=== PATIENT | male | born 1965 | race Caucasian/White ===

== ENCOUNTER → 2018-01-30 08:30 | Outpatient (CLI) | payer OTHER, SELFPAY ==
[2018-01-30 10:34] LABS: Thyroid Stim Hormone (TSH) 2.42 uIU/mL (0.358-3.74)
== END ==
PROVIDERS: Family Provider Family Medicine; PCP Family Medicine; Visit Provider Family Medicine
DX: E03.9 Hypothyroidism, unspecified (principal); R53.81 Other malaise; R53.83 Other fatigue
CPT/HCPCS: 36415; 84403; 84443

== ENCOUNTER → 2018-02-10 08:28 | Outpatient (CLI) | payer OTHER, SELFPAY ==
--- NOTE | 2018-02-10 08:31 | RAD_ITS ---
STUDY: X-RAY CHEST REASON FOR EXAM: Male, 52 years old. Cough, chest congestion and fever for one week. TECHNIQUE: PA and lateral views of the chest. COMPARISON: Comparison is made with prior study dated September 08, 2012. FINDINGS: Stable elevation of the right hemidiaphragm. Mild increased markings at the right lung base most likely within the right middle lobe. Early infiltration be ruled out. Follow-up is recommended. There is no demonstrated pleural abnormality. Normal size heart. Normal mediastinum and chung. Normal visualized pulmonary arteries. Normal visualized aortic arch and descending thoracic aorta. There are diffuse degenerative changes of the visualized thoracic spine. Normal visualized ribs, clavicles, and shoulders. There is no demonstrated abnormality of the visualized soft tissue structures of the upper abdomen. RAD/Chest PA and Lateral IMPRESSION: Findings suggestive of early infiltrate in the right middle lobe. Follow-up is recommended. Electronically Signed: Landry Pratt MD at 8:51 EDT Tel [phone], Service support ,
== END ==
PROVIDERS: Family Provider Family Medicine; PCP Family Medicine; Visit Provider Physician Assistant Surgical
DX: R09.89 Other specified symptoms and signs involving the circulatory and respiratory systems (principal)
CPT/HCPCS: 71046

== ENCOUNTER → 2018-04-28 06:01 | Outpatient (CLI) | payer OTHER, SELFPAY ==
[2018-04-28 07:32] LABS: Microalbumin,Random Urine 8.5 mg/L (NO RANGE EST.); Microalbumin:Creatinine Ratio 9.6 mg/g CRE (<30 mg/g CRE)
[2018-04-28 07:43] LABS: AST(SGOT) 27 U/L (15-37); Alanine Aminotransfer ALT/SGPT 44 U/L (16-61); Albumin, Serum 3.7 g/dL (3.2-5.0); Alkaline Phosphatase 51 U/L (45-117); Anion Gap 11 (5-15); BUN 16 mg/dL (7-18); BUN/Creat Ratio 14.8 RATIO (10-20); Bilirubin, Direct 0.08 mg/dL (0.00-0.30); Calcium,Total 9.1 mg/dL (8.5-10.1); Chloride 102 mmol/L (98-107); Cholesterol 208 mg/dL (200); Creatinine, Serum 1.08 mg/dL (0.70-1.30); EST Glomerular Filtration Rate 76 mL/min (>60); Est Glom Filt Rate - Afr Amer 93 mL/min (>60); Free T3 2.7 pg/mL (2.18-3.98); Glucose 152 mg/dL (74-106); High Density Lipoprotein 35 mg/dL; Potassium 3.9 mmol/L (3.5-5.1); Protein, Total 7.7 g/dL (6.4-8.2); Sodium Level 139 mmol/L (136-145); T4 Total, Thyroxin 11.2 ug/dL (4.5-12.1); Thyroid Stim Hormone (TSH) 3.95 uIU/mL (0.358-3.74); Triglycerides 603 mg/dL
== END ==
PROVIDERS: Family Provider Family Medicine; PCP Family Medicine; Visit Provider Family Medicine
DX: E03.9 Hypothyroidism, unspecified (principal); R79.89 Other specified abnormal findings of blood chemistry; E11.9 Type 2 diabetes mellitus without complications
CPT/HCPCS: 36415; 80048; 80061; 80076; 82043; 82570; 84403; 84436; 84443; 84481

== ENCOUNTER → 2018-07-20 08:41 | Outpatient (CLI) | payer OTHER, SELFPAY ==
[2018-07-20 10:57] LABS: Anion Gap 10 (5-15); BUN 20 mg/dL (7-18); BUN/Creat Ratio 20.6 RATIO (10-20); Calcium,Total 9.3 mg/dL (8.5-10.1); Chloride 100 mmol/L (98-107); Creatinine, Serum 0.97 mg/dL (0.70-1.30); EST Glomerular Filtration Rate 87 mL/min (>60); Est Glom Filt Rate - Afr Amer 105 mL/min (>60); Glucose 150 mg/dL (74-106); Potassium 4.1 mmol/L (3.5-5.1); Sodium Level 133 mmol/L (136-145); Thyroid Stim Hormone (TSH) 4.65 uIU/mL (0.358-3.74)
[2018-07-20 11:00] LABS: Microalbumin,Random Urine 6.9 mg/L (NO RANGE EST.); Microalbumin:Creatinine Ratio 13.5 mg/g CRE (<30 mg/g CRE)
== END ==
PROVIDERS: Family Provider Family Medicine; PCP Family Medicine; Visit Provider Family Medicine
DX: E11.9 Type 2 diabetes mellitus without complications (principal); E03.9 Hypothyroidism, unspecified; R79.89 Other specified abnormal findings of blood chemistry
CPT/HCPCS: 36415; 80048; 82043; 82570; 84403; 84443

== ENCOUNTER 2018-10-13 08:34 | Day surgery (SDC) | payer OTHER, SELFPAY ==
[2018-10-13 09:06] VITALS: BP 128/73; PULSE 80; RESP 16; TEMP 36.8; O2SAT 95; BMI 40.0
[2018-10-13 09:16] LABS: Bedside Glucose 145 mg/dL (70-110)
--- NOTE | 2018-10-13 10:06 | PCM.HP.STD ---
Problem List (1) Screening for intestinal cancer Status: Acute History of Present Illness Date of Admission: 10/13/18 The patient is a 53 year old M who presents for a screening colonoscopy. He denies any symptoms. No bright red blood per rectum or melena. He has not had a previous exam. No family history of colon cancer. He is diabetic. He otherwise enjoys a stable degree of health. BMI is 40 Past Medical History Past Medical History (Chronic Problems): Chronic Problems (Last Updated 02/10/18 @ 08:19 by Lulú Devries) Obesity (Chronic) Hyperlipidemia (Chronic) DM type 2 (diabetes mellitus, type 2) (Chronic) Benign hypertension (Chronic) Medical History: Medical History (Last Updated 02/10/18 @ 08:19 by Lulú Devries) Diabetes E11.9 HTN (hypertension) I10 Allergies Penicillins Allergy (Verified 10/12/18 09:36) Unknown Home Medications: Ambulatory Orders Medication Instructions Recorded Levothyroxine [Synthroid] 100 mcg PO DAILY 10/18/17 Metformin HCl [Metformin HCl ER] 1,000 mg PO BID 10/18/17 insulin glargine (U-100) 100 40 unit SC QHS 02/10/18 unit/mL (3 mL) subcutaneous pen telmisartan 80 1 tab PO DAILY tab 02/10/18 mg-hydrochlorothiazide 25 mg tablet Canagliflozin [Invokana] 300 mg PO DAILY 10/12/18 Rosuvastatin Calcium [Crestor] 20 mg PO QHS 10/12/18 Testosterone [Androgel] 81 mg TOPICAL DAILY 10/12/18 Surgical History: Surgical History (Last Updated 02/10/18 @ 08:19 by Lulú Devries) History of surgery on arm Z98.890 Repair torn L distal bicep tendon Surgical History: appendectomy, cholecystectomy Smoking Status: Former smoker Tobacco Use: Non-smoker Review of Systems Constitutional: Denies: Anorexia HEENT: Denies: Difficulty Swallowing Cardiovascular: Denies: Chest Pain Respiratory: Denies: Cough Gastrointestinal: Denies: Abdominal Pain, Melena, Vomiting Psychiatric: Denies: Anxiety Endocrine: Denies: Change in Body Habitus VTE Information - Inpt Only VTE Present on Admission: No Patient Problems: Active and Suspected Problems (Last Updated 02/10/18 @ 08:19 by Lulú Devries) Screening for intestinal cancer (Acute) - Physical Exam General: Alert, Oriented x3, Cooperative HEENT: Atraumatic Oral: Moist Mucosa Neck: Supple Lungs: Clear to auscultation Cardiovascular: Regular rate, Regular Rhythm Abdomen: Bowel Sounds Present, Soft, Non Tender Extremities: No clubbing Neurological: Cranial nerves II-XII grossly intact Psych/Mental Status: Normal Affect Vital Signs Temp Pulse Resp BP Pulse Ox 98.2 F 80 16 128/73 H 95 10/13/18 09:06 10/13/18 09:06 10/13/18 09:06 10/13/18 09:06 10/13/18 09:06 Oxygen Delivery Method Room Air Weight: 294 lb 15.656 oz Body Mass Index (BMI) 40.0 Finger Stick Blood Glucose 177 POC Glucose 10/13/18 09:04 POC Glucose 145 H Assessment/Plan All Active Problems (Last Updated 02/10/18 @ 08:19 by Lulú Devries) Screening for intestinal cancer (Acute) Right middle lobe pneumonia (Acute) Chest congestion (Acute) I recommend to the patient is screening colonoscopy with possible biopsy or polypectomy as indicated. He is aware of the technique, benefits, risks and alternatives. He presents via our open access program. We will proceed as noted. Koko Woods M.D., F.A.C.S.
[2018-10-13 10:18] VITALS: BP 130/80; BP 131/59; BP 94/63; O2SAT 95; O2SAT 99
[2018-10-13 10:29] VITALS: BP 101/49; BP 103/52; BP 128/73; BP 85/50; PULSE 77; RESP 16; TEMP 37.1; O2SAT 94; O2SAT 95; O2SAT 96
--- NOTE | 2018-10-13 10:31 | OP.ENDO_ITS ---
Patient Name: Luis Enrique Campbell Procedure Date: 10/13/2018 10:03 AM Date of : 1965 Age: 53 Procedure: Colonoscopy Indications: Screening for colorectal malignant neoplasm Providers: Koko Woods MD Referring MD: Dylan Frazier MD Medicines: Midazolam 4.5 mg IV, Meperidine 150 mg IV Patient Profile: Last Colonoscopy: none. The patient's first colonoscopy is today. Complications: No immediate complications. Procedure: Pre-Anesthesia Assessment: - Prior to the procedure, a History and Physical was performed, and patient medications and allergies were reviewed. The patient's tolerance of previous anesthesia was also reviewed. The risks and benefits of the procedure and the sedation options and risks were discussed with the patient. All questions were answered, and informed consent was obtained. Prior Anticoagulants: The patient has taken no previous anticoagulant or antiplatelet agents. ASA Grade Assessment: II - A patient with mild systemic disease. After reviewing the risks and benefits, the patient was deemed in satisfactory condition to undergo the procedure. After I obtained informed consent, the scope was passed under direct vision. Throughout the procedure, the patient's blood pressure, pulse, and oxygen saturations were monitored continuously. The colonoscope was introduced through the anus and advanced to the cecum, identified by appendiceal orifice and ileocecal valve. The colonoscopy was performed without difficulty. The patient tolerated the procedure well. The quality of the bowel preparation was good. The ileocecal valve and the appendiceal orifice were photographed. Moderate Sedation: Moderate (conscious) sedation was personally administered by the endoscopist. The following parameters were monitored: oxygen saturation, heart rate, blood pressure, and response to care. Total physician intraservice time was 15 minutes. Scope In: 10:14:09 AM Scope Withdrawal Time 0 hours 8 minutes 17 seconds Scope Out: 10:27:07 AM Total Procedure Duration Time 0 hours 12 minutes 58 seconds Findings: The digital rectal exam findings include non-thrombosed external hemorrhoids, non-thrombosed internal hemorrhoids and internal hemorrhoids that prolapse with straining, but spontaneously regress to the resting position (Grade II). Pertinent negatives include normal prostate (size, shape, and consistency). Scattered diverticula were found in the sigmoid colon. The exam was otherwise without abnormality. Impression: - Non-thrombosed external hemorrhoids, non-thrombosed internal hemorrhoids and internal hemorrhoids that prolapse with straining, but spontaneously regress to the resting position (Grade II) found on digital rectal exam. - Diverticulosis in the sigmoid colon. - The examination was otherwise normal. - No specimens collected. Recommendation: - Discharge patient to home (ambulatory). - Resume previous diet. - Continue present medications. - Repeat colonoscopy in 10 years for screening purposes. Procedure Code(s): --- Professional --- 54743, Colonoscopy, flexible; diagnostic, including collection of specimen(s) by brushing or washing, when performed (separate procedure) 89510, 59, Moderate sedation services provided by the same physician or other qualified health child care associate performing the diagnostic or therapeutic service that the sedation supports, requiring the presence of an independent trained observer to assist in the monitoring of the patient's level of consciousness and physiological status; initial 15 minutes of intraservice time, patient age 5 years or older Diagnosis Code(s): --- Professional --- Z12.11, Encounter for screening for malignant neoplasm of colon K64.1, Second degree hemorrhoids K64.4, Residual hemorrhoidal skin tags K57.30, Diverticulosis of large intestine without perforation or abscess without bleeding CPT copyright 2017 [employer]. All rights reserved. The codes documented in this report are preliminary and upon sales account director review may be revised to meet current compliance requirements. Koko Woods MD 10/13/2018 10:31:28 AM This report has been signed electronically. Number of Addenda: 0 Note Initiated On: 10/13/2018 10:03 AM
[2018-10-13 10:35] VITALS: BP 128/73; BP 96/46; PULSE 80; RESP 16; O2SAT 96
[2018-10-13 10:40] VITALS: BP 121/70; BP 128/73; PULSE 80; RESP 18; O2SAT 96
[2018-10-13 10:45] VITALS: BP 118/79; BP 128/73; PULSE 71; RESP 18; TEMP 36.1; O2SAT 96
--- OUTSIDE RECORDS SUMMARY | 2018-11-28 20:33 | XMS RPT_ITS ---
:1965 Author Organization [place] Support Name Relationship Address Phone ERNESTINE ZALDIVAR Unavailable [address] + [address] [place] [address] ALEXIA DAVIES Unavailable Unavailable + [place] [address] UNIT[facility] Unavailable [address] + [place] [address] ZEN, ERNESTINE Unavailable [address] + [address] [place] [address] ALEXIA DAVIES Unavailable Unavailable + [place] [address] UNIT[facility] Unavailable [address] + [place] [address] ZEN, ERNESTINE Unavailable [address] + [address] [place] [address] ALEXIA DAVIES Unavailable Unavailable + [place] [address] UNIT[facility] Unavailable [address] + [place] [address] ZEN, ERNESTINE Unavailable [address] + [place] [address] ALEXIA DAVIES Unavailable unknown + [place] [address] UNIT[facility] Unavailable [address] + [place] [address] ZEN, ERNESTINE Unavailable [address] + [place] [address] ALEXIA DAVIES Unavailable Unavailable + [place] [address] UNIT[facility] Unavailable [address] + [place] [address] ZEN, ERNESTINE Unavailable [address] + [place] [address] STRONG ALEXIA Unavailable Unavailable + [place] [address] UNIT[facility] Unavailable [address] + [place] [address] ZEN, ERNESTINE Unavailable [address] + [place] [address] Strong, Alexia Unavailable . + [place] [address] UNIT[facility] Unavailable [address] + [place] [address] ZEN, ERNESTINE Unavailable [address] + [place] [address] Strong, Alexia Unavailable . + [place] [address] UNIT[facility] Unavailable [address] + [place] [address] ZEN, ERNESTINE Unavailable [address] + [place] [address] Strong, Alexia Unavailable . + [place] [address] UNIT[facility] Unavailable [address] + [place] [address] Care Team Providers Name Role Koko Oliver Attending Unavailable Cebul, Koko Referring Unavailable Frazier, Dylan Primary Care Unavailable CebulKoko Consulting Unavailable Frazier, Dylan Attending Unavailable Frazier, Dylan Primary Care Unavailable Frazier, Dylan Attending Unavailable Frazier, Dylan Primary Care Unavailable Pavel Del Cid Attending Unavailable Frazier, Dylan Referring Unavailable Frazier, Dylan Primary Care Unavailable Pavel Del Cid Attending Unavailable Nehemias, Pavel Referring Unavailable Frazier, Dylan Primary Care Unavailable Frazier, Dylan Attending Unavailable Frazier, Dylan Referring Unavailable Frazier, Dylan Primary Care Unavailable Frazier, Dylan Attending Unavailable Frazier, Dylan Primary Care Unavailable Nurse, Surgery Attending Unavailable Frazier, Dylan Referring Unavailable CebulKoko Attending Unavailable Cebul, Koko Referring Unavailable Frazier, Dylan Primary Care Unavailable PROBLEMS PROBLEMS DATE TYPE CONDITION / CODE ATTENDING STATUS SOURCE 04/28/2018 Unknown E03.9 - Dylan Frazier Active [place] Hypothyroidism, Community unspecified / Hospital E03.9(ICD-10) Repository 04/28/2018 Unknown R79.89 - Other Dylan Frazier specified abnormal Community findings of blood Hospital chemistry / Repository R79.89(ICD-10) 04/28/2018 Unknown E11.9 - Type 2 Dylan Frazier diabetes mellitus Community without Hospital complications / Repository E11.9(ICD-10) 01/30/2018 Unknown R53.81 - Other Dylan Frazier malaise / Community R53.81(ICD-10) Hospital Repository 01/30/2018 Unknown R53.83 - Other Dylan Frazier fatigue / Community R53.83(ICD-10) Hospital Repository PROCEDURES PROCEDURES No Procedure Records FoundRESULTS RESULTS MICROALB:CREAT Collected: 10/26/2018 Status: F Source: [place] JAIME,RANDOM UR 8:38 AM [facility] REPOSITORY TYPE CODE TESTS RESULT OUT OF RANGE REFERENCE UNITS LAB L501.1200 NO RANGE EST. mg/dL Normal UR CREAT 46.80 LAB L502.0500 NO RANGE EST. mg/L Normal 13.2 MICROALBUMIN ,UR LAB L502.0600 <30 mg/g CRE mg/g CRE Normal 28.2 MALB:CREAT Performed By: #### L502.0250 #### [facility] [address] [place], [place], [address] BASIC METABOLIC Collected: 10/26/2018 Status: F Source: [place] PROFILE (BMP) 8:38 AM [facility] REPOSITORY TYPE CODE TESTS RESULT OUT OF RANGE REFERENCE UNITS LAB L501.0100 74-106 mg/dL High GLU 152 Result Comment: Fasting Glucose result greater than or equal to 126 mg/dL suggests DIABETES MELLITUS per A.D.A. criteria. Please note revised GLUCOSE reference range effective 2017. LAB L501.1000 7-18 mg/dL High BUN 19 LAB L501.1100 0.70-1.30 mg/dL Normal CREAT,SERUM 0.88 Result Comment: The validity of the calculated GFR AND GFRAA in patients over 70 years has not been determined. Clinical correlation is essential. LAB L501.1110 >60 mL/min Normal EST GFR 96 Result Comment: Non- GFR Calc LAB L501.1115 >60 mL/min Normal EST GFR - AA 117 Result Comment: GFR Calc LAB L501.1300 10-20 RATIO High BUN/CRE 21.5 LAB L501.2200 8.5-10.1 mg/dL CA Normal 9.0 LAB L501.5300 136-145 mmol/L Low NA 132 LAB L501.5600 3.5-5.1 mmol/L K Normal 3.9 LAB L501.5900 98-107 mmol/L CL Normal 99 LAB L501.6100 21.0-32.0 mmol/L Normal CO2 23.0 LAB L501.6200 5-15 Normal GAP 10 Performed By: #### L500.2500, L500.3400, L500.4100 #### [facility] [address] [place], [place], [id number] LIVER PROFILE Collected: 10/26/2018 Status: F Source: [place] 8:38 AM [facility] REPOSITORY TYPE CODE TESTS RESULT OUT OF RANGE REFERENCE UNITS LAB L501.1500 6.4-8.2 g/dL High T PROT 8.4 LAB L501.1800 3.2-5.0 g/dL Normal ALB 4.3 LAB L501.1950 2.2-4.2 g/dL Normal GLOB 4.1 LAB L501.4100 15-37 U/L Normal AST 22 LAB L501.4305 45-117 U/L Normal ALK P 61 LAB L501.4405 16-61 U/L Normal ALT 42 LAB L501.4600 0.20-1.00 mg/dL Normal T BILI 0.60 LAB L501.4700 0.00-0.30 mg/dL Normal D BILI 0.16 Performed By: #### L500.2500, L500.3400, L500.4100 #### [facility] [address] [place], [address] LIPID PROFILE Collected: 10/26/2018 Status: F Source: [place] 8:38 AM [facility] REPOSITORY TYPE CODE TESTS RESULT OUT OF RANGE REFERENCE UNITS LAB L501.4900 200 mg/dL Normal CHOL 155 Result Comment: <200 mg/dL Desirable 200-240 mg/dL Borderline >240 mg/dL High Risk LAB L501.5000 mg/dL High TRIG 372 Result Comment: The drugs N-Acetylcysteine and Metamizole may falsely depress this assay. Serum Triglycerides Reference Interval Normal <150 mg/dL Borderline high 150 - 199 mg/dL High 200 - 499 mg/dL Very High > or = 500 mg/dL LAB L501.6400 mg/dL Normal HDL 43 Result Comment: The drugs N-Acetylcysteine and Metamizole may falsely depress this assay. Reference Range HDL <40 mg/dL Low HDL Cholesterol HDL >or= 60 mg/dL High HDL Cholesterol LAB L501.6500 0-130 mg/dL Normal LDL 38 LAB L501.6600 5-40 mg/dL High VLDL 74 Performed By: #### L500.2500, L500.3400, L500.4100 #### [facility] [address] [place], [address] TESTOSTERONE, SERUM TOTAL Collected: 10/26/2018 Status: F Source: [place] 8:38 AM [facility] REPOSITORY TYPE CODE TESTS RESULT OUT OF REFERENCE UNITS RANGE LAB L509.3000 ng/dL Testosterone Normal 205.29 Result Comment: NORMAL REFERENCE RANGES MALE AGE <50 123.06 - 813.86 ng/dL MALE AGE >50 89.98 - 780.10 ng/dL FEMALE PREMENOPAUSE AGE 21 - 60 9.01 - 47.94 ng/dL FEMALE POSTMENOPAUSE AGE 45 - 89 <7.00 - 45.62 ng/dL REFERENCE RANGE AND METHODOLOGY CHANGED 10/19/2017 Performed By: #### L509.3000 #### [facility] [address] [place], [address] OPERATIVE REPORT - Observed: 10/13/2018 Status: F Source: [place] ENDOSCOPY 10:31 AM [facility] REPOSITORY [facility] Medical Records Department [address] [place] [address] Operative Report - Endoscopy MR#: [id number] Acct: [id number] Name: KELVIN ZALDIVAR Rep #: [id number] : 1965 53 From: Koko Woods MD PCP: Dylan Frazier MD Status: [facility] Patient Name: Kelvin Zaldivar Procedure Date: 10/13/2018 10:03 AM Date of : 1965 Age: 53 Procedure: Colonoscopy Indications: Screening for colorectal malignant neoplasm Providers: Koko Woods MD Referring MD: Dylan Frazier MD Medicines: Midazolam 4.5 mg IV, Meperidine 150 mg IV Patient Profile: Last Colonoscopy: none. The patient's first colonoscopy is today. Complications: No immediate complications. Procedure: Pre-Anesthesia Assessment: - Prior to the procedure, a History and Physical was performed, and patient medications and allergies were reviewed. The patient's tolerance of previous anesthesia was also reviewed. The risks and benefits of the procedure and the sedation options and risks were discussed with the patient. All questions were answered, and informed consent was obtained. Prior Anticoagulants: The patient has taken no previous anticoagulant or antiplatelet agents. ASA Grade Assessment: II - A patient with mild systemic disease. After reviewing the risks and benefits, the patient was deemed in satisfactory condition to undergo the procedure. After I obtained informed consent, the scope was passed under direct vision. Throughout the procedure, the patient's blood pressure, pulse, and oxygen saturations were monitored continuously. The colonoscope was introduced through the anus and advanced to the cecum, identified by appendiceal orifice and ileocecal valve. The colonoscopy was performed without difficulty. The patient tolerated the procedure well. The quality of the bowel preparation was good. The ileocecal valve and the appendiceal orifice were photographed. Moderate Sedation: Moderate (conscious) sedation was personally administered by the endoscopist. The following parameters were monitored: oxygen saturation, heart rate, blood pressure, and response to care. Total physician intraservice time was 15 minutes. Scope In: 10:14:09 AM Scope Withdrawal Time 0 hours 8 minutes 17 seconds Scope Out: 10:27:07 AM Total Procedure Duration Time 0 hours 12 minutes 58 seconds Findings: The digital rectal exam findings include non-thrombosed external hemorrhoids, non-thrombosed internal hemorrhoids and internal hemorrhoids that prolapse with straining, but spontaneously regress to the resting position (Grade II). Pertinent negatives include normal prostate (size, shape, and consistency). Scattered diverticula were found in the sigmoid colon. The exam was otherwise without abnormality. Impression: - Non-thrombosed external hemorrhoids, non-thrombosed internal hemorrhoids and internal hemorrhoids that prolapse with straining, but spontaneously regress to the resting position (Grade II) found on digital rectal exam. - Diverticulosis in the sigmoid colon. - The examination was otherwise normal. - No specimens collected. Recommendation: - Discharge patient to home (ambulatory). - Resume previous diet. - Continue present medications. - Repeat colonoscopy in 10 years for screening purposes. Procedure Code(s): --- Professional --- 10004, Colonoscopy, flexible; diagnostic, including collection of specimen(s) by brushing or washing, when performed (separate procedure) 31748, 59, Moderate sedation services provided by the same physician or other qualified health chiropractic care performing the diagnostic or therapeutic service that the sedation supports, requiring the presence of an independent trained observer to assist in the monitoring of the patient's level of consciousness and physiological status; initial 15 minutes of intraservice time, patient age 5 years or older Diagnosis Code(s): --- Professional --- Z12.11, Encounter for screening for malignant neoplasm of colon K64.1, Second degree hemorrhoids K64.4, Residual hemorrhoidal skin tags K57.30, Diverticulosis of large intestine without perforation or abscess without bleeding CPT copyright 2017 [employer]. All rights reserved. The codes documented in this report are preliminary and upon media sales consultant review may be revised to meet current compliance requirements. Koko Woods MD 10/13/2018 10:31:28 AM This report has been signed electronically. Number of Addenda: 0 Note Initiated On: 10/13/2018 10:03 AM 10/13/18 1031 Date Koko Woods MD Cosigner Signature: Date (if indicated) CC: Dylan Frazier MD; Koko Woods MD Date Dictated: 10/13/18 1003 Date Transcribed: Merchandising Assistant: NORMAN Signed HISTORY AND PHYSICAL Observed: 10/13/2018 Status: F Source: [place] EXAM 10:09 AM [facility] REPOSITORY [facility] Medical Records Department [address] [place] [address] History and Physical 10/13/18 1006 MR#: [id number] Acct: [id number] Name: KELVIN ZALDIVAR Rep #: [id number] : 1965 53 From: Koko Woods MD PCP: Dylan Frazier MD Status: [facility] Location: [place] [address] Problem List (1) Screening for intestinal cancer Status: Acute History of Present Illness Date of Admission: 10/13/18 The patient is a 53 year old M who presents for a screening colonoscopy. He denies any symptoms. No bright red blood per rectum or melena. He has not had a previous exam. No family history of colon cancer. He is diabetic. He otherwise enjoys a stable degree of health. BMI is 40 Past Medical History Past Medical History (Chronic Problems): Chronic Problems (Last Updated 02/10/18 @ 08:19 by Lulú Devries) Obesity (Chronic) Hyperlipidemia (Chronic) DM type 2 (diabetes mellitus, type 2) (Chronic) Benign hypertension (Chronic) Medical History: Medical History (Last Updated 02/10/18 @ 08:19 by Lulú Devries) Diabetes E11.9 HTN (hypertension) I10 Allergies Penicillins Allergy (Verified 10/12/18 09:36) Unknown Home Medications: Ambulatory Orders Medication Instructions Recorded Levothyroxine [Synthroid] 100 mcg PO DAILY 10/18/17 Surgical History: Surgical History (Last Updated 02/10/18 @ 08:19 by Lulú Devries) History of surgery on arm Z98.890 Repair torn L distal bicep tendon Surgical History: appendectomy, cholecystectomy Smoking Status: Former smoker Tobacco Use: Non-smoker Review of Systems Constitutional: Denies: Anorexia HEENT: Denies: Difficulty Swallowing Cardiovascular: Denies: Chest Pain Respiratory: Denies: Cough Gastrointestinal: Denies: Abdominal Pain, Melena, Vomiting Psychiatric: Denies: Anxiety Endocrine: Denies: Change in Body Habitus VTE Information - Inpt Only VTE Present on Admission: No Patient Problems: Active and Suspected Problems (Last Updated 02/10/18 @ 08:19 by Lulú Devries) Screening for intestinal cancer (Acute) - Physical Exam General: Alert, Oriented x3, Cooperative HEENT: Atraumatic Oral: Moist Mucosa Neck: Supple Lungs: Clear to auscultation Cardiovascular: Regular rate, Regular Rhythm Abdomen: Bowel Sounds Present, Soft, Non Tender Extremities: No clubbing Neurological: Cranial nerves II-XII grossly intact Psych/Mental Status: Normal Affect Vital Signs Temp Pulse Resp BP Pulse Ox 98.2 F 80 16 128/73 H 95 10/13/18 09:06 10/13/18 09:06 10/13/18 09:06 10/13/18 09:06 10/13/18 09:06 Oxygen Delivery Method Room Air Weight: 294 lb 15.656 oz Body Mass Index (BMI) 40.0 Finger Stick Blood Glucose 177 POC Glucose POC Glucose 145 H Assessment/Plan All Active Problems (Last Updated 02/10/18 @ 08:19 by Lulú Devries) Screening for intestinal cancer (Acute) Right middle lobe pneumonia (Acute) Chest congestion (Acute) I recommend to the patient is screening colonoscopy with possible biopsy or polypectomy as indicated. He is aware of the technique, benefits, risks and alternatives. He presents via our open access program. We will proceed as noted. Koko Woods M.D., F.A.C.S. 10/13/18 1009 <Electronically signed by Koko Woods MD> Date Koko Woods MD Cosigner Signature: Date (if applicable) CC: Dylan Frazier MD; Koko Woods MD Signed BEDSIDE GLUCOSE Collected: 10/13/2018 Status: F Source: [place] 9:04 AM [facility] REPOSITORY TYPE CODE TESTS RESULT OUT OF REFERENCE UNITS RANGE LAB L501.080 70-110 mg/dL High BEDSIDE GLU 145 Result Comment: MANAGEMENT OF PATIENT CARE PER NURSING PROTOCOL Performed By: #### L501.080 #### [facility] Point of Care [address] [address] TESTOSTERONE, SERUM TOTAL Collected: 07/20/2018 Status: F Source: [place] 8:42 AM [facility] REPOSITORY TYPE CODE TESTS RESULT OUT OF REFERENCE UNITS RANGE LAB L509.3000 ng/dL Testosterone Normal 298.22 Result Comment: NORMAL REFERENCE RANGES MALE AGE <50 123.06 - 813.86 ng/dL MALE AGE >50 89.98 - 780.10 ng/dL FEMALE PREMENOPAUSE AGE 21 - 60 9.01 - 47.94 ng/dL FEMALE POSTMENOPAUSE AGE 45 - 89 <7.00 - 45.62 ng/dL REFERENCE RANGE AND METHODOLOGY CHANGED 10/19/2017 Performed By: #### L509.3000 #### [facility] [address] [place], [address] BASIC METABOLIC Collected: 07/20/2018 Status: F Source: [place] PROFILE (BMP) 8:42 AM [facility] REPOSITORY TYPE CODE TESTS RESULT OUT OF RANGE REFERENCE UNITS LAB L501.0100 74-106 mg/dL High GLU 150 Result Comment: Fasting Glucose result greater than or equal to 126 mg/dL suggests DIABETES MELLITUS per A.D.A. criteria. Please note revised GLUCOSE reference range effective 2017. LAB L501.1000 7-18 mg/dL High BUN 20 LAB L501.1100 0.70-1.30 mg/dL Normal CREAT,SERUM 0.97 Result Comment: The validity of the calculated GFR AND GFRAA in patients over 70 years has not been determined. Clinical correlation is essential. LAB L501.1110 >60 mL/min Normal EST GFR 87 Result Comment: Non- GFR Calc LAB L501.1115 >60 mL/min Normal EST GFR - AA 105 Result Comment: GFR Calc LAB L501.1300 10-20 RATIO High BUN/CRE 20.6 LAB L501.2200 8.5-10.1 mg/dL CA Normal 9.3 LAB L501.5300 136-145 mmol/L Low NA 133 LAB L501.5600 3.5-5.1 mmol/L K Normal 4.1 Result Comment: Slight Hemolysis, Result may be falsely increased. LAB L501.5900 98-107 mmol/L Normal CL 100 LAB L501.6100 21.0-32.0 mmol/L Normal CO2 23.0 LAB L501.6200 5-15 Normal GAP 10 Performed By: #### L500.2500, L501.9520 #### [facility] [address] [place], [address] THYROID STIM HORMONE Collected: 07/20/2018 Status: F Source: [place] (TSH) 8:42 AM [facility] REPOSITORY TYPE CODE TESTS RESULT OUT OF RANGE REFERENCE UNITS LAB L501.9520 0.358-3.74 uIU/mL High TSH 4.65 Performed By: #### L500.2500, L501.9520 #### [facility] [address] [place], [address] MICROALB:CREAT Collected: 07/20/2018 Status: F Source: [place] RATIO,RANDOM UR 8:42 AM [facility] REPOSITORY TYPE CODE TESTS RESULT OUT OF RANGE REFERENCE UNITS LAB L501.1200 NO RANGE EST. mg/dL Normal UR CREAT 51.10 LAB L502.0500 NO RANGE EST. mg/L Normal 6.9 MICROALBUMIN ,UR LAB L502.0600 <30 mg/g CRE mg/g CRE Normal 13.5 MALB:CREAT Performed By: #### L502.0250 #### [facility] [address] [place], [address] MICROALB:CREAT Collected: 04/28/2018 Status: F Source: [place] RATIO,RANDOM UR 6:07 AM [facility] REPOSITORY TYPE CODE TESTS RESULT OUT OF RANGE REFERENCE UNITS LAB L501.1200 NO RANGE EST. mg/dL Normal UR CREAT 88.20 LAB L502.0500 NO RANGE EST. mg/L Normal 8.5 MICROALBUMIN ,UR LAB L502.0600 <30 mg/g CRE mg/g CRE Normal 9.6 MALB:CREAT Performed By: #### L502.0250 #### [facility] [address] [place], [address] BASIC METABOLIC Collected: 04/28/2018 Status: F Source: [place] PROFILE (BMP) 6:07 AM [facility] REPOSITORY TYPE CODE TESTS RESULT OUT OF RANGE REFERENCE UNITS LAB L501.0100 74-106 mg/dL High GLU 152 Result Comment: Fasting Glucose result greater than or equal to 126 mg/dL suggests DIABETES MELLITUS per A.D.A. criteria. Please note revised GLUCOSE reference range effective 2017. LAB L501.1000 7-18 mg/dL Normal BUN 16 LAB L501.1100 0.70-1.30 mg/dL Normal CREAT,SERUM 1.08 Result Comment: The validity of the calculated GFR AND GFRAA in patients over 70 years has not been determined. Clinical correlation is essential. LAB L501.1110 >60 mL/min Normal EST GFR 76 Result Comment: Non- GFR Calc LAB L501.1115 >60 mL/min Normal EST GFR - AA 93 Result Comment: GFR Calc LAB L501.1300 10-20 RATIO Normal BUN/CRE 14.8 LAB L501.2200 8.5-10.1 mg/dL CA Normal 9.1 LAB L501.5300 136-145 mmol/L NA Normal 139 LAB L501.5600 3.5-5.1 mmol/L K Normal 3.9 Result Comment: Slight Hemolysis, Result may be falsely increased. LAB L501.5900 98-107 mmol/L Normal CL 102 LAB L501.6100 21.0-32.0 mmol/L Normal CO2 26.0 LAB L501.6200 5-15 Normal GAP 11 Performed By: #### L500.2500, L500.3400, L500.4100, L501.28570, L501.9310, L501.9520 #### [facility] [address] [place], [address] LIVER PROFILE Collected: 04/28/2018 Status: F Source: [place] 6:07 AM [facility] REPOSITORY TYPE CODE TESTS RESULT OUT OF RANGE REFERENCE UNITS LAB L501.1500 6.4-8.2 g/dL Normal T PROT 7.7 LAB L501.1800 3.2-5.0 g/dL Normal ALB 3.7 LAB L501.1950 2.2-4.2 g/dL Normal GLOB 4.0 LAB L501.4100 15-37 U/L Normal AST 27 Result Comment: Slight Hemolysis, Result may be falsely increased. LAB L501.4305 45-117 U/L Normal ALK P 51 LAB L501.4405 16-61 U/L Normal ALT 44 LAB L501.4600 0.20-1.00 mg/dL Normal T BILI 0.40 LAB L501.4700 0.00-0.30 mg/dL Normal D BILI 0.08 Performed By: #### L500.2500, L500.3400, L500.4100, L501.43175, L501.9310, L501.9520 #### [facility] [address] [place], [place], [address] LIPID PROFILE Collected: 04/28/2018 Status: F Source: [place] 6:07 AM [facility] REPOSITORY TYPE CODE TESTS RESULT OUT OF RANGE REFERENCE UNITS LAB L501.4900 200 mg/dL High CHOL 208 Result Comment: <200 mg/dL Desirable 200-240 mg/dL Borderline >240 mg/dL High Risk LAB L501.5000 mg/dL High TRIG 603 Result Comment: The drugs N-Acetylcysteine and Metamizole may falsely depress this assay. TRIGLYCERIDE IS GREATER THAN 400 mg/dL. LDL RESULT IS INVALID AND WILL NOT BE REPORTED. Serum Triglycerides Reference Interval Normal <150 mg/dL Borderline high 150 - 199 mg/dL High 200 - 499 mg/dL Very High > or = 500 mg/dL LAB L501.6400 mg/dL Low HDL 35 Result Comment: The drugs N-Acetylcysteine and Metamizole may falsely depress this assay. Reference Range HDL <40 mg/dL Low HDL Cholesterol HDL >or= 60 mg/dL High HDL Cholesterol LAB L501.6500 0-130 mg/dL Test Normal not performed LDL LAB L501.6600 5-40 mg/dL Test Normal not performed VLDL Performed By: #### L500.2500, L500.3400, L500.4100, L501.41362, L501.9310, L501.9520 #### [facility] [address] [place], [place], [address] FREE T3 Collected: 04/28/2018 Status: F Source: [place] 6:07 AM [facility] REPOSITORY TYPE CODE TESTS RESULT OUT OF RANGE REFERENCE UNITS LAB L501.07444 2.18-3.98 pg/mL Normal FREE T3 2.7 Performed By: #### L500.2500, L500.3400, L500.4100, L501.47221, L501.9310, L501.9520 #### [facility] [address] [place], [address] T4 TOTAL, THYROXIN Collected: 04/28/2018 Status: F Source: [place] 6:07 AM [facility] REPOSITORY TYPE CODE TESTS RESULT OUT OF RANGE REFERENCE UNITS LAB L501.9310 4.5-12.1 ug/dL T4 Normal THYROXIN 11.2 Performed By: #### L500.2500, L500.3400, L500.4100, L501.97128, L501.9310, L501.9520 #### [facility] [address] [place], [address] THYROID STIM HORMONE Collected: 04/28/2018 Status: F Source: [place] (TSH) 6:07 AM [facility] REPOSITORY TYPE CODE TESTS RESULT OUT OF RANGE REFERENCE UNITS LAB L501.9520 0.358-3.74 uIU/mL High TSH 3.95 Performed By: #### L500.2500, L500.3400, L500.4100, L501.16339, L501.9310, L501.9520 #### [facility] [address] [place], [place], [address] TESTOSTERONE, SERUM TOTAL Collected: 04/28/2018 Status: F Source: [place] 6:07 AM [facility] REPOSITORY TYPE CODE TESTS RESULT OUT OF REFERENCE UNITS RANGE LAB L509.3000 ng/dL Testosterone Normal 174.33 Result Comment: NORMAL REFERENCE RANGES MALE AGE <50 123.06 - 813.86 ng/dL MALE AGE >50 89.98 - 780.10 ng/dL FEMALE PREMENOPAUSE AGE 21 - 60 9.01 - 47.94 ng/dL FEMALE POSTMENOPAUSE AGE 45 - 89 <7.00 - 45.62 ng/dL REFERENCE RANGE AND METHODOLOGY CHANGED 10/19/2017 Performed By: #### L509.3000 #### [facility] [address] [place], [place], [address] URGENT CARE VISIT Observed: 02/10/2018 Status: F Source: COMMERCE REPORT 10:01 AM [facility] RE[facility] [address] [place] [address] [address] [place] [address] OFFICE VISIT Date of Service: 02/10/18 MR#: [id number] Acct: [id number] Name: KELVIN ZALDIVAR Rep #: [id number] : 1965 Provider: Pavel WALLACE Age/Sex: 52/M Location: [facility] Status: Signed Intake Vital Signs02/10/18 Height 6 ft 02/10/18 Weight: 298 lb 02/10/18 Body Mass Index (BMI) 40.4 02/10/18 Blood Pressure 134/80 02/10/18 Blood Pressure Location Lt brachial 02/10/18 Blood Pressure Position Sitting Intake Visit Reasons: cold/sinus Is patient in pain?: No Allergies Penicillins Allergy (Verified 02/10/18 08:16) Unknown Medications Levothyroxine [Synthroid] 50 mcg PO DAILY 10/18/17 [History Confirmed 02/10/18] Metformin HCl [Metformin HCl ER] 1,000 mg PO BID 10/18/17 [History Confirmed 02/10/18] albuterol sulfate HFA 90 mcg/actuation aerosol inhaler INHALATION 25 Days #9 02/10/18 [History Confirmed 02/10/18] azithromycin 250 mg tablet PO 5 Days #6 02/10/18 [History Confirmed 02/10/18] dapagliflozin 5 mg tablet 5 mg PO QAM 02/10/18 [History Confirmed 02/10/18] insulin glargine (U-100) 100 unit/mL (3 mL) subcutaneous pen 20 unit SC DAILY 02/10/18 [History Confirmed 02/10/18] levofloxacin 750 mg tablet 750 mg PO Q24H 5 Days #5 tab 02/10/18 [Rx Confirmed 02/10/18] telmisartan 80 mg-hydrochlorothiazide 25 mg tablet 1 tab PO DAILY tab 02/10/18 [History Confirmed 02/10/18] PFSH Medical History Diabetes (Acute) HTN (hypertension) (Chronic) Surgical History History of surgery on arm (Acute) Family History Mother Breast cancer Father Heart disease Social History Smoking Status: Former smoker alcohol intake: never HPI HPI Details: KELVIN ZALDIVAR, is a 52 M who presents to the office today for cough and chest congestion for the past week. Patient states that the cough and congestion started 1 week ago and worsened until Tuesday morning when he started to have chills and sweats and decreased energy. He did on that day use a telemedicine service and was told that he likely has bronchitis and given a Z-Nicolás and ProAir air. Patient reports that the symptoms have been unchanged since then and is concerned he may have something worse.. He reports his cough has been nonproductive and denies hemoptysis or shortness of breath. He has had no recorded fever however does not have a thermometer at home. He also denies chest pain or irregular heartbeats. No history of pneumonia or asthma. No other associated symptoms or alleviating/aggravating factors. ROS Const Constitutional: Positive for fever(s), excessive sweating, chills and fatigue; no abnormal sleep pattern Resp Respiratory: Positive for cough Cough: Yes non-productive and chest congestion; no hemoptysis, wheezing, shortness of breath or pain with cough Cardio Cardiology: Positive for excessive sweating; no chest pain at rest, chest pain with exertion or shortness of breath Skin Skin: No wounds or lesions Neuro Neurology: No behavioral changes or confusion Psych Psychiatric: No behavioral changes, No confusion, No abnormal sleep pattern Endo Endocrine: Positive for excessive sweating and fatigue Aller/Imm Allergy/Immunologic: No wheezing Exam Const General: cooperative, healthy appearing [facility] Head: normocephalic, atraumatic Ears: hearing grossly normal bilaterally Nose: external nose normal Face and sinus: face symmetric, normal facial exam Mouth: oral mucosae normal Throat: posterior oropharynx normal Eyes General: appearance normal, both eyes and all related structures Pupils: PERRL Resp Effort AND Inspection: normal respiratory effort, symmetric chest movement Auscultation: Left: Clear to Auscultation, Right: Diminished Base Cardio Palpation: normal PMI Rate: regular rate Rhythm: regular rhythm Skin General: no rashes or lesions noted Neuro General: alert, CN's II-XI intact bilaterally Psych Appearance: grossly normal Mental Status: mental status grossly normal Assessment AND Plan Problems 1. Pneumonia of right middle lobe due to infectious organism J18.1 Status Acute Plan Chest x-ray read and interpreted by myself as pneumonia and later confirmed by radiologist with impression of right middle lobe pneumonia. Patient advised to discontinue azithromycin and start on Levaquin as prescribed today. Encouraged to get plenty of rest, drink lots of clear liquids, and use Tylenol or Ibuprofen (unless contraindicated) for fever and comfort. Patient also educated on other symptomatic management techniques. To be seen in 5-7 days days by his PCP or sooner if worsening of symptoms. Patient advised of potential red flags and when appropriate report to the ED. Patient verbalized understanding of all the above. This note was generated with Dumb[employer] dictation software. It may contain incorrect words, spelling, and punctuation that were not noted in checking the note before signing. Orders Orders: Medications New: Coding Level of Care Code Off vis,new,level 4 Diagnoses Pneumonia of right middle lobe due to infectious organism J18.1 Pneumonia type: due to unspecified organism 02/10/18 1001 <Electronically signed by Pavel WALLACE> Date Pavel WALLACE Cosigner Signature: Date (if applicable) CC: CHEST PA AND LATERAL Observed: 02/10/2018 Status: F Source: COMMERCE 8:31 AM [facility] REPOSITORY [facility] Imaging Services [address] [place] [address] Chest PA and Lateral MR#: [id number] Acct: [id number] Name: KELVIN ZALDIVAR Rep #: [id number] : 1965 M 52 From: Landry Pratt MD PCP: Dylan Frazier MD Status: REG CLI Study: Chest PA and Lateral Date of Exam: 02/10/18 Exam# [id number] Ordering Dr: Pavel Del Cid STUDY: X-RAY CHEST REASON FOR EXAM: Male, 52 years old. Cough, chest congestion and fever for one week. TECHNIQUE: PA and lateral views of the chest. COMPARISON: Comparison is made with prior study dated September 08, 2012. FINDINGS: Stable elevation of the right hemidiaphragm. Mild increased markings at the right lung base most likely within the right middle lobe. Early infiltration be ruled out. Follow-up is recommended. There is no demonstrated pleural abnormality. Normal size heart. Normal mediastinum and chung. Normal visualized pulmonary arteries. Normal visualized aortic arch and descending thoracic aorta. There are diffuse degenerative changes of the visualized thoracic spine. Normal visualized ribs, clavicles, and shoulders. There is no demonstrated abnormality of the visualized soft tissue structures of the upper abdomen. RAD/Chest PA and Lateral IMPRESSION: Findings suggestive of early infiltrate in the right middle lobe. Follow-up is recommended. Electronically Signed: Landry Pratt MD at 8:51 EDT Tel [phone], Service support , CC: Pavel WALLACE; Dylan Frazier MD Merchandising Assistant: Signed TESTOSTERONE, SERUM TOTAL Collected: 01/30/2018 Status: F Source: COMMERCE 8:34 AM [facility] REPOSITORY TYPE CODE TESTS RESULT OUT OF REFERENCE UNITS RANGE LAB L509.3000 ng/dL Testosterone Normal 193.99 Result Comment: NORMAL REFERENCE RANGES MALE AGE <50 123.06 - 813.86 ng/dL MALE AGE >50 89.98 - 780.10 ng/dL FEMALE PREMENOPAUSE AGE 21 - 60 9.01 - 47.94 ng/dL FEMALE POSTMENOPAUSE AGE 45 - 89 <7.00 - 45.62 ng/dL REFERENCE RANGE AND METHODOLOGY CHANGED 10/19/2017 Performed By: #### L509.3000 #### [facility] [address], [address] THYROID STIM HORMONE Collected: 01/30/2018 Status: F Source: THAO (TSH) 8:34 AM [facility] REPOSITORY TYPE CODE TESTS RESULT OUT OF RANGE REFERENCE UNITS LAB L501.9520 0.358-3.74 uIU/mL Normal TSH 2.42 Performed By: #### L501.9520 #### [facility] [address] [place], [address] ALLERGIES ALLERGIES DATE TYPE / CODE NAME / CODE REACTION SEVERITY SOURCE 10/12/2018 Drug Penicillins/ Unknown Unknown [facility] Allergy/4160 [id number]( Hospital 37770(SNOMED XNORM) Repository CT) ENCOUNTERS ENCOUNTERS ADMIT/DISCHARGE ACCOUNT ADMITTING ENCOUNTER LOCATION SOURCE NUMBER CLASS 10/26/2018 [id number] Ambulatory Thao Guys 0 [facility] ing:MFPLAB Repository 10/13/2018 [id number] Ambulatory BMSBuilding:B Thao 4 [facility] Repository 10/13/2018/ [id number] Ambulatory Guys Guys 8 5 [facility] ing:ENRoom: Repository AC11 08/03/2018/ [id number] Ambulatory BMSBuilding:B Guys 8 2 [facility] Repository 07/20/2018 [id number] Ambulatory Guys Thao 1 [facility] ing:MFPLAB Repository 04/28/2018 [id number] Ambulatory Thao Guys 2 [facility] ing:LAB Repository 02/10/2018 [id number] Ambulatory Guys Guys 9 [facility] ing:HPRAD Repository 02/10/2018/ [id number] Ambulatory BMSBuilding:B Guys 8 0 [facility] Repository 01/30/2018 [id number] Ambulatory Guys Guys 9 [facility] ing:PLAB Repository PAYERS PAYERS ENCOUNTER GUARANTOR PAYER SUBSCRIBER SOURCE 10/26/2018 KELVIN Phillips Primary Insurance:KEDAR Osuna [id number] [facility] Number: [id number] [id number] Repository [address]Lxg: 330) Date:2893-94-80UI [phone] ( [place]QL[place], [place] [address]MN: CHECK WEBSITE 10/26/2018 Secondary NOT GIVENUNK Thao Insurance:SELF PAY [facility] Number: Effective Repository Date:2018-10-26 10/13/2018 KELVIN Phillips Primary Insurance:MED KELVIN Osuna [id number] [employer] [facility] Number: [id number] [id number] Repository [address]Ddg: (330) Date:1813-46-32CL [phone] () [address]FLBJGMZCP, [place] [address]AN: CHECK WEBSITE 10/13/2018 Secondary NOT GIVENUNK Guys Insurance:SELF PAY [facility] Number: Effective Repository Date:2018-10-13 10/13/2018 KELVIN Phillips Primary Insurance:MED KELVIN Osuna [id number] [employer] DENBYDOB: [facility] Number: [id number] [id number] Repository [address]Txv: (330) Date:7009-87-16OI [phone] () [address]XCRDFPJHE, [place] [address]DY: CHECK WEBSITE 10/13/2018 Secondary NOT GIVENUNK Thao Insurance:SELF PAY [facility] Number: Effective Repository Date:2018-08-03 08/03/2018 KELVIN Phillips Primary Insurance:MED KELVIN Osuna [id number] ALEXIS [employer] DENBYDOB: [facility] Number: [id number], [place] [id number] Repository [address]Yyl: (330) Date:3812-14-36IP [phone] () [address]691FBDTNHOBT, [place] [address]MC: CHECK WEBSITE 08/03/2018 Secondary NOT GIVENUNK Thao Insurance:SELF PAY [facility] Number: Effective Repository Date:2018-08-03 07/20/2018 KELVIN Phillips Primary Insurance:MED KELVIN Osuna [id number] [employer] DENBYDOB: [facility] Number: [id number], [place] [id number] Repository [address]Nsm: (330) Date:0027-19-30VY [phone] () [address]KDTHXXDMY, [place] [address]KD: CHECK WEBSITE 07/20/2018 Secondary NOT GIVENUNK Thao Insurance:SELF PAY [facility] Number: Effective Repository Date:2018-07-20 04/28/2018 KELVIN Phillips Primary Insurance:MED KELVIN Phillips Thao [id number] ALEXIS [employer] [facility]DOB: [facility] Number: [id number], [place] [id number] Repository [address]Nnp: (330) Date:8477-42-81RQ [phone] () 94090ZMOHATNDB, [place] [address]XZ: CHECK WEBSITE 04/28/2018 Secondary NOT GIVENUNK Thao Insurance:SELF PAY [facility] Number: Effective Repository Date:2018-04-28 02/10/2018 KELVIN Phillips Primary Insurance:MED KELVIN Phillips Guys [id number] ALEXIS [employer] DENBYDOB: [facility] Number: [id number], [place] [id number] Repository [address]Nqh: (330) Date:5755-40-32YW [phone] () [address]WCIBXYCDS, [place] [address]YB: CHECK WEBSITE 02/10/2018 Secondary NOT GIVENUNK Guys Insurance:SELF PAY [facility] Number: Effective Repository Date:2018-02-10 02/10/2018 KELVIN Phillips Primary Insurance:MED KELVIN Phillips Guys [id number] ALEXIS [employer] DENBYDOB: [facility] Number: [id number], [place] [id number] Repository [address]Xzz: (330) Date:3468-61-57FA [phone] () [address]URHQIHOPX, [place] [address]PQ: CHECK WEBSITE 02/10/2018 Secondary NOT GIVENUNK Thao Insurance:SELF PAY [facility] Number: Effective Repository Date:2018-02-10 01/30/2018 KELVIN Phillips Primary Insurance:MED KELVIN Phillips Thao [id number] ALEXSI [employer] DENBYDOB: [facility] Number: [id number], [place] [id number] Repository [address]Bai: Date:1835-53-85QR [phone]~330 [address]PCDPXCPIE, [place] - () [address]QE: CHECK WEBSITE 01/30/2018 Secondary NOT GIVENUNK Guys Insurance:SELF PAY [facility]: Effective Repository Date:2018-01-30
== END 2018-10-13 11:27 | disposition home or self-care (01) ==
LOC: EN 08:34 → AC 08:36
PROVIDERS: Family Provider Family Medicine; PCP Family Medicine; Referring Provider Surgery; Visit Provider Surgery
PROC: 0DJD8ZZ Inspection of Lower Intestinal Tract, Via Natural or Artificial Opening Endoscopic (ICD-10-PCS; CPT 45378; principal; 2018-10-13 09:40)
DX: Z12.11 Encounter for screening for malignant neoplasm of colon (principal); K64.1 Second degree hemorrhoids; K57.30 Diverticulosis of large intestine without perforation or abscess without bleeding; E11.9 Type 2 diabetes mellitus without complications; E66.9 Obesity, unspecified; E78.5 Hyperlipidemia, unspecified; I10 Essential (primary) hypertension; Z68.41 Body mass index [BMI] 40.0-44.9, adult; Z79.4 Long term (current) use of insulin; Z79.899 Other long term (current) drug therapy; Z87.891 Personal history of nicotine dependence
CPT/HCPCS: 45378; 82962; 99152; 99153; J7120

== ENCOUNTER → 2018-10-26 08:37 | Outpatient (CLI) | payer OTHER, SELFPAY ==
[2018-10-13 09:06] VITALS: BMI 40.0
[2018-10-26 10:36] LABS: BUN 19 mg/dL (7-18); Creatinine, Serum 0.88 mg/dL (0.70-1.30); Glucose 152 mg/dL (74-106); Microalbumin,Random Urine 13.2 mg/L (NO RANGE EST.); Microalbumin:Creatinine Ratio 28.2 mg/g CRE (<30 mg/g CRE)
[2018-10-26 10:37] LABS: AST(SGOT) 22 U/L (15-37); Alanine Aminotransfer ALT/SGPT 42 U/L (16-61); Albumin, Serum 4.3 g/dL (3.2-5.0); Alkaline Phosphatase 61 U/L (45-117); Anion Gap 10 (5-15); BUN/Creat Ratio 21.5 RATIO (10-20); Bilirubin, Direct 0.16 mg/dL (0.00-0.30); Chloride 99 mmol/L (98-107); Cholesterol 155 mg/dL (200); EST Glomerular Filtration Rate 96 mL/min (>60); Est Glom Filt Rate - Afr Amer 117 mL/min (>60); Globulin 4.1 g/dL (2.2-4.2); High Density Lipoprotein 43 mg/dL; Potassium 3.9 mmol/L (3.5-5.1); Protein, Total 8.4 g/dL (6.4-8.2); Sodium Level 132 mmol/L (136-145); Triglycerides 372 mg/dL; Very Low Density Lipoprotein 74 mg/dL (5-40)
== END ==
PROVIDERS: Family Provider Family Medicine; PCP Family Medicine; Visit Provider Family Medicine
DX: E11.9 Type 2 diabetes mellitus without complications (principal); R79.89 Other specified abnormal findings of blood chemistry
CPT/HCPCS: 36415; 80048; 80061; 80076; 82043; 82570; 84403

== ENCOUNTER → 2019-01-19 08:43 | Outpatient (CLI) | payer OTHER, SELFPAY ==
[2019-01-19 10:19] LABS: Anion Gap 10 (5-15); BUN 10 mg/dL (7-18); BUN/Creat Ratio 10.1 RATIO (10-20); Calcium,Total 8.7 mg/dL (8.5-10.1); Chloride 99 mmol/L (98-107); Cholesterol 104 mg/dL (200); Creatinine, Serum 0.99 mg/dL (0.70-1.30); EST Glomerular Filtration Rate 84 mL/min (>60); Est Glom Filt Rate - Afr Amer 102 mL/min (>60); Glucose 144 mg/dL (74-106); High Density Lipoprotein 38 mg/dL; Sodium Level 137 mmol/L (136-145); Triglycerides 309 mg/dL; Very Low Density Lipoprotein 62 mg/dL (5-40)
== END ==
PROVIDERS: Family Provider Family Medicine; PCP Family Medicine; Referring Provider Family Medicine; Visit Provider Family Medicine
DX: E11.9 Type 2 diabetes mellitus without complications (principal); R79.89 Other specified abnormal findings of blood chemistry
CPT/HCPCS: 36415; 80048; 80061; 84403

== ENCOUNTER → 2019-04-09 | Outpatient (CLI) | payer OTHER, SELFPAY ==
[2019-04-09 10:37] LABS: Anion Gap 11 (5-15); BUN 8 mg/dL (7-18); BUN/Creat Ratio 7.8 RATIO (10-20); Calcium,Total 9.7 mg/dL (8.5-10.1); Chloride 100 mmol/L (98-107); Creatinine, Serum 1.02 mg/dL (0.70-1.30); EST Glomerular Filtration Rate 81 mL/min (>60); Est Glom Filt Rate - Afr Amer 98 mL/min (>60); Glucose 168 mg/dL (74-106); Potassium 4.1 mmol/L (3.5-5.1); Sodium Level 139 mmol/L (136-145); Thyroid Stim Hormone (TSH) 2.13 uIU/mL (0.358-3.74)
== END | disposition home or self-care (01) ==
LOC: MFPLAB 09:00
PROVIDERS: Family Provider Family Medicine; PCP Family Medicine; Visit Provider Family Medicine
DX: R79.89 Other specified abnormal findings of blood chemistry (principal); E03.9 Hypothyroidism, unspecified; E78.5 Hyperlipidemia, unspecified
CPT/HCPCS: 36415; 80048; 84403; 84443

== ENCOUNTER → 2019-10-12 08:31 | Outpatient (CLI) | payer OTHER, SELFPAY ==
[2019-10-12 10:57] LABS: Anion Gap 6 (5-15); BUN 14 mg/dL (7-18); BUN/Creat Ratio 13.6 RATIO (10-20); Calcium,Total 9.3 mg/dL (8.5-10.1); Chloride 99 mmol/L (98-107); Creatinine, Serum 1.03 mg/dL (0.70-1.30); EST Glomerular Filtration Rate 80 mL/min (>60); Est Glom Filt Rate - Afr Amer 97 mL/min (>60); Glucose 140 mg/dL (74-106); Potassium 4.4 mmol/L (3.5-5.1); Sodium Level 134 mmol/L (136-145)
== END ==
PROVIDERS: Family Provider Family Medicine; PCP Family Medicine; Referring Provider Family Medicine; Visit Provider Family Medicine
DX: E03.9 Hypothyroidism, unspecified (principal); E11.9 Type 2 diabetes mellitus without complications
CPT/HCPCS: 36415; 80048; 84443

== ENCOUNTER → 2020-04-11 | Outpatient (CLI) | payer OTHER, SELFPAY ==
[2020-04-11 10:55] LABS: Anion Gap 7 (5-15); BUN 15 mg/dL (7-18); Calcium,Total 9.7 mg/dL (8.5-10.1); Chloride 100 mmol/L (98-107); EST Glomerular Filtration Rate 83 mL/min (>60); Est Glom Filt Rate - Afr Amer 100 mL/min (>60); Free T3 2.6 pg/mL (2.18-3.98); Glucose 161 mg/dL (74-106); Sodium Level 135 mmol/L (136-145); Thyroid Stim Hormone (TSH) 2.75 uIU/mL (0.358-3.74)
== END | disposition home or self-care (01) ==
LOC: MFPLAB 08:32
PROVIDERS: PCP Family Medicine; Visit Provider Family Medicine
DX: E03.9 Hypothyroidism, unspecified (principal); I10 Essential (primary) hypertension
CPT/HCPCS: 36415; 80048; 84443; 84481

== ENCOUNTER → 2021-02-13 12:01 | Outpatient (CLI) | payer OTHER, SELFPAY ==
[2021-02-13 12:07] LABS: Lyme Ab Screen Interpretation REF LAB
[2021-02-16 17:55] LABS: Lyme Scn Total Ab w/Rflx <0.91 ISR (0.00-0.90)
== END ==
PROVIDERS: PCP Family Medicine; Referring Provider Family Medicine; Visit Provider Family Medicine
DX: T14.8XXA Other injury of unspecified body region, initial encounter (principal); W57.XXXA Bitten or stung by nonvenomous insect and other nonvenomous arthropods, initial encounter
CPT/HCPCS: 36415; 86618

== ENCOUNTER → 2021-02-18 15:44 | Outpatient (CLI) | payer OTHER, SELFPAY ==
--- NOTE | 2021-02-18 15:48 | RAD_ITS ---
STUDY: X-RAY - LEFT SHOULDER REASON FOR EXAM: Male, 55 years old. PAIN TECHNIQUE: 4 view(s) of the shoulder. COMPARISON: None. FINDINGS: Normal glenohumeral articulation. Normal acromioclavicular joint. Normal acromion. Normal humeral head and visualized proximal humerus. The soft tissue structures are unremarkable. Normal visualized pulmonary apex. RAD/Shoulder min 2 Views IMPRESSION: Normal x-ray examination of the shoulder. Electronically Signed: Lacho Garcia DO at 20:11 EDT Tel [phone], Service support ,
== END ==
PROVIDERS: PCP Family Medicine; Referring Provider Family Medicine; Visit Provider Family Medicine
DX: M25.512 Pain in left shoulder (principal)
CPT/HCPCS: 73030

== ENCOUNTER → 2021-10-20 16:14 | Outpatient (CLI) | payer OTHER, SELFPAY ==
[2021-10-20 17:47] LABS: Microalbumin,Random Urine 24.6 mg/L (NO RANGE EST.); Microalbumin:Creatinine Ratio 35.2 mg/g CRE (<30 mg/g CRE)
[2021-10-20 17:54] LABS: Vitamin B12 566 pg/mL (211-911); Vitamin D,25 Hydroxy 26.3 ng/mL
[2021-10-20 17:57] LABS: ALB/GLOB Ratio 0.8 RATIO (0.9-2.4); AST(SGOT) 25 U/L (15-37); Alanine Aminotransfer ALT/SGPT 58 U/L (16-61); Albumin, Serum 3.8 g/dL (3.2-5.0); Alkaline Phosphatase 59 U/L (45-117); Anion Gap 9 (5-15); BUN 14 mg/dL (7-18); BUN/Creat Ratio 15.7 RATIO (10-20); Calcium,Total 9.4 mg/dL (8.5-10.1); Chloride 103 mmol/L (98-107); Cholesterol 189 mg/dL (200); Creatinine, Serum 0.89 mg/dL (0.70-1.30); EST Glomerular Filtration Rate 94 mL/min (>60); Est Glom Filt Rate - Afr Amer 114 mL/min (>60); Globulin 4.5 g/dL (2.2-4.2); Glucose 131 mg/dL (74-106); High Density Lipoprotein 39 mg/dL; PSA,Total - Annual Screen 0.43 ng/mL (0.00-4.00); Potassium 3.5 mmol/L (3.5-5.1); Protein, Total 8.3 g/dL (6.4-8.2); Sodium Level 137 mmol/L (136-145); Thyroid Stim Hormone (TSH) 2.32 uIU/mL (0.358-3.74); Triglycerides 301 mg/dL; Very Low Density Lipoprotein 60 mg/dL (5-40)
== END ==
PROVIDERS: PCP Family Medicine; Referring Provider Internal Medicine Endocrinology, Diabetes & Metabolism; Visit Provider Internal Medicine Endocrinology, Diabetes & Metabolism
DX: E11.65 Type 2 diabetes mellitus with hyperglycemia (principal); E78.2 Mixed hyperlipidemia; I10 Essential (primary) hypertension; Z79.4 Long term (current) use of insulin; E55.9 Vitamin D deficiency, unspecified; E03.8 Other specified hypothyroidism; E06.3 Autoimmune thyroiditis; R20.0 Anesthesia of skin; Z12.5 Encounter for screening for malignant neoplasm of prostate; E66.01 Morbid (severe) obesity due to excess calories; Z68.41 Body mass index [BMI] 40.0-44.9, adult
CPT/HCPCS: 36415; 80053; 80061; 82043; 82306; 82570; 82607; 84153; 84439; 84443; G0103

== ENCOUNTER 2021-11-25 14:45 | Outpatient (CLI) | payer OTHER, SELFPAY ==
--- NOTE | 2021-11-25 15:53 | NEURO ---
NCS and/or EMG Patient Report Ordering Doctor: Levy Correa DATE OF SERVICE: 11/25/21 Luis Enrique presents for electrodiagnostic testing of the upper limbs. He has numbness and pain in both hands since July 2021. He has intermittent neck pain. He has a history of diabetes. Electrodiagnostic findings: Right median motor nerve demonstrates prolonged distal latency with normal amplitude and reduced conduction velocity. Left median motor nerve demonstrates normal distal latency and amplitude with reduced conduction velocity. Normal ulnar motor response bilaterally, including conduction across the elbow. Prolonged right median F wave. Prolonged median sensory latency at the wrist, worse on the right side. Prolonged right median palmar latency. Normal ulnar and radial sensory responses. On needle EMG, all muscles tested in the upper limbs showed no evidence of denervation with normal motor unit action potentials Electrodiagnostic impression: This is an abnormal study in the upper limbs 1. Electrodiagnostic findings demonstrate bilateral median mononeuropathy. This is consistent with a moderate to advanced right carpal tunnel syndrome and a mild left carpal tunnel syndrome 2. No electrodiagnostic evidence is noted for cervical radiculopathy.
== END 2021-11-25 23:59 | disposition short-term general hospital (02) ==
LOC: PSN 14:47
PROVIDERS: PCP Family Medicine; Referring Provider Internal Medicine Endocrinology, Diabetes & Metabolism; Visit Provider Internal Medicine Endocrinology, Diabetes & Metabolism
DX: R20.0 Anesthesia of skin (principal); R20.2 Paresthesia of skin
CPT/HCPCS: 95886; 95912

== ENCOUNTER 2021-12-29 05:56 | Outpatient (CLI) | payer OTHER, SELFPAY ==
[2021-12-29 08:06] LABS: Absolute Lymphocyte Count 3.09 X10^3/uL (0.83-4.51); Basophil# 0.02 X10^3/uL; Basophil% 0.2 % (0-1); Eosinophil# 0.32 X10^3/uL; Eosinophils% 3.5 % (0-5); Hematocrit 40.2 % (40-54); Hemoglobin 13.5 g/dL (13.0-16.5); Lymphocyte # 3.09 X10^3/ul (0.83-4.51); Lymphocyte % 33.9 % (19-41); Mean Corp Hgb Conc 33.6 g/dL (32-36); Mean Corpuscular Hgb 28.9 pg (27.0-32.0); Mean Corpuscular Volume 86.1 fL (80-94); Mean Platelet Vol. 11.3 fl (6.2-12.0); Monocyte% 7.7 % (0-10); NRBC Flagged by Analyzer 0 % (0-5); Neutrophil # 4.95 X10^3/uL (2.7-7.7); Neutrophil % 54.4 % (47-70); Platelet Count 268 K/mm3 (150-450); RBC Distribution Width CV 14.1 % (11.6-14.6); RBC Distribution Width SD 43.9 fl (35.1-43.9); Red Blood Count 4.67 M/mm3 (4.6-6.2); White Blood Count 9.1 K/mm3 (4.4-11.0)
[2021-12-29 08:41] LABS: Anion Gap 5 (5-15); BUN 13 mg/dL (7-18); BUN/Creat Ratio 13.4 RATIO (10-20); Calcium,Total 9.7 mg/dL (8.5-10.1); Chloride 102 mmol/L (98-107); Creatinine, Serum 0.97 mg/dL (0.70-1.30); EST Glomerular Filtration Rate 86 mL/min (>60); Est Glom Filt Rate - Afr Amer 104 mL/min (>60); Glucose 87 mg/dL (74-106); Potassium 3.8 mmol/L (3.5-5.1); Sodium Level 136 mmol/L (136-145)
== END 2021-12-29 23:59 | disposition home or self-care (01) ==
PROVIDERS: PCP Family Medicine; Referring Provider Specialist; Visit Provider Specialist
DX: Z01.818 Encounter for other preprocedural examination (principal)
CPT/HCPCS: 36415; 80048; 85025

== ENCOUNTER 2022-01-28 06:00 | Outpatient (CLI) | payer OTHER, SELFPAY ==
[2022-01-28 07:41] LABS: Microalbumin:Creatinine Ratio 23.8 mg/g CRE (<30 mg/g CRE)
== END 2022-01-28 23:59 | disposition home or self-care (01) ==
LOC: LAB 06:01
PROVIDERS: PCP Family Medicine; Visit Provider Internal Medicine Endocrinology, Diabetes & Metabolism
DX: E11.65 Type 2 diabetes mellitus with hyperglycemia (principal); Z79.4 Long term (current) use of insulin
CPT/HCPCS: 82043; 82570

== ENCOUNTER → 2022-05-31 | Outpatient (CLI) | payer OTHER, SELFPAY ==
--- NOTE | 2022-05-31 15:07 | RAD_ITS ---
STUDY: X-RAY - PELVIS AND RIGHT HIP REASON FOR EXAM: Male, 56 years old. PAIN TECHNIQUE: XR Hip Unilateral with Pelvis when performed; 2-3 Views COMPARISON: None. FINDINGS: There is a non-specific bowel gas pattern. Normal visualized soft tissue structures. Normal bilateral iliac wings, sacroiliac joints and visualized sacrum. Normal bilateral superior and inferior pubic rami. Normal pubic symphysis. Normal bilateral ischial tuberosities. Normal visualized femoral head. Normal acetabulum. Normal hip joint. RAD/HIP, UNI W/ Pelvis 2-3 Views IMPRESSION: No acute findings. Electronically Signed: Jordan Norris MD at 16:35 EDT ,
== END | disposition home or self-care (01) ==
PROVIDERS: PCP Family Medicine; Referring Provider Family Medicine; Visit Provider Family Medicine
DX: M25.551 Pain in right hip (principal)
CPT/HCPCS: 73502

== ENCOUNTER 2022-08-25 18:55 | Emergency (ER) | payer OTHER, SELFPAY ==
[2022-08-25 18:57] VITALS: BP 129/86; PULSE 115; RESP 14; TEMP 36.8; O2SAT 94; BMI 46.0
--- NOTE | 2022-08-25 22:44 | RAD_ITS ---
EXAM: XR CHEST, 2 VIEWS CLINICAL INDICATION: bilateral shoulder pain TECHNIQUE: Frontal and lateral views of the chest. This report was created using [employer] report generation technology. COMPARISON: 02/10/2018. FINDINGS: LUNGS AND PLEURAL SPACES: Unremarkable. No consolidation or edema. No pneumothorax. No effusion. HEART: Unremarkable. Cardiac silhouette not enlarged. MEDIASTINUM: Central airways and mediastinal contour are unremarkable. BONES/JOINTS: Exaggeration of the normal thoracic kyphosis with some physiologic wedging of lower thoracic vertebral bodies unchanged since previous exam. SOFT TISSUES: Unremarkable. RAD/Chest PA and Lateral IMPRESSION: 1. No acute cardiopulmonary abnormality. 2. Exaggeration of the normal thoracic kyphosis with some physiologic wedging of lower thoracic vertebral bodies unchanged since previous exam. Electronically Signed: Armando Hinds MD at 0:08 EDT ,
--- NOTE | 2022-08-25 22:44 | EKG12_ITS ---
Test Reason : DYSRHYTHMIA Blood Pressure : / mmHG Vent. Rate : 098 BPM Atrial Rate : 098 BPM P-R Int : 164 ms QRS Dur : 104 ms QT Int : 348 ms P-R-T Axes : 044 067 002 degrees QTc Int : 444 ms Normal sinus rhythm Inferior infarct , age undetermined Abnormal ECG Confirmed by SUSAN WHITING, SUJIT ([id number]), offline editor GERARDO LAURA ([id number]) on 08/27/2022 2:14:39 P M Referred By: RUBIN Confirmed By:GINA DAVIS MD
--- NOTE | 2022-08-25 22:44 | RAD_ITS ---
EXAM: XR PELVIS, 1 OR 2 VIEWS CLINICAL INDICATION: pain, b/l groin TECHNIQUE: Frontal view of the pelvis. This report was created using [employer] report [employer] technology. COMPARISON: None. FINDINGS: BONES/JOINTS: Deformity of the right lesser trochanter may be due to old trauma. Mild bulges of the lateral aspects of the femoral head neck junctions. No displaced fracture. No destructive or sclerotic lesions. Note that overlapping bowel shadows may however obscure fine detail. Sacroiliac joints are unremarkable. No widening of the pubic symphysis. The articular structures are unremarkable. SOFT TISSUES: Unremarkable. No soft tissue swelling or gas. RAD/Pelvis 1 or 2 Views IMPRESSION: 1. Deformity of the right lesser trochanter may be due to old trauma. No acute abnormality. 2. Mild bulges of the lateral aspects of the femoral head neck junctions. 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 Electronically Signed: Armando Hinds MD at 0:07 EDT ,
[2022-08-25 22:46] VITALS: PULSE 101; RESP 16; O2SAT 95
[2022-08-25] MEDS: 0.9% Normal Saline 1,000 ML 1000 ML IV (22:56)
[2022-08-25] MEDS: morphine 8 MG/ML Syringe IV (22:56)
[2022-08-25 23:07] LABS: Bacteria 0 SEEN /hpf (None Seen); Mucous, Urine 0 SEEN /hpf (<or=2+); Red Blood Cells-Urine 0 SEEN /hpf (0-5); Squamous Epithelial Cells - UA 0 SEEN /hpf (0-5)
[2022-08-25 23:09] LABS: Color, Urine Yellow (Yellow); Glucose, Dipstick Normal (Normal); Ketone-Dipstick 5 mg/dl (Negative); Leukocyte Esterase-Dipstick 25 /ul (Negative); Nitrite-Dipstick Negative (Negative); Occult Blood-Urine Negative /ul (Negative); Protein-Dipstick 15 mg/dl (Negative); Specific Gravity, Urine 1.015 (1.002-1.030); Urine Bilirubin Dipstick Negative (Negative); Urine Clarity Clear (Clear); Urine Urobilinogen Normal (Normal); Urine pH 6.5 (5.0 - 8.0)
[2022-08-25 23:13] LABS: Erythrocyte Sedimentation Rate 108 mm/hr (0-20)
[2022-08-25 23:17] LABS: White Blood Cells 0-5 SEEN /hpf (0-5)
[2022-08-25 23:23] LABS: Anion Gap 9 (5-15); BUN 13 mg/dL (7-18); BUN/Creat Ratio 13.7 RATIO (10-20); CPK Total, Creatine Kinase 57 U/L (39-308); Calcium,Total 9.4 mg/dL (8.5-10.1); Chloride 100 mmol/L (98-107); Creatinine, Serum 0.95 mg/dL (0.70-1.30); EST Glomerular Filtration Rate 87 mL/min (>60); Est Glom Filt Rate - Afr Amer 106 mL/min (>60); Estimated Creatinine Clearance 96.43 ml/min; Glucose 190 mg/dL (74-106); Potassium 3.4 mmol/L (3.5-5.1); Sodium Level 133 mmol/L (136-145)
[2022-08-25 23:31] LABS: Absolute Lymphocyte Count 2.45 X10^3/uL (0.83-4.51); Absolute Neutrophil Count 8.6 X10^3/uL (2.0-7.7); Basophil# 0.03 X10^3/uL; Basophil% 0.2 % (0-1); Eosinophil# 0.29 X10^3/uL; Eosinophils% 2.4 % (0-5); Hematocrit 37.3 % (40-54); Hemoglobin 12.5 g/dL (13.0-16.5); Lymphocyte # 2.45 X10^3/ul (0.83-4.51); Lymphocyte % 19.9 % (19-41); Mean Corp Hgb Conc 33.5 g/dL (32-36); Mean Corpuscular Hgb 28.3 pg (27.0-32.0); Mean Corpuscular Volume 84.6 fL (80-94); Mean Platelet Vol. 10.7 fl (6.2-12.0); Monocyte# 0.77 X10^3/uL; Monocyte% 6.3 % (0-10); NRBC Flagged by Analyzer 0 % (0-5); Neutrophil % 69.9 % (47-70); Platelet Count 277 K/mm3 (150-450); RBC Distribution Width CV 14.5 % (11.6-14.6); RBC Distribution Width SD 44.6 fl (35.1-43.9); Red Blood Count 4.41 M/mm3 (4.6-6.2); White Blood Count 12.3 K/mm3 (4.4-11.0)
[2022-08-26] MEDS: HYDROmorphone 1 MG/ML Syringe IV ×2 (00:02→01:15)
[2022-08-26 00:16] VITALS: PULSE 102; RESP 20; O2SAT 98
--- NOTE | 2022-08-26 01:08 | EX.ED.DYSGE1 ---
HPI History of Present Illness Chief Complaint: Other, Pain/Inj Informant: patient Narrative Narrative: Patient is a 56-year-old male with history of insulin-dependent diabetes mellitus, hypertension, hyperlipidemia and obesity presenting with worsening bilateral groin and shoulder pain. Patient notes she had some mild hip pain at the end of April from [employer]. He had x-ray as well as some meloxicam prescribed and slowly got better on its own. Couple weeks ago he had left shoulder pain and was diagnosed in the office by Dr. Mckenzie with left shoulder bursitis. He was on a course of prednisone and his symptoms felt better the first 2 days but then when he tapered down the pain came back but was still bearable. Patient notes that since Tuesday, 3 days ago, his pain is in flared up he is now having pain in his bilateral shoulders, neck and bilateral groin. Denies new injury. Is tried anti-inflammatories, Tylenol, Voltaren gel, heat, ice and even his 's oxycodone with no relief of his symptoms. Denies any numbness or tingling. Does have night sweats but denies any fever. Has lost 24 pounds over the past few months but attributes it to a new diabetic medication. Most the pain is worse with heat. Denies any muscle aches. Denies any fever or other systemic symptoms. No other complaints at this time. 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 Insulin pump titration Numbness and tingling in both hands Numbness of left thumb Presence of insulin pump Home Medications telmisartan 80 mg-hydrochlorothiazide 25 mg tablet 1 tab PO DAILY 02/10/18 [History Last Taken Unknown] rosuvastatin 20 mg tablet (Crestor) 20 mg PO QHS 10/12/18 [History Last Taken Unknown] insulin pump cartridge (Omnipod Insulin Refill) #15 ea 10/01/21 [Rx Last Taken Unknown] levothyroxine 100 mcg tablet 100 mcg PO 01/25/22 [History Last Taken Unknown] Humulin R U-500 (Conc) Insulin 500 unit/mL subcutaneous soln (insulin regular hum U-500 conc) 320 unit (0.64 mL) subcut DAILY #60 mL 04/26/22 [Rx Last Taken Unknown] metformin 1,000 mg tablet 1,000 mg PO BID #180 tabs 06/01/22 [Rx Last Taken Unknown] tirzepatide 10 mg/0.5 mL subcutaneous pen injector 10 mg (0.5 mL) subcut QWEEK #2 mL 08/13/22 [Rx Last Taken Unknown] hydrocodone-acetaminophen 5-325mg 5mg-325mg 1 tab PO Q6H PRN pain 3 days #12 tabs 08/26/22 [Rx Last Taken Unknown] Allergy/AdvReac Type Severity Reaction Status Date / Time Penicillins Allergy Unknown Verified 08/25/22 18:57 Family History Mother Breast cancer Father Heart disease Other Arthritis Hypertension Surgical History History of appendectomy History of surgery on arm Social History Smoking Status: Former smoker alcohol intake: current alcohol intake frequency: 0-2 drinks per day substance use type: does not use what type of physical activity do you participate in: none ROS ROS ED Constitutional Constitutional ED: Reports sweats; Denies chills or fever(s) Eyes Eyes: Denies blurry vision or change in vision ENT ENT ED: Denies rhinorrhea or sore throat Cardiovascular Cardiovascular: Denies chest pain Respiratory/Chest Respiratory/Chest: Denies cough or dyspnea Gastrointestinal Gastrointestinal: Denies abdominal pain, nausea or vomiting Genitourinary Genitourinary ED: Denies dysuria or urinary frequency Musculoskeletal Musculoskeletal: Reports arthralgias and neck pain; Denies back pain or myalgias Integumentary Denies rash Neurologic Neurologic: Denies headache(s), paresthesias or weakness Psychiatric Psychiatric: Denies anxiety Hematologic/Lymphatic Hematologic/Lymphatic: Denies easy bleeding or easy bruising EXAM Physical Exam Const Vital Signs: 08/25/22 18:57 08/25/22 22:46 08/26/22 00:16 Temperature 98.2 F Temperature Source Temporal Pulse Rate 115 H 101 H 102 H Respiratory Rate 14 16 20 H Blood Pressure 129/86 H Blood Pressure Mean 100 Pulse Ox 94 95 98 Oxygen Delivery Method Room Air Room Air Room Air Positive well nourished and well developed General Appearance ED: well developed and NAD HEENT Reports moist mucous membranes Negative for trauma Eyes PERRL and EOMs intact bilaterally Neck no lymphadenopathy and supple Neck Narrative: No nuchal rigidity Chest Wall inspection of chest normal Resp normal respiratory effort and clear to auscultation bilaterally Cardio regular rate, regular rhythm and no murmurs GI normal to inspection, nondistended, normoactive bowel sounds and non-tender Back/Spine no CVA tenderness Cervical Spine: Negative for cervical spine tenderness Thoracic Spine / Upper Back: Negative for thoracic spinal tenderness Lumbar Spine / Lower Back: Negative for lumbar spinal tenderness Extremity Extremity Narrative: No obvious deformity. Decreased range of motion of the bilateral shoulder secondary to pain. Patient's has tenderness palpation of the right shoulder and significant pain with passive AB duction and flexion. No short arc range of motion pain. Slightly increased range of motion of the left shoulder but he continues to have pain with abduction or flexion past 90 degrees. No pain, tenderness or decreased range of motion of the joints distally. Pelvis is stable. No deformity of the lower extremities. Neuro oriented x3, CN's II-XII intact bilaterally and no sensory deficits noted Motor Exam: general weakness; Negative for strength abnormal Psych mental status grossly normal Skin no rashes or lesions noted and no wounds MDM MDM MDM Narrative Medical decision making narrative: Patient is evaluated for groin and shoulder as well as neck pain has been worsening over the past 3 weeks. Patient appears uncomfortable and does have decreased range of motion secondary pain. Vital signs are significant for tachycardia however I suspect this is more secondary to pain and discomfort. He does have a leukocytosis of 12.3 with no obvious source of infection. ESR is elevated at 106 and his CRP is elevated at 142. No significant electrolyte abnormalities and his CK is normal at 57. Urinalysis normal. EKG does not show any acute ischemic changes. I do not think his pain is referred cardiac pain. Glucose is elevated at 190 however patient states has been having poor glucose control since his most recent dose of steroids. Normal anion gap. Chest x-ray does not show any acute process. No signs of pneumothorax, infiltrate or other pulmonary disease pattern that could cause referred pain to his shoulders.. Pelvic x-ray shows no acute fracture which interpreted by myself as well as radiology. Radiology does comment that there is mild bulges of the lateral aspect of the femoral head neck junctions which may cause cam type femoral acetabular impingement. Patient is informed of these findings. I am concerned for polymyalgia rheumatica given longevity of symptoms, girdle pain and elevated inflammatory markers. I am hesitant to give him steroids because of his diabetes. Patient has follow-up with orthopedics tomorrow. He will also follow-up with his primary care doctor for referral to rheumatology. Patient agreeable with this. He is overall well-appearing. He is given IV morphine, and 2 doses of IV Dilaudid. Will be discharged home with a course of Percocet for further pain control. Patient counseled on return precautions. Admission was offered for physical therapy and evaluation for placement however patient states he will try and go home. Patient is given IV fluids in the ER. Discharged home in stable condition. Lab Data Attestation: I reviewed the patient's lab results. Labs: Laboratory Results - last 24 hr 08/25/22 08/25/22 08/25/22 22:45 22:45 22:45 WBC 12.3 H RBC 4.41 L Hgb 12.5 L Hct 37.3 L MCV 84.6 MCH 28.3 MCHC 33.5 RDW Std Deviation 44.6 H RDW Coeff of Imelda 14.5 Plt Count 277 MPV 10.7 Immature Gran % (Auto) 1.300 H Neut % (Auto) 69.9 Lymph % (Auto) 19.9 [place] % (Auto) 6.3 Eos % (Auto) 2.4 Baso % (Auto) 0.2 Absolute Neuts (auto) 8.6 H Absolute Lymphs (auto) 2.45 Nucleated RBC % 0 ESR 108 H Sodium 133 L Potassium 3.4 L Chloride 100 Carbon Dioxide 24.0 Anion Gap 9 BUN 13 Creatinine 0.95 Estim Creat Clear Calc 96.43 Est GFR (MDRD) Af Amer 106 Est GFR (MDRD) Non-Af 87 BUN/Creatinine Ratio 13.7 Glucose 190 H Calcium 9.4 Total Creatine Kinase 57 C-React Prot Ext Range 142.00 H Urine Color Yellow Urine Clarity Clear Urine pH 6.5 Ur Specific [place] 1.015 Urine Protein 15 H Urine Glucose (UA) Normal Urine Ketones 5 H Urine Occult Blood Negative Urine Nitrite Negative Urine Bilirubin Negative Urine Urobilinogen Normal Ur Leukocyte Esterase 25 H Urine RBC 0 SEEN Urine WBC 0-5 SEEN Ur Squamous Epith Cells 0 SEEN Urine Bacteria 0 SEEN Urine Mucus 0 SEEN Radiography Chest X-Ray - ED: 2 View, Read by ED Physician, Read by Radiologist and No Acute Disease Diagnostic Testing: Clinical Impression(s) from Imaging Studies Chest X-Ray 08/25/22 22:44 IMPRESSION: 1. No acute cardiopulmonary abnormality. 2. Exaggeration of the normal thoracic kyphosis with some physiologic wedging of lower thoracic vertebral bodies unchanged since previous exam. Electronically Signed: Armando Hinds MD at 0:08 EDT , Pelvis X-Ray 08/25/22 22:44 IMPRESSION: 1. Deformity of the right lesser trochanter may be due to old trauma. No acute abnormality. 2. Mild bulges of the lateral aspects of the femoral head neck junctions. 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 Electronically Signed: Armando Hinds MD at 0:07 EDT , Rhythm Strip Rhythm Strip: Sinus Rhythm Rate: 98 Ectopy: None EKG Initial EKG: Attestation: I personally reviewed and interpreted this EKG as follows: Interpretation: Sinus Rhythm Comments: Normal sinus rhythm at a rate of 98 Normal axis Normal intervals T wave inversions in lead III and aVF with no reciprocal changes Discharge Plan Triage Chief Complaint: Other, Pain/Inj ED Provider: Loren Cook Dx/Rx/DC Orders Clinical Impression: Acute pain of both shoulders, Bilateral groin pain, CRP elevated, Elevated erythrocyte sedimentation rate Instructions: ED Arthralgia Prescriptions: New hydrocodone-acetaminophen 5-325 mg tablet 1 tab PO Q6H PRN (Reason: pain) 3 Days Qty: 12 0RF No Action levothyroxine 100 mcg tablet 100 mcg PO Label Comments: take 1 tablet by mouth once daily Humulin R U-500 (Conc) Insulin 500 unit/mL solution 320 unit subcut DAILY Qty: 60 3RF telmisartan-hydrochlorothiazid 80-25 mg tablet 1 tab PO DAILY rosuvastatin [Crestor] 20 MG tablet 20 mg PO QHS (DME) Omnipod Classic Pods (Gen 3) Cartridge See Rx Instructions .ROUTE .MEDSUPPLY Qty: 15 5RF Rx Instructions: change every 2 days metformin 1,000 mg tablet 1,000 mg PO BID Qty: 180 3RF tirzepatide 10 mg/0.5 mL pen injector 10 mg subcut QWEEK Qty: 2 4RF Primary Care Provider: Dylan Frazier Referrals: Dylan Frazier MD [Primary Care Provider] - Marybeth Ortega MD [[facility]] - As soon as possible Activity Restrictions/Additional Instructions: Please follow-up with orthopedics as scheduled tomorrow. Return if you develop fever or worsening symptoms. Discussed with your primary care doctor referral to rheumatology as I am concerned that you could have polymyalgia rheumatica given you multiple symptoms and elevated inflammatory markers. Disposition Disposition: Home, Self Care
[2022-08-26 01:48] VITALS: BP 131/89; PULSE 89; RESP 16; O2SAT 99
== END 2022-08-26 01:49 | disposition home or self-care (01) ==
PROVIDERS: Emergency Provider Emergency Medicine; PCP Family Medicine; Visit Provider Emergency Medicine
DX: M25.511 Pain in right shoulder (principal); E11.9 Type 2 diabetes mellitus without complications; E78.5 Hyperlipidemia, unspecified; I10 Essential (primary) hypertension; E66.9 Obesity, unspecified; Z87.891 Personal history of nicotine dependence; R79.82 Elevated C-reactive protein (CRP); M25.512 Pain in left shoulder; R10.2 Pelvic and perineal pain
CPT/HCPCS: 71046; 72170; 80048; 81001; 82550; 85025; 85652; 86140; 93005; 96361; 96374; 96375; 96376; 99285; J7030; A4216

== ENCOUNTER → 2022-09-17 | Outpatient (CLI) | payer OTHER, SELFPAY ==
[2022-09-17 18:02] LABS: Erythrocyte Sedimentation Rate 64 mm/hr (0-20)
[2022-09-17 18:05] LABS: Vitamin D,25 Hydroxy 37.8 ng/mL
[2022-09-17 18:25] LABS: CRP 3.95 mg/L (0.0-3.0); Rheumatoid Factor < 10.0 IU/mL (<15); Thyroid Stim Hormone (TSH) 0.66 uIU/mL (0.358-3.74)
[2022-09-17 18:26] LABS: T4 Free Direct 1.34 ng/dL (0.76-1.46)
[2022-09-20 17:25] LABS: ANTINUCLEAR ANTIBODIES DIRECT Negative (Negative)
== END | disposition home or self-care (01) ==
LOC: MTLAB 15:05
PROVIDERS: Internal Medicine Endocrinology, Diabetes & Metabolism; PCP Family Medicine; Referring Provider Family Medicine; Visit Provider Family Medicine
DX: M19.90 Unspecified osteoarthritis, unspecified site (principal); E03.8 Other specified hypothyroidism; E06.3 Autoimmune thyroiditis; E55.9 Vitamin D deficiency, unspecified
CPT/HCPCS: 36415; 82306; 84439; 84443; 85652; 86038; 86140; 86431

== ENCOUNTER → 2022-10-20 | Outpatient (CLI) | payer OTHER, SELFPAY ==
--- NOTE | 2022-10-20 14:12 | CT_ITS ---
STUDY: CT CHEST, ABDOMEN T PELVIS WITH CONTRAST REASON FOR EXAM: Male, 57 years old. Chest pain. 3 month history of pelvic pain. RADIATION DOSAGE (If Supplied By Facility): CTDIvol = ( 23.48 ) mGy, DLP = ( 2865.45 ) mGycm TECHNIQUE: Transaxial imaging was performed following intravenous administration of Oral and amp; IV Readi-CAT and amp; 100mL Isovue-300. Multiplanar coronal and sagittal images were reformatted. Individualized dose optimization techniques were used for this CT. COMPARISON: No relevant priors. FINDINGS: CHEST The lungs are normal. There is no demonstrated pleural abnormality. There are calcifications of the coronary arteries. Normal mediastinum. Normal hilar regions. Normal unenhanced pulmonary arteries. Normal aorta arch and descending thoracic aorta. Normal osseous structures. ABDOMEN There is decreased attenuation of the liver consistent with steatosis. There are surgical clips in the gallbladder fossa consistent with a prior cholecystectomy. Normal spleen. Normal pancreas. Normal bilateral adrenal glands. Normal right kidney. Normal left kidney. There is gaseous distention due to residual food particles. Normal small intestine. There are multiple colonic diverticula consistent with diverticulosis. The appendix is visualized and appears normal. There is scattered atherosclerotic calcification of the abdominal aorta, without a demonstrated aneurysm. Normal inferior vena cava. Normal retroperitoneum. Normal abdominal wall. There are mild degenerative changes of the visualized lumbar spine. PELVIS There is a 3 mm calculus in the midportion at the base of the bladder suggestive of recently passed ureteral calculus. There is no pelvic fluid. There is no pelvic lymphadenopathy or mass lesion. Normal visualized pelvic arteries. CT/CT Chest, Abd, Pel w/Contrast IMPRESSION: Fatty infiltration of the liver. Gaseous distention. 3 mm calculus in the midportion of the base of the bladder suggestive of recently passed ureteral calculus. Electronically Signed: Landry Pratt MD at 14:54 EST ,
[2022-10-20 14:41] LABS: CREATININE FINGERSTICK 0.9 mg/dL (0.70-1.30); EGFR FINGERSTICK > 60.0000 mL/min (>60)
== END | disposition home or self-care (01) ==
LOC: CT 14:10
PROVIDERS: PCP Family Medicine; Referring Provider Family Medicine; Visit Provider Family Medicine
DX: R07.9 Chest pain, unspecified (principal); E11.9 Type 2 diabetes mellitus without complications; I10 Essential (primary) hypertension
CPT/HCPCS: 71260; 74177; Q9967

== ENCOUNTER → 2022-11-16 | Outpatient (CLI) | payer OTHER, SELFPAY ==
--- NOTE | 2022-11-16 08:09 | NM_ITS ---
CLINICAL: 57-year-old male with history of bilateral shoulder and right hip pain. WHOLE BODY 99m Tc MDP RADIONUCLIDE BONE SCINTIGRAPHY COMPARISON: None available FINDINGS: Following the intravenous administration of 25.0 mCi of 99m Tc MDP, whole body bone images reveal: 1. Increased radiopharmaceutical concentration is noted in the acromioclavicular compartments of both shoulders symmetrically, the sixth thoracic vertebra posteriorly on the right, the fifth lumbar vertebra posteriorly on the left. 2. The remaining skeletal structures are scintigraphically unremarkable with normal-appearing renal images and urinary bladder activity identified. NM/Bone Scan Whole Body IMPRESSION: 1. The increase in radiopharmaceutical defined in the bilateral acromioclavicular compartments of both shoulders, the sixth thoracic and fifth lumbar vertebra are consistent with degenerative arthrosis. 2. No other scintigraphic database are encountered. Electronically Signed: Anastacio Perez, at 21:42 EST ,
== END | disposition home or self-care (01) ==
LOC: NM 08:08
PROVIDERS: PCP Family Medicine; Visit Provider Internal Medicine Rheumatology
DX: M25.50 Pain in unspecified joint (principal)
CPT/HCPCS: 78306; A9503

== ENCOUNTER → 2022-11-19 | Outpatient (CLI) | payer OTHER, SELFPAY ==
[2022-11-19 10:20] LABS: Absolute Lymphocyte Count 2.97 X10^3/uL (0.83-4.51); Absolute Neutrophil Count 14.7 X10^3/uL (2.0-7.7); Basophil# 0.05 X10^3/uL; Basophil% 0.3 % (0-1); Eosinophil# 0.19 X10^3/uL; Hematocrit 40.4 % (40-54); Hemoglobin 13.3 g/dL (13.0-16.5); Lymphocyte # 2.97 X10^3/ul (0.83-4.51); Lymphocyte % 15.6 % (19-41); Mean Corp Hgb Conc 32.9 g/dL (32-36); Mean Corpuscular Hgb 28.9 pg (27.0-32.0); Mean Corpuscular Volume 87.8 fL (80-94); Mean Platelet Vol. 10.4 fl (6.2-12.0); Monocyte# 0.98 X10^3/uL; Monocyte% 5.1 % (0-10); NRBC Flagged by Analyzer 0 % (0-5); Neutrophil # 14.72 X10^3/uL (2.7-7.7); Neutrophil % 77.1 % (47-70); Platelet Count 301 K/mm3 (150-450); RBC Distribution Width CV 17.2 % (11.6-14.6); RBC Distribution Width SD 54.9 fl (35.1-43.9); White Blood Count 19.1 K/mm3 (4.4-11.0)
[2022-11-19 10:53] LABS: Anion Gap 10 (5-15); BUN 13 mg/dL (7-18); BUN/Creat Ratio 13.2 RATIO (10-20); Chloride 95 mmol/L (98-107); Creatinine, Serum 0.98 mg/dL (0.70-1.30); EST Glomerular Filtration Rate 84 mL/min (>60); Est Glom Filt Rate - Afr Amer 101 mL/min (>60); Glucose 127 mg/dL (74-106); Magnesium 1.5 mg/dL (1.6-2.6); Sodium Level 135 mmol/L (136-145)
== END | disposition home or self-care (01) ==
LOC: MFPLAB 08:37
PROVIDERS: PCP Family Medicine; Referring Provider Family Medicine; Visit Provider Family Medicine
DX: M19.90 Unspecified osteoarthritis, unspecified site (principal); R25.2 Cramp and spasm
CPT/HCPCS: 36415; 80048; 83735; 85025

== ENCOUNTER → 2022-11-27 | Outpatient (CLI) | payer OTHER, SELFPAY ==
--- NOTE | 2022-11-27 09:45 | MRI_ITS ---
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 This report was created using [employer] report Scan[employer]out technology. CONTRAST: IV 30ml Clariscan COMPARISON: None. FINDINGS: TENDONS: FLEXORS: Unremarkable. Intact. EXTENSORS/HAMSTRING: Unremarkable. Intact. ABDUCTORS: Unremarkable. Intact. ADDUCTORS: Unremarkable. Intact. ROTATORS: Unremarkable. Intact. MUSCLES: Unremarkable. Normal bulk and signal. FLUID: Unremarkable. No joint effusion. No trochanteric bursitis. LABRUM: Unremarkable. No evidence of a tear on this non-arthrogram exam. CARTILAGE: Unremarkable. Articular cartilage intact. BONES/JOINTS: Unremarkable. No femoral neck fracture. No avascular necrosis of the femoral head. No sacral insufficiency fracture. No bone marrow signal alteration. OTHER SOFT TISSUES: Unremarkable. MRI/Lower Ext Joint Only W/WO Cont IMPRESSION: Unremarkable MRI of the right hip. Electronically Signed: Debra Gibbons MD at 22:27 EST Reading Location ID and State: [id number] / Tel , Service support ,
== END | disposition home or self-care (01) ==
PROVIDERS: PCP Family Medicine; Visit Provider Internal Medicine Rheumatology
DX: M25.551 Pain in right hip (principal)
CPT/HCPCS: 73723; A9575

== ENCOUNTER → 2023-03-03 | Outpatient (CLI) | payer OTHER, SELFPAY ==
[2023-03-03 08:26] LABS: Erythrocyte Sedimentation Rate 36 mm/hr (0-20)
== END | disposition home or self-care (01) ==
LOC: LAB 06:09
PROVIDERS: PCP Family Medicine; Referring Provider Internal Medicine Rheumatology; Visit Provider Internal Medicine Rheumatology
DX: M06.4 Inflammatory polyarthropathy (principal)
CPT/HCPCS: 36415; 85652; 86140

== ENCOUNTER → 2023-04-08 | Outpatient (CLI) | payer OTHER, SELFPAY ==
[2023-04-08 08:48] LABS: Hemoglobin A1c 7.5 % (3.8-5.6)
== END | disposition home or self-care (01) ==
LOC: LAB 06:10
PROVIDERS: PCP Family Medicine; Referring Provider Internal Medicine Endocrinology, Diabetes & Metabolism; Visit Provider Internal Medicine Endocrinology, Diabetes & Metabolism
DX: E11.9 Type 2 diabetes mellitus without complications (principal)
CPT/HCPCS: 36415; 83036

== ENCOUNTER → 2023-04-27 | Outpatient (CLI) | payer OTHER, SELFPAY ==
--- NOTE | 2023-04-27 08:30 | MRI_ITS ---
STUDY: MRI LUMBAR SPINE WITHOUT CONTRAST REASON FOR EXAM: Male, 57 years old. Lumbosacral radiculopathy TECHNIQUE: Standardized fat and water weighted pulse sequences were obtained in the sagittal and axial planes. Noncontrast images obtained. Contrast: No contrast administered COMPARISON: : No relevant prior comparison study available FINDINGS: Vertebral bodies and alignment. 1. Vertebral body height and alignment are maintained. No evidence of marrow edema or occult fracture. 2. Paraspinous soft tissue planes have normal appearance. Normal appearance of the muscular fascial planes of the erector spinae. 3. Normal appearance of the sacrum and sacroiliac joints. 4. Diffusely narrow spinal canal can be seen in setting of congenitally short pedicles. Intervertebral disks levels. T12-L1: Normal endplates. Normal disc height, hydration and morphology. Normal bilateral facet joints. Normal central canal and bilateral lateral recesses. Normal bilateral intervertebral neural foramina. L1-2: Normal endplates. Normal disc height, hydration and morphology. Normal bilateral facet joints. Normal central canal and bilateral lateral recesses. Normal bilateral intervertebral neural foramina. L2-3: Normal endplates. Normal disc height, hydration and morphology. Normal bilateral facet joints. Normal central canal and bilateral lateral recesses. Normal bilateral intervertebral neural foramina. L3-4: No evidence of disc herniation or canal stenosis. There is narrowing of the neural foramina bilaterally with apparent contact with the emerging LEFT L3 nerve root within and lateral to the neural foramen, however no campos nerve root impingement noted.. L4-5: Mild disc desiccation without disc herniation or canal stenosis. Mild foraminal narrowing without campos nerve root impingement. L5-S1: Normal endplates. Normal disc height, hydration and morphology. Normal bilateral facet joints. Normal central canal and bilateral lateral recesses. Normal bilateral intervertebral neural foramina. Spinal cord: Normal appearance of the spinal cord and conus. Conus is located at L1. Cauda equina has normal appearance. No evidence of cord compression or edema. No intramedullary signal abnormality noted. MRI/Spine Lumbar (Routine) IMPRESSION: 1. Diffusely narrow canal which can be seen in the setting of congenitally short pedicles. 2. No evidence of disc herniation or focal canal stenosis or cord compression. 3. Mild disc desiccation at L4-5 without herniation or focal canal stenosis. 4. Mild chronic narrowing of the LEFT neural foramen at L3-4 with mild contact with the emerging L3 nerve root. Electronically Signed: Anastacio Bliss MD at 15:25 EDT ,
== END | disposition home or self-care (01) ==
LOC: MRI 07:57
PROVIDERS: PCP Family Medicine; Referring Provider Nurse Practitioner Acute Care; Visit Provider Nurse Practitioner Acute Care
DX: M47.27 Other spondylosis with radiculopathy, lumbosacral region (principal)
CPT/HCPCS: 72148

== ENCOUNTER → 2023-05-17 | Outpatient (CLI) | payer OTHER, SELFPAY ==
[2023-05-17 06:51] LABS: Erythrocyte Sedimentation Rate 65 mm/hr (0-20)
== END | disposition home or self-care (01) ==
LOC: LAB 06:04
PROVIDERS: PCP Family Medicine; Referring Provider Internal Medicine Rheumatology; Visit Provider Internal Medicine Rheumatology
DX: M06.4 Inflammatory polyarthropathy (principal)
CPT/HCPCS: 36415; 85652; 86140

== ENCOUNTER → 2023-06-08 | Outpatient (CLI) | payer OTHER, SELFPAY ==
[2023-06-08 07:56] LABS: Erythrocyte Sedimentation Rate 42 mm/hr (0-20)
== END | disposition home or self-care (01) ==
LOC: LAB 06:18
PROVIDERS: PCP Family Medicine; Referring Provider Internal Medicine Rheumatology; Visit Provider Internal Medicine Rheumatology
DX: M06.4 Inflammatory polyarthropathy (principal)
CPT/HCPCS: 36415; 85652; 86140

== ENCOUNTER → 2023-07-15 | Outpatient (CLI) | payer OTHER, SELFPAY ==
--- NOTE | 2023-07-15 16:03 | RAD_ITS ---
STUDY: X-RAY CHEST REASON FOR EXAM: Male, 57 years old. cough TECHNIQUE: PA and lateral COMPARISON: August 25, 2022 FINDINGS: Elevated right hemidiaphragm and mild interstitial thickening in the right lower lobe.. There is no demonstrated pleural abnormality. Normal size heart. Normal mediastinum and chung. Normal visualized pulmonary arteries. Normal visualized aortic arch and descending thoracic aorta. Dorsal spine demonstrates degenerative changes. Normal visualized ribs, clavicles, and shoulders. There is no demonstrated abnormality of the visualized soft tissue structures of the upper abdomen. There is no significant change since prior exam RAD/Chest PA and Lateral IMPRESSION: Mild chronic interstitial thickening in the right lower lobe. No acute cardiopulmonary pathology Electronically Signed: Roberto Paez MD at 17:20 EDT ,
== END | disposition home or self-care (01) ==
LOC: MTRAD 16:03
PROVIDERS: PCP Family Medicine; Referring Provider Family Medicine; Visit Provider Family Medicine
DX: R05.3 Chronic cough (principal)
CPT/HCPCS: 71046

== ENCOUNTER → 2023-07-22 | Outpatient (CLI) | payer OTHER, SELFPAY ==
[2023-07-22 08:19] LABS: Cholesterol 110 mg/dL (200); High Density Lipoprotein 35 mg/dL; Triglycerides 236 mg/dL; Very Low Density Lipoprotein 47 mg/dL (5-40)
== END | disposition home or self-care (01) ==
LOC: LAB 05:57
PROVIDERS: PCP Family Medicine; Referring Provider Internal Medicine Endocrinology, Diabetes & Metabolism; Visit Provider Internal Medicine Endocrinology, Diabetes & Metabolism
DX: E78.5 Hyperlipidemia, unspecified (principal)
CPT/HCPCS: 36415; 80061

== ENCOUNTER → 2023-07-27 | Outpatient (CLI) | payer OTHER, SELFPAY ==
[2023-07-27 07:37] LABS: ALB/GLOB Ratio 0.8 RATIO (0.9-2.4); AST(SGOT) 24 U/L (15-37); Alanine Aminotransfer ALT/SGPT 44 U/L (16-61); Albumin, Serum 3.3 g/dL (3.2-5.0); Alkaline Phosphatase 58 U/L (45-117); Anion Gap 7 (5-15); BUN 11 mg/dL (7-18); BUN/Creat Ratio 11.2 RATIO (10-20); Calcium,Total 8.7 mg/dL (8.5-10.1); Chloride 101 mmol/L (98-107); Creatinine, Serum 0.98 mg/dL (0.70-1.30); EST Glomerular Filtration Rate 84 mL/min (>60); Est Glom Filt Rate - Afr Amer 102 mL/min (>60); Glucose 152 mg/dL (74-106); Protein, Total 7.3 g/dL (6.4-8.2); Sodium Level 135 mmol/L (136-145); T4 Free Direct 1.24 ng/dL (0.76-1.46); Thyroid Stim Hormone (TSH) 3.16 uIU/mL (0.358-3.74)
== END | disposition home or self-care (01) ==
LOC: LAB 06:15
PROVIDERS: PCP Family Medicine; Referring Provider Internal Medicine Endocrinology, Diabetes & Metabolism; Visit Provider Internal Medicine Endocrinology, Diabetes & Metabolism
DX: E03.8 Other specified hypothyroidism (principal); E11.9 Type 2 diabetes mellitus without complications; E06.3 Autoimmune thyroiditis
CPT/HCPCS: 36415; 80053; 82533; 84439; 84443

== ENCOUNTER → 2023-08-05 | Outpatient (CLI) | payer OTHER, SELFPAY ==
[2023-08-05 10:31] LABS: Erythrocyte Sedimentation Rate 52 mm/hr (0-20)
--- NOTE | 2023-08-05 15:26 | RAD_ITS ---
STUDY: X-RAY - PELVIS AND RIGHT HIP REASON FOR EXAM: Male, 57 years old. Pain in hip. TECHNIQUE: 3 views of the pelvis and right hip. COMPARISON: Pelvis x-ray dated 08/25/2022. FINDINGS: There is a non-specific bowel gas pattern. Normal visualized soft tissue structures. Normal bilateral iliac wings, sacroiliac joints and visualized sacrum. Normal bilateral superior and inferior pubic rami. Normal pubic symphysis. Normal bilateral ischial tuberosities. Intact visualized femoral head. There is osteoarthritic spur formation of the acetabular rims bilaterally. There is no significant joint space narrowing. There is no demonstrated acute fracture. RAD/HIP, UNI W/ Pelvis 2-3 Views IMPRESSION: Mild degenerative arthrosis of the hip joints bilaterally. No demonstrated acute fracture. Electronically Signed: Andrés Costa MD at 13:10 EDT ,
== END | disposition home or self-care (01) ==
PROVIDERS: PCP Family Medicine; Referring Provider Family Medicine; Visit Provider Family Medicine
DX: M25.851 Other specified joint disorders, right hip (principal); M35.3 Polymyalgia rheumatica
CPT/HCPCS: 36415; 73502; 85652; 86140

== ENCOUNTER → 2023-08-16 | Outpatient (CLI) | payer OTHER, SELFPAY ==
[2023-08-17 15:08] LABS: Angiotensin Convert Enzyme 26 U/L (14-82)
== END | disposition home or self-care (01) ==
LOC: LAB 06:10
PROVIDERS: PCP Family Medicine; Referring Provider Internal Medicine Pulmonary Disease; Visit Provider Internal Medicine Pulmonary Disease
DX: R06.02 Shortness of breath (principal); R05.9 Cough, unspecified
CPT/HCPCS: 36415; 82164

== ENCOUNTER → 2023-10-03 | Outpatient (CLI) | payer OTHER, SELFPAY ==
--- NOTE | 2023-10-03 12:42 | ECHOCS_ITS ---
Reason For Study: BENITA Procedure This was a 2D Doppler, Color Flow transthoracic echocardiogram. The study was technically difficult. Due to body habitus. Contrast injection was performed. Exam performed in department. Left Ventricle Moderate concentric left ventricular hypertrophy. Normal LV size. The left ventricular ejection fraction is 65 %. Normal diastololic function. Right Ventricle Normal RV size. Mild global right ventricular systolic dysfunction. Atria The left atrium is moderately enlarged. Normal right atrium. Mitral Valve The mitral valve is structurally normal. No prolapse or stenosis seen. Tricuspid Valve Normal tricuspid valve. Aortic Valve Trisinus/trileaflet aortic valve. Pulmonic Valve The pulmonic valve is not well visualized. Great Vessels Mildly dilated aortic root. Pericardium/Pleural No pericardial effusion. Medication 22 gauge I.V. with prn adaptor inserted into left arm. Diluted definity 2.0ml given slow IV push to enhance endocardial definition. MMode/2D Measurements & Calculations LVIDd: 5.2 cm IVSd: 1.4 cm Ao root diam: 3.6 cm LVIDs: 3.2 cm LVPWd: 1.2 cm RVDd: 4.0 cm FS: 39.2 % LAV(MOD-bp): 69.2 ml LVAd ap4: 48.6 cm2 LVAd ap2: 33.3 cm2 LAV(MOD-bp) Indexed: 25.3 ml/m2 LVLd ap4: 9.7 cm LVLd ap2: 9.2 cm LAV(MOD-sp2): 70.6 ml EDV(MOD-sp4): 205.4 ml EDV(MOD-sp2): 98.6 ml LAV(MOD-sp4): 67.3 ml EDV(sp4-el): 206.3 ml EDV(sp2-el): 102.0 ml LVAs ap4: 28.6 cm2 LVAs ap2: 17.5 cm2 LVLs ap4: 8.4 cm LVLs ap2: 7.4 cm ESV(MOD-sp4): 81.5 ml ESV(MOD-sp2): 33.8 ml ESV(sp4-el): 82.7 ml ESV(sp2-el): 35.1 ml EF(MOD-sp4): 60.3 % EF(MOD-sp2): 65.8 % EF(sp4-el): 59.9 % SV(MOD-sp4): 123.9 ml SV(MOD-sp2): 64.9 ml SV(sp4-el): 123.6 ml LA A4 area: 21.1 cm2 LA dimension(2D): 4.4 cm RA A4 area: 15.0 cm2 TAPSE: 3.3 cm Time Measurements MV dec time: 0.24 sec Doppler Measurements & Calculations MV E max malik: 106.3 cm/sec Lat Peak E' Malik: 11.8 cm/sec Med Peak E' Malik: 11.0 cm/sec MV A max malik: 83.4 cm/sec E/E' lat: 9.0 E/E' med: 9.7 MV E/A: 1.3 MV V2 max: 87.5 cm/sec MV P1/2t max malik: 87.5 cm/sec Ao V2 max: 149.6 cm/sec MV max P.1 mmHg MV P1/2t: 58.0 msec Ao max P.0 mmHg MV V2 mean: 61.7 cm/sec Ao V2 mean: 108.1 cm/sec MV mean P.7 mmHg MV dec slope: 441.6 cm/sec2 Ao mean P.1 mmHg MV V2 VTI: 20.0 cm MVA(P1/2t): 3.8 cm2 Ao V2 VTI: 28.3 cm AV (velocity ratio): 0.64 LV V1 max: 94.9 cm/sec PA V2 max: 119.1 cm/sec LV V1 max P.6 mmHg PA V2 mean: 83.7 cm/sec LV V1 mean P.8 mmHg LV V1 mean: 62.3 cm/sec LV V1 VTI: 18.1 cm ECHO/Echo Complete W/ Contrast Interpretation Summary Moderate concentric left ventricular hypertrophy. The left ventricular ejection fraction is 65 %. Mild global right ventricular systolic dysfunction. The left atrium is moderately enlarged. Mildly dilated aortic root. The study was technically difficult. Ordering Physician: Koko Christian V Referring Physician: Dylan Frazier Performed By: Leah Dhaliwal RDCS, RVT
== END | disposition home or self-care (01) ==
PROVIDERS: PCP Family Medicine; Referring Provider Internal Medicine Pulmonary Disease; Visit Provider Internal Medicine Pulmonary Disease
DX: R05.9 Cough, unspecified (principal); G47.33 Obstructive sleep apnea (adult) (pediatric); E66.9 Obesity, unspecified
CPT/HCPCS: 93306; Q9957; A4216; C8929

== ENCOUNTER → 2024-03-01 | Outpatient (CLI) | payer OTHER, SELFPAY ==
[2024-03-01 07:37] LABS: T4 Free Direct 1.11 ng/dL (0.76-1.46); Thyroid Stim Hormone (TSH) 5.85 uIU/mL (0.358-3.74)
== END | disposition home or self-care (01) ==
LOC: LAB 06:11
PROVIDERS: PCP Family Medicine; Referring Provider Internal Medicine Endocrinology, Diabetes & Metabolism; Visit Provider Internal Medicine Endocrinology, Diabetes & Metabolism
DX: E03.8 Other specified hypothyroidism (principal); E06.3 Autoimmune thyroiditis
CPT/HCPCS: 36415; 84439; 84443

== ENCOUNTER → 2024-03-07 | Outpatient (CLI) | payer OTHER, SELFPAY ==
--- NOTE | 2024-03-07 15:13 | RAD_ITS ---
STUDY: X-RAY - RIGHT HAND, ATTENTION THUMB FINGER REASON FOR EXAM: Male, 58 years old. TRIGGER FINGER TECHNIQUE: 3 views of the right thumb were obtained. COMPARISON: None. FINDINGS: Intact metacarpal head. There is mild degenerative arthrosis of the first MCP joint. Normal proximal phalanx. Normal distal phalanx. Normal interphalangeal joint of the thumb. There is no demonstrated fracture. RAD/Finger(s) Min 2 Views IMPRESSION: Mild degenerative arthrosis of the first MCP joint. No demonstrated fracture. Electronically Signed: Andrés Costa MD at 9:33 EDT ,
== END | disposition home or self-care (01) ==
LOC: MTRAD 15:10
PROVIDERS: PCP Family Medicine; Referring Provider Family Medicine; Visit Provider Family Medicine
DX: M65.30 Trigger finger, unspecified finger (principal)
CPT/HCPCS: 73140

== ENCOUNTER → 2024-06-04 | Outpatient (CLI) | payer OTHER, SELFPAY ==
[2024-06-04 07:44] LABS: T4 Free Direct 1.04 ng/dL (0.76-1.46); Thyroid Stim Hormone (TSH) 7.81 uIU/mL (0.358-3.74)
[2024-06-05 08:12] LABS: Thyroid Peroxidase AB 163 IU/mL (0-34)
== END | disposition home or self-care (01) ==
LOC: LAB 06:25
PROVIDERS: PCP Family Medicine; Referring Provider Internal Medicine Endocrinology, Diabetes & Metabolism; Visit Provider Internal Medicine Endocrinology, Diabetes & Metabolism
DX: R94.6 Abnormal results of thyroid function studies (principal)
CPT/HCPCS: 36415; 84439; 84443; 86376

== ENCOUNTER → 2024-08-29 | Outpatient (CLI) | payer OTHER, SELFPAY ==
[2024-08-29 18:14] LABS: Anion Gap 6 (5-15); BUN 13 mg/dL (7-18); Calcium,Total 9.6 mg/dL (8.5-10.1); Chloride 100 mmol/L (98-107); Creatinine, Serum 1.08 mg/dL (0.70-1.30); EST Glomerular Filtration Rate 75 mL/min (>60); Est Glom Filt Rate - Afr Amer 90 mL/min (>60); Glucose 128 mg/dL (74-106); Potassium 3.1 mmol/L (3.5-5.1); Sodium Level 134 mmol/L (136-145)
== END | disposition home or self-care (01) ==
LOC: MFPLAB 16:27
PROVIDERS: PCP Family Medicine; Referring Provider Family Medicine; Visit Provider Family Medicine
DX: R30.0 Dysuria (principal)
CPT/HCPCS: 36415; 80048; 84153

== ENCOUNTER → 2024-10-25 | Outpatient (CLI) | payer OTHER, SELFPAY ==
[2024-10-25 08:14] LABS: PSA,Total- Diagnostic 0.91 ng/mL (0.0-4.0)
== END | disposition home or self-care (01) ==
LOC: LAB 07:08
PROVIDERS: PCP Family Medicine; Referring Provider Family Medicine; Visit Provider Family Medicine
DX: R97.20 Elevated prostate specific antigen [PSA] (principal)
CPT/HCPCS: 36415; 84153

== ENCOUNTER → 2025-05-28 | Outpatient (CLI) | payer OTHER, SELFPAY ==
--- OUTSIDE RECORDS SUMMARY | 2025-05-28 06:19 | XMS RPT_ITS | CCD ---
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 Dylan Frazier Primary Care Provider Freddie, Dr. Richardson Referring Provider Dr. Levy Correa Attending Provider Dr. Dylan Frazier Primary Care Provider Freddie, Dr. Richardson Referring Provider Dr. Levy Correa Attending Provider MADISON Ng Attending Provider Freddie, Dr. Richardson Primary Care Provider Freddie, Dr. Richardson Referring Provider Dr. Levy Correa Attending Provider Dr. Dylan Frazier Primary Care Provider Dr. Dylan Frazier Referring Provider Dr. Levy Correa Attending Provider MADISON Vieira Attending Provider Dr. Dylan Frazier Primary Care Provider Dr. Dylan Frazier Referring Provider Dr. Levy Correa Attending Provider Dr. Dylan Frazier Primary Care Provider Dr. Dylan Frazier Referring Provider Dr. Dylan Frazier Primary Care Provider Freddie, Dr. Richardson Referring Provider Dr. Levy Correa Attending Provider Dr. Dylan Frazier Primary Care Provider Dr. Dylan Frazier Referring Provider Dr. Levy Correa Attending Provider DINORA Sanchez Attending Provider Unavailable Freddie WHITING, Dr. Richardson Primary Care Provider Dr. Dylan Frazier MD Referring Provider [phone] Dr. Levy Correa MD Attending Provider Freddie, Dylan Primary Care Unavailable Frazier, Dylan Referring Unavailable Snuny, Levy Attending Unavailable Frazier, Dylan Referring Unavailable , Levy Attending Unavailable Frazier, Dylan Primary Care Unavailable Frazier, Dylan Referring Unavailable , Levy Attending Unavailable Frazier, Dylan Primary Care Unavailable Frazier, Dylan Referring Unavailable Frazier, Dylan Attending Unavailable Frazier, Dylan Primary Care Unavailable Frazier, Dylan Referring Unavailable Frazier, Dylan Attending Unavailable Frazier, Dylan Primary Care Unavailable , Levy Referring Unavailable , Levy Attending Unavailable Frazier, Dylan Primary Care Unavailable Allergies Allergy Classification Reported Allergen(s) Allergy Type Date of Onset Reaction(s) Facility (15 sources) Penicillins Allergy to substance 2 Unknown, Tremor [facility] (1 source) Penicillins Drug allergy (disorder) 5 [facility] Repository Medications Current Medications Medication Drug Class(es) Dates Sig (Normalized) Sig (Original) [id number] 200 actuat albuterol 0.09 mg/actuat metered dose inhaler (4 sources) beta2-Adrenergic Agonist Start: 07-26-2023 Albuterol Sulfate 90 mcg/actuation HFA aerosol inhaler Active 2 NMA INHALATION EVERY 6 HOURS as needed July 26, 2023 12:00am Start: 07-26-2023 take 1 puff(s) by in halation every six hours Albuterol Sulfate Active 2 PUFF INHALATION EVERY 6 HOURS July 26, 2023 12:00am hydroCHLOROthiazide / Losartan (2 sources) Thiazide Diuretic, Angiotensin 2 Receptor Beba Start: 11-28-2023 Losartan-Hydrochlorothiazide 100-25 mg tablet Active 1 {tbl} PO DAILY November 28, 2023 1:00am Start: 11-28-2023 take 1 tablet by pinky th once daily Losartan-Hydrochlorothiazide Active 1 TA BLET PO DAILY November 28, 2023 1:00am 3 ml insulin aspart, human 100 unt/ml pen injector (20 sources) Insulin Analog Start: 11-19-2024 End: 05-14-2025 Insulin Aspart U-100 (Novolog Flexpen U-100 Insulin) 100 unit/mL (3 mL) insulin pen Active 90 U SC TWICE A DAY 162 May 14, 2025 4:26pm Diabetes mellitus 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 Start: 03-14-2024 End: 11-19-2024 Insulin Aspart U-100 (Novolo g Flexpen U-100 Insulin) 100 unit/mL (3 mL) insulin pen Discontinued 80 U SC TWICE A DAY 144 July 09, 2024 4:15pm November 19, 2024 5:07pm Diabetes mellitus 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 Start: 03-02-2024 End: 03-02-2024 Insulin Aspart U-100 (Novolo g Flexpen U-100 Insulin) 100 unit/mL (3 mL) insulin pen Discontinued 40 U SC TWICE A DAY March 02, 2024 12:00am March 02, 2024 5:31pm Start: 08-26-2021 End: 09-28-2021 Insulin Aspart U-100 (Novolo g U-100 Insulin Aspart) 100 unit/mL solution Discontinued 200 U continuous subcutaneous infusion .continuous 180 0 August 26, 2021 1:08pm September 28, 2021 9:07am Start: 06-19-2021 End: 06-19-2021 Insulin Aspart U-100 100 uni t/mL (3 mL) insulin pen Discontinued mL SC June 19, 2021 12:00am June 19, 2021 6:34pm Start: 06-19-2021 End: 09-28-2021 Insulin Aspart U-100 (Novolo g Flexpen U-100 Insulin) 100 unit/mL (3 mL) insulin pen Discontinued 45 U SC THREE TIMES A DAY 120 2 June 19, 2021 12:00am September 28, 2021 9:07am Start: 06-19-2021 End: 06-19-2021 Insulin Aspart U-100 Discont inued ML SC June 19, 2021 12:00am June 19, 2021 6:34pm Insulin Pump Cartridge (Omni pod Insulin Refill) cartridge (17 sources) Start: 10-01-2021 Insulin Pump C artridge (Omnipod Insulin Refill) cartridge Active 0 .ROUTE .MEDSUPPLY October 01, 2021 12:23pm change every 2 days Start: 10-01-2021 End: 12-22-2022 Insulin Pump Cartridge (Omni pod Insulin Refill) cartridge Discontinued 0 .ROUTE .MEDSUPPLY 15 October 01, 2021 1:00am December 22, 2022 3:31pm change every 2 days Start: 10-01-2021 End: 12-22-2022 Insulin Pump Cartridge (Omni pod Insulin Refill) cartridge Discontinued 0 .ROUTE .MEDSUPPLY October 01, 2021 1:00am December 22, 2022 3:31pm change every 2 days Start: 10-01-2021 Insulin Pump C artridge (Omnipod Insulin Refill) cartridge Active 0 .ROUTE .MEDSUPPLY October 01, 2021 12:00am change every 2 days Start: 10-01-2021 Insulin Pump C artridge (Omnipod Insulin Refill) cartridge Active 0 .ROUTE .MEDSUPPLY October 01, 2021 1:00am change every 2 days 3 ml insulin, regular, human 500 unt/ml pen injector (20 sources) Insulin Start: 11-19-2024 End: 05-14-2025 Insulin Regular Hum U-500 Conc (Humulin R U-500 (Conc) Kwikpen) 500 unit/mL (3 mL) insulin pen Active 200 U SC once daily before breakfast 36 May 14, 2025 4:25pm Start: 05-23-2024 End: 11-19-2024 Insulin Regular Hum U-500 Co nc (Humulin R U-500 (Conc) Kwikpen) 500 unit/mL (3 mL) insulin pen Discontinued 170 U SC ONCE 30.6 May 23, 2024 10:04am November 19, 2024 5:07pm Start: 12-27-2023 End: 05-23-2024 inject 170 [IU] by subcutaneous injection once before mealtime, then inject 60 [IU] by subcutaneous injection once before mealtime Insulin Regular Hum U-500 Conc (Humulin R U-500 (Conc) Kwikpen) 500 unit/mL (3 mL) insulin pen Discontinued 0 SC ONCE 42 1 December 27, 2023 1:00am May 23, 2024 10:05am 170 units ac breakfast and 60 units ac lunch subcutaneously once; Start: 04-26-2022 End: 12-27-2023 Insulin Regular Hum U-500 Co nc (Humulin R U-500 (Conc) Insulin) 500 unit/mL solution Discontinued 320 U SC DAILY 60 3 May 09, 2023 8:30am December 27, 2023 1:51pm Start: 03-26-2022 End: 04-26-2022 Insulin Regular Hum U-500 Co nc (Humulin R U-500 (Conc) Insulin) 500 unit/mL solution Discontinued 250 U SC DAILY 45 March 29, 2022 4:35pm April 26, 2022 4:32pm Start: 09-28-2021 End: 03-26-2022 Insulin Regular Hum U-500 Co nc (Humulin R U-500 (Conc) Insulin) 500 unit/mL solution Discontinued 200 U SC DAILY 40 November 12, 2021 4:43pm March 26, 2022 10:23am levothyroxine sodium 0.125 mg oral tablet (20 sources) l-Thyroxine Start: 06-04-2024 End: 05-14-2025 take 1 tablet by mouth once daily Levothyroxine 125 mcg tablet Active 125 ug PO DAILY 90 May 14, 2025 4:26pm Start: 01-25-2022 End: 02-10-2024 Levothyroxine 100 mcg tablet Discontinued 100 ug PO January 25, 2022 12:00am February 10, 2024 2:31pm Start: 10-18-2017 End: 04-26-2022 take 2 tablets by mouth once daily Levothyroxine 50 MCG tablet Discontinued 100 ug PO DAILY October 18, 2017 1:00am April 26, 2022 3:35pm Start: 10-18-2017 End: 04-26-2022 take 100 ug by mouth once daily Levothyroxine Disconti nued 100 MCG PO DAILY October 18, 2017 1:00am April 26, 2022 3:35pm metFORMIN hydrochloride 1000 mg oral tablet (20 sources) Biguanide Start: 06-19-2021 End: 11-19-2024 take 1 tablet by mouth twice daily Metformin 1,000 mg tablet Active 1000 mg PO TWICE A DAY 180 3 November 19, 2024 5:06pm Start: 10-18-2017 End: 06-19-2021 take 1 tablet by mouth twice daily Metformin 1,000 MG tablet,ER katarina.retention 24 hr Discontinued 1000 mg PO TWICE A DAY October 18, 2017 1:00am June 19, 2021 6:36pm Gpkfxjuk-Enl-As-Lycopen-Lute in (Centrum Silver Ultra Men's) 300-600-300 mcg tablet (6 sources) Start: 09-07-2022 take 300-600 tablets by mouth once daily Zpocbpoq-Pcn-Uv-Lycopen-Lutein (Centrum Silver Ultra Men's) 300-600-300 mcg tablet Active 1 TABLET PO DAILY September 07, 2022 1:00am Start: 09-07-2022 take 300-600 tablets by mouth once daily Jlszoozj-Ily-Pg-Lycopen-Lutein (Centrum Silver Ultra Men's) 300-600-300 mcg tablet Active 1 TABLET PO DAILY September 07, 2022 12:00am rosuvastatin calcium 20 mg oral tablet (17 sources) HMG-CoA Reductase Inhibitor Start: 10-12-2018 take 1 tablet by mouth at bedtime Rosuvastatin (Crestor) 20 MG tablet Active 20 mg PO AT BEDTIME October 12, 2018 1:00am Testosterone (17 sources) Androgen Start: 10-12-2018 apply 75 g topically once daily Testosterone (Androgel) 75 GM Gel.Used Car Make Ready Mechanic Active 81 MG TOPICAL DAILY October 12, 2018 10:36am EACH ARM Start: 10-12-2018 End: 04-26-2022 Testosterone (Androgel) 75 G M gel in metered-dose pump Discontinued 81 mg TOPICAL DAILY October 12, 2018 1:00am April 26, 2022 3:36pm EACH ARM Start: 10-12-2018 End: 04-26-2022 Testosterone (Androgel) 75 G M gel in metered-dose pump Discontinued 81 MG TOPICAL DAILY October 12, 2018 12:00am April 26, 2022 2:36pm EACH ARM Start: 10-12-2018 End: 04-26-2022 Testosterone (Androgel) 75 G M gel in metered-dose pump Discontinued 81 MG TOPICAL DAILY October 12, 2018 1:00am April 26, 2022 3:36pm EACH ARM Completed/Discontinued Medications Medication Drug Class(es) Dates Sig (Normalized) Sig (Original) acetaminophen 325 mg / HYDROcodone bitartrate 5 mg oral tablet (20 sources) Opioid Agonist Start: 04-12-2023 End: 11-28-2023 Hydrocodone-Acetami nophen 5-325 mg tablet Discontinued 1 {tbl} PO DAILY as needed 0 April 12, 2023 12:00am November 28, 2023 4:14pm Start: 04-12-2023 End: 11-28-2023 take 1 tablet by mouth once daily Hydrocodone-Acetaminophen Discontinued 1 TABLET PO DAILY April 12, 2023 12:00am November 28, 2023 4:14pm Start: 08-26-2022 End: 12-10-2022 Hydrocodone-Acetaminophen 5- 325 mg tablet Discontinued 1 {tbl} PO EVERY 6 HOURS as needed for pain 12 3 0 August 26, 2022 December 10, 2022 4:19pm Acute pain of both shoulders Inguinal pain of both sides Pain in right shoulder Pain in left shoulder Right lower quadrant pain Left lower quadrant pain Start: 08-26-2022 End: 12-10-2022 take 1 tablet by mouth every six hours Hydrocodone-Acetaminophen Discontinued 1 TABLET PO EVERY 6 HOURS 12 3 August 26, 2022 December 10, 2022 4:19pm azithromycin 250 mg oral tablet (20 sources) Macrolide Antimicrobial Start: 02-13-2023 End: 04-12-2023 Azithromycin (Zithromax Z-Nicolás) 250 mg tablet Discontinued 0 PO .COMPLEX 6 0 February 13, 2023 12:00am April 12, 2023 3:11pm For 250 mg dose pack: take 500 mg today (day 1), then 250 mg for 4 days (days 2-5) PO Start: 09-03-2022 End: 12-10-2022 take 2-5 tablets by mouth once daily Azithromycin 250 mg tablet Discontinued 0 PO .COMPLEX 6 0 September 03, 2022 12:00am December 10, 2022 4:19pm take 500 mg today (day 1), then 250 mg for 4 days (days 2-5) PO baclofen 10 mg oral tablet (2 sources) gamma-Aminobutyric Acid-ergic Agonist Start: 11-28-2023 End: 07-09-2024 take 1 tablet by mouth twice daily Baclofen 10 mg tablet Discontinued 10 mg PO TWICE A DAY November 28, 2023 1:00am July 09, 2024 3:51pm Back pain / Arthritis canagliflozin 300 mg oral tablet (17 sources) Sodium-Glucose Cotransporter 2 Inhibitor Start: 10-12-2018 End: 06-19-2021 take 1 tablet by mouth once daily Canagliflozin (Invokana) 300 MG tablet Discontinued 300 mg PO DAILY October 12, 2018 1:00am June 19, 2021 2:54pm cholecalciferol 0.025 mg oral capsule (20 sources) Vitamin D Start: 04-12-2023 End: 11-19-2024 take 1 capsule by mouth once daily Cholecalciferol (Vitamin D3) 25 mcg (1,000 unit) capsule Discontinued 25 ug PO DAILY April 12, 2023 12:00am November 19, 2024 4:48pm Start: 01-25-2022 End: 04-26-2022 take 1 capsule by mouth once daily Cholecalciferol (Vitamin D3) 50 mcg (2,000 unit) capsule Discontinued 50 ug PO DAILY January 25, 2022 12:00am April 26, 2022 3:35pm 0.5 ml dulaglutide 1.5 mg/ml auto-injector (16 sources) GLP-1 Receptor Agonist Start: 04-26-2022 End: 04-27-2022 Dulaglutide (Trulicity) 0.75 mg/0.5 mL pen injector Discontinued 0.75 mg SC EVERY WEEK 2 0 April 26, 2022 12:00am April 27, 2022 9:19am empagliflozin 10 mg oral tablet (17 sources) Sodium-Glucose Cotransporter 2 Inhibitor Start: 10-18-2017 End: 02-10-2018 take 1 tablet by mouth once daily Empagliflozin 10 MG tablet Discontinued 10 mg PO DAILY October 18, 2017 1:00am February 10, 2018 8:16am esomeprazole 20 mg delayed release oral capsule (14 sources) Proton Pump Inhibitor Start: 09-07-2022 End: 04-12-2023 take 1 capsule by mouth once daily Esomeprazole Magnesium (Nexium) 20 mg capsule,delayed release(DR/EC) Discontinued 20 mg PO DAILY September 07, 2022 1:00am April 12, 2023 3:11pm hydroCHLOROthiazide 25 mg / telmisartan 80 mg oral tablet (20 sources) Thiazide Diuretic, Angiotensin 2 Receptor Beba Start: 10-18-2017 End: 11-28-2023 Telmisartan-[place]more chlorothiazid 80-25 mg tablet Discontinued 1 {tbl} PO DAILY February 10, 2018 8:17am November 28, 2023 4:14pm Start: 10-18-2017 End: 11-28-2023 take 1 tablet by mouth once daily Telmisartan-Hydrochlorothiazid Discontin ued 1 TABLET PO DAILY February 10, 2018 8:17am November 28, 2023 4:14pm icosapent ethyl 1000 mg oral capsule (17 sources) Start: 06-19-2021 End: 04-26-2022 Icosapent Ethyl 1 gram capsu le Discontinued NMA PO June 19, 2021 12:00am April 26, 2022 3:35pm Start: 06-19-2021 End: 04-26-2022 Icosapent Ethyl Discontinued EACH PO June 19, 2021 12:00am April 26, 2022 3:35pm 3 ml insulin glargine 100 unt/ml pen injector (20 sources) Insulin Analog Start: 09-07-2021 End: 04-26-2022 Insulin Glargine (Basaglar Kwikpen U-100 Insulin) 100 unit/mL (3 mL) insulin pen Discontinued 48 U SC EVERY EVENING 45 1 September 07, 2021 1:51pm April 26, 2022 3:35pm Start: 06-19-2021 End: 09-07-2021 Insulin Glargine (Basaglar Kwikpen U-100 Insulin) 100 unit/mL (3 mL) insulin pen Discontinued 90 U SC EVERY EVENING 81 1 June 19, 2021 12:00am September 07, 2021 1:52pm Start: 02-10-2018 End: 06-19-2021 Insulin Glargine 100 unit/mL (3 mL) insulin pen Discontinued 40 U SC AT BEDTIME February 10, 2018 8:16am June 19, 2021 6:34pm Start: 10-18-2017 End: 02-10-2018 inject 20 [IU] by subcutaneous injection once daily Insulin Glargine 100 UNIT/ML insulin pen Discontinued 20 U SQ DAILY October 18, 2017 1:00am February 10, 2018 8:18am 3 ml insulin lispro 200 unt/ml pen injector (3 sources) Insulin Analog Start: 03-14-2024 End: 03-14-2024 Insulin Lispro (Humalog Kwikpen Insulin) 200 unit/mL (3 mL) insulin pen Discontinued 80 U SC .bid lunch and supper 72 March 14, 2024 3:56pm March 14, 2024 9:15pm Diabetes mellitus 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 Start: 03-01-2024 End: 03-14-2024 Insulin Lispro (Humalog Kwik pen Insulin) 200 unit/mL (3 mL) insulin pen Discontinued 40 U SC .bid lunch and supper 36 March 01, 2024 12:00am March 14, 2024 3:57pm Insulin Pump Cart,Auto,Bt-Cn tr (Omnipod 5 G6 Intro Kit (Gen 5)) cartridge (11 sources) Start: 12-02-2022 End: 11-28-2023 Insulin Pump Cart,Auto,Bt-Cn tr (Omnipod 5 G6 Intro Kit (Gen 5)) cartridge Discontinued 0 .Route 1 0 December 02, 2022 1:00am November 28, 2023 4:50pm As directed Start: 12-02-2022 End: 11-28-2023 Insulin Pump Cart,Auto,Bt-Cn tr (Omnipod 5 G6 Intro Kit (Gen 5)) cartridge Discontinued 0 .Route 1 December 02, 2022 1:00am November 28, 2023 4:50pm As directed Start: 12-02-2022 Insulin Pump C art,Auto,Bt-Cntr (Omnipod 5 G6 Intro Kit (Gen 5)) cartridge Active 0 .Route 1 December 02, 2022 1:00am As directed Start: 12-02-2022 Insulin Pump C art,Auto,Bt-Cntr (Omnipod 5 G6 Intro Kit (Gen 5)) cartridge Active 0 .Route 1 December 02, 2022 12:00am As directed Insulin Pump Cart,Automated, Bt (Omnipod 5 G6 Pods (Gen 5)) cartridge (20 sources) Start: 10-17-2023 End: 03-01-2024 Insulin Pump Cart,Automated, Bt (Omnipod 5 G6 Pods (Gen 5)) cartridge Discontinued 0 .Route 45 October 17, 2023 10:32am March 01, 2024 4:11pm Diabetes mellitus Presence of insulin pump Type 2 diabetes mellitus with hyperglycemia detention (current) use of insulin Presence of insulin pump (external) (internal) 1 pod q 2 days Start: 10-17-2023 End: 03-01-2024 Insulin Pump Cart,Automated, Bt (Omnipod 5 G6 Pods (Gen 5)) cartridge Discontinued 0 .Route 45 October 17, 2023 10:32am March 01, 2024 4:11pm 1 pod q 2 days Start: 04-27-2023 End: 10-17-2023 Insulin Pump Cart,Automated, Bt (Omnipod 5 G6 Pods (Gen 5)) cartridge Discontinued 0 .Route 45 April 27, 2023 4:23pm October 17, 2023 10:35am Diabetes mellitus Presence of insulin pump 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 Presence of insulin pump (external) (internal) 1 pod q 2 days Start: 04-27-2023 End: 10-17-2023 Insulin Pump Cart,Automated, Bt (Omnipod 5 G6 Pods (Gen 5)) cartridge Discontinued 0 .Route 45 April 27, 2023 4:23pm October 17, 2023 10:35am 1 pod q 2 days Start: 04-27-2023 Insulin Pump C art,Automated,Bt (Omnipod 5 G6 Pods (Gen 5)) cartridge Active 0 .Route 45 April 27, 2023 4:23pm 1 pod q 2 days Start: 03-11-2023 End: 04-27-2023 Insulin Pump Cart,Automated, Bt (Omnipod 5 G6 Pods (Gen 5)) cartridge Discontinued 0 .Route 30 March 11, 2023 12:21pm April 27, 2023 4:23pm Diabetes mellitus Presence of insulin pump Type 2 diabetes mellitus with hyperglycemia detention (current) use of insulin Presence of insulin pump (external) (internal) 1 pod q 3 days Start: 03-11-2023 End: 04-27-2023 Insulin Pump Cart,Automated, Bt (Omnipod 5 G6 Pods (Gen 5)) cartridge Discontinued 0 .Route March 11, 2023 12:21pm April 27, 2023 4:23pm 1 pod q 3 days Start: 03-11-2023 Insulin Pump C art,Automated,Bt (Omnipod 5 G6 Pods (Gen 5)) cartridge Active 0 .Route March 11, 2023 12:21pm 1 pod q 3 days Start: 12-22-2022 End: 03-11-2023 Insulin Pump Cart,Automated, Bt (Omnipod 5 G6 Pods (Gen 5)) cartridge Discontinued 0 .Route 30 December 22, 2022 1:00am March 11, 2023 12:21pm Diabetes mellitus Presence of insulin pump Type 2 diabetes mellitus with hyperglycemia detention (current) use of insulin Presence of insulin pump (external) (internal) 1 pod q 3 days Start: 12-22-2022 End: 03-11-2023 Insulin Pump Cart,Automated, Bt (Omnipod 5 G6 Pods (Gen 5)) cartridge Discontinued 0 .Route December 22, 2022 1:00am March 11, 2023 12:21pm 1 pod q 3 days Start: 12-22-2022 Insulin Pump C art,Automated,Bt (Omnipod 5 G6 Pods (Gen 5)) cartridge Active 0 .Route December 22, 2022 1:00am 1 pod q 3 days levoFLOXacin 750 mg oral tablet (17 sources) Quinolone Antimicrobial Start: 02-10-2018 End: 02-15-2018 take 1 tablet by mouth every twenty-four hours Levofloxacin (Levaquin) 750 mg tablet Discontinued 750 mg PO Q24H 5 5 0 February 10, 2018 12:00am February 14, 2018 12:00am February 15, 2018 12:06am Lobar pneumonia, unspecified organism magnesium oxide 400 mg oral capsule (9 sources) Start: 04-12-2023 End: 11-28-2023 take 1 capsule by mouth once daily Magnesium Oxide 400 mg magnesium capsule Discontinued 400 mg PO DAILY April 12, 2023 12:00am November 28, 2023 4:14pm meloxicam 15 mg oral tablet (14 sources) Nonsteroidal Anti-inflammatory Drug Start: 09-07-2022 End: 12-10-2022 Meloxicam 15 mg tablet Discontinued NMA PO September 07, 2022 1:00am December 10, 2022 4:20pm Start: 09-07-2022 End: 12-10-2022 Meloxicam Discontinued EACH PO September 07, 2022 1:00am December 10, 2022 4:20pm Ge-Jma-Yygqj-K5-Jinsckq-Nhng in (Centrum Silver Ultra Men's) 300-600-300 mcg tablet (8 sources) Start: 09-07-2022 End: 07-09-2024 Mj-Ugy-Sglgj-F5-Qnubepc-Ggkt in (Centrum Silver Ultra Men's) 300-600-300 mcg tablet Discontinued 1 {tbl} PO DAILY September 07, 2022 1:00am July 09, 2024 3:51pm Start: 09-07-2022 take 300-600 tablets by mouth once daily Ym-Fka-Ujfem-D9-Xnobooq-Kcqjsn (Centrum Silver Ultra Men's) 300-600-300 mcg tablet Active 1 TABLET PO DAILY September 07, 2022 1:00am predniSONE 5 mg oral tablet (20 sources) Start: 04-12-2023 End: 07-26-2023 take 3 tablets by mouth once daily in the evening Prednisone 1 mg tablet Discontinued 1 mg PO DAILY April 12, 2023 12:00am July 26, 2023 3:26pm Take 3 tabs in the evening. Start: 04-12-2023 End: 07-26-2023 take 1 tablet by mouth once daily Prednisone 5 mg tablet Discontinued 5 mg PO DAILY April 12, 2023 12:00am July 26, 2023 3:26pm Start: 09-07-2022 End: 04-12-2023 Prednisone 20 mg tablet Disc ontinued NMA PO September 07, 2022 1:00am April 12, 2023 3:09pm Start: 09-07-2022 End: 04-12-2023 Prednisone Discontinued EACH PO September 07, 2022 1:00am April 12, 2023 3:09pm sertraline 25 mg oral tablet (17 sources) Serotonin Reuptake Inhibitor Start: 06-19-2021 End: 04-26-2022 Sertraline 25 mg tablet Discontinued NMA PO June 19, 2021 12:00am April 26, 2022 3:36pm Start: 06-19-2021 End: 04-26-2022 Sertraline Discontinued EACH PO June 19, 2021 12:00am April 26, 2022 3:36pm Tirzepatide (20 sources) Start: 08-13-2022 End: 09-13-2022 Tirzepatide Discontinued 10 MG SC EVERY WEEK 2 August 13, 2022 12:00am September 13, 2022 11:47am Start: 08-13-2022 End: 09-13-2022 Tirzepatide Discontinued 10 MG SC EVERY WEEK 2 August 12, 2022 11:00pm September 13, 2022 10:47am Start: 08-13-2022 Tirzepatide Ac tive 10 MG SC EVERY WEEK 2 August 13, 2022 12:00am Start: 07-18-2022 End: 08-13-2022 Tirzepatide Discontinued 7.5 MG SC EVERY WEEK 2 July 17, 2022 11:00pm August 13, 2022 7:01am Start: 07-18-2022 End: 08-13-2022 Tirzepatide Discontinued 7.5 MG SC EVERY WEEK 2 July 18, 2022 12:00am August 13, 2022 8:01am Start: 06-21-2022 End: 07-18-2022 Tirzepatide Discontinued 5 M G SC EVERY WEEK 2 June 21, 2022 6:47am July 18, 2022 3:20pm Start: 06-21-2022 End: 07-18-2022 Tirzepatide Discontinued 5 M G SC EVERY WEEK 2 June 21, 2022 7:47am July 18, 2022 4:20pm Start: 05-24-2022 End: 06-21-2022 Tirzepatide Discontinued 5 M G SC EVERY WEEK 2 May 23, 2022 11:00pm June 21, 2022 6:47am Start: 05-24-2022 End: 06-21-2022 Tirzepatide Discontinued 5 M G SC EVERY WEEK May 24, 2022 12:00am June 21, 2022 7:47am Start: 05-24-2022 Tirzepatide Ac tive 5 MG SC EVERY WEEK May 24, 2022 12:00am Tirzepatide (Mounjaro) 12.5 mg/0.5 mL pen injector (20 sources) Start: 12-10-2022 End: 04-12-2023 Tirzepatide (Mounjaro) 12.5 mg/0.5 mL pen injector Discontinued 12.5 mg SC EVERY WEEK 2 December 10, 2022 1:00am April 12, 2023 3:12pm Start: 12-10-2022 End: 04-12-2023 Tirzepatide (Mounjaro) 12.5 mg/0.5 mL pen injector Discontinued 12.5 MG SC EVERY WEEK 2 December 10, 2022 1:00am April 12, 2023 3:12pm Start: 12-10-2022 Tirzepatide (M ounjaro) 12.5 mg/0.5 mL pen injector Active 12.5 MG SC EVERY WEEK 2 December 10, 2022 1:00am Start: 09-13-2022 End: 10-11-2022 Tirzepatide (Mounjaro) 12.5 mg/0.5 mL pen injector Discontinued 12.5 mg SC EVERY WEEK 2 September 13, 2022 1:00am October 11, 2022 8:48am Start: 09-13-2022 End: 10-11-2022 Tirzepatide (Mounjaro) 12.5 mg/0.5 mL pen injector Discontinued 12.5 MG SC EVERY WEEK 2 September 13, 2022 1:00am October 11, 2022 8:48am Start: 09-13-2022 End: 10-11-2022 Tirzepatide (Mounjaro) 12.5 mg/0.5 mL pen injector Discontinued 12.5 MG SC EVERY WEEK 2 September 13, 2022 12:00am October 11, 2022 7:48am Start: 09-13-2022 Tirzepatide (M ounjaro) 12.5 mg/0.5 mL pen injector Active 12.5 MG SC EVERY WEEK 2 September 13, 2022 12:00am Tirzepatide (Mounjaro) 15 mg/0.5 mL pen injector (13 sources) Start: 10-11-2022 End: 12-10-2022 Tirzepatide (Mounjaro) 15 mg /0.5 mL pen injector Discontinued 15 mg SC EVERY WEEK 2 October 11, 2022 1:00am December 10, 2022 4:38pm Start: 10-11-2022 End: 12-10-2022 Tirzepatide (Mounjaro) 15 mg /0.5 mL pen injector Discontinued 15 MG SC EVERY WEEK 2 October 11, 2022 1:00am December 10, 2022 4:38pm Start: 10-11-2022 Tirzepatide (M ounjaro) 15 mg/0.5 mL pen injector Active 15 MG SC EVERY WEEK October 11, 2022 12:00am Tirzepatide (Mounjaro) 2.5 mg/0.5 mL pen injector (16 sources) Start: 04-27-2022 End: 05-24-2022 Tirzepatide (Mounjaro) 2.5 mg/0.5 mL pen injector Discontinued 2.5 mg SC EVERY WEEK 2 April 27, 2022 12:00am May 24, 2022 12:00am May 24, 2022 10:28am Start: 04-27-2022 End: 05-24-2022 Tirzepatide (Mounjaro) 2.5 m g/0.5 mL pen injector Discontinued 2.5 MG SC EVERY WEEK 2 April 26, 2022 11:00pm May 24, 2022 9:28am Start: 04-27-2022 End: 05-24-2022 Tirzepatide (Mounjaro) 2.5 m g/0.5 mL pen injector Discontinued 2.5 MG SC EVERY WEEK 2 April 27, 2022 12:00am May 24, 2022 10:28am Tirzepatide 10 mg/0.5 mL pen injector (1 source) Start: 08-13-2022 End: 09-13-2022 Tirzepatide 10 mg/0.5 mL pen injector Discontinued 10 mg SC EVERY WEEK 2 August 13, 2022 12:00am September 13, 2022 11:47am Tirzepatide 5 mg/0.5 mL pen injector (2 sources) Start: 06-21-2022 End: 07-18-2022 Tirzepatide 5 mg/0.5 mL pen injector Discontinued 5 mg SC EVERY WEEK 2 June 21, 2022 7:47am July 18, 2022 4:20pm Start: 05-24-2022 End: 06-21-2022 Tirzepatide 5 mg/0.5 mL pen injector Discontinued 5 mg SC EVERY WEEK 2 May 24, 2022 12:00am June 21, 2022 7:47am Tirzepatide 7.5 mg/0.5 mL pe n injector (1 source) Start: 07-18-2022 End: 08-13-2022 Tirzepatide 7.5 mg/0.5 mL pe n injector Discontinued 7.5 mg SC EVERY WEEK 2 2 July 18, 2022 12:00am August 13, 2022 8:01am Problems Active Problems Problem Classification Problem Date Documented Date Episodic/Chronic Abdominal pain (15 sources) Bilateral pain of inguinal region; Translations: [Right lower quadrant pain] 09-03-2022 Episodic Diabetes mellitus with complications (1 source) Type 2 diabetes mellitus with hyperglycemia; Translations: [Type 2 diabetes mellitus with hyperglycemia] Onset: 05-14-2025 Chronic Diabetes mellitus without complication (20 sources) Diabetes mellitus; Translations: [Type 2 diabetes mellitus without complications] Chronic Diabetes mellitus without complication (20 sources) Insulin pump present; Translations: [Presence of insulin pump (external) (internal)] Episodic Disorders of lipid metabolism (20 sources) Hyperlipidemia; Translations: [Hyperlipidemia, unspecified] Onset: 11-19-2024 Chronic Essential hypertension (20 sources) Benign hypertension; Translations: [Essential (primary) hypertension] Onset: 11-19-2024 Chronic 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 source) 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; Translations: [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] Onset: 05-14-2025 Episodic Other circulatory disease (17 sources) Pulmonary congestion ; Translations: [Other specified symptoms and signs involving the circulatory and respiratory systems] 10-13-2018 Episodic Other connective tissue disease (14 sources) Muscle pain; Translations: [Myalgia, unspecified site] 09-09-2022 Episodic Other connective tissue disease (4 sources) Myalgia, unspecified site; Translations: [Myalgia and myositis, unspecified] Episodic Other hematologic conditions (15 sources) ESR raised; Translations: [Elevated erythrocyte sedimentation rate] 09-03-2022 Episodic Other nervous system disorders (17 sources) Numbness of finger; Translations: [Anesthesia of skin] 10-20-2021 Episodic Other nervous system disorders (17 sources) Paresthesia of hand ; Translations: [Anesthesia of skin] 11-02-2021 Episodic Other nervous system disorders (1 source) Anesthesia of skin; Translations: [Disturbance of skin sensation] Episodic Other non-traumatic joint disorders (15 sources) Shoulder pain; Translations: [Pain in right shoulder] 09-03-2022 Episodic Other nutritional; endocrine; and metabolic disorders (17 sources) Obesity; Translations: [Obesity, unspecified] 09-09-2022 Chronic Other nutritional; endocrine; and metabolic disorders (17 sources) Obesity, unspecified; Translations: [Obesity, unspecified] Chronic Other upper respiratory infections (20 sources) Acute sinusitis; Translations: [Acute sinusitis, unspecified] Episodic Pneumonia (except that caused by tuberculosis or sexually transmitted disease) (17 sources) Right middle zone pneumonia; Translations: [Pneumonia, unspecified organism] 10-13-2018 Episodic Thyroid disorders (20 sources) 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; Translations: [Other specified hypothyroidism] Onset: 11-19-2024 Chronic Past or Other Problems Problem Classification Problem Date Documented Da te Episodic/Chronic Genitourinary symptoms and ill-defined conditions (1 source) Dysuria; Translations: [Dysuria] Onset: 09-19-2024 Episodic Other screening for suspected conditions (not mental disorders or infectious disease) (20 sources) Patient encounter status; Translations: [Encounter for screening for malignant neoplasm of intestinal tract, unspecified] Onset: 07-04-2024 09-03-2022 Episodic Results Test Name Value Interpretation Reference Range Facility Endocrinology Visit Reporton 05-14-2025 Endocrinology Visit Report [facility] [address] [place] [address] OFFICE VISIT Date of Service: 05/14/25 MR#: [id number] Acct: [id number] Name: KELVIN ZALDIVAR Jr. Rep #: [id number] : 1965 Provider: Ari Martinez Age/Sex: 59/M [place] [facility] [place]: Signed Intake Vital Signs 11/19/24 15:40 05/14/25 15:50 Height 6 ft 6 ft Weight: 368 lb 374 lb 8 oz BMI 49.8 50.8 BP 145/81 H 134/77 H Blood Pressure Location Rt brachial Rt brachial Position Sitting Sitting Pulse 68 77 Pulse Source Monitor Monitor Pulse Oximetry (%) 96 93 Oxygen Delivery Method room air room air Intake Visit Reasons: 5 M GOYO, RS 04/02 Chief Complaint: Diabetes and thyroid Is patient in pain?: No Allergies Penicillins Allergy (Verified 05/14/25 15:59) Tremor Medications ???Medication ???Instructions ???Recorded ???Confirmed ???Type rosuvastatin 20 mg tablet (Crestor) 20 mg PO QHS 10/12/18 05/14/25 History albuterol sulfate 90 mcg/actuation 2 puff inhalation Q6H PRN 05/14/25 History aerosol inhaler losartan 100 1 tab PO DAILY 11/28/23 05/14/25 H istory mg-hydrochlorothiaz danny 25 mg tablet pen needle, diabetic 32 gauge x #300 ea 07/09/24 05/14/25 Rx 5/32 (BD Ultra-Fine Zhanna Pen Needle) metformin 1,000 mg tablet 1,000 mg PO BID #180 tabs 11/19/24 05/14/25 Rx insulin aspart U-100 100 unit/mL 90 unit (0.9 mL) subcut BID #162 m L 05/14/25 05/14/25 Rx (3 mL) subcutaneous pen (Novolog FlexPen U-100 Insulin aspart) insulin regular hum U-500 conc 500 200 unit (0.4 mL) subcut QACBREA K 05/14/25 05/14/25 Rx unit/mL(3 mL) subcut pen (Humulin #36 mL R U-500 (Conc) Insulin Kwikpen) levothyroxine 125 mcg tablet 125 mcg PO DAILY #90 tabs 05/14/25 05/14/25 Rx PFSH Medical History Hypothyroidism (acquired) Abnormal results of thyroid function studies Myalgia Abnormal ECG Numbness and tingling in both hands Numbness of left thumb Diabetes Cholecystectomy planned High triglycerides High cholesterol Gallstones Diabetes HTN (hypertension) Surgical History History of appendectomy History of surgery on arm Family History Mother Breast cancer Father Heart disease Other Arthritis Hypertension Social History Smoking Status: Former smoker alcohol intake: current alcohol intake frequency: 0-2 drinks per day substance use type: does not use what type of physical activity do you participate in: none HPI HPI Chief Complaint: Diabetes and thyroid Details: KELVIN ZALDIVAR, is a 59 M who presents to the office today for follow up. A1C is 6.9% He is taking U-500 at breakfast and U-100 at lunch and supper CGM reviewed. Weight is stable. He is dieting because he got to big for his $2600 [employer] Suit. He has hypothyroidism and is taking levothyroxine. He is on ARB and statin. 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 ROS Const Constitutional: No fatigue, weight change or change in appetite Eyes Eyes: No change in vision ENT ENT: No dizziness/vertigo or difficulty swallowing Cardio Cardiology: No chest pain at rest, chest pain with exertion, shortness of breath or palpitations Musc Musculoskeletal: No abnormal gait, joint pain, numbness or tingling Neuro Neurology: No abnormal gait, memory loss, numbness or tingling Psych Psychiatric: No change in appetite, No memory loss and No Thoughts of harming yourself/Others Resp Respiratory: No cough, chest congestion or shortness of breath Gastro GI: No abdominal pain, constipation, diarrhea or difficulty swallowing Genitourinary Male: No burning urination Skin Skin: No itchy eyes or wounds Endo Endocrine: No fatigue or weight change Aller/Imm Allergy/Immunologic : No itchy eyes Exam Const General: cooperative, healthy appearing, comfortable, no acute distress, well developed and not cushingoid Nutritional Appearance: well nourished and obese Orientation: alert, awake and oriented x3 HENMT Head: normal to inspection Ears: hearing grossly normal bilaterally Nose: external nose normal Mouth: oral mucosae normal Eyes General: appearance normal, both eyes and all related structures Alignment and Position: alignment normal Periorbital: periorbital findings normal Eyelids: eyelids normal Conjunctivae: conjunctivae normal Neck Neck: normal visual inspection Neck mass: No Thyroid: thyroid normal Lymphatic: no lymphadenopathy noted Chest Chest palpation inspection: normal inspection of the khalida (more content not included)... Normal [facility] Endocrinology Visit Reporton 11-19-2024 Endocrinology Visit Report [facility] [address] [place] [address] OFFICE VISIT Date of Service: 11/19/24 MR#: [id number] Acct: [id number] Name: KELVIN ZALDIVAR Jr. Rep #: [id number] : 1965 Provider: Ari Martinez Age/Sex: 59/M [place] [facility] [place] Status: Signed Intake Vital Signs 07/09/24 15:46 11/19/24 15:40 Height 6 ft 6 ft Weight: 362 lb 368 lb BMI 49.1 49.8 BP 138/73 H 145/81 H Blood Pressure Location Lt brachial Rt brachial Position Sitting Sitting Pulse 84 68 Pulse Source Monitor Monitor Pulse Oximetry (%) 92 96 Oxygen Delivery Method room air room air Intake Visit Reasons: 4 M FU Chief Complaint: Diabetes and thyroid Is patient in pain?: No Allergies Penicillins Allergy (Verified 11/19/24 15:48) Tremor Medications ???Medication ???Instructions ???Recorded ???Confirmed ???Type rosuvastatin 20 mg tablet (Crestor) 20 mg PO QHS 10/12/18 11/19/24 History albuterol sulfate 90 mcg/actuation 2 puff inhalation Q6H PRN 07/26/23 11/19/24 History aerosol inhaler losartan 100 1 tab PO DAILY 11/28/23 11/19/24 History mg-hydrochlorothiaz danny 25 mg tablet levothyroxine 125 mcg tablet 125 mcg PO DAILY #90 tabs 07/09/24 11/19/24 Rx pen needle, diabetic 32 gauge x #300 ea 07/09/24 11/19/24 Rx 5/32 (BD Ultra-Fine Zhanna Pen Needle) Novolog FlexPen U-100 Insulin 100 90 unit (0.9 mL) subcut BID #162 mL 11/19/24 11/19/24 Rx unit/mL (3 mL) subcutaneous (insulin aspart U-100) insulin regular hum U-500 conc 500 200 unit (0.4 mL) subcut QACBREAK 11/19/24 11/19/24 Rx unit/mL(3 mL) subcut pen (Humulin #36 mL R U-500 (Conc) Insulin Kwikpen) metformin 1,000 mg tablet 1,000 mg PO BID #180 tabs 11/19/24 11/19/24 Rx PFSH Medical History Hypothyroidism (acquired) Abnormal results of thyroid function studies Myalgia Abnormal ECG Numbness and tingling in both hands Numbness of left thumb Diabetes Cholecystectomy planned High triglycerides High cholesterol Gallstones Diabetes HTN (hypertension) Surgical History History of appendectomy History of surgery on arm Family History Mother Breast cancer Father Heart disease Other Arthritis Hypertension Social History Smoking Status: Former smoker alcohol intake: current alcohol intake frequency: 0-2 drinks per day substance use type: does not use what type of physical activity do you participate in: none HPI HPI Chief Complaint: Diabetes and thyroid Details: KELVIN ZALDIVAR, is a 59 M who presents to the office today for follow up. A1C is 7.6% He is taking U-500 QAM and Novolog at lunch and supper. He is taking metformin. He is taking a statin. If he takes U-500 at supper he has hypoglycemia over night. He has hypothyroidism and is taking levothyroxine. ROS Const Constitutional: No fatigue or weight change ENT ENT: No dizziness/vertigo Cardio Cardiology: No chest pain at rest, chest pain with exertion, shortness of breath or palpitations Skin Skin: No wounds Endo Endocrine: No fatigue or weight change Exam Const General: cooperative, healthy appearing, comfortable, no acute distress, well developed and not cushingoid Nutritional Appearance: well nourished and obese Orientation: alert, awake and oriented x3 HENMT Head: normal to inspection Ears: hearing grossly normal bilaterally Nose: external nose normal Mouth: oral mucosae normal Eyes General: appearance normal, both eyes and all related structures Alignment and Position: alignment normal Periorbital: periorbital findings normal Eyelids: eyelids normal Conjunctivae: conjunctivae normal Neck Neck: normal visual inspection Neck mass: No Chest Chest palpation inspection: normal inspection of the chest Resp Effort Inspection: normal respiratory effort, able to speak in complete sentences, symmetric chest movement, no audible wheezes and no cough Cardio Rate: regular rate Rhythm: regular rhythm Skin General: no rashes or lesions noted Neuro General: patient alert, patient awake and patient oriented x3 Cranial Nerves: CN's II-XI intact bilaterally Cognition: normal cognition Speech: speech normal Gait: normal gait Motor: muscle tone normal throughout Psych Appearance: grossly normal Mental Status: mental status grossly normal Mood: congruent mood Affect: normal affect Speech and Movement: speech and movement normal Attitude: cooperative Thought Process: normal Thought Content: normal Judgment: judgment good Results POC A1C POC A1C 7.6 % Last Edit by (more content not included)... Normal [facility] PSA,Total- Diagnosticon 10-01 PSA, DIAGNOSTIC 0.91 ng/mL Normal 0.0-4.0 [facility] Comment on above: Result Comment: This test was performed using the TPSA assay method for the CytoSolv chemistry system. Values obtained with different assay methods cannot be used interchangably. When changing PSA assays in the course of monitoring a patient, additional sequential testing should be carried out to confirm baseline values. Performed By: #### L 501.9940 #### [facility] [address] [place], [address] Basic Metabolic Profile (BMP )on 08-29-2024 BUN/CRE 12.0 RATIO Normal 10-20 [facility] Comment on above: Performed By: #### L 500.2500, L501.9940 #### [facility] [address] [place], [address] CA,Total 9.6 mg/dL Normal 8.5-10.1 [facility] Comment on above: Performed By: #### L 500.2500, L501.9940 #### [facility] [address] [place], [address] Chloride [Moles/Vol] 100 mmol/L Normal 98-107 [facility] Comment on above: Performed By: #### L 500.2500, L501.9940 #### [facility] [address] [place], [address] CO2 [Moles/Vol] 28.0 mmol/L Normal 21.0-32.0 [facility] Comment on above: Performed By: #### L 500.2500, L501.9940 #### [facility] [address] [place], [address] Creatinine [Mass/Vol] 1.08 mg/dL Normal 0.70-1.30 [facility] Comment on above: Result Comment: The validity of the calculated GFR GFRAA in patients over 70 years has not been determined. Clinical correlation is essential. Performed By: #### L 500.2500, L501.9940 #### [facility] [address] [place], [address] EST GFR - AA 90 mL/min Normal >60 [facility] Comment on above: Result Comment: Afri can Irish GFR Calc Performed By: #### L 500.2500, L501.9940 #### [facility] [address] [place], [address] GAP 6 Normal 5-15 [facility] Comment on above: Performed By: #### L 500.2500, L501.9940 #### [facility] [address] [place], [address] GFR/1.73 sq M.predicted among non-blacks MDRD (S/P/Bld) [Vol rate/Area] 75 mL/min/{1.73_m2} Normal >60 [facility] Comment on above: Result Comment: Non- GFR Calc Performed By: #### L 500.2500, L501.9940 #### [facility] [address] [place], [address] Glucose [Mass/Vol] 128 mg/dL High 74-106 [facility] Comment on above: Result Comment: Fast ing Glucose result greater than or equal to 126 mg/dL suggests DIABETES MELLITUS per A.D.A. criteria. Performed By: #### L 500.2500, L501.9940 #### [facility] [address] [place], [address] Potassium [Moles/Vol] 3.1 mmol/L Low 3.5-5.1 [facility] Comment on above: Performed By: #### L 500.2500, L501.9940 #### [facility] [address] [place], [address] Sodium [Moles/Vol] 134 mmol/L Low 136-145 [facility] Comment on above: Performed By: #### L 500.2500, L501.9940 #### [facility] [address] [place], [address] Urea nitrogen [Mass/Vol] 13 mg/dL Normal 7-18 [facility] Comment on above: Performed By: #### L 500.2500, L501.9940 #### [facility] [address] [place], [address] PSA,Total- Diagnosticon 10-3 -2023 PSA, DIAGNOSTIC 14.00 ng/mL High 0.0-4.0 [facility] Comment on above: Result Comment: This test was performed using the TPSA assay method for the CytoSolv chemistry system. Values obtained with different assay methods cannot be used interchangably. When changing PSA assays in the course of monitoring a patient, additional sequential testing should be carried out to confirm baseline values. Performed By: #### L 500.2500, L501.9940 #### [facility] [address] [place], [address] Endocrinology Visit Reporton 07-09-2024 Endocrinology Visit Report [facility] [address] [place], [place] [address] OFFICE VISIT Date of Service: 07/09/24 MR#: [id number] Acct: [id number] Name: KELVIN ZALDIVAR Jr. 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 Accompanied by: Self Is patient in pain?: No Allergies Penicillins Allergy (Verified 07/09/24 15:51) Tremor Medications ???Medication ???Instructions ???Recorded ???Confirmed ???Type rosuvastatin 20 mg tablet (Crestor) 20 mg PO QHS 10/12/18 07/09/24 History cholecalciferol (vitamin D3) 25 25 mcg PO DAILY 04/12/23 07/09/24 History mcg (1,000 unit) capsule albuterol sulfate 90 mcg/actuation 2 puff inhalation Q6H PRN 07/26/23 07/09/24 History aerosol inhaler losartan 100 1 tab PO DAILY 11/28/23 07/09/24 History mg-hydrochlorothiaz danny 25 mg tablet metformin 1,000 mg tablet 1,000 mg PO BID #180 tabs 03/07/24 07/09/24 Rx insulin regular hum U-500 conc 500 170 unit (0.34 mL) subcut ONCE 05/23/24 07/09/24 Rx unit/mL(3 mL) subcut pen (Humulin #30.6 mL R U-500 (Conc) Insulin Kwikpen) Novolog FlexPen U-100 Insulin 100 80 unit (0.8 mL) subcut BID #144 mL 07/09/24 07/09/24 Rx unit/mL (3 mL) subcutaneous (insulin aspart U-100) levothyroxine 125 mcg tablet 125 mcg PO DAILY #90 tabs 07/09/24 07/09/24 Rx pen needle, diabetic 32 gauge x #300 ea 07/09/24 07/09/24 Rx 5/32 (BD Ultra-Fine Zhanna Pen Needle) [facility] Medical History (Updated 07/30/24 @ 11:[address] Levy Correa MD) Hypothyroidism (acquired) Abnormal results of thyroid function studies Myalgia Abnormal ECG Numbness and tingling in both hands Numbness of left thumb Diabetes Cholecystectomy planned High triglycerides High cholesterol Gallstones Diabetes HTN (hypertension) Surgical History History of appendectomy History of surgery on arm Family History Mother Breast cancer Father Heart disease Other Arthritis Hypertension Social History Smoking Status: Former smoker alcohol intake: current alcohol intake frequency: 0-2 drinks per day substance use type: does not use what type of physical activity do you participate in: none HPI HPI Chief Complaint: Diabetes and thyroid Details: KELVIN ZALDIVAR, is a 58 M who presents to the office today for follow up. A1C is 7.1% He is taking U-500 at breakfast and Novolog at supper. He is wearing [email or web address] G7 CGM. Upload shows fairly good control. He is also taking metformin and statin. He doesn't tolerate GLP-1. He is studying to be [place], he is really enjoying this. He has hypothyroidism and is taking levothyroxine. ROS Const Constitutional: No anorexia, excessive sweating, malaise, night sweats, weight change or change in appetite Eyes Eyes: No change in vision ENT ENT: No hearing loss, nasal congestion or difficulty swallowing Cardio Cardiology: No chest pain at rest, excessive sweating, shortness of breath, dyspnea on exertion, irregular heart rhythm or palpitations Musc Musculoskeletal: Positive for joint pain, back pain and numbness; No abnormal gait or tingling Neuro Neurology: Positive for numbness; No abnormal gait, memory loss or tingling Psych Psychiatric: No change in appetite, No memory loss and No Thoughts of harming yourself/Others Resp Respiratory: No cough, chest congestion or shortness of breath Gastro GI: No abdominal pain, constipation, diarrhea or difficulty swallowing Genitourinary Male: No burning urination Skin Skin: No hair loss in leg, itchy eyes, rash or skin ulcer Endo Endocrine: No excessive sweating or weight change Aller/Imm Allergy/Immunologic : No itchy eyes Exam Const General: cooperative, healthy appearing, comfortable, no acute distress, well developed and not cushingoid Nutritional Appearance: well nourished and obese Orientation: alert, awake and oriented x3 HENMT Head: normal to inspection Ears: hearing grossly normal bilaterally Nose: external nose normal Mouth: oral mucosae normal Eyes General: appearance normal, both eyes and all related structures Alignment (more content not included)... Normal [facility] Thyroid Peroxidase ABon 08-0 THYR PEROX AB 163 IU/mL High 0-34 [facility] Comment on above: Result Comment: Perf ormed at: [facility] [id number] Medical Legal Investigator: Calos Dozier PhD, Phone: [phone] Performed By: #### L 3300.6900, L506.0400, L501.9520 #### [facility] [address] [place], [place], [id number] T4 Free Directon 06-04-2024 T4 FREE DIRECT 1.04 ng/dL Normal 0.76-1.46 [facility] Comment on above: Performed By: #### L 3300.6900, L506.0400, L501.9520 #### [facility] [address] [place], [address] Thyroid Stim Hormone (TSH)on 06-04-2024 TSH 7.81 uIU/mL High 0.358-3.74 [facility] Comment on above: Performed By: #### L 3300.6900, L506.0400, L501.9520 #### [facility] [address] [place], [place], [id number] Laboratory - Hematology and Cell countson 03-01-2024 HbA1c (Bld) [Mass fraction] 7.2 % 4.2-6.3 [facility] Serum or plasma thyroid stim ulating hormone (TSH) measurement (units/volume)Ordered By: Levy Correa on 03-01-2024 TSH Qn 5.85 uIU/mL 0.358-3.74 [facility] Thin prep Papanicolaou smear with manual screeningOrdered By: Levy Correa on 03-01-2024 Thin prep Papanicolaou smear with manual screening 1.11 ng/dL 0.76-1.46 [facility] Laboratory - Hematology and Cell countson 11-28-2023 HbA1c (Bld) [Mass fraction] 7.6 % 4.2-6.3 [facility] Serum or plasma angiotensin converting enzyme measurement (enzymatic activity/volume)Ordered By: Koko Christian on 08-16-2023 Angiotensin converting enzyme [Catalytic activity/Vol] 26 U/L 14-82 [facility] Comment on above: Performed at: [address] Director: Calos Dozier PhD, Phone: [phone] Erythrocyte sedimentation ra teOrdered By: Dylan Frazier on 08-05-2023 ESR (Bld) [Velocity] 52 mm/h 0-20 [facility] Serum or plasma C reactive p rotein measurement (mass/volume)Ordered By: Dylan Frazier on 08-05-2023 CRP [Mass/Vol] 10.70 mg/L 0.0-3.0 [facility] Comment on above: C-Reactive Protein ( CRP) provides useful information for thediagnosis, therapy and monitoring of inflammatory processesand associated diseases. For the evaluation of Relative Riskfor Cardiovascular Disease, a High Sensitivity CRP (HSCRP)should be ordered. Basophil percentageOrdered B y: Levy Correa on 07-27-2023 Bilirubin [Mass/Vol] 0.40 mg/dL 0.20-1.00 [facility] Comment on above: For patients on eltr ombopag therapy, use of Dimension [place] TBIL is not recommended. Chloride [Moles/Vol] 101 mmol/L 98-107 [facility] Glucose [Mass/Vol] 152 mg/dL 74-106 [facility] Comment on above: Fasting Glucose resu lt greater than or equal to 126 mg/dL suggests DIABETES MELLITUS per A.D.A. criteria. Potassium [Moles/Vol] 4.0 mmol/L 3.5-5.1 [facility] Protein [Mass/Vol] 7.3 g/dL 6.4-8.2 [facility] Sodium [Moles/Vol] 135 mmol/L 136-145 [facility] Laboratory - Chemistry and C hemistry - challengeOrdered By: Levy Correa on 07-27-2023 ALP [Catalytic activity/Vol] 58 U/L 45-117 [facility] ALT [Catalytic activity/Vol] 44 U/L 16-61 [facility] CO2 [Moles/Vol] 27.0 mmol/L 21.0-32.0 [facility] Free T4 [Mass/Vol] 1.24 ng/dL 0.76-1.46 [facility] Globulin (S) [Mass/Vol] 4.0 g/dL 2.2-4.2 [facility] Urea nitrogen/Creatinine [Mass ratio] 11.2 mg/mg 10-20 [facility] No Panel InformationOrdered By: Levy Correa on 07-27-2023 Estimated GFR (MDRD) Amer 102 mL/min >60 [facility] Comment on above: GFR Calc Estimated GFR (MDRD) Non-Af Amer 84 mL/min >60 [facility] Comment on above: Non- GFR Calc Thyroid Stimulating Hormone (TSH) 3.16 uIU/mL 0.358-3.74 [facility] Serum or plasma albumin stacy urement (mass/volume)Ordered By: Levy Correa on 07-27-2023 Albumin [Mass/Vol] 3.3 g/dL 3.2-5.0 [facility] Serum or plasma albumin/glob ulin mass ratioOrdered By: Levy Correa on 07-27-2023 Albumin/Globulin [Mass ratio] 0.8 {ratio} 0.9-2.4 [facility] Serum or plasma calcium stacy urement (mass/volume)Ordered By: Levy Correa on 07-27-2023 Calcium [Mass/Vol] 8.7 mg/dL 8.5-10.1 [facility] Serum or plasma cortisol junior surement (mass/volume)Ordered By: Levy Correa on 07-27-2023 Cortisol [Mass/Vol] 15.00 ug/dL 3.44-22.45 [facility] Comment on above: Adult (AM) 5.27 - 22 .45 ug/dL Adult (PM) 3.44 - 16.76 ug/dLPlease note revised CORTISOL reference range effective 2019. Serum or plasma creatinine m easurement (mass/volume)Ordered By: Levy Correa on 07-27-2023 Creatinine [Mass/Vol] 0.98 mg/dL 0.70-1.30 [facility] Comment on above: The validity of the calculated GFR & GFRAA in patients over 70 years has not been determined. Clinical correlation is essential. Serum or plasma urea nitroge n measurement (mass/volume)Ordered By: Levy Correa on 07-27-2023 Urea nitrogen [Mass/Vol] 11 mg/dL 7-18 [facility] Thin prep Papanicolaou smear with manual screeningOrdered By: Levy Correa on 07-27-2023 Thin prep Papanicolaou smear with manual screening 24 U/L 15-37 [facility] Thin prep Papanicolaou smear with manual screening 7 5-15 [facility] Laboratory - Hematology and Cell countson 07-26-2023 HbA1c (Bld) [Mass fraction] 7.5 % 4.2-6.3 [facility] Basophil percentageOrdered B y: Levy Correa on 07-22-2023 Cholesterol [Mass/Vol] 110 mg/dL <200 [facility] Comment on above: <200 mg/dL Desirable 200-240 mg/dL Borderline >240 mg/dL High Risk Triglyceride [Mass/Vol] 236 mg/dL <199 [facility] Comment on above: The drugs N-Acetylcy steine and Metamizole may falsely depress this assay.Serum Triglycerides Reference Interval Normal <150 mg/dL Borderline high 150 - 199 mg/dL High 200 - 499 mg/dL Very High > or = 500 mg/dL Serum or plasma cholesterol in HDL measurement (mass/volume)Ordered By: Levy Correa on 07-22-2023 Cholesterol in HDL [Mass/Vol] 35 mg/dL >40 [facility] Comment on above: The drugs N-Acetylcy steine and Metamizole may falsely depress this assay. Reference Range HDL <40 mg/dL Low HDL Cholesterol HDL >or= 60 mg/dL High HDL Cholesterol Serum or plasma cholesterol in VLDL measurement (mass/volume)Ordered By: Levy Correa on 07-22-2023 Cholesterol in VLDL [Mass/Vol] 47 mg/dL 5-40 [facility] Serum or plasma low density lipoprotein (LDL) cholesterol measurement (mass/volume)Ordered By: Levy Correa on 07-22-2023 Cholesterol in LDL [Mass/Vol] 28 mg/dL 0-130 [facility] Erythrocyte sedimentation ra teOrdered By: Gustavo Pittman on 06-08-2023 ESR (Bld) [Velocity] 42 mm/h 0-20 [facility] Serum or plasma C reactive p rotein measurement (mass/volume)Ordered By: Gustavo Pittman on 06-08-2023 CRP [Mass/Vol] 10.50 mg/L 0.0-3.0 [facility] Comment on above: C-Reactive Protein ( CRP) provides useful information for thediagnosis, therapy and monitoring of inflammatory processesand associated diseases. For the evaluation of Relative Riskfor Cardiovascular Disease, a High Sensitivity CRP (HSCRP)should be ordered. Erythrocyte sedimentation ra teOrdered By: Gustavo Pittman on 05-17-2023 ESR (Bld) [Velocity] 65 mm/h 0-20 [facility] Serum or plasma C reactive p rotein measurement (mass/volume)Ordered By: Gustavo Pittman on 05-17-2023 CRP [Mass/Vol] 50.80 mg/L 0.0-3.0 [facility] Comment on above: C-Reactive Protein ( CRP) provides useful information for thediagnosis, therapy and monitoring of inflammatory processesand associated diseases. For the evaluation of Relative Riskfor Cardiovascular Disease, a High Sensitivity CRP (HSCRP)should be ordered. Whole blood hemoglobin A1c/t otal hemoglobin ratio (mass fraction)Ordered By: Dr. Correa on 04-08-2023 HbA1c (Bld) [Mass fraction] 7.5 % 3.8-5.6 [facility] Comment on above: Normal < 5.7 % Predi abetic 5.7 - 6.4 % Diabetic >or= 6.5 % Please note range changes. Erythrocyte sedimentation ra teOrdered By: Dr. Pittman on 03-03-2023 ESR (Bld) [Velocity] 36 mm/h 0-20 [facility] Serum or plasma C reactive p rotein measurement (mass/volume)Ordered By: Dr. Pittman on 03-03-2023 CRP [Mass/Vol] 26.30 mg/L 0.0-3.0 [facility] Comment on above: C-Reactive Protein ( CRP) provides useful information for thediagnosis, therapy and monitoring of inflammatory processesand associated diseases. For the evaluation of Relative Riskfor Cardiovascular Disease, a High Sensitivity CRP (HSCRP)should be ordered. Laboratory - Hematology and Cell countson 12-10-2022 HbA1c (Bld) [Mass fraction] 7.7 % 4.2-6.3 [facility] Absolute lymphocyte countOrd ered By: Dr. Frazier on 11-19-2022 Lymphocytes Auto (Unsp spec) [#/Vol] 2.97 10*3/uL 0.83-4.51 [facility] Basophil percentageOrdered B y: Dr. Frazier on 11-19-2022 Basophils/100 WBC (Bld) 0.3 % 0-1 [facility] Chloride [Moles/Vol] 95 mmol/L 98-107 [facility] Eosinophils/100 WBC (Bld) 1.0 % 0-5 [facility] Glucose [Mass/Vol] 127 mg/dL 74-106 [facility] Comment on above: Fasting Glucose resu lt greater than or equal to 126 mg/dL suggests DIABETES MELLITUS per A.D.A. criteria. Neutrophils (Bld) [#/Vol] 14.7 10*3/uL 2.0-7.7 [facility] Neutrophils/100 WBC (Bld) 77.1 % 47-70 [facility] Potassium [Moles/Vol] 4.0 mmol/L 3.5-5.1 [facility] Sodium [Moles/Vol] 135 mmol/L 136-145 [facility] WBC (Bld) [#/Vol] 19.1 10*3/uL 4.4-11.0 [facility] Blood erythrocytes count (nu mber/volume)Ordered By: Dr. Frazier on 11-19-2022 RBC (Bld) [#/Vol] 4.60 10*6/uL 4.6-6.2 [facility] Blood hemoglobin measurement (mass/volume)Ordered By: Dr. Frazier on 11-19-2022 Hemoglobin (Bld) [Mass/Vol] 13.3 g/dL 13.0-16.5 [facility] Blood lymphocytes/100 leukoc ytesOrdered By: Dr. Frazier on 11-19-2022 Lymphocytes/100 WBC (Bld) 15.6 % 19-41 [facility] Blood monocytes/100 leukocyt esOrdered By: Dr. Frazier on 11-19-2022 Monocytes/100 WBC (Bld) 5.1 % 0-10 [facility] Blood platelet mean volumeOr dered By: Dr. Frazier on 11-19-2022 Platelet mean volume (Bld) [Entitic vol] 10.4 fL 6.2-12.0 [facility] Determination of erythrocyte mean corpuscular volume (MCV)Ordered By: Dr. Frazier on 11-19-2022 MCV (RBC) [Entitic vol] 87.8 fL 80-94 [facility] Hematocrit Auto (Bld) [Volum e fraction]Ordered By: Dr. Frazier on 11-19-2022 Hematocrit (Bld) [Volume fraction] 40.4 % 40-54 [facility] Laboratory - Chemistry and C hemistry - challengeOrdered By: Dr. Frazier on 11-19-2022 CO2 [Moles/Vol] 30.0 mmol/L 21.0-32.0 [facility] Magnesium [Mass/Vol] 1.5 mg/dL 1.6-2.6 [facility] Urea nitrogen/Creatinine [Mass ratio] 13.2 mg/mg 10-20 [facility] Laboratory - Hematology and Cell countsOrdered By: Dr. Frazier on 11-19-2022 Erythrocyte distribution width (RBC) [Entitic vol] 54.9 fL 35.1-43.9 [facility] Erythrocyte distribution width (RBC) [Ratio] 17.2 % 11.6-14.6 [facility] Immature granulocytes/100 WBC (Bld) 0.900 % 0.0-0.9 [facility] Comment on above: IG% - Immature Granu locytes (promyelocytes, myelocytes and metamyelocytes) > 1% indicates that a LEFT SHIFT is Present. MCH (RBC) [Entitic mass] 28.9 pg 27.0-32.0 [facility] Nucleated RBC/100 WBC (Bld) [Ratio] 0 % 0-5 [facility] Auto (RBC) [Mass/Vol]Or dered By: Dr. Frazier on 11-19-2022 MCHC (RBC) [Mass/Vol] 32.9 g/dL 32-36 [facility] No Panel InformationOrdered By: Dr. Frazier on 11-19-2022 Estimated GFR (MDRD) Amer 101 mL/min >60 [facility] Comment on above: GFR Calc Estimated GFR (MDRD) Non-Af Amer 84 mL/min >60 [facility] Comment on above: Non- GFR Calc Platelets bldOrdered By: Dr. Frazier on 11-19-2022 Platelets (Bld) [#/Vol] 301 10*3/uL 150-450 [facility] Serum or plasma calcium stacy urement (mass/volume)Ordered By: Dr. Frazier on 11-19-2022 Calcium [Mass/Vol] 9.0 mg/dL 8.5-10.1 [facility] Serum or plasma creatinine m easurement (mass/volume)Ordered By: Dr. Frazier on 11-19-2022 Creatinine [Mass/Vol] 0.98 mg/dL 0.70-1.30 [facility] Comment on above: The validity of the calculated GFR & GFRAA in patients over 70 years has not been determined. Clinical correlation is essential. Serum or plasma urea nitroge n measurement (mass/volume)Ordered By: Dr. Frazier on 11-19-2022 Urea nitrogen [Mass/Vol] 13 mg/dL 7-18 [facility] Thin prep Papanicolaou smear with manual screeningOrdered By: Dr. Frazier on 11-19-2022 Thin prep Papanicolaou smear with manual screening 10 5-15 [facility] Basophil percentageOrdered B y: Dr. Frazier on 10-20-2022 Creatinine [Mass/Vol] 0.9 mg/dL 0.70-1.30 [facility] No Panel InformationOrdered By: Dr. Frazier on 10-20-2022 Bedside Estimated GFR (eGFR) > 60.0000 mL/min >60 [facility] Erythrocyte sedimentation ra teOrdered By: Dr. Correa on 09-17-2022 ESR (Bld) [Velocity] 64 mm/h 0-20 [facility] Laboratory - Chemistry and C hemistry - challengeOrdered By: Dr. Correa on 09-17-2022 Free T4 [Mass/Vol] 1.34 ng/dL 0.76-1.46 [facility] No Panel InformationOrdered By: Dr. Correa on 09-17-2022 Anti-Nuclear Antibody Screen Negative Negative [facility] Comment on above: Performed at: [address] [id number] Director: Calos Dozier PhD, Phone: [phone] Thyroid Stimulating Hormone (TSH) 0.66 uIU/mL 0.358-3.74 [facility] Vitamin D 25-Hydroxy 37.8 ng/mL [facility] Comment on above: Vitamin D 25(OH) Sta tus Range Deficiency <20 ng/mL (50nmol/L) Insufficiency 20 - 30 ng/mL (50 - 75 nmol/L) Sufficiency 30 - 100 ng/mL (75 - 250 nmol/L) Toxicity >100 ng/mL (>250 nmol/L) Serum or plasma C reactive p rotein measurement (mass/volume)Ordered By: Dr. Correa on 09-17-2022 CRP [Mass/Vol] 3.95 mg/L 0.0-3.0 [facility] Comment on above: C-Reactive Protein ( CRP) provides useful information for thediagnosis, therapy and monitoring of inflammatory processesand associated diseases. For the evaluation of Relative Riskfor Cardiovascular Disease, a High Sensitivity CRP (HSCRP)should be ordered. Serum rheumatoid factor dete ctionOrdered By: Dr. Correa on 09-17-2022 Rheumatoid factor Ql (S) < 10.0 IU/mL <15 [facility] Laboratory - Hematology and Cell countson 09-07-2022 HbA1c (Bld) [Mass fraction] 7.6 % [facility] Absolute lymphocyte countOrd ered By: Dr. Cook on 08-25-2022 Lymphocytes Auto (Unsp spec) [#/Vol] 2.45 10*3/uL 0.83-4.51 [facility] Basophil percentageOrdered B y: Dr. Cook on 08-25-2022 Basophil percentage 0-5 SEEN /hpf 0-5 [facility] Basophils/100 WBC (Bld) 0.2 % 0-1 [facility] Chloride [Moles/Vol] 100 mmol/L 98-107 [facility] Eosinophils/100 WBC (Bld) 2.4 % 0-5 [facility] Glucose [Mass/Vol] 190 mg/dL 74-106 [facility] Comment on above: Fasting Glucose resu lt greater than or equal to 126 mg/dL suggests DIABETES MELLITUS per A.D.A. criteria. Neutrophils (Bld) [#/Vol] 8.6 10*3/uL 2.0-7.7 [facility] Neutrophils/100 WBC (Bld) 69.9 % 47-70 [facility] Potassium [Moles/Vol] 3.4 mmol/L 3.5-5.1 [facility] Sodium [Moles/Vol] 133 mmol/L 136-145 [facility] WBC (Bld) [#/Vol] 12.3 10*3/uL 4.4-11.0 [facility] Bilirubin Test strip Ql (U)O rdered By: Dr. Cook on 08-25-2022 Bilirubin Ql (U) Negative Negative [facility] Blood erythrocytes count (nu mber/volume)Ordered By: Dr. Cook on 08-25-2022 RBC (Bld) [#/Vol] 4.41 10*6/uL 4.6-6.2 [facility] Blood hemoglobin measurement (mass/volume)Ordered By: Dr. Cook on 08-25-2022 Hemoglobin (Bld) [Mass/Vol] 12.5 g/dL 13.0-16.5 [facility] Blood lymphocytes/100 leukoc ytesOrdered By: Dr. Cook on 08-25-2022 Lymphocytes/100 WBC (Bld) 19.9 % 19-41 [facility] Blood monocytes/100 leukocyt esOrdered By: Dr. Cook on 08-25-2022 Monocytes/100 WBC (Bld) 6.3 % 0-10 [facility] Blood platelet mean volumeOr dered By: Dr. Cook on 08-25-2022 Platelet mean volume (Bld) [Entitic vol] 10.7 fL 6.2-12.0 [facility] Determination of erythrocyte mean corpuscular volume (MCV)Ordered By: Dr. Cook on 08-25-2022 MCV (RBC) [Entitic vol] 84.6 fL 80-94 [facility] Erythrocyte sedimentation ra teOrdered By: Dr. Cook on 08-25-2022 ESR (Bld) [Velocity] 108 mm/h 0-20 [facility] Hematocrit Auto (Bld) [Volum e fraction]Ordered By: Dr. Cook on 08-25-2022 Hematocrit (Bld) [Volume fraction] 37.3 % 40-54 [facility] Ketones Test strip Ql (U)Ord ered By: Dr. Cook on 08-25-2022 Ketones Ql (U) 5 mg/dl Negative [facility] Laboratory - Chemistry and C hemistry - challengeOrdered By: Dr. Cook on 08-25-2022 CK [Catalytic activity/Vol] 57 U/L 39-308 [facility] CO2 [Moles/Vol] 24.0 mmol/L 21.0-32.0 [facility] Urea nitrogen/Creatinine [Mass ratio] 13.7 mg/mg 10-20 [facility] Laboratory - Hematology and Cell countsOrdered By: Dr. Cook on 08-25-2022 Erythrocyte distribution width (RBC) [Entitic vol] 44.6 fL 35.1-43.9 [facility] Erythrocyte distribution width (RBC) [Ratio] 14.5 % 11.6-14.6 [facility] Immature granulocytes/100 WBC (Bld) 1.300 % 0.0-0.9 [facility] Comment on above: IG% - Immature Granu locytes (promyelocytes, myelocytes and metamyelocytes) > 1% indicates that a LEFT SHIFT is Present. MCH (RBC) [Entitic mass] 28.3 pg 27.0-32.0 [facility] Nucleated RBC/100 WBC (Bld) [Ratio] 0 % 0-5 [facility] MCHC Auto (RBC) [Mass/Vol]Or dered By: Dr. Cook on 08-25-2022 MCHC (RBC) [Mass/Vol] 33.5 g/dL 32-36 [facility] Mucus LM Ql (Urine sed)Order ed By: Dr. Cook on 08-25-2022 Mucus Ql (Urine sed) 0 SEEN /hpf [facility] Nitrite Test strip Ql (U)Ord ered By: Dr. Cook on 08-25-2022 Nitrite Ql (U) Negative Negative [facility] No Panel InformationOrdered By: Dr. Cook on 08-25-2022 Estimated Creatinine Clearance Calc 96.43 ml/min [facility] Estimated GFR (MDRD) Amer 106 mL/min >60 [facility] Comment on above: GFR Calc Estimated GFR (MDRD) Non-Af Amer 87 mL/min >60 [facility] Comment on above: Non- GFR Calc Platelets bldOrdered By: Dr. Cook on 08-25-2022 Platelets (Bld) [#/Vol] 277 10*3/uL 150-450 [facility] Protein Test strip Ql (U)Ord ered By: Dr. Cook on 08-25-2022 Protein Ql (U) 15 mg/dl Negative [facility] Serum or plasma C reactive p rotein measurement (mass/volume)Ordered By: Dr. Cook on 08-25-2022 CRP [Mass/Vol] 142.00 mg/L 0.0-3.0 [facility] Comment on above: C-Reactive Protein ( CRP) provides useful information for thediagnosis, therapy and monitoring of inflammatory processesand associated diseases. For the evaluation of Relative Riskfor Cardiovascular Disease, a High Sensitivity CRP (HSCRP)should be ordered. Serum or plasma calcium stacy urement (mass/volume)Ordered By: Dr. Cook on 08-25-2022 Calcium [Mass/Vol] 9.4 mg/dL 8.5-10.1 [facility] Serum or plasma creatinine m easurement (mass/volume)Ordered By: Dr. Cook on 08-25-2022 Creatinine [Mass/Vol] 0.95 mg/dL 0.70-1.30 [facility] Comment on above: The validity of the calculated GFR & GFRAA in patients over 70 years has not been determined. Clinical correlation is essential. Serum or plasma urea nitroge n measurement (mass/volume)Ordered By: Dr. Cook on 08-25-2022 Urea nitrogen [Mass/Vol] 13 mg/dL 7-18 [facility] Squamous epithelial cells de tection in urine sediment by light microscopyOrdered By: Dr. Cook on 08-25-2022 Epithelial cells.squamous LM Ql (Urine sed) 0 SEEN /hpf 0-5 [facility] Thin prep Papanicolaou smear with manual screeningOrdered By: Dr. Cook on 08-25-2022 Thin prep Papanicolaou smear with manual screening 9 5-15 [facility] Urine blood detectionOrdered By: Dr. Cook on 08-25-2022 RBC Ql (U) Negative Negative [facility] RBC Ql (U) 0 SEEN /hpf 0-5 [facility] Urine clarityOrdered By: Dr. Cook on 08-25-2022 Clarity (U) Clear Clear [facility] Urine color determinationOrd ered By: Dr. Cook on 08-25-2022 Color (U) Yellow Yellow [facility] Urine glucose detectionOrder ed By: Dr. Cook on 08-25-2022 Glucose Ql (U) Normal mg/dl Normal [facility] Urine leukocyte esterase det ection by dipstickOrdered By: Dr. Cook on 08-25-2022 Leukocyte esterase Test strip Ql (U) 25 /ul Negative [facility] Urine pHOrdered By: Dr. Manny iqbal on 08-25-2022 pH (U) 6.5 [pH] 5.0 - 8.0 [facility] Urine sediment bacteria coun t by microscopy (number/high power field)Ordered By: Dr. Cook on 08-25-2022 Bacteria LM.HPF (Urine sed) [#/Area] 0 /[HPF] None Seen [facility] Urine specific gravity measu rementOrdered By: Dr. Cook on 08-25-2022 Specific gravity (U) [Rel density] 1.015 1.002-1.030 [facility] Urobilinogen Auto test strip Ql (U)Ordered By: Dr. Cook on 08-25-2022 Urobilinogen Ql (U) Normal mg/dl Normal [facility] Laboratory - Hematology and Cell countson 07-26-2022 HbA1c (Bld) [Mass fraction] 7.9 % [facility] Work Phone: Laboratory - Hematology and Cell countson 04-26-2022 HbA1c (Bld) [Mass fraction] 7.9 % [facility] Work Phone: No Panel Informationon 01-28 Urine Microalbumin/Creatinine Ratio 23.8 mg/g CRE <30 [facility] Work Phone: Thin prep Papanicolaou smear with manual screeningon 01-28-2022 Thin prep Papanicolaou smear with manual screening 61.0 mg/L NO RANGE EST. [facility] Work Phone: Urine creatinine measurement (mass/volume)on 01-28-2022 Creatinine (U) [Mass/Vol] 256.00 mg/dL NO RANGE EST. [facility] Work Phone: Laboratory - Hematology and Cell countson 01-25-2022 HbA1c (Bld) [Mass fraction] 7.3 % [facility] Work Phone: Absolute lymphocyte counton 12-29-2021 Lymphocytes Auto (Unsp spec) [#/Vol] 3.09 10*3/uL 0.83-4.51 [facility] Work Phone: Basophil percentageon 2021 Basophils/100 WBC (Bld) 0.2 % 0-1 [facility] Work Phone: Chloride [Moles/Vol] 102 mmol/L 98-107 [facility] Work Phone: [phone] Eosinophils/100 WBC (Bld) 3.5 % 0-5 [facility] Work Phone: Glucose [Mass/Vol] 87 mg/dL 74-106 [facility] Work Phone: [phone] Neutrophils (Bld) [#/Vol] 5.0 10*3/uL 2.0-7.7 [facility] Work Phone: [phone] Neutrophils/100 WBC (Bld) 54.4 % 47-70 [facility] Work Phone: [phone] Potassium [Moles/Vol] 3.8 mmol/L 3.5-5.1 [facility] Work Phone: [phone] Sodium [Moles/Vol] 136 mmol/L 136-145 [facility] Work Phone: WBC (Bld) [#/Vol] 9.1 10*3/uL 4.4-11.0 [facility] Work Phone: Blood erythrocytes count (nu mber/volume)on 12-29-2021 RBC (Bld) [#/Vol] 4.67 10*6/uL 4.6-6.2 [facility]: Blood hemoglobin measurement (mass/volume)on 12-29-2021 Hemoglobin (Bld) [Mass/Vol] 13.5 g/dL 13.0-16.5 [facility] Work Phone: Blood lymphocytes/100 leukoc yteson 12-29-2021 Lymphocytes/100 WBC (Bld) 33.9 % 19-41 [facility] Work Phone: Blood monocytes/100 leukocyt eson 12-29-2021 Monocytes/100 WBC (Bld) 7.7 % 0-10 [facility] Work Phone: Blood platelet mean volumeon 12-29-2021 Platelet mean volume (Bld) [Entitic vol] 11.3 fL 6.2-12.0 [facility] Work Phone: Determination of erythrocyte mean corpuscular volume (MCV)on 12-29-2021 MCV (RBC) [Entitic vol] 86.1 fL 80-94 [facility] Work Phone: Hematocrit Auto (Bld) [Volum e fraction]on 12-29-2021 Hematocrit (Bld) [Volume fraction] 40.2 % 40-54 [facility] Work Phone: Laboratory - Chemistry and C hemistry - challengeon 12-29-2021 CO2 [Moles/Vol] 29.0 mmol/L 21.0-32.0 [facility] Work Phone: Urea nitrogen/Creatinine [Mass ratio] 13.4 mg/mg 10-20 [facility] Work Phone: Laboratory - Hematology and Cell countson 12-29-2021 Erythrocyte distribution width (RBC) [Entitic vol] 43.9 fL 35.1-43.9 [facility] Work Phone: Erythrocyte distribution width (RBC) [Ratio] 14.1 % 11.6-14.6 [facility] Work Phone: Immature granulocytes/100 WBC (Bld) 0.300 % 0.0-0.9 [facility] Work Phone: Comment on above: IG% - Immature Granu locytes (promyelocytes, myelocytes and metamyelocytes) > 1% indicates that a LEFT SHIFT is Present. MCH (RBC) [Entitic mass] 28.9 pg 27.0-32.0 [facility] Work Phone: Nucleated RBC/100 WBC (Bld) [Ratio] 0 % 0-5 [facility] Work Phone: MCHC Auto (RBC) [Mass/Vol]on 12-29-2021 MCHC (RBC) [Mass/Vol] 33.6 g/dL 32-36 [facility] Work Phone: No Panel Informationon 12-29 Estimated GFR (MDRD) Amer 104 mL/min >60 [facility] Work Phone: Comment on above: GFR Calc Estimated GFR (MDRD) Non-Af Amer 86 mL/min >60 [facility] Work Phone: Comment on above: Non- GFR Calc Platelets bldon 12-29-2021 Platelets (Bld) [#/Vol] 268 10*3/uL 150-450 [facility] Work Phone: Serum or plasma calcium stacy urement (mass/volume)on 12-29-2021 Calcium [Mass/Vol] 9.7 mg/dL 8.5-10.1 [facility] Work Phone: Serum or plasma creatinine m easurement (mass/volume)on 12-29-2021 Creatinine [Mass/Vol] 0.97 mg/dL 0.70-1.30 [facility] Work Phone: Comment on above: The validity of the calculated GFR & GFRAA in patients over 70 years has not been determined. Clinical correlation is essential. Serum or plasma urea nitroge n measurement (mass/volume)on 12-29-2021 Urea nitrogen [Mass/Vol] 13 mg/dL 7-18 [facility] Work Phone: Thin prep Papanicolaou smear with manual screeningon 12-29-2021 Thin prep Papanicolaou smear with manual screening 5 5-15 [facility] Work Phone: Basophil percentageon 2020 Bilirubin [Mass/Vol] 0.30 mg/dL 0.20-1.00 [facility] Work Phone: Comment on above: For patients on eltr ombopag therapy, use of Dimension [place] TBIL is not recommended. Chloride [Moles/Vol] 103 mmol/L 98-107 [facility] Work Phone: Cholesterol [Mass/Vol] 189 mg/dL <200 [facility] Work Phone: Comment on above: <200 mg/dL Desirable 200-240 mg/dL Borderline >240 mg/dL High Risk Glucose [Mass/Vol] 131 mg/dL 74-106 [facility] Work Phone: Comment on above: Fasting Glucose resu lt greater than or equal to 126 mg/dL suggests DIABETES MELLITUS per A.D.A. criteria.Please note revised GLUCOSE reference range effective 2017. Potassium [Moles/Vol] 3.5 mmol/L 3.5-5.1 [facility] Work Phone: Protein [Mass/Vol] 8.3 g/dL 6.4-8.2 [facility] Work Phone: Sodium [Moles/Vol] 137 mmol/L 136-145 [facility] Work Phone: Triglyceride [Mass/Vol] 301 mg/dL [facility] Work Phone: Comment on above: The drugs N-Acetylcy steine and Metamizole may falsely depress this assay.Serum Triglycerides Reference Interval Normal <150 mg/dL Borderline high 150 - 199 mg/dL High 200 - 499 mg/dL Very High > or = 500 mg/dL Laboratory - Chemistry and C hemistry - challengeon 10-20-2021 ALP [Catalytic activity/Vol] 59 U/L 45-117 [facility] Work Phone: ALT [Catalytic activity/Vol] 58 U/L 16-61 [facility] Work Phone: CO2 [Moles/Vol] 25.0 mmol/L 21.0-32.0 [facility] Work Phone: Cobalamin (Vitamin B12) [Mass/Vol] 566 pg/mL 211-911 [facility] Work Phone: Free T4 [Mass/Vol] 1.10 ng/dL 0.76-1.46 [facility] Work Phone: Globulin (S) [Mass/Vol] 4.5 g/dL 2.2-4.2 [facility] Work Phone: Urea nitrogen/Creatinine [Mass ratio] 15.7 mg/mg 10-20 [facility] Work Phone: Laboratory - Hematology and Cell countson 10-20-2021 HbA1c (Bld) [Mass fraction] 7.5 % [facility] Work Phone: No Panel Informationon 10-20 Urine Microalbumin/Creatinine Ratio 35.2 mg/g CRE <30 [facility] Work Phone: Estimated GFR (MDRD) Amer 114 mL/min >60 [facility] Work Phone: Comment on above: GFR Calc Estimated GFR (MDRD) Non-Af Amer 94 mL/min >60 [facility] Work Phone: Comment on above: Non- GFR Calc Prostate Specific Antigen Screen 0.43 ng/mL 0.00-4.00 [facility] Work Phone: Comment on above: This test was perfor med using the TPSA assay method for [employer] chemistry system. Values obtained with differentassay methods cannot be used interchangably.When changing PSA assays in the course of monitoring apatient, additional sequential testing should be carriedout to confirm baseline values. Thyroid Stimulating Hormone (TSH) 2.32 uIU/mL 0.358-3.74 [facility] Work Phone: Vitamin D 25-Hydroxy 26.3 ng/mL [facility] Work Phone: Comment on above: Vitamin D 25(OH) Sta tus Range Deficiency <20 ng/mL (50nmol/L) Insufficiency 20 - 30 ng/mL (50 - 75 nmol/L) Sufficiency 30 - 100 ng/mL (75 - 250 nmol/L) Toxicity >100 ng/mL (>250 nmol/L) Serum or plasma albumin stacy urement (mass/volume)on 10-20-2021 Albumin [Mass/Vol] 3.8 g/dL 3.2-5.0 [facility] Work Phone: Serum or plasma albumin/glob ulin mass ratioon 10-20-2021 Albumin/Globulin [Mass ratio] 0.8 {ratio} 0.9-2.4 [facility] Work Phone: Serum or plasma calcium stacy urement (mass/volume)on 10-20-2021 Calcium [Mass/Vol] 9.4 mg/dL 8.5-10.1 [facility] Work Phone: Serum or plasma cholesterol in HDL measurement (mass/volume)on 10-20-2021 Cholesterol in HDL [Mass/Vol] 39 mg/dL [facility] Work Phone: Comment on above: The drugs N-Acetylcy steine and Metamizole may falsely depress this assay. Reference Range HDL <40 mg/dL Low HDL Cholesterol HDL >or= 60 mg/dL High HDL Cholesterol Serum or plasma cholesterol in VLDL measurement (mass/volume)on 10-20-2021 Cholesterol in VLDL [Mass/Vol] 60 mg/dL 5-40 [facility] Work Phone: Serum or plasma creatinine m easurement (mass/volume)on 10-20-2021 Creatinine [Mass/Vol] 0.89 mg/dL 0.70-1.30 [facility] Work Phone: Comment on above: The validity of the calculated GFR & GFRAA in patients over 70 years has not been determined. Clinical correlation is essential. Serum or plasma low density lipoprotein (LDL) cholesterol measurement (mass/volume)on 10-20-2021 Cholesterol in LDL [Mass/Vol] 90 mg/dL 0-130 [facility] Work Phone: Serum or plasma urea nitroge n measurement (mass/volume)on 10-20-2021 Urea nitrogen [Mass/Vol] 14 mg/dL 7-18 [facility] Work Phone: Thin prep Papanicolaou smear with manual screeningon 10-20-2021 Thin prep Papanicolaou smear with manual screening 24.6 mg/L NO RANGE EST. [facility] Work Phone: Thin prep Papanicolaou smear with manual screening 25 U/L 15-37 [facility] Work Phone: Thin prep Papanicolaou smear with manual screening 9 5-15 [facility] Work Phone: Urine creatinine measurement (mass/volume)on 10-20-2021 Creatinine (U) [Mass/Vol] 69.90 mg/dL NO RANGE EST. [facility] Work Phone: Vital Signs Date Time Vital Sign Value Performing Clinician Faci lity 05-14-2025 15:50-0400 Body height 182.[address] Dylan Frazier MD Work Phone: [facility] 05-14-2025 15:50-0400 Body mass index (BMI) [Ratio] 50.8 kg/m2 Dr. Dylan Frazier MD Work Phone: [facility] 05-14-2025 15:50-0400 Body weight 169.[address] Dyaln Frazier MD Work Phone: [facility] 05-14-2025 15:50-0400 Diastolic blood pressure 77 mm[Hg] Dr. Dylan Frazier MD Work Phone: [facility] 05-14-2025 15:50-0400 Heart rate 77 /min Dr. Dylan Frazier MD Work Phone: 3(000)[phone] [place] [address] 05-14-2025 15:50-0400 SaO2% (BldA) [Mass fraction] 93 % Dr. Dylan Frazier MD Work Phone: 9(398)[phone] [address] 05-14-2025 15:50-0400 Systolic blood pressure 134 mm[Hg] Dr. Dylan Frazier MD Work Phone: 4(356)[phone] [address] 03-01-2024 15:44-0400 Body height 182.[address] Dylan Frazier Work Phone: 6(094)[phone] [address] 03-01-2024 15:44-0400 Body mass index (BMI) [Ratio] 49.1 kg/m2 Dr. Dylan Frazier Work Phone: 7(262)[phone] [place] [address] 03-01-2024 15:44-0400 Body temperature 97.9 [degF] Dr. Dylan Frazier Work Phone: 0(789)[phone] [place] [address] 03-01-2024 15:44-0400 Body weight 164.[address] Dylan Frazier Work Phone: 7(155)[phone] [address] 03-01-2024 15:44-0400 Diastolic blood pressure 86 mm[Hg] Dr. Dylan Frazier Work Phone: 5(502)[phone] [place] [address] 03-01-2024 15:44-0400 Heart rate 90 /min Dr. Dylan Frazier Work Phone: [facility] 03-01-2024 15:44-0400 Respiratory rate 18 /min Dr. Dylan Frazier Work Phone: [facility] 03-01-2024 15:44-0400 SaO2% (BldA) [Mass fraction] 95 % Dr. Dylan Frazier Work Phone: [facility] 03-01-2024 15:44-0400 Systolic blood pressure 142 mm[Hg] Dr. Dylan Frazier Work Phone: [facility] 11-28-2023 15:14-0500 Body mass index (BMI) [Ratio] 49.2 kg/m2 Dr. Dylan Frazier Work Phone: [facility] 11-28-2023 15:14-0500 Body temperature 97.8 [degF] Dr. Dylan Frazier Work Phone: [facility] 11-28-2023 15:14-0500 Body weight 164.[address] Dylan Frazier Work Phone: [facility] 11-28-2023 15:14-0500 Diastolic blood pressure 80 mm[Hg] Dr. Dylan Frazier Work Phone: [facility] 11-28-2023 15:14-0500 Heart rate 81 /min Dr. Dylan Frazier Work Phone: [facility] 11-28-2023 15:14-0500 SaO2% (BldA) [Mass fraction] 97 % Dr. Dylan Frazier Work Phone: [facility] 11-28-2023 15:14-0500 Systolic blood pressure 140 mm[Hg] Dr. Dylan Frazier Work Phone: [facility] 07-26-2023 15:25-0400 Body height 182.[address] Dylan Frazier Work Phone: [facility] 07-26-2023 15:25-0400 Body mass index (BMI) [Ratio] 48.8 kg/m2 Dr. Dylan Frazier Work Phone: [facility] 07-26-2023 15:25-0400 Body temperature 98 [degF] Dr. Dylan Frazier Work Phone: [facility] 07-26-2023 15:25-0400 Body weight 163.[address] Dylan Frazier Work Phone: [facility] 07-26-2023 15:25-0400 Diastolic blood pressure 78 mm[Hg] Dr. Dylan Frazier Work Phone: [facility] 07-26-2023 15:25-0400 Heart rate 68 /min Dr. Dylan Frazier Work Phone: [facility] 07-26-2023 15:25-0400 Respiratory rate 18 /min Dr. Dylan Frazier Work Phone: [facility] 07-26-2023 15:25-0400 SaO2% (BldA) [Mass fraction] 97 % Dr. Dylan Frazier Work Phone: [facility] 07-26-2023 15:25-0400 Systolic blood pressure 126 mm[Hg] Dr. Dylan Frazier Work Phone: [facility] 04-12-2023 15:01-0400 Body height 182.[address] Dylan Frazier Work Phone: [facility] 04-12-2023 15:01-0400 Body mass index (BMI) [Ratio] 47.1 kg/m2 Dr. Dylan Frazier Work Phone: [facility] 04-12-2023 15:01-0400 Body temperature 98.4 [degF] Dr. Dylan Frazier Work Phone: [facility] 04-12-2023 15:01-0400 Body weight 157.[address] Dylan Frazier Work Phone: [facility] 04-12-2023 15:01-0400 Diastolic blood pressure 82 mm[Hg] Dr. Dylan Frazier Work Phone: [facility] 04-12-2023 15:01-0400 Heart rate 82 /min Dr. Dylan Frazier Work Phone: [facility] 04-12-2023 15:01-0400 Respiratory rate 18 /min Dr. Dylan Frazier Work Phone: [facility] 04-12-2023 15:01-0400 SaO2% (BldA) [Mass fraction] 97 % Dr. Dylan Frazier Work Phone: [facility] 04-12-2023 15:01-0400 Systolic blood pressure 158 mm[Hg] Dr. Dylan Frazier Work Phone: [facility] 02-13-2023 08:41-0400 Body temperature 97.7 [degF] Dr. Dylan Frazier Work Phone: [facility] 02-13-2023 08:41-0400 Diastolic blood pressure 92 mm[Hg] Dr. Dylan Frazier Work Phone: [facility] 02-13-2023 08:41-0400 Heart rate 92 /min Dr. Dylan Frazier Work Phone: [facility] 02-13-2023 08:41-0400 Respiratory rate 16 /min Dr. Dylan Frazier Work Phone: [facility] 02-13-2023 08:41-0400 SaO2% (BldA) [Mass fraction] 97 % Dr. Dylan Frazier Work Phone: [facility] 02-13-2023 08:41-0400 Systolic blood pressure 138 mm[Hg] Dr. Dylan Frazier Work Phone: [facility] 12-10-2022 15:12-0500 Body height 182.[address] Dylan Frazier Work Phone: [facility] 12-10-2022 15:12-0500 Body mass index (BMI) [Ratio] 45.6 kg/m2 Dr. Dylan Frazier Work Phone: [facility] 12-10-2022 15:12-0500 Body temperature 93.7 [degF] Dr. Dylan Frazier Work Phone: [facility] 12-10-2022 15:12-0500 Body weight 152.[address] Dylan Frazier Work Phone: [facility] 12-10-2022 15:12-0500 Diastolic blood pressure 73 mm[Hg] Dr. Dylan Frazier Work Phone: [facility] 12-10-2022 15:12-0500 Heart rate 92 /min Dr. Dylan Frazier Work Phone: [facility] 12-10-2022 15:12-0500 Respiratory rate 16 /min Dr. Dylan Frazier Work Phone: [facility] 12-10-2022 15:12-0500 SaO2% (BldA) [Mass fraction] 91 % Dr. Dylan Frazier Work Phone: [facility] 12-10-2022 15:12-0500 Systolic blood pressure 135 mm[Hg] Dr. Dylan Frazier Work Phone: [facility] 09-07-2022 16:31-0500 Body height 182.[address] Dylan Frazier Work Phone: 8([phone])[phone] [address] 09-07-2022 16:31-0500 Body mass index (BMI) [Ratio] 45 kg/m2 Dr. Dylan Frazier Work Phone: [facility] 09-07-2022 16:31-0500 Body temperature 94.7 [degF] Dr. Dylan Frazier Work Phone: 5(659)[phone] [address] 09-07-2022 16:31-0500 Body weight 150.[address] Dylan Frazier Work Phone: 2(205)[phone] [place] [address] 09-07-2022 16:31-0500 Diastolic blood pressure 84 mm[Hg] Dr. Dylan Frazier Work Phone: [facility] 09-07-2022 16:31-0500 Heart rate 89 /min Dr. Dylan Frazier Work Phone: [facility] 09-07-2022 16:31-0500 Respiratory rate 18 /min Dr. Dylan Frazier Work Phone: [facility] 09-07-2022 16:31-0500 SaO2% (BldA) [Mass fraction] 94 % Dr. Dylan Frazier Work Phone: [facility] 09-07-2022 16:31-0500 Systolic blood pressure 152 mm[Hg] Dr. Dylan Frazier Work Phone: [facility] 09-03-2022 09:04-0400 Body mass index (BMI) [Ratio] 45.6 kg/m2 Dr. Dylan Frazier Work Phone: [facility] 09-03-2022 09:04-0400 Body temperature 96.2 [degF] Dr. Dylan Frazier Work Phone: [facility] 09-03-2022 09:04-0400 Body weight 152.[address] Dylan Frazier Work Phone: [facility] 09-03-2022 09:04-0400 Diastolic blood pressure 70 mm[Hg] Dr. Dylan Frazier Work Phone: [facility] 09-03-2022 09:04-0400 Heart rate 103 /min Dr. Dylan Frazier Work Phone: [facility] 09-03-2022 09:04-0400 Respiratory rate 16 /min Dr. Dylan Frazire Work Phone: [facility] 09-03-2022 09:04-0400 SaO2% (BldA) [Mass fraction] 96 % Dr. Dylan Frazier Work Phone: [facility] 09-03-2022 09:04-0400 Systolic blood pressure 160 mm[Hg] Dr. Dylan Frazier Work Phone: [facility] 08-26-2022 01:48-0400 Diastolic blood pressure 89 mm[Hg] Dr. Dylan Frazier Work Phone: [facility] 08-26-2022 01:48-0400 Heart rate 89 /min Dr. Dylan Frazier Work Phone: [facility] 08-26-2022 01:48-0400 Respiratory rate 16 /min Dr. Dylan Frazier Work Phone: [facility] 08-26-2022 01:48-0400 SaO2% (BldA) [Mass fraction] 99 % Dr. Dylan Frazier Work Phone: [facility] 08-26-2022 01:48-0400 Systolic blood pressure 131 mm[Hg] Dr. Dylan Frazier Work Phone: [facility] 08-25-2022 18:57-0400 Body height 182.[address] Dylan Frazier Work Phone: [facility] Work Phone: 08-25-2022 18:57-0400 Body mass index (BMI) [Ratio] 46 kg/m2 Dr. Dylan Frazier Work Phone: [facility] 08-25-2022 18:57-0400 Body temperature 98.2 [degF] Dr. Dylan Frazier Work Phone: [facility] 08-25-2022 18:57-0400 Body weight 154.[address] Dylan Frazier Work Phone: [facility] 07-26-2022 16:23-0400 Body mass index (BMI) [Ratio] 48.8 kg/m2 Dr. Dylan Frazier Work Phone: [facility] Work Phone: 07-26-2022 16:23-0400 Body temperature 96.4 [degF] Dr. Dylan Frazier Work Phone: [facility] Work Phone: 07-26-2022 16:23-0400 Body weight 163.[address] Dylan Frazier Work Phone: [facility] Work Phone: 07-26-2022 16:23-0400 Diastolic blood pressure 84 mm[Hg] Dr. Dylan Frazier Work Phone: [facility] Work Phone: 07-26-2022 16:23-0400 Heart rate 87 /min Dr. Dylan Frazier Work Phone: [facility] Work Phone: 07-26-2022 16:23-0400 Respiratory rate 18 /min Dr. Dylan Frazier Work Phone: [facility] Work Phone: 07-26-2022 16:23-0400 SaO2% (BldA) [Mass fraction] 95 % Dr. Dylan Frazier Work Phone: [facility] Work Phone: 07-26-2022 16:23-0400 Systolic blood pressure 149 mm[Hg] Dr. Dylan Frazier Work Phone: [facility] Work Phone: 04-26-2022 15:27-0400 Body height 182.[address] Dylan Frazier Work Phone: [facility] Work Phone: 04-26-2022 15:27-0400 Body mass index (BMI) [Ratio] 49.1 kg/m2 Dr. Dylan Frazier Work Phone: [facility] Work Phone: 04-26-2022 15:27-0400 Body weight 164.[address] Dylan Frazier Work Phone: [facility] Work Phone: 04-26-2022 15:27-0400 Diastolic blood pressure 80 mm[Hg] Dr. Dylan Frazier Work Phone: [facility] Work Phone: 04-26-2022 15:27-0400 Heart rate 107 /min Dr. Dylan Frazier Work Phone: [facility] Work Phone: 04-26-2022 15:27-0400 Respiratory rate 20 /min Dr. Dylan Frazier Work Phone: [facility] Work Phone: 04-26-2022 15:27-0400 SaO2% (BldA) [Mass fraction] 95 % Dr. Dylan Frazier Work Phone: [facility] Work Phone: 04-26-2022 15:27-0400 Systolic blood pressure 170 mm[Hg] Dr. Dylan Frazier Work Phone: [facility] Work Phone: 01-25-2022 15:00-0400 Body height 182.[address] Dylan Frazier Work Phone: [facility] Work Phone: 01-25-2022 15:00-0400 Body mass index (BMI) [Ratio] 47.3 kg/m2 Dr. Dylan Frazier Work Phone: [facility] Work Phone: 01-25-2022 15:00-0400 Body weight 158.[address] Dylan Frazier Work Phone: [facility] Work Phone: 01-25-2022 15:00-0400 Diastolic blood pressure 82 mm[Hg] Dr. Dylan Frazier Work Phone: [facility] Work Phone: 01-25-2022 15:00-0400 Heart rate 98 /min Dr. Dylan Frazier Work Phone: [facility] Work Phone: 01-25-2022 15:00-0400 Respiratory rate 20 /min Dr. Dylan Frazier Work Phone: [facility] Work Phone: 01-25-2022 15:00-0400 SaO2% (BldA) [Mass fraction] 96 % Dr. Dylan Frazier Work Phone: [facility] Work Phone: 01-25-2022 15:00-0400 Systolic blood pressure 160 mm[Hg] Dr. Dylan Frazier Work Phone: [facility] Work Phone: 10-20-2021 14:27-0500 Body mass index (BMI) [Ratio] 45.1 kg/m2 Dr. Dylan Frazier Work Phone: [facility] Work Phone: 10-20-2021 14:27-0500 Body temperature 97.3 [degF] Dr. Dylan Frazier Work Phone: [facility] Work Phone: 10-20-2021 14:27-0500 Body weight 151.[address] Dylan Frazier Work Phone: [facility] Work Phone: 10-20-2021 14:27-0500 Diastolic blood pressure 80 mm[Hg] Dr. Dylan Frazier Work Phone: [facility] Work Phone: 10-20-2021 14:27-0500 Heart rate 79 /min Dr. Dylan Frazier Work Phone: [facility] Work Phone: 10-20-2021 14:27-0500 Respiratory rate 16 /min Dr. Dylan Frazier Work Phone: [facility] Work Phone: 10-20-2021 14:27-0500 SaO2% (BldA) [Mass fraction] 96 % Dr. Dylan Frazier Work Phone: [facility] Work Phone: 10-20-2021 14:27-0500 Systolic blood pressure 130 mm[Hg] Dr. Dylan Frazier Work Phone: [facility] Work Phone: Encounters Encounter Date Encounter Type Care Provider Facility Start: 05-14-2025 End: 05-14-[address] Levy Correa MD -[facility] Work Phone: Start: 05-14-2025 End: 05-14-[address] Dylan Frazeir MD Work Phone: -[facility] Start: 11-19-2024 End: 11-19-2024 ambulatory Dylan Frazier Facility:[facility] Start: 10-25-2024 End: 10-25-2024 ambulatory Dylan Frazier Facility:[facility] Start: 08-29-2024 End: 08-29-2024 ambulatory Dylan Frazier Facility:[facility] Start: 07-09-2024 End: 07-09-2024 ambulatory Dylan Frazier Facility:[facility] Start: 06-04-2024 End: 06-04-2024 ambulatory Levy Correa Facility:[facility] Start: 03-07-[address] Dylan Frazier Work Phone: [facility] [place] Work Phone: Start: 03-02-2024 Non-patient / Non-visit Dr. Dylan Frazier Work Phone: [facility] Start: 03-01-2024 End: 03-01-[address] Dylan Frazier Work Phone: [facility] Work Phone: Start: 03-01-2024 End: 03-01-[address] Dylan Frazier Work Phone: [facility] Work Phone: Start: 03-01-2024 End: 03-01-[address] Dylan Frazier Work Phone: [facility] Work Phone: Start: 11-28-2023 End: 11-28-[address] Dylan Frazier Work Phone: [facility] Work Phone: Start: 08-16-2023 End: 08-16-[address] Dylan Frazier Work Phone: [facility] Work Phone: Start: 08-16-2023 End: 08-16-[address] Dylan Frazier Work Phone: [facility] Work Phone: Start: 08-05-2023 End: 08-05-[address] Dylan Frazier Work Phone: [facility] Start: 07-27-2023 End: 07-27-[address] Dylan Frazier Work Phone: [facility] Work Phone: Start: 07-26-2023 End: 07-26-[address] Dylan Frazier Work Phone: [facility] Work Phone: Start: 07-22-2023 End: 07-22-[address] Dylan Frazier Work Phone: [facility] Work Phone: Start: 07-22-2023 End: 07-22-[address] Dylan Frazier Work Phone: [facility] Work Phone: Start: 07-15-2023 End: 07-15-[address] Dylan Frazier Work Phone: [facility] Work Phone: Start: 07-15-2023 End: 07-15-[address] Dylan Frazier Work Phone: [facility] Work Phone: Start: 06-08-2023 End: 06-08-[address] Dylan Frazier Work Phone: [facility] Work Phone: Start: 06-08-2023 End: 06-08-[address] [facility] Start: 05-17-2023 End: 05-17-[address] Dylan Frazier Work Phone: [facility] Work Phone: Start: 05-17-2023 End: 05-17-[address] Dylan Frazier Work Phone: [facility] Work Phone: Start: 04-27-2023 End: 04-27-[address] Dylan Frazier Work Phone: [facility] Work Phone: Start: 04-27-2023 End: 04-27-[address] Dylan Frazier Work Phone: [facility] Work Phone: Start: 04-12-2023 End: 04-12-[address] Dylan Frazier Work Phone: [facility] Start: 04-08-2023 End: 04-08-[address] Dylan Frazier Work Phone: [facility] Work Phone: Start: 04-08-2023 End: 04-08-[address] Dylan Frazier Work Phone: [facility] Start: 03-03-2023 End: 03-03-[address] Dylan Frazier Work Phone: [facility] Work Phone: Start: 03-03-2023 End: 03-03-[address] Dylan Frazier Work Phone: [facility] Start: 02-13-2023 End: 02-13-[address] Dylan Frazier Work Phone: [facility] Start: 12-10-2022 End: 12-10-[address] Dylan Frazeir Work Phone: [facility] Start: 11-27-2022 End: 11-27-[address] Dylan Frazier Work Phone: [facility] Work Phone: Start: 11-27-2022 End: 11-27-[address] Dylan Frazier Work Phone: [facility] Start: 11-19-2022 End: 11-19-[address] Dylan Frazier Work Phone: [facility] Work Phone: Start: 11-19-2022 End: 11-19-[address] Dylan Frazier Work Phone: [facility] Start: 11-16-2022 End: 11-16-[address] Dylan Frazier [facility] Phone[facility] Start: 10-20-2022 End: 10-20-[address] Dylan Frazier Work Phone: [facility] Work Phone: Start: 10-20-2022 End: 10-20-[address] Dylan Frazier Work Phone: [facility] Start: 09-17-2022 End: 09-17-[address] Dylan Frazier Work Phone: [facility] Work Phone: Start: 09-17-2022 End: 09-17-[address] Dylan Frazier Work Phone: [facility] Start: 09-13-2022 End: 09-13-[address] Dylan Frazier Work Phone: [facility] Start: 09-07-2022 End: 09-07-[address] Dylan Frazier Work Phone: [facility] Endocrinology Start: 09-03-2022 End: 09-03-[address] Dylan Frazier Work Phone: [facility] Start: 08-25-2022 End: 08-26-2022 Emergency department patient visit Dr. Dylna Frazier Work Phone: [facility] Start: 07-26-2022 End: 07-26-[address] Dylan Frazier Work Phone: [facility] Start: 05-31-2022 End: 05-31-[address] Dylan Frazier Work Phone: [facility], [place] Start: 04-26-2022 End: 04-26-[address] Dylan Frazier Work Phone: [facility] Start: 01-28-2022 End: 01-28-[address] Dylan Frazier Work Phone: [facility] Start: 01-25-2022 End: 01-25-[address] Dylan Frazier Work Phone: [facility] Start: 12-29-2021 End: 12-29-[address] Dylan Frazier Work Phone: [facility] Start: 11-25-2021 End: 11-25-[address] Dylan Frazier Work Phone: [facility]/Neurology Start: 10-20-2021 End: 10-20-[address] Dylan Frazier Work Phone: [facility] End[facility] Procedures Date Procedure Procedure Detail Performing Clinician Start: 03-07-2024 Diagnostic radiograp hy of finger Dr. Dylan Frazier Work Phone: Start: 08-05-2023 Plain x-ray of pelvi s and lower extremity Dr. Dylan Frazier Work Phone: Start: 07-15-2023 Plain chest X-ray Dr. Carlos Frazier Work Phone: Start: 04-27-2023 MRI of lumbar spine Dr. Dylan Frazier Work Phone: Start: 11-27-2022 MRI of joint of lowe r extremity Dr. Dylan Frazier Work Phone: Start: 11-16-2022 Radionuclide whole b kieran bone study Dr. Dylan Frazier Work Phone: Start: 10-20-2022 CT of chest and abdomen Dr. Dylan Frazier Work Phone: Start: 08-25-2022 Plain chest X-ray Dr. Carlos Frazier Work Phone: Start: 05-31-2022 Plain x-ray of pelvi s and lower extremity Dr. Dylan Frazier Work Phone: Plan of Treatment Date Care Activity Detail Author Evaluation of [facility] study results [facility] Work Phone: Evaluation of [facility] study results [facility] Lipid 1996 panel - Serum or Plasma [facility] Patient Education ED Arthralgia [facility] Work Phone: Patient referral [facility] Work Phone: T4 free measurement [facility] Thyroid stimulating hormone measurement [facility] Thyroperoxidase Ab [ Units/volume] in Serum or Plasma [facility] Payers Date Payer Category Payer Self-pay [id number] 2024 Unknown [id number] Self-pay [id number] Unknown [id number] Unknown [id number] Unknown [id number] Unknown [id number] Unknown [id number] Unknown [id number] Social History Date Type Detail Facility Start: 01-25-2022 End: 11-28-2023 Tobacco smoking status NHIS Unknown if ever smoked [facility] Start: 06-10-2021 None [facility] Start: 10-13-2018 Non-smoker [facility] Start: 1965 Sex Assigned At Male [facility] Start: 11-28-2023 Tobacco smoking stat us MTIS Ex-smoker (finding) [facility] Medical Equipment Procedure Code Equipment Code Equipment Origin al Text Equipment Identifier Dates Insulin Syringe-Needle U-100 (Bd Insulin Syringe Ultra-Fine) 1 mL 31 gauge x 5/16 syringe Start: 12-02-2023 Pen Needle, Diab etic (Bd Ultra-Fine Zhanna Pen Needle) 32 gauge x 5/32 needle Start: 03-06-2024 Pen Needle, Diab etic (Bd Ultra-Fine Zhanna Pen Needle) 32 gauge x 5/32 needle Start: 12-27-2023 End: 03-06-2024 Pen Needle, Diab etic (Bd Ultra-Fine Zhanna Pen Needle) 32 gauge x 5/32 needle Start: 07-09-2024 Insulin Syringe-Needle U-100 (Bd Insulin Syringe Ultra-Fine) 1 mL 31 gauge x 5/16 syringe Start: 12-02-2023 End: 07-09-2024 Pen Needle, Diab etic (Bd Ultra-Fine Zhanna Pen Needle) 32 gauge x 5/32 needle Start: 12-27-2023 End: 03-06-2024 Pen Needle, Diab etic (Bd Ultra-Fine Zhanna Pen Needle) 32 gauge x 5/32 needle Start: 03-06-2024 End: 04-16-2024 Pen Needle, Diab etic (Bd Ultra-Fine Zhanna Pen Needle) 32 gauge x 5/32 needle Start: 04-16-2024 End: 07-09-2024 Mental Status Date Assessment Result Facility 08-25-2022 Cognitive function Level Of Cons ciousness Awake;Alert;Appropriate;Follow s Commands [facility] Work Phone: Clinical Notes Note Date & Type Note Facility Evaluation note Diagnosis Onset Date Diabetes acute Numbness of left thumb acute Benign hypertension chronic Hyperlipidemia chronic Obesity 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 Myalgia acute Presence of insulin pump acu te Benign hypertension chronic Hyperlipidemia chronic [facility] Work Phone: Evaluation note* Diagnosis Onset Date Resolution Status Diabetes acute 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 Insulin pump titration acute Presence of insulin pump acu te Benign hypertension chronic Hyperlipidemia chronic Obesity chronic Acute bacterial sinusitis ac [facility] Work Phone: Evaluation note* Diagnosis Onset Date Resolution Status Acute bacterial sinusitis ac [facility] Work Phone: Evaluation note* Diagnosis Onset Date Resolution Status Acute bacterial sinusitis ac [place] Benign hypertension chronic Diabetes chronic Hyperlipidemia chronic 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 Obesity chronic Presence of insulin pump [facility] Work Phone: Evaluation note* Diagnosis Onset Date Resolution Status Benign hypertension chronic Diabetes chronic Hyperlipidemia chronic 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 Obesity chronic Presence of insulin pump [facility] Work Phone: [phone] note* Diagnosis Onset Date Resolution Status Benign hypertension chronic Diabetes chronic Hyperlipidemia chronic 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 Obesity chronic Presence of insulin pump chr onic Diabetes chronic 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 [facility] Work Phone: Evaluation note* Diagnosis Onset Date Resolution Status Benign hypertension chronic Diabetes chronic Hyperlipidemia chronic 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 Insulin pump titration chron ic Obesity chronic Presence of insulin pump chr onic [facility] Work Phone: Evaluation note* Diagnosis Onset Date Resolution Status Benign hypertension chronic Diabetes chronic Hyperlipidemia chronic Obesity chronic Abnormal results of thyroid function studies acute Benign hypertension chronic Diabetes chronic Hyperlipidemia chronic Obesity chronic [facility] Work Phone: Evaluation noteNo assessment information available [facility] Work Phone: Hospital Discharge instructions Additional Instructions Please follow-up with orthopedics as scheduled tomorrow. Return if you develop fever or worsening symptoms. 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 Presence of insulin pump Benign hypertension Hyperlipidemia Obesity Chief Complaint 3 M FU PAIN Reason for Visit Diabetes 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 Insulin pump titration Presence of insulin pump Obesity Chief Complaint 3 M FU PAIN cough & congestation 2 W FU EKG Reason for Visit Diabetes 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 Insulin pump titration Presence of insulin pump Obesity Acute sinusitis Diabetes 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 Myalgia Presence of insulin pump Benign hypertension Hyperlipidemia Obesity Chief Complaint 3 M FU PAIN cough & congestation 2 W FU EKG ABD PAIN Reason for Visit Diabetes 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 Insulin pump titration Presence of insulin pump Obesity Acute sinusitis Diabetes 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 Myalgia Presence of insulin pump Benign hypertension Hyperlipidemia Obesity Chief Complaint PAIN cough & congestation 2 W FU EKG ABD PAIN ARTHRALGIA ARTHRALGIA Reason for Visit Acute sinusitis Diabetes 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 Myalgia Presence of insulin pump Benign hypertension Hyperlipidemia Obesity Chief Complaint ARTHRALGIA ARTHRALGIA 3 M FU CONCERN FOR SINUS INFECTION Reason for Visit Diabetes 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 Insulin pump titration Presence of insulin pump Benign hypertension Hyperlipidemia Obesity Acute bacterial sinusitis Chief Complaint CONCERN FOR SINUS IN FECTION INT LABS 4 M FU Reason for Visit Acute bacterial sinu sitis Chief Complaint CONCERN FOR SINUS IN FECTION INT LABS 4 M FU Radiculopathy, lumbosacral region Reason for Visit Acute bacterial sinu sitis Chief Complaint CONCERN FOR SINUS IN FECTION INT LABS 4 M FU Radiculopathy, lumbosacral region Reason for Visit Acute bacterial sinu sitis Benign hypertension Diabetes Hyperlipidemia 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 Obesity Presence of insulin pump Chief Complaint INT LABS 4 M FU Radiculopathy, lumbosacral region Reason for Visit Benign hypertension Diabetes Hyperlipidemia 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 Obesity Presence of insulin pump Chief Complaint INT LABS 4 M FU Radiculopathy, lumbosacral region cough Reason for Visit Benign hypertension Diabetes Hyperlipidemia Hypothyroidism due to Germeias's thyroiditis Obesity Presence of insulin pump Chief Complaint INT LABS 4 M FU Radiculopathy, lumbosacral region cough INT LABS 3 M FU E ORDERS Reason for Visit Benign hypertension Diabetes Hyperlipidemia 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 Obesity Presence of insulin pump Diabetes 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 Chief Complaint Radiculopathy, lumbo sacral region cough INT LABS 3 M FU E ORDERS ADD XRAY OF HIP Reason for Visit Benign hypertension Diabetes Hyperlipidemia 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 Insulin pump titration Obesity Presence of insulin pump Chief Complaint 4 M FU INT LABS 3 M FU Amb Documentation Reason for Visit Benign hypertension Diabetes Hyperlipidemia Obesity Abnormal results of thyroid function studies Benign hypertension Diabetes Hyperlipidemia Obesity Chief Complaint Admit Date 5 M FU, RS 04/02May 14, 2025 3:48 pm Family History No Family History Records Found Relationship Condition Age at Onset Recorded Date/T patrick Not Specified Arthritis Unknown Hypertension Unknown mother Malignant neoplasm of breast Unknown father Cardiac disease Unknown Advance Directives No Advanced Directives Records Found Advance Directive Response Recorded Date/ Time Living Will No October 12, 2 018 10:42am Power of Coin Purse Assembler No October 12, 2018 10:42am Advance Directive Response Recorded Date/ Time Living Will No August 25 10:31pm Power of Coin Purse Assembler No August 25, 2022 10:31pm Advance Directive Response Recorded Date/ Time Living Will No August 25 9:31pm Power of Coin Purse Assembler No August 25, 2022 9:31pm Summary Purpose Additional Source Comments Goals (unrecognized section and content) Goals may be documented in a n alternate sectionGoals may be documented in an alternate sectionGoals may be documented in an alternate sectionGoals may be documented in an alternate sectionGoals may be documented in an alternate sectionGoals may be documented in an alternate sectionGoals may be documented in an alternate sectionGoals may be documented in an alternate sectionGoals may be documented in an alternate sectionGoals may be documented in an alternate sectionGoals may be documented in an alternate sectionGoals may be documented in an alternate sectionGoals may be documented in an alternate sectionGoals may be documented in an alternate sectionGoals may be documented in an alternate sectionGoals may be documented in an alternate sectionGoals may be documented in an alternate section Care Teams (unrecognized sec tion and content) Team Status: Active Member Role Status Dates Dr. Dylan Frazier MD Family Provider Active Dr. Dylan Frazier MD Primary Care Provider Active Team Status: Inactive Member Role Status Dates Dr. Dylan Frazier MD Primary Care Provider, Referring Provider Active Dr. Levy Correa MD Attending Provider Active Team Status: Inactive Member Role Status Dates Dr. Dylan Frazier MD Primary Care Provider, Referring Provider Active Pavel WALLACE, PA Attending Provider Active Team Status: Inactive Member Role Status Dates Dr. Dylan Frazier MD Primary Care Provider Active Dr. Levy Correa MD Attending Provider Active Team Status: Inactive Member Role Status Dates Dr. Dylan Frazier MD Primary Care Provider Active Dr. Loren Cook DO Attending ProviderGeovani Active Team Status: Inactive Member Role Status Dates Dr. Dylan [facility], Attending Provider, Referring Provider Active Team Status: Inactive Member Role Status Dates Dr. Dylan Frazier MD Primary Care Provider Active Dr. Gustavo Pittman DO Attending Provider Active Team Status: Active Member Role Status Dates Dr. Dylan Frazier MD Primary Care Provider Active Dr. Gustavo Pittman DO Attending Provider Active Team Status: Inactive Member Role Status Dates Dr. Dylan Frazier MD Primary Care Provider, Referring Provider Active Yolette Levi PA, PA Attending Provider Active Team Status: Inactive Member Role Status Dates Dr. Dylan Frazier MD Primary Care Provider Active Dr. Gustavo Pittman DO Attending Provider, Referring Provider Active Team Status: Inactive Member Role Status Dates Dr. Dylan Frazier MD Primary Care Provider Active Dr. Levy Correa MD Attending Provider, Referring Provi tate Active Team Status: Inactive Member Role Status Dates Dr. Dylan Frazier MD Primary Care Provider Active Linda Long , MEDICAL DOCTOR NUCLEAR MEDICINE-C Attending Provider, Referring Pro vider Active Team Status: Inactive Member Role Status Dates Dr. Neto Hall MD Attending Provider, Referring Provider Active Dr. Dylan Frzaier MD Primary Care Provider Active Team Status: Active Member Role Status Dates Dr. Dylan Frazier MD Primary Care Provider Active Dr. Levy Correa MD Attending Provider, Referring Provi tate Active Team Status: Inactive Member Role Status Dates Dr. Dylan Frazier MD Primary Care Provider Active Dr. Koko Christian MD Attending Provider, Referrin g Provider Active Team Status: Active Member Role Status Dates Dr. Dylan Frazier MD Primary Care Provider Active Deborah Sanchez MA Attending Provider Acti ve Team Status: Active Member Role Status Dates Dr. Dylan Frazier MD Primary Care Provi tate, Attending Provider, Referring Provider Active Team Status: Active Member Role/Relationship Status Dates Dr. Dylan Frazier MD Family Provider Active Dr. Dylan Frazier MD Primary Care Provider Active Team Status: Inactive Member Role/Relationship Status Dates Dr. Dylan Frazier MD Primary Care Provider Active Start: May 14, 2025 End: May 14, 2025 Dr. Dylan Frazier MD Referring Provider Active Start: May 14, 2025 End: May 14, 2025 Dr. Levy Correa MD Attending Provider Active Sta rt: May 14, 2025 End: May 14, 2025 (unrecognized sect ion and content) No Status Records Found INFORMATION SOURCE (unrecogn ized section and content) DATE CREATED AUTHOR 05/22/2025 [facility] FOR RECORDS PERTAINING TO PATIENTS WHO ARE OR HAVE BEEN ENROLLED IN A CHEMICAL DEPENDENCY/SUBSTANCEABUSE PROGRAM, SOME INFORMATION MAY BE OMITTED. This clinical summary was aggregated from multiple sources. Caution should be exercised in using it in the provision of clinical care. This summary normalizes information from multiple sources, and as a consequence, information in this document may materially change the coding, format and clinical context of patient data. In addition, data may be omitted in some cases. CLINICAL DECISIONS SHOULD BE BASED ON THE PRIMARY CLINICAL RECORDS. [facility]. provides no warranty or guarantee of the accuracy or completeness of information in this document.
[2025-05-28 07:43] LABS: Creatinine, Urine (random) 125.00 mg/dL (39.00-259.00); Microalbumin,Random Urine 18.2 mg/L (<20 mg/L)
[2025-05-28 07:51] LABS: AST(SGOT) 26 U/L (<=37); Alanine Aminotransfer ALT/SGPT 27 U/L (<=46); Albumin, Serum 4.1 g/dL (3.5-5.0); Alkaline Phosphatase 56 U/L (40-129); Anion Gap 16 (5-15); BUN 15 mg/dL (4-19); BUN/Creat Ratio 14.9 RATIO (10-20); Calcium,Total 9.1 mg/dL (7.6-11.0); Carbon Dioxide 23.2 mmol/L (21.0-32.0); Chloride 99 mmol/L (98-108); Cholesterol 114 mg/dL (<=200); Globulin 3.1 g/dL (2.2-4.2); Glucose 160 mg/dL (70-99); Low Density Lipoprotein Calc. 33 mg/dL; Potassium 3.7 mmol/L (3.3-5.1); Triglycerides 231 mg/dL; Very Low Density Lipoprotein 46 mg/dL (5-40); cholesterol:hdl ratio screen 3.23
== END | disposition home or self-care (01) ==
LOC: LAB 06:01
PROVIDERS: PCP Family Medicine; Referring Provider Internal Medicine Endocrinology, Diabetes & Metabolism; Visit Provider Internal Medicine Endocrinology, Diabetes & Metabolism
DX: E11.65 Type 2 diabetes mellitus with hyperglycemia (principal); Z79.4 Long term (current) use of insulin; I10 Essential (primary) hypertension; E78.2 Mixed hyperlipidemia; E03.9 Hypothyroidism, unspecified
CPT/HCPCS: 36415; 80053; 80061; 82043; 82570; 84443

== ENCOUNTER → 2025-07-11 | Outpatient (CLI) | payer OTHER, SELFPAY ==
--- NOTE | 2025-07-11 16:29 | RAD_ITS ---
PROCEDURE: CERV SPINE OBL/FLEX/EXT COMP 07/11/2025 REASON FOR EXAM: RADICULAR PAIN IN L ARM TECHNIQUE: Procedure Code: RADSPCFE Modality: DX Procedure: CERV SPINE OBL/FLEX/EXT COMP COMPARISON: None. FINDINGS: Vertebrae: Disc space narrowing anterior osteophyte formation C3-C7. No fractures. disc spaces: Severe disc desiccation and anterior osteophyte formation mid and lower cervical spine. Alignment: Mild straightening of the curvature of the cervical spine. Normal flexion-extension maneuvers. Oblique view show neural foraminal narrowing to the left in the midcervical spine. soft tissues: No prevertebral soft tissue swelling. Remainder of the cervical spine negative. Other: Negative. RAD/Cerv Spine Obl/Flex/Ext Comp IMPRESSION: Degenerative changes cervical spine. Degenerative changes most prominent in the midcervical spine. Scratch Reading Location: [id number]
[2025-07-11 18:02] LABS: Hematocrit 41.3 % (40-54); Hemoglobin 13.9 g/dL (13.0-16.5); Immature Granulocytes Count 0.060 X10^3/uL (0.0-0.0); Mean Corp Hgb Conc 33.7 g/dL (32-36); Mean Corpuscular Volume 86.0 fL (80-94); Mean Platelet Vol. 12.0 fl (6.2-12.0); NRBC Flagged by Analyzer 0 % (0-5); Platelet Count 272 K/mm3 (150-450); RBC Distribution Width CV 14.0 % (11.6-14.6); RBC Distribution Width SD 44.1 fl (35.1-43.9); Red Blood Count 4.80 M/mm3 (4.6-6.2); White Blood Count 10.9 K/mm3 (4.4-11.0)
[2025-07-11 18:11] LABS: Anion Gap 15 (5-15); BUN 14 mg/dL (4-19); BUN/Creat Ratio 13.8 RATIO (10-20); Calcium,Total 9.5 mg/dL (7.6-11.0); Carbon Dioxide 24.4 mmol/L (21.0-32.0); Chloride 99 mmol/L (98-108); Glucose 130 mg/dL (70-99); Potassium 3.6 mmol/L (3.3-5.1)
== END | disposition home or self-care (01) ==
PROVIDERS: PCP Family Medicine; Referring Provider Family Medicine; Visit Provider Family Medicine
DX: M25.512 Pain in left shoulder (principal); M79.2 Neuralgia and neuritis, unspecified
CPT/HCPCS: 36415; 72052; 80048; 85025

== ENCOUNTER → 2025-07-25 | Outpatient (CLI) | payer OTHER, SELFPAY ==
--- NOTE | 2025-07-25 06:43 | MRI_ITS ---
PROCEDURE: SPINE CERVICAL (ROUTINE) 07/25/2025 REASON FOR EXAM: BACK PAIN TECHNIQUE: Procedure Code: MRISPC Modality: MR Procedure: SPINE CERVICAL (ROUTINE) Multiplanar and multisequence images were obtained without IV contrast administration. COMPARISON: Cervical spine x-ray 07/11/2025. FINDINGS: Vertebrae: Cervical vertebral body heights are preserved. Bone marrow signal is unremarkable. Alignment: Normal. No spondylolisthesis. Spinal Cord: Cervical spinal cord is of normal size and signal intensities. Structures at the foramen magnum are unremarkable. C2-3: Facet joint arthropathy. Mild canal stenosis. Moderate right foramina stenosis. Mild left foramina stenosis. C3-4: Disc desiccation. Disc osteophyte complex. Uncovertebral hypertrophy. Facet joint arthropathy. Severe canal stenosis. Severe bilateral foramina stenosis. C4-5: Disc desiccation. Disc osteophyte complex. Uncovertebral hypertrophy. Facet joint arthropathy. Severe canal stenosis. Severe bilateral foramina stenosis. C5-6: Disc desiccation. Disc osteophyte complex. Uncovertebral hypertrophy. Facet joint arthropathy. Severe canal stenosis. Severe bilateral foramina stenosis. C6-7: Disc desiccation. Disc osteophyte complex. Left uncovertebral hypertrophy measures 5 mm. Severe left and moderate right foramina stenosis. Severe canal stenosis. C7-T1: Unremarkable MRI/Spine Cervical (Routine) IMPRESSION: Severe canal stenosis and severe bilateral foramina stenosis C3 through C7. Reading Location: [id number]
--- OUTSIDE RECORDS SUMMARY | 2025-07-25 07:01 | XMS RPT_ITS | CCD ---
Author Organization [facility] Care Team Providers Care Fitness And Wellness Coordinator Name Role Phone Dr. Dylan Frazier Primary Care Provider Freddie, Dr. Richardson Referring Provider Dr. Levy Correa Attending Provider Dr. Dylan Frazier Primary Care Provider Dr. Dylan Frazier Referring Provider Dr. Levy Correa Attending Provider MADISON Ng Attending Provider Dr. Dylan Frazier Primary Care [...] Referring Provider Dr. Levy Correa Attending Provider [phone] DINORA Sanchez Attending Provider Unavailable Freddie WHITING, Dr. Richardson Primary Care Provider [phone] Freddie WHITING, Dr. Richardson Referring Provider Dr. Levy Correa MD Attending Provider Dr. Levy Correa MD Referring Provider Freddie, Dylan Primary Care Unavailable Frazier, Dylan Attending Unavailable Frazier, Dylan Referring Unavailable Frazier, Dylan Primary Care Unavailable Frazier, Dylan Attending Unavailable Frazier, Dylan Referring Unavailable , Levy Attending Unavailable , Levy Referring Unavailable Frazier, Dylan Primary Care Unavailable Frazier, Dylan Attending Unavailable Frazier, Dylan Referring Unavailable Frazier, Dylan Primary Care Unavailable Fraizer, Dylan Primary Care Unavailable , Levy Attending Unavailable Frazier, Dylan Referring Unavailable , Levy Attending Unavailable Frazier, Dylan Referring Unavailable Frazier, Dylan Primary Care Unavailable Frazier, Dylan Attending Unavailable Frazier, Dylan Referring Unavailable Frazier, Dylan Primary Care Unavailable Allergies Allergy Classification Reported Allergen(s) Allergy Type Date of Onset Reaction(s) Facility (16 sources) Penicillins Allergy to substance 2 Unknown, Tremor [facility] (1 source) Penicillins Drug allergy (disorder) 5 [facility] Repository Medications Current Medications Medication Drug Class(es) Dates Sig (Normalized) Sig (Original) [id number] 200 actuat albuterol 0.09 mg/actuat metered dose inhaler (5 sources) beta2-Adrenergic Agonist Start: 07-26-2023 Albuterol Sulfate 90 mcg/actuation HFA aerosol inhaler Active 2 NMA INHALATION EVERY 6 HOURS as needed July 26, 2023 12:00am Start: 07-26-2023 take 1 puff(s) by in halation every six hours Albuterol Sulfate Active 2 PUFF INHALATION EVERY 6 HOURS July 26, 2023 12:00am hydroCHLOROthiazide / Losartan (3 sources) Thiazide Diuretic, Angiotensin 2 Receptor Beba Start: 11-28-2023 Losartan-Hydrochlorothiazide 100-25 mg tablet Active 1 {tbl} PO DAILY November 28, 2023 1:00am Start: 11-28-2023 take 1 tablet by pinky th once daily Losartan-Hydrochlorothiazide Active 1 TA BLET PO DAILY November 28, 2023 1:00am Insulin Pump Cartridge (Omni pod Insulin Refill) cartridge (18 sources) Start: 10-01-2021 Insulin Pump C artridge [...] 12, 2021 4:43pm March 26, 2022 10:23am Dxenycyt-Hlw-Nu-Lycopen-Lute in (Centrum Silver Ultra Men's) 300-600-300 mcg tablet (6 sources) Start: 09-07-2022 take 300-600 tablets by mouth once daily Qavpqsgp-Fbv-Aa-Lycopen-Lutein (Centrum Silver Ultra Men's) 300-600-300 mcg tablet Active 1 TABLET PO DAILY September 07, 2022 1:00am Start: 09-07-2022 take 300-600 tablets by mouth once daily Mfspcmxs-Fpl-Eq-Lycopen-Lutein (Centrum Silver Ultra Men's) 300-600-300 mcg tablet Active 1 TABLET PO DAILY September 07, 2022 12:00am rosuvastatin calcium 20 mg oral tablet (18 sources) HMG-CoA Reductase Inhibitor Start: 10-12-2018 take 1 tablet by mouth at bedtime Rosuvastatin (Crestor) 20 MG tablet Active 20 mg PO AT BEDTIME October 12, 2018 1:00am Testosterone (18 sources) Androgen Start: 10-12-2018 apply 75 g topically once daily Testosterone (Androgel) 75 GM GelHub Borer Active 81 MG TOPICAL DAILY October 12, [...] 1:00am April 26, 2022 3:36pm EACH ARM Tirzepatide (Mounjaro) 2.5 mg/0.5 mL pen injector (19 sources) Start: 06-18-2025 Tirzepatide (M ounjaro) 2.5 mg/0.5 mL pen injector Active 2.5 mg SC EVERY WEEK 2 June 18, 2025 6:35pm for 4 weeks Start: 05-28-2025 End: 06-18-2025 Tirzepatide (Mounjaro) 2.5 m g/0.5 mL pen injector Discontinued 2.5 mg SC EVERY WEEK 2 May 28, 2025 12:00am June 18, 2025 6:35pm for 4 weeks Start: 04-27-2022 End: 05-24-2022 Tirzepatide (Mounjaro) 2.5 m g/0.5 mL pen injector Discontinued 2.5 mg SC EVERY WEEK April 27, 2022 12:00am May 24, 2022 [...] 27, 2022 12:00am May 24, 2022 10:28am Completed/Discontinued Medications Medication Drug Class(es) Dates Sig [...] 2-5) PO baclofen 10 mg oral tablet (3 sources) gamma-Aminobutyric Acid-ergic Agonist Start: 11-28-2023 End: 07-09-2024 take 1 tablet by mouth twice daily Baclofen 10 mg tablet Discontinued 10 mg PO TWICE A DAY November 28, 2023 1:00am July 09, 2024 3:51pm Back pain / Arthritis canagliflozin 300 mg oral tablet (18 sources) Sodium-Glucose Cotransporter 2 Inhibitor Start: 10-12-2018 [...] 3:35pm 0.5 ml dulaglutide 1.5 mg/ml auto-injector (17 sources) GLP-1 Receptor Agonist Start: 04-26-2022 End: 04-27-2022 Dulaglutide (Trulicity) 0.75 mg/0.5 mL pen injector Discontinued 0.75 mg SC EVERY WEEK 2 0 April 26, 2022 12:00am April 27, 2022 9:19am empagliflozin 10 mg oral tablet (18 sources) Sodium-Glucose Cotransporter 2 Inhibitor Start: 10-18-2017 End: 02-10-2018 take 1 tablet by mouth once daily Empagliflozin 10 MG tablet Discontinued 10 mg PO DAILY October 18, 2017 1:00am February 10, 2018 8:16am esomeprazole 20 mg delayed release oral capsule (15 sources) Proton Pump Inhibitor Start: 09-07-2022 End: 04-12-2023 take 1 capsule by mouth once daily Esomeprazole Magnesium (Nexium) 20 mg capsule,delayed release(DR/EC) Discontinued 20 mg PO DAILY September 07, 2022 1:00am April 12, 2023 3:11pm hydroCHLOROthiazide 25 mg / telmisartan 80 mg oral tablet (20 sources) Thiazide Diuretic, Angiotensin 2 Receptor Beba Start: 10-18-2017 End: 11-28-2023 Telmisartan-[place] chlorothiazid 80-25 mg tablet Discontinued 1 {tbl} PO DAILY February 10, 2018 8:17am November 28, 2023 4:14pm Start: 10-18-2017 End: 11-28-2023 take 1 tablet by mouth once daily Telmisartan-Hydrochlorothiazid Discontin ued 1 TABLET PO DAILY February 10, 2018 8:17am November 28, 2023 4:14pm icosapent ethyl 1000 mg oral capsule (18 sources) Start: 06-19-2021 End: 04-26-2022 Icosapent Ethyl 1 gram capsu le Discontinued NMA PO June 19, 2021 12:00am April 26, 2022 3:35pm Start: 06-19-2021 End: 04-26-2022 Icosapent Ethyl Discontinued EACH PO June 19, 2021 12:00am April 26, 2022 3:35pm 3 ml insulin aspart, human 100 unt/ml pen injector (20 sources) Insulin Analog Start: 11-19-2024 End: 05-14-2025 Insulin Aspart U-100 (Novolog Flexpen U-100 Insulin) 100 unit/mL (3 mL) insulin pen Discontinued 90 U SC TWICE A DAY 162 November 22, 2024 9:01am May 14, 2025 4:26pm Diabetes mellitus Type 2 diabetes mellitus with hyperglycemia roasterman (current) use of insulin Start: 03-14-2024 End: 11-19-2024 Insulin Aspart U-100 (Novolo g Flexpen U-100 Insulin) 100 unit/mL (3 mL) insulin pen Discontinued 80 U SC TWICE A DAY 144 March 15, 2024 4:29pm July 09, 2024 4:16pm Diabetes mellitus Type 2 diabetes mellitus with hyperglycemia MCFP (current) use of insulin Start: 03-02-2024 End: [...] 19, 2021 12:00am June 19, 2021 6:34pm 3 ml insulin glargine 100 unt/ml pen [...] ml insulin lispro 200 unt/ml pen injector (5 sources) Insulin Analog Start: 03-14-2024 End: 03-14-2024 Insulin Lispro (Humalog Kwikpen Insulin) 200 unit/mL (3 mL) insulin pen Discontinued 80 U SC .bid lunch and supper 72 March 14, 2024 3:56pm March 14, 2024 9:15pm Diabetes mellitus Type 2 diabetes mellitus with hyperglycemia roasterman (current) use of insulin Start: 03-01-2024 End: 03-14-2024 Insulin Lispro (Humalog Kwik pen Insulin) 200 unit/mL (3 mL) insulin pen Discontinued 40 U SC .bid lunch and supper 36 March 01, 2024 12:00am March 14, 2024 3:57pm Insulin Pump Cart,Auto,Bt-Cn tr (Omnipod 5 G6 Intro Kit (Gen 5)) cartridge (12 sources) Start: 12-02-2022 End: 11-28-2023 Insulin Pump [...] pump Type 2 diabetes mellitus with hyperglycemia [facility]FP (current) use of insulin Presence of insulin [...] pump Type 2 diabetes mellitus with hyperglycemia [facility]FP (current) use of insulin Presence of insulin [...] (Gen 5)) cartridge Discontinued 0 .Route 30 3 March 11, 2023 12:21pm April 27, 2023 4:23pm Diabetes mellitus Presence of insulin pump Type 2 diabetes mellitus with hyperglycemia roasterman (current) use of insulin Presence of insulin [...] pump Type 2 diabetes mellitus with hyperglycemia roasterman (current) use of insulin Presence of insulin [...] 3 days levoFLOXacin 750 mg oral tablet (18 sources) Quinolone Antimicrobial Start: 02-10-2018 End: 02-15-2018 take 1 tablet by mouth every twenty-four hours Levofloxacin (Levaquin) 750 mg tablet Discontinued 750 mg PO Q24H 5 5 0 February 10, 2018 12:00am February 14, 2018 12:00am February 15, 2018 12:06am Lobar pneumonia, unspecified organism levothyroxine sodium 0.125 mg oral tablet (20 sources) l-Thyroxine Start: 06-04-2024 End: 05-14-2025 take 1 tablet by mouth once daily Levothyroxine 125 mcg tablet Discontinued 125 ug PO DAILY 90 3 July 09, 2024 4:15pm May 14, 2025 4:26pm Start: 01-25-2022 End: [...] 18, 2017 1:00am April 26, 2022 3:35pm magnesium oxide 400 mg oral capsule (10 sources) Start: 04-12-2023 End: 11-28-2023 take 1 capsule by mouth once daily Magnesium Oxide 400 mg magnesium capsule Discontinued 400 mg PO DAILY April 12, 2023 12:00am November 28, 2023 4:14pm meloxicam 15 mg oral tablet (15 sources) Nonsteroidal Anti-inflammatory Drug Start: 09-07-2022 End: 12-10-2022 Meloxicam 15 mg tablet Discontinued NMA PO September 07, 2022 1:00am December 10, 2022 4:20pm Start: 09-07-2022 End: 12-10-2022 Meloxicam Discontinued EACH PO September 07, 2022 1:00am December 10, 2022 4:20pm metFORMIN hydrochloride 1000 mg oral tablet (20 sources) Biguanide Start: 06-19-2021 End: 11-19-2024 take 1 tablet by mouth twice daily Metformin 1,000 mg tablet Discontinued 1000 mg PO TWICE A DAY 180 3 March 07, 2024 4:12pm November 19, 2024 5:07pm Start: 10-18-2017 End: 06-19-2021 take 1 tablet by mouth twice daily Metformin 1,000 MG tablet,ER katarina.retention 24 hr Discontinued 1000 mg PO TWICE A DAY October 18, 2017 1:00am June 19, 2021 6:36pm Yg-Afk-Lfngo-L2-Yuymlmn-Xmir in (Centrum Silver Ultra Men's) 300-600-300 mcg tablet (9 sources) Start: 09-07-2022 End: 07-09-2024 Wt-Lrs-Dyrxr-Q0-Erfidrg-Bmzm in (Centrum Silver Ultra Men's) 300-600-300 mcg tablet Discontinued 1 {tbl} PO DAILY September 07, 2022 1:00am July 09, 2024 3:51pm Start: 09-07-2022 take 300-600 tablets by mouth once daily Pq-Rte-Tyqmx-J0-Vazjzga-Fxtmtg (Centrum Silver Ultra Men's) 300-600-300 mcg tablet [...] 2023 3:09pm sertraline 25 mg oral tablet (18 sources) Serotonin Reuptake Inhibitor Start: 06-19-2021 End: [...] Tirzepatide (Mounjaro) 15 mg/0.5 mL pen injector (14 sources) Start: 10-11-2022 End: 12-10-2022 Tirzepatide (Mounjaro) 15 mg /0.5 mL pen injector Discontinued 15 mg SC EVERY WEEK 2 October 11, 2022 1:00am December 10, 2022 4:38pm Start: 10-11-2022 End: 12-10-2022 Tirzepatide (Mounjaro) 15 mg /0.5 mL pen injector Discontinued 15 MG SC EVERY WEEK 2 October 11, 2022 1:00am December 10, 2022 4:38pm Start: 10-11-2022 Tirzepatide (M románjakelili) 15 mg/0.5 mL pen injector Active 15 MG SC EVERY WEEK 2 October 11, 2022 12:00am Tirzepatide 10 mg/0.5 mL pen injector (2 sources) Start: 08-13-2022 End: 09-13-2022 Tirzepatide 10 mg/0.5 mL pen injector Discontinued 10 mg SC EVERY WEEK 2 4 August 13, 2022 12:00am September 13, 2022 11:47am Tirzepatide 5 mg/0.5 mL pen injector (4 sources) Start: 06-21-2022 End: 07-18-2022 Tirzepatide 5 mg/0.5 mL pen injector Discontinued 5 mg SC EVERY WEEK 2 1 June 21, 2022 7:47am July 18, 2022 4:20pm Start: 05-24-2022 End: 06-21-2022 Tirzepatide 5 mg/0.5 mL pen injector Discontinued 5 mg SC EVERY WEEK 2 1 May 24, 2022 12:00am June 21, 2022 7:47am Tirzepatide 7.5 mg/0.5 mL pe n injector (2 sources) Start: 07-18-2022 End: 08-13-2022 Tirzepatide 7.5 mg/0.5 mL pe n injector Discontinued 7.5 mg SC EVERY WEEK 2 2 July 18, 2022 12:00am August 13, 2022 8:01am Problems Active Problems Problem Classification Problem Date Documented Date Episodic/Chronic Abdominal pain (16 sources) Bilateral pain of inguinal region; Translations: [Right lower quadrant pain] 09-03-2022 Episodic Diabetes mellitus with complications (1 source) Type 2 diabetes mellitus with hyperglycemia; Translations: [Type 2 diabetes mellitus with hyperglycemia] Onset: 06-21-2025 Chronic Diabetes mellitus without complication (20 sources) [...] Onset: 11-19-2024 Chronic 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 source) roasterman (current) use of insulin; Translations: [[facility] (current) use of insulin] Onset: 05-14-2025 Episodic Other circulatory disease (18 sources) Pulmonary congestion ; Translations: [Other specified symptoms and signs involving the circulatory and respiratory systems] 10-13-2018 Episodic Other connective tissue disease (15 sources) Muscle pain; Translations: [Myalgia, unspecified site] 09-09-2022 Episodic Other connective tissue disease (4 sources) Myalgia, unspecified site; Translations: [Myalgia and myositis, unspecified] Episodic Other hematologic conditions (16 sources) ESR raised; Translations: [Elevated erythrocyte sedimentation rate] 09-03-2022 Episodic Other nervous system disorders (18 sources) Numbness of finger; Translations: [Anesthesia of skin] 10-20-2021 Episodic Other nervous system disorders (18 sources) Paresthesia of hand ; Translations: [Anesthesia of skin] 11-02-2021 Episodic Other nervous system disorders (1 source) Anesthesia of skin; Translations: [Disturbance of skin sensation] Episodic Other non-traumatic joint disorders (16 sources) Shoulder pain; Translations: [Pain in right shoulder] 09-03-2022 Episodic Other non-traumatic joint disorders (1 source) Pain in left shoulder; Translations: [Pain in left shoulder] Onset: 07-19-2025 Episodic Other nutritional; endocrine; and metabolic disorders (19 sources) Obesity; Translations: [Obesity, unspecified] 09-09-2022 Chronic Other nutritional; endocrine; and metabolic disorders (17 sources) Obesity, unspecified; Translations: [Obesity, unspecified] Chronic Other upper respiratory infections (20 sources) Acute sinusitis; Translations: [Acute sinusitis, unspecified] Episodic Pneumonia (except that caused by tuberculosis or sexually transmitted disease) (18 sources) Right middle zone pneumonia; Translations: [Pneumonia, unspecified organism] 10-13-2018 Episodic Spondylosis; intervertebral disc disorders; other back problems (1 source) Dorsalgia, unspecified; Translations: [Dorsalgia, unspecified] Onset: 07-23-2025 Episodic Thyroid disorders (20 sources) Hypothyroidism due [...] malignant neoplasm of intestinal tract, unspecified] Onset: 11-22-2024 09-03-2022 Episodic Results Test Name Value Interpretation Reference Range Facility Basic Metabolic Profile (BMP )on 07-11-2025 BUN/CRE 13.8 RATIO Normal 10-20 [facility] Comment on above: Performed By: #### L 100.0100, L500.2500 #### [facility] [address] [place], [address] Calcium [Mass/Vol] 9.5 mg/dL Normal 7.6-11.0 [facility] Comment on above: Performed By: #### L 100.0100, L500.2500 #### [facility] [address] [place], [address] Chloride [Moles/Vol] 99 mmol/L Normal 98-108 [facility] Comment on above: Performed By: #### L 100.0100, L500.2500 #### [facility] [address] [place], [address] CO2 [Moles/Vol] 24.4 mmol/L Normal 21.0-32.0 [facility] Comment on above: Performed By: #### L 100.0100, L500.2500 #### [facility] [address] [place], [address] Creatinine [Mass/Vol] 1.03 mg/dL Normal 0.70-1.20 [facility] Comment on above: Performed By: #### L 100.0100, L500.2500 #### [facility] [address] [place], [address] GAP 15 Normal 5-15 [facility] Comment on above: Performed By: #### L 100.0100, L500.2500 #### [facility] [address] [place], [address] GFR/1.73 sq M.predicted among non-blacks MDRD (S/P/Bld) [Vol rate/Area] 84 mL/min/{1.73_m2} Normal >60 [facility] Comment on above: Result Comment: mL/m in/1.73m2 CKD-EPI Creatinine Equation (2020) Performed By: #### L 100.0100, L500.2500 #### [facility] [address] [place], [address] Glucose [Mass/Vol] 130 mg/dL High 70-99 [facility] Comment on above: Performed By: #### L 100.0100, L500.2500 #### [facility] [address] [place], [address] Potassium [Moles/Vol] 3.6 mmol/L Normal 3.3-5.1 [facility] Comment on above: Performed By: #### L 100.0100, L500.2500 #### [facility] [address] [place], [address] Sodium [Moles/Vol] 138 mmol/L Normal 133-145 [facility] Comment on above: Performed By: #### L 100.0100, L500.2500 #### [facility] [address] [place], [address] Urea nitrogen [Mass/Vol] 14 mg/dL Normal 4-19 [facility] Comment on above: Performed By: #### L 100.0100, L500.2500 #### [facility] [address] [place], [address] CBC W/Diff, Automatedon 09-1 1-2025 Absolute Lymph 3.07 X10 3/uL Normal 0.83-4.51 [facility] Comment on above: Performed By: #### L 100.0100, L500.2500 #### [facility] [address] [place], [address] Absolute Neut 6.6 X10 3/uL Normal 2.0-7.7 [facility] Comment on above: Performed By: #### L 100.0100, L500.2500 #### [facility] [address] [place], [address] Basophils/100 WBC (Bld) 0.3 % Normal 0-1 [facility] Comment on above: Performed By: #### L 100.0100, L500.2500 #### [facility] [address] [place], [address] Eosinophils/100 WBC (Bld) 2.7 % Normal 0-5 [facility] Comment on above: Performed By: #### L 100.0100, L500.2500 #### [facility] [address] [place], [address] Erythrocyte distribution width (RBC) [Ratio] 14.0 % Normal 11.6-14.6 [facility] Comment on above: Performed By: #### L 100.0100, L500.2500 #### [facility] [address] [place], [address] Hematocrit (Bld) [Volume fraction] 41.3 % Normal 40-54 [facility] Comment on above: Performed By: #### L 100.0100, L500.2500 #### [facility] [address] [place], [address] Hemoglobin (Bld) [Mass/Vol] 13.9 g/dL Normal 13.0-16.5 [facility] Comment on above: Performed By: #### L 100.0100, L500.2500 #### [facility] [address] [place], [address] IG% 0.600 Normal 0.0-0.9 [facility] Comment on above: Result Comment: IG% - Immature Granulocytes (promyelocytes, myelocytes and metamyelocytes) > 1% indicates that a LEFT SHIFT is Present. Performed By: #### L 100.0100, L500.2500 #### [facility] [address] [place], [address] Lymphocytes/100 WBC (Bld) 28.2 % Normal 19-41 [facility] Comment on above: Performed By: #### L 100.0100, L500.2500 #### [facility] [address] [place], [address] MCH (RBC) [Entitic mass] 29.0 pg Normal 27.0-32.0 [facility] Comment on above: Performed By: #### L 100.0100, L500.2500 #### [facility] [address] [place], [address] MCHC (RBC) [Mass/Vol] 33.7 g/dL Normal 32-36 [facility] Comment on above: Performed By: #### L 100.0100, L500.2500 #### [facility] [address] [place], [address] MCV (RBC) [Entitic vol] 86.0 fL Normal 80-94 [facility] Comment on above: Performed By: #### L 100.0100, L500.2500 #### [facility] [address] [place], [address] Monocytes/100 WBC (Bld) 7.4 % Normal 0-10 [facility] Comment on above: Performed By: #### L 100.0100, L500.2500 #### [facility] [address] [place], [address] Neutrophils/100 WBC (Bld) 60.8 % Normal 47-70 [facility] Comment on above: Performed By: #### L 100.0100, L500.2500 #### [facility] [address] [place], [address] Nucleated RBC (Bld) [#/Vol] 0 10*3/uL Normal 0-5 [facility] Comment on above: Performed By: #### L 100.0100, L500.2500 #### [facility] [address] [place], [address] Platelet mean volume (Bld) [Entitic vol] 12.0 fL Normal 6.2-12.0 [facility] Comment on above: Performed By: #### L 100.0100, L500.2500 #### [facility] [address] [place], [address] Platelets (Bld) [#/Vol] 272 10*3/uL Normal 150-450 [facility] Comment on above: Performed By: #### L 100.0100, L500.2500 #### [facility] [address] [place], [address] RBC (Bld) [#/Vol] 4.80 10*6/uL Normal 4.6-6.2 [facility] Comment on above: Performed By: #### L 100.0100, L500.2500 #### [facility] [address] [place], [address] RDW SD 44.1 fl High 35.1-43.9 [facility] Comment on above: Performed By: #### L 100.0100, L500.2500 #### [facility] [address] [place], [address] WBC (Bld) [#/Vol] 10.9 10*3/uL Normal 4.4-11.0 [facility] Comment on above: Performed By: #### L 100.0100, L500.2500 #### [facility] [address] [place], [address] Cerv Spine Obl/Flex/Ext Comp on 07-11-2025 Cerv Spine Obl/Flex/Ext Comp [facility] Imaging Services [address] [place] [address] Cerv Spine Obl/Flex/Ext Comp MR#: [id number] Acct: [id number] Name: KELVIN ZALDIVAR Jr. Rep #: [id number] : 1965 M 59 From: Armando Gibbs MD PCP: Dr. Dylan Frazier MD Status: REG CLI Study: Cerv Spine Obl/Flex/Ext Comp Date of Exam: 09/24 Exam# [id number] Ordering Dr: Dylan Frazier MD PROCEDURE: CERV SPINE OBL/FLEX/EXT COMP 07/11/2025 REASON FOR EXAM: RADICULAR PAIN IN L ARM TECHNIQUE: Procedure Code: RADSPCFE Modality: DX Procedure: CERV SPINE OBL/FLEX/EXT COMP COMPARISON: None. FINDINGS: Vertebrae: Disc space narrowing anterior osteophyte formation C3-C7. No fractures. disc spaces: Severe disc desiccation and anterior osteophyte formation mid and lower cervical spine. Alignment: Mild straightening of the curvature of the cervical spine. Normal flexion-extension maneuvers. Oblique view show neural foraminal narrowing to the left in the midcervical spine. soft tissues: No prevertebral soft tissue swelling. Remainder of the cervical spine negative. Other: Negative. RAD/Cerv Spine Obl/Flex/Ext Comp IMPRESSION: Degenerative changes cervical spine. Degenerative changes most prominent in the midcervical spine. Scratch Reading Location: [id number] CC: Dr. Dylan Frazier MD [employer]: Signed Normal [facility] Anion gap in Serum or Plasma Ordered By: Levy Correa on 05-28-2025 Anion gap [Moles/Vol] 16 mmol/L High 5-15 [facility] BUN/creatinine ratioOrdered By: Levy Correa on 05-28-2025 Urea nitrogen/Creatinine [Mass ratio] 14.9 mg/mg 10-20 [facility] Bilirubin, totalOrdered By: Levy Correa on 05-28-2025 Bilirubin [Mass/Vol] 0.34 mg/dL 0.00-1.30 [facility] Calculated very low density lipoprotein (VLDL) cholesterol measurementOrdered By: Levy Correa on 05-28-2025 Calculated very low density lipoprotein (VLDL) cholesterol measurement 46 mg/dL High 5-40 [facility] Carbon dioxide, total [Moles /volume] in Central venous bloodOrdered By: Levy Correa on 05-28-2025 CO2 [Moles/Vol] 23.2 mmol/L 21.0-32.0 [facility] Chloride assayOrdered By: Robin Correa on 05-28-2025 Chloride [Moles/Vol] 99 mmol/L 98-108 [facility] Comprehensive Metabolic Prof ilon 05-28-2025 Albumin [Mass/Vol] 4.1 g/dL Normal 3.5-5.0 [facility] Comment on above: Performed By: #### L 500.4100, L500.4050, L502.0250, L501.9520 #### [facility] [address] [place], [address] Albumin/Globulin [Mass ratio] 1.3 {ratio} Normal 0.9-2.4 [facility] Comment on above: Performed By: #### L 500.4100, L500.4050, L502.0250, L501.9520 #### [facility] [address] [place], [address] ALK PHOS 56 U/L Normal 40-129 [facility] Comment on above: Performed By: #### L 500.4100, L500.4050, L502.0250, [id number] #### [facility] [address] [place], [address] ALT [Catalytic activity/Vol] 27 U/L Normal <=46 [facility] Comment on above: Performed By: #### L 500.4100, L500.4050, L502.0250, L501.9520 #### [facility] [address] [place], [address] AST [Catalytic activity/Vol] 26 U/L Normal <=37 [facility] Comment on above: Performed By: #### L 500.4100, L500.4050, L502.0250, [id number] #### [facility] [address] [place], [address] Bilirubin [Mass/Vol] 0.34 mg/dL Normal 0.00-1.30 [facility] Comment on above: Performed By: #### L 500.4100, L500.4050, L502.0250, L501.9520 #### [facility] [address] [place], [address] BUN/CRE 14.9 RATIO Normal 10-20 [facility] Comment on above: Performed By: #### L 500.4100, L500.4050, L502.0250, L501.9520 #### [facility] [address] [place], [address] Calcium [Mass/Vol] 9.1 mg/dL Normal 7.6-11.0 [facility] Comment on above: Performed By: #### L 500.4100, L500.4050, L502.0250, L501.9520 #### [facility] [address] [place], [address] Chloride [Moles/Vol] 99 mmol/L Normal 98-108 [facility] Comment on above: Performed By: #### L 500.4100, L500.4050, L502.0250, L501.9520 #### [facility] [address] [place], [address] CO2 [Moles/Vol] 23.2 mmol/L Normal 21.0-32.0 [facility] Comment on above: Performed By: #### L 500.4100, L500.4050, L502.0250, L501.9520 #### [facility] [address] [place], [address] Creatinine [Mass/Vol] 0.98 mg/dL Normal 0.70-1.20 [facility] Comment on above: Performed By: #### L 500.4100, L500.4050, L502.0250, L501.9520 #### [facility] [address] [place], [address] GAP 16 High 5-15 [facility] Comment on above: Performed By: #### L 500.4100, L500.4050, L502.0250, L501.9520 #### [facility] [address] [place], [address] GFR/1.73 sq M.predicted among non-blacks MDRD (S/P/Bld) [Vol rate/Area] 89 mL/min/{1.73_m2} Normal >60 [facility] Comment on above: Result Comment: mL/m in/1.73m2 CKD-EPI Creatinine Equation (2020) Performed By: #### L 500.4100, L500.4050, L502.0250, L501.9520 #### [facility] [address] [place], [address] Globulin (S) [Mass/Vol] 3.1 g/dL Normal 2.2-4.2 [facility] Comment on above: Performed By: #### L 500.4100, L500.4050, L502.0250, L501.9520 #### [facility] [address] [place], [address] Glucose [Mass/Vol] 160 mg/dL High 70-99 [facility] Comment on above: Performed By: #### L 500.4100, L500.4050, L502.0250, L501.9520 #### [facility] [address] [place], [address] Potassium [Moles/Vol] 3.7 mmol/L Normal 3.3-5.1 [facility] Comment on above: Performed By: #### L 500.4100, L500.4050, L502.0250, L501.9520 #### [facility] [address] [place], [address] Sodium [Moles/Vol] 138 mmol/L Normal 133-145 [facility] Comment on above: Performed By: #### L 500.4100, L500.4050, L502.0250, L501.9520 #### [facility] [address] [place], [address] T PROT 7.2 g/dL Normal 5.9-8.4 [facility] Comment on above: Performed By: #### L 500.4100, L500.4050, L502.0250, L501.9520 #### [facility] [address] [place], [address] Urea nitrogen [Mass/Vol] 15 mg/dL Normal 4-19 [facility] Comment on above: Performed By: #### L 500.4100, L500.4050, L502.0250, L501.9520 #### [facility] [address] [place], [address] Glomerular filtration rate ( GFR) estimation/1.73 sq m using serum, plasma, or whole bOrdered By: Levy Correa on 05-28-2025 GFR/1.73 sq M.predicted among non-blacks MDRD (S/P/Bld) [Vol rate/Area] 89 mL/min/{1.73_m2} >60 [facility] Comment on above: mL/min/1.73m2 CKD-EP I Creatinine Equation (2020) LDL calc ser/plasOrdered By: Levy Correa on 05-28-2025 Cholesterol in LDL [Mass/Vol] 33 mg/dL [facility] Comment on above: Yuzovnkhtp=332-508 m g/dL & Higher Gzxa=786 mg/dL or greaterFriedwald Equation for LDL-C Laboratory - Chemistry and C hemistry - challengeOrdered By: Levy Correa on 05-28-2025 AST [Catalytic activity/Vol] 26 U/L <38 [facility] Lipid Profileon 05-28-2025 CHOL:HDL 3.23 Normal [facility] Comment on above: Performed By: #### L 500.4100, L500.4050, L502.0250, L501.9520 #### [facility] [address] [place], [address] Cholesterol [Mass/Vol] 114 mg/dL Normal <=200 [facility] Comment on above: Result Comment: Chol esterol level, Desirable <200 mg/dL Borderline high cholesterol 200-239 mg/dL High cholesterol >=240 mg/dL Recommendations of the NCEP Adult Treatment Panel for the following risk-cutoff thresholds for the [place] population. Performed By: #### L 500.4100, L500.4050, L502.0250, L501.9520 #### [facility] [address] [place], [address] Cholesterol in HDL [Mass/Vol] 35 mg/dL Low [facility] Comment on above: Result Comment: Maria Victoria onal Cholesterol Education Program (NCEP) guidelines: <40 mg/dL: Low HDL-cholesterol (major risk factor for CHD) >= 60 mg/dL: High HDL-cholesterol (negative risk factor for CHD) HDL-cholesterol is affected by a number of factors, e.g. smoking, exercise, hormones, sex and age. Performed By: #### L 500.4100, L500.4050, L502.0250, L501.9520 #### [facility] [address] [place], [address] Cholesterol in LDL [Mass/Vol] 33 mg/dL Normal [facility] Comment on above: Result Comment: Bord yimjtj=929-549 mg/dL Higher Ortc=063 mg/dL or greater Friedwald Equation for LDL-C Performed By: #### L 500.4100, L500.4050, L502.0250, L501.9520 #### [facility] [address] [place], [address] Cholesterol in VLDL [Mass/Vol] 46 mg/dL High 5-40 [facility] Comment on above: Performed By: #### L 500.4100, L500.4050, L502.0250, L501.9520 #### [facility] [address] [place], [address] Triglyceride [Mass/Vol] 231 mg/dL High [facility] Comment on above: Result Comment: The drugs N-Acetylcysteine and Metamizole may falsely depress this assay. Normal range: <150 mg/dL Borderline High: 150-199 mg/dL High: 200-499 mg/dL Very High: >500 mg/dL Performed By: #### L 500.4100, L500.4050, L502.0250, L501.9520 #### [facility] [address] [place], [address] Microalb:Creat Ratio,Random URon 05-28-2025 Creatinine [Mass/Vol] 125.00 mg/dL Normal 39.00-259.00 [facility] Comment on above: Performed By: #### L 500.4100, L500.4050, L502.0250, L501.9520 #### [facility] [address] [place], [address] MALB:CREAT 14.6 mg/g CRE Normal <30 mg/g CRE [facility] Comment on above: Performed By: #### L 500.4100, L500.4050, L502.0250, L501.9520 #### [facility] [address] [place], [address] MICROALBUMIN,UR 18.2 mg/L Normal <20 mg/L [facility] Comment on above: Performed By: #### L 500.4102, L500.4050, L502.0250, L501.9529 #### [facility] [place], [address] Potassium measurement (mass/ volume)Ordered By: Levy Correa on 05-28-2025 Potassium (Unsp spec) [Mass/Vol] 3.7 mmol/L 3.3-5.1 [facility] Random urine creatinine stacy urement (mass/volume)Ordered By: Levy Correa on 05-28-2025 Creatinine Unsp time (U) [Mass/Vol] 125.00 mg/dL 39.00-259.00 [facility] Screening total cholesterol/ high density lipoprotein (HDL) cholesterol ratioOrdered By: Levy Corrae on 05-28-2025 Cholesterol.total/Choles terol in HDL [Mass ratio] 3.23 {ratio} [facility] Serum creatinine measurement (mass/volume)Ordered By: Levy Correa on 05-28-2025 Creatinine [Mass/Vol] 0.98 mg/dL 0.70-1.20 [facility] Serum globulin measurementOr dered By: Levy Correa on 05-28-2025 Globulin (S) [Mass/Vol] 3.1 g/dL 2.2-4.2 [facility] Serum glucose measurement (m ass/volume)Ordered By: Levy Correa on 05-28-2025 Glucose [Mass/Vol] 160 mg/dL High 70-99 [facility] Serum or plasma alanine calderon otransferase (ALT) measurementOrdered By: Levy Correa on 05-28-2025 ALT [Catalytic activity/Vol] 27 U/L <47 [facility] Serum or plasma albumin stacy urement (mass/volume)Ordered By: Levy Correa on 05-28-2025 Albumin [Mass/Vol] 4.1 g/dL 3.5-5.0 [facility] Serum or plasma albumin/glob ulin mass ratioOrdered By: Levy Correa on 05-28-2025 Albumin/Globulin [Mass ratio] 1.3 {ratio} 0.9-2.4 [facility] Serum or plasma alkaline deann sphatase measurementOrdered By: Levy Correa on 05-28-2025 ALP [Catalytic activity/Vol] 56 U/L 40-129 [facility] Serum or plasma calcium stacy urement (mass/volume)Ordered By: Levy Correa on 05-28-2025 Calcium [Mass/Vol] 9.1 mg/dL 7.6-11.0 [facility] Serum or plasma cholesterol in HDL measurement (mass/volume)Ordered By: Levy Correa on 05-28-2025 Cholesterol in HDL [Mass/Vol] 35 mg/dL Low >40 [facility] Comment on above: National Cholesterol Education Program (NCEP) guidelines:<40 mg/dL: Low HDL-cholesterol (major risk factor for CHD)>= 60 mg/dL: High HDL-cholesterol (negative risk factor for CHD)HDL-cholesterol is affected by a number of factors, e.g. smoking, exercise, hormones, sex and age. Serum or plasma cholesterol measurement (mass/volume)Ordered By: Levy Correa on 05-28-2025 Cholesterol [Mass/Vol] 114 mg/dL <201 [facility] Comment on above: Cholesterol level, D esirable <200 mg/dLBorderline high cholesterol 200-239 mg/dLHigh cholesterol >=240 mg/dLRecommendations of the NCEP Adult Treatment Panel for the following risk-cutoff thresholds for the [place] population. Serum or plasma urea nitroge n measurement (mass/volume)Ordered By: Levy Correa on 05-28-2025 Urea nitrogen [Mass/Vol] 15 mg/dL 4-19 [facility] Sodium levelOrdered By: Levy Correa on 05-28-2025 Sodium [Moles/Vol] 138 mmol/L 133-145 [facility] TSH DL <= 0.005 mIU/L QnOrde red By: Levy Correa on 05-28-2025 TSH Qn 3.170 uIU/mL 0.300-4.200 [facility] Thyroid Stim Hormone (TSH)on 05-28-2025 TSH 3.170 uIU/mL Normal 0.300-4.200 [facility] Comment on above: Performed By: #### L 500.4100, L500.4050, L502.0250, L501.9520 #### [facility] [address] [place], [address] Total proteinOrdered By: Morgan Correa on 05-28-2025 Protein [Mass/Vol] 7.2 g/dL 5.9-8.4 [facility] Triglycerides measurementOrd ered By: Levy Correa on 05-28-2025 Triglyceride [Mass/Vol] 231 mg/dL High <199 [facility] Comment on above: The drugs N-Acetylcy steine and Metamizole may falsely depress this assay. Normal range: <150 mg/dLBorderline High: 150-199 mg/dLHigh: 200-499 mg/dLVery High: >500 mg/dL Urine albumin measurement [facility] detection limit of 20 mg/L or less (mass/volume)Ordered By: Levy Correa on 05-28-2025 Albumin DL <= 20 mg/L (U) [Mass/Vol] 18.2 mg/L <20 mg/L [facility] Endocrinology Visit Reporton 05-14-2025 Endocrinology Visit Report [facility] [address] [place] [address] OFFICE VISIT Date of Service: 05/14/25 MR#: [id number] Acct: [id number] Name: ZENKELVIN VALDES Jr. Rep #: [id number] : 1965 Provider: Ari Martinez Age/Sex: 59/M Location[place] [facility] [place] Status: Signed Intake Vital Signs 11/19/24 15:40 05/14/25 15:50 Height 6 ft 6 ft Weight: 368 lb 374 lb 8 oz BMI 49.8 50.8 BP 145/81 H 134/77 H Blood Pressure Location Rt brachial Rt brachial Position Sitting Sitting Pulse 68 77 Pulse Source Monitor Monitor Pulse Oximetry (%) 96 93 Oxygen Delivery Method room air room air Intake Visit Reasons: 5 M FU, RS 04/02 Chief Complaint: Diabetes and thyroid Is patient in pain?: No Allergies Penicillins Allergy (Verified 05/14/25 15:59) Tremor Medications ???Medication ???Instructions ???Recorded ???Confirmed ???Type rosuvastatin 20 mg tablet (Crestor) 20 mg PO QHS 10/12/18 05/14/25 History albuterol sulfate 90 mcg/actuation 2 puff inhalation Q6H PRN 05/14/25 History aerosol inhaler losartan 100 1 tab PO DAILY 11/28/23 05/14/25 H istory mg-hydrochlorothiazi de 25 mg tablet pen needle, diabetic 32 gauge x #300 ea 07/09/24 05/14/25 Rx 5/32" (BD Ultra-Fine Zhanna Pen Needle) metformin 1,000 [...] he got to big for his $2600 [employer] Suit. He has hypothyroidism and is taking [...] Endocrine: No fatigue or weight change Aller/Imm Allergy/Immunologic: No itchy eyes Exam Const General: cooperative, [...] the khalida (more content not included)... Normal [facility] - Hematology and Cell countsOrdered By: Levy Correa on 05-14-2025 HbA1c (Bld) [Mass fraction] 6.9 % High 4.2-6.3 [facility] Endocrinology Visit Reporton 11-19-2024 Endocrinology Visit Report [facility] [address] [place] [address]. [address] [place] [address] OFFICE VISIT Date of Service: 11/19/24 MR#: [id number] Acct: [id number] Name: KELVIN ZALDIVAR Jr. Rep #: [id number] : 1965 Provider: Ari Martinez Age/Sex: 59/M [place] [facility] [place]: Signed Intake Vital Signs 07/09/24 15:46 [...] 1 tab PO DAILY 11/28/23 11/19/24 History mg-hydrochlorothiazi de 25 mg tablet levothyroxine 125 mcg tablet 125 mcg PO DAILY #90 tabs 07/09/24 11/19/24 Rx pen needle, diabetic 32 gauge x #300 ea 07/09/24 11/19/24 Rx 5/32" (BD Ultra-Fine Zhanna Pen Needle) Novolog FlexPen [...] obese Orientation: alert, awake and oriented x3 [facility] Head: normal to inspection Ears: hearing grossly [...] Edit by (more content not included)... Normal [facility] PSA,Total- Diagnosticon 12-2 PSA, DIAGNOSTIC 0.91 ng/mL Normal 0.0-4.0 [facility] Comment on above: Result Comment: This test was performed using the TPSA assay method for the [employer] chemistry system. Values obtained with different assay methods cannot be used interchangably. When changing PSA assays in the course of monitoring a patient, additional sequential testing should be carried out to confirm baseline values. Performed By: #### L 501.9940 #### [facility] [address] [place], [address] Basic Metabolic Profile (BMP )on 08-29-2024 BUN/CRE 12.0 RATIO Normal -20 [facility] Comment on above: Performed By: #### L 500.2500, L501.9940 #### [facility] [address] [place], [address] CA,Total 9.6 mg/dL Normal 8.5-10.1 [facility] Comment on above: Performed By: #### L 500.2500, L501.9940 #### [facility] [address] [place], [address] Chloride [Moles/Vol] 100 mmol/L Normal 98-107 [facility] Comment on above: Performed By: #### L 500.2500, L501.9940 #### [facility] [address] [place], [address] CO2 [Moles/Vol] 28.0 mmol/L Normal 21.0-32.0 [facility] Comment on above: Performed By: #### L 500.2500, L501.9940 #### [facility] [address] [place], [address] Creatinine [Mass/Vol] 1.08 mg/dL Normal 0.70-1.30 [facility] Comment on above: Result Comment: The validity of the calculated GFR GFRAA in patients over 70 years has not been determined. Clinical correlation is essential. Performed By: #### L 500.2500, L501.9940 #### [facility] [address] [place], [address] EST GFR - AA 90 mL/min Normal >60 [facility] Comment on above: Result Comment: Afri can Chinese GFR Calc Performed By: #### L 500.2500, L501.9940 #### [facility] [address] [place], [address] GAP 6 Normal 5-15 [facility] Comment on above: Performed By: #### L 500.2500, L501.9940 #### [facility] [address] [place], [address] GFR/1.73 sq M.predicted among non-blacks MDRD (S/P/Bld) [Vol rate/Area] 75 mL/min/{1.73_m2} Normal >60 [facility] Comment on above: Result Comment: Non- GFR Calc Performed By: #### L 500.2500, L501.9940 #### [facility] [address] [place], [address] Glucose [Mass/Vol] 128 mg/dL High 74-106 [facility] Comment on above: Result Comment: Fast ing Glucose result greater than or equal to 126 mg/dL suggests DIABETES MELLITUS per A.D.A. criteria. Performed By: #### L 500.2500, L501.9940 #### [facility] [address] [place], [address] Potassium [Moles/Vol] 3.1 mmol/L Low 3.5-5.1 [facility] Comment on above: Performed By: #### L 500.2500, L501.9940 #### [facility] [address] [place], [address] Sodium [Moles/Vol] 134 mmol/L Low 136-145 [facility] Comment on above: Performed By: #### L 500.2500, L501.9940 #### [facility] [address] [place], [address] Urea nitrogen [Mass/Vol] 13 mg/dL Normal 7-18 [facility] Comment on above: Performed By: #### L 500.2500, L501.9940 #### [facility] [address] [place], [address] PSA,Total- Diagnosticon 10-3 PSA, DIAGNOSTIC 14.00 ng/mL High 0.0-4.0 [facility] Comment on above: Result Comment: This test was performed using the TPSA assay method for the [employer] chemistry system. Values obtained with different assay methods cannot be used interchangably. When changing PSA assays in the course of monitoring a patient, additional sequential testing should be carried out to confirm baseline values. Performed By: #### L 500.2500, L501.9940 ####[facility] [address] [place], [address] Laboratory - Hematology and Cell countson 03-01-2024 HbA1c (Bld) [Mass fraction] 7.2 % 4.2-6.3 [facility] Serum or plasma thyroid stim ulating hormone (TSH) measurement (units/volume)Ordered By: Levy Correa on 03-01-2024 TSH Qn 5.85 uIU/mL 0.358-3.74 [facility] Thin prep Papanicolaou smear with manual screeningOrdered By: Levy Correa on 03-01-2024 Thin prep Papanicolaou smear with manual screening 1.11 ng/dL 0.76-1.46 [facility] - Hematology and Cell countson 11-28-2023 HbA1c (Bld) [Mass fraction] 7.6 % 4.2-6.3 [facility] Serum or plasma angiotensin converting enzyme measurement (enzymatic activity/volume)Ordered By: Koko Christian on 08-16-2023 Angiotensin converting enzyme [Catalytic activity/Vol] 26 U/L 14-82 [facility] Comment on above: Performed at: [address] [id number] Director: Calos Dozier PhD, Phone: [phone] Erythrocyte sedimentation ra teOrdered By: Dylan Frazier on 08-05-2023 ESR (Bld) [Velocity] 52 mm/h 0-20 [facility] Serum or plasma C reactive p rotein measurement (mass/volume)Ordered By: Dylan Frazier on 08-05-2023 CRP [Mass/Vol] 10.70 mg/L 0.0-3.0 [facility] Comment on above: C-Reactive Protein ( CRP) provides useful information for thediagnosis, therapy and monitoring of inflammatory processesand associated diseases. For the evaluation of Relative Riskfor Cardiovascular Disease, a High Sensitivity CRP (HSCRP)should be ordered. Basophil percentageOrdered B y: Levy Correa on 07-27-2023 Bilirubin [Mass/Vol] 0.40 mg/dL 0.20-1.00 [facility] Comment on above: For patients on eltr ombopag therapy, use of [employer] [place] TBIL is not recommended. Chloride [Moles/Vol] 101 mmol/L 98-107 [facility] Glucose [Mass/Vol] 152 mg/dL 74-106 [facility] Comment on above: Fasting Glucose resu lt greater than or equal to 126 mg/dL suggests DIABETES MELLITUS per A.D.A. criteria. Potassium [Moles/Vol] 4.0 mmol/L 3.5-5.1 [facility] Protein [Mass/Vol] 7.3 g/dL 6.4-8.2 [facility] Sodium [Moles/Vol] 135 mmol/L 136-145 [facility] Laboratory - Chemistry and C hemistry - challengeOrdered By: Levy Correa on 07-27-2023 ALP [Catalytic activity/Vol] 58 U/L 45-117 [facility] ALT [Catalytic activity/Vol] 44 U/L 16-61 [facility] CO2 [Moles/Vol] 27.0 mmol/L 21.0-32.0 [facility] Free T4 [Mass/Vol] 1.24 ng/dL 0.76-1.46 [facility] Globulin (S) [Mass/Vol] 4.0 g/dL 2.2-4.2 [facility] Urea nitrogen/Creatinine [Mass ratio] 11.2 mg/mg 10-20 [facility] No Panel InformationOrdered By: Levy Correa on 07-27-2023 Estimated GFR (MDRD) Amer 102 mL/min >60 [facility] Comment on above: GFR Calc Estimated GFR (MDRD) Non-Af Amer 84 mL/min >60 [facility] Comment on above: Non- GFR Calc Thyroid Stimulating Hormone (TSH) 3.16 uIU/mL 0.358-3.74 [facility] Serum or plasma albumin stacy urement (mass/volume)Ordered By: Levy Correa on 07-27-2023 Albumin [Mass/Vol] 3.3 g/dL 3.2-5.0 [facility] Serum or plasma albumin/glob ulin mass ratioOrdered By: Levy Correa on 07-27-2023 Albumin/Globulin [Mass ratio] 0.8 {ratio} 0.9-2.4 [facility] Serum or plasma calcium stacy urement (mass/volume)Ordered By: Levy Correa on 07-27-2023 Calcium [Mass/Vol] 8.7 mg/dL 8.5-10.1 [facility] Serum or plasma cortisol junior surement (mass/volume)Ordered By: Levy Correa on 07-27-2023 Cortisol [Mass/Vol] 15.00 ug/dL 3.44-22.45 [facility] Comment on above: Adult (AM) 5.27 - 22 .45 ug/dL Adult (PM) 3.44 - 16.76 ug/dLPlease note revised CORTISOL reference range effective 2019. Serum or plasma creatinine m easurement (mass/volume)Ordered By: Levy Correa on 07-27-2023 Creatinine [Mass/Vol] 0.98 mg/dL 0.70-1.30 [facility] [facility] Comment on above: The validity of the calculated GFR & GFRAA in patients over 70 years has not been determined. Clinical correlation is essential. Serum or plasma urea nitroge n measurement (mass/volume)Ordered By: Levy Correa on 07-27-2023 Urea nitrogen [Mass/Vol] 11 mg/dL 7-18 [facility] Thin prep Papanicolaou smear with manual screeningOrdered By: Levy Correa on 07-27-2023 Thin prep Papanicolaou smear with manual screening 24 U/L 15-37 [facility] Thin prep Papanicolaou smear with manual screening 7 5-15 [facility] Laboratory - Hematology and Cell countson 07-26-2023 HbA1c (Bld) [Mass fraction] 7.5 % 4.2-6.3 [facility] Basophil percentageOrdered B y: Levy Correa on 07-22-2023 Cholesterol [Mass/Vol] 110 mg/dL <200 [facility] Comment on above: <200 mg/dL Desirable 200-240 mg/dL Borderline >240 mg/dL High Risk Triglyceride [Mass/Vol] 236 mg/dL <199 [facility] Comment on above: The drugs N-Acetylcy steine and Metamizole may falsely depress this assay.Serum Triglycerides Reference Interval Normal <150 mg/dL Borderline high 150 - 199 mg/dL High 200 - 499 mg/dL Very High > or = 500 mg/dL Serum or plasma cholesterol in HDL measurement (mass/volume)Ordered By: Levy Correa on 07-22-2023 Cholesterol in HDL [Mass/Vol] 35 mg/dL >40 [facility] Comment on above: The drugs N-Acetylcy steine and Metamizole may falsely depress this assay. Reference Range HDL <40 mg/dL Low HDL Cholesterol HDL >or= 60 mg/dL High HDL Cholesterol Serum or plasma cholesterol in VLDL measurement (mass/volume)Ordered By: Levy Correa on 07-22-2023 Cholesterol in VLDL [Mass/Vol] 47 mg/dL 5-40 [facility] Serum or plasma low density lipoprotein (LDL) cholesterol measurement (mass/volume)Ordered By: Levy Correa on 07-22-2023 Cholesterol in LDL [Mass/Vol] 28 mg/dL 0-130 [facility] Erythrocyte sedimentation ra teOrdered By: Gustavo Pittman on 06-08-2023 ESR (Bld) [Velocity] 42 mm/h 0-20 [facility] Serum or plasma C reactive p rotein measurement (mass/volume)Ordered By: Gustavo Pittman on 06-08-2023 CRP [Mass/Vol] 10.50 mg/L 0.0-3.0 [facility] Comment on above: C-Reactive Protein ( CRP) provides useful information for thediagnosis, therapy and monitoring of inflammatory processesand associated diseases. For the evaluation of Relative Riskfor Cardiovascular Disease, a High Sensitivity CRP (HSCRP)should be ordered. Erythrocyte sedimentation ra teOrdered By: Gustavo Pittman on 05-17-2023 ESR (Bld) [Velocity] 65 mm/h 0-20 [facility] Serum or plasma C reactive p rotein measurement (mass/volume)Ordered By: Gustavo Pittman on 05-17-2023 CRP [Mass/Vol] 50.80 mg/L 0.0-3.0 [facility] Comment on above: C-Reactive Protein ( CRP) provides useful information for thediagnosis, therapy and monitoring of inflammatory processesand associated diseases. For the evaluation of Relative Riskfor Cardiovascular Disease, a High Sensitivity CRP (HSCRP)should be ordered. Whole blood hemoglobin A1c/t otal hemoglobin ratio (mass fraction)Ordered By: Dr. Correa on 04-08-2023 HbA1c (Bld) [Mass fraction] 7.5 % 3.8-5.6 [facility] Comment on above: Normal < 5.7 % Predi abetic 5.7 - 6.4 % Diabetic >or= 6.5 % Please note range changes. Erythrocyte sedimentation ra teOrdered By: Dr. Pittman on 03-03-2023 ESR (Bld) [Velocity] 36 mm/h 0-20 [facility] Serum or plasma C reactive p rotein measurement (mass/volume)Ordered By: Dr. Pittman on 03-03-2023 CRP [Mass/Vol] 26.30 mg/L 0.0-3.0 [facility] Comment on above: C-Reactive Protein ( CRP) provides useful information for thediagnosis, therapy and monitoring of inflammatory processesand associated diseases. For the evaluation of Relative Riskfor Cardiovascular Disease, a High Sensitivity CRP (HSCRP)should be ordered. Laboratory - Hematology and Cell countson 12-10-2022 HbA1c (Bld) [Mass fraction] 7.7 % 4.2-6.3 [facility] Absolute lymphocyte countOrd ered By: Dr. Frazier on 11-19-2022 Lymphocytes Auto (Unsp spec) [#/Vol] 2.97 10*3/uL 0.83-4.51 [facility] Basophil percentageOrdered B y: Dr. Frazier on 11-19-2022 Basophils/100 WBC (Bld) 0.3 % 0-1 [facility] Chloride [Moles/Vol] 95 mmol/L 98-107 [facility] Eosinophils/100 WBC (Bld) 1.0 % 0-5 [facility] Glucose [Mass/Vol] 127 mg/dL 74-106 [facility] Comment on above: Fasting Glucose resu lt greater than or equal to 126 mg/dL suggests DIABETES MELLITUS per A.D.A. criteria. Neutrophils (Bld) [#/Vol] 14.7 10*3/uL 2.0-7.7 [facility] Neutrophils/100 WBC (Bld) 77.1 % 47-70 [facility] Potassium [Moles/Vol] 4.0 mmol/L 3.5-5.1 [facility] Sodium [Moles/Vol] 135 mmol/L 136-145 [facility] WBC (Bld) [#/Vol] 19.1 10*3/uL 4.4-11.0 [facility] Blood erythrocytes count (nu mber/volume)Ordered By: Dr. Frazier on 11-19-2022 RBC (Bld) [#/Vol] 4.60 10*6/uL 4.6-6.2 [facility] Blood hemoglobin measurement (mass/volume)Ordered By: Dr. Frazier on 11-19-2022 Hemoglobin (Bld) [Mass/Vol] 13.3 g/dL 13.0-16.5 [facility] Blood lymphocytes/100 leukoc ytesOrdered By: Dr. Frazier on 11-19-2022 Lymphocytes/100 WBC (Bld) 15.6 % 19-41 [facility] Blood monocytes/100 leukocyt esOrdered By: Dr. Frazier on 01-20-2023 Monocytes/100 WBC (Bld) 5.1 % 0-10 [facility] Blood platelet mean volumeOr dered By: Dr. Frazier on 11-19-2022 Platelet mean volume (Bld) [Entitic vol] 10.4 fL 6.2-12.0 [facility] Determination of erythrocyte mean corpuscular volume (MCV)Ordered By: Dr. Frazier on 11-19-2022 MCV (RBC) [Entitic vol] 87.8 fL 80-94 [facility] Hematocrit Auto (Bld) [Volum e fraction]Ordered By: Dr. Frazier on 11-19-2022 Hematocrit (Bld) [Volume fraction] 40.4 % 40-54 [facility] Laboratory - Chemistry and C hemistry - challengeOrdered By: Dr. Frazier on 11-19-2022 CO2 [Moles/Vol] 30.0 mmol/L 21.0-32.0 [facility] Magnesium [Mass/Vol] 1.5 mg/dL 1.6-2.6 [facility] Urea nitrogen/Creatinine [Mass ratio] 13.2 mg/mg 10-20 [facility] Laboratory - Hematology and Cell countsOrdered By: Dr. Frazier on 11-19-2022 Erythrocyte distribution width (RBC) [Entitic vol] 54.9 fL 35.1-43.9 [facility] Erythrocyte distribution width (RBC) [Ratio] 17.2 % 11.6-14.6 [facility] Immature granulocytes/100 WBC (Bld) 0.900 % 0.0-0.9 [facility] Comment on above: IG% - Immature Granu locytes (promyelocytes, myelocytes and metamyelocytes) > 1% indicates that a LEFT SHIFT is Present. MCH (RBC) [Entitic mass] 28.9 pg 27.0-32.0 [facility] Nucleated RBC/100 WBC (Bld) [Ratio] 0 % 0-5 [facility] MCHC Auto (RBC) [Mass/Vol]Or dered By: Dr. Frazier on 11-19-2022 MCHC (RBC) [Mass/Vol] 32.9 g/dL 32-36 [facility] No Panel InformationOrdered By: Dr. Frazier on 11-19-2022 Estimated GFR (MDRD) Amer 101 mL/min >60 [facility] Comment on above: GFR Calc Estimated GFR (MDRD) Non-Af Amer 84 mL/min >60 [facility] Comment on above: Non- GFR Calc Platelets bldOrdered By: Dr. Frazier on 11-19-2022 Platelets (Bld) [#/Vol] 301 10*3/uL 150-450 [facility] Serum or plasma calcium stacy urement (mass/volume)Ordered By: Dr. Frazier on 11-19-2022 Calcium [Mass/Vol] 9.0 mg/dL 8.5-10.1 [facility] Serum or plasma creatinine m easurement (mass/volume)Ordered By: Dr. Frazier on 11-19-2022 Creatinine [Mass/Vol] 0.98 mg/dL 0.70-1.30 [facility] Comment on above: The validity of the calculated GFR & GFRAA in patients over 70 years has not been determined. Clinical correlation is essential. Serum or plasma urea nitroge n measurement (mass/volume)Ordered By: Dr. Frazier on 11-19-2022 Urea nitrogen [Mass/Vol] 13 mg/dL 05-17 [facility] Thin prep Papanicolaou smear with manual screeningOrdered By: Dr. Frazier on 11-19-2022 Thin prep Papanicolaou smear with manual screening 10 5-15 [facility] Basophil percentageOrdered B y: Dr. Frazier on 10-20-2022 Creatinine [Mass/Vol] 0.9 mg/dL 0.70-1.30 [facility] No Panel InformationOrdered By: Dr. Frazier on 10-20-2022 Bedside Estimated GFR (eGFR) > 60.0000 mL/min >60 [facility] Erythrocyte sedimentation ra teOrdered By: Dr. Correa on 09-17-2022 ESR (Bld) [Velocity] 64 mm/h 0- [facility] Laboratory - Chemistry and C hemistry - challengeOrdered By: Dr. Correa on 09-17-2022 Free T4 [Mass/Vol] 1.34 ng/dL 0.76-1.46 [facility] No Panel InformationOrdered By: Dr. Correa on 09-17-2022 Anti-Nuclear Antibody Screen Negative Negative [facility] Comment on above: Performed at: [facility] [address] [id number] Director: Calos Dozier PhD, Phone: [phone] Thyroid Stimulating Hormone (TSH) 0.66 uIU/mL 0.358-3.74 [facility] Vitamin D 25-Hydroxy 37.8 ng/mL [facility] Comment on above: Vitamin D 25(OH) Sta tus Range Deficiency <20 ng/mL (50nmol/L) Insufficiency 20 - 30 ng/mL (50 - 75 nmol/L) Sufficiency 30 - 100 ng/mL (75 - 250 nmol/L) Toxicity >100 ng/mL (>250 nmol/L) Serum or plasma C reactive p rotein measurement (mass/volume)Ordered By: Dr. Correa on 09-17-2022 CRP [Mass/Vol] 3.95 mg/L 0.0-3.0 [facility] Comment on above: C-Reactive Protein ( CRP) provides useful information for thediagnosis, therapy and monitoring of inflammatory processesand associated diseases. For the evaluation of Relative Riskfor Cardiovascular Disease, a High Sensitivity CRP (HSCRP)should be ordered. Serum rheumatoid factor dete ctionOrdered By: Dr. Correa on 09-17-2022 Rheumatoid factor Ql (S) < 10.0 IU/mL <15 [facility] Laboratory - Hematology and Cell countson 09-07-2022 HbA1c (Bld) [Mass fraction] 7.6 % [facility] Absolute lymphocyte countOrd ered By: Dr. Cook on 08-25-2022 Lymphocytes Auto (Unsp spec) [#/Vol] 2.45 10*3/uL 0.83-4.51 [facility] Basophil percentageOrdered B y: Dr. Cook on 08-25-2022 Basophil percentage 0-5 SEEN /hpf 0-5 [facility] Basophils/100 WBC (Bld) 0.2 % 0-1 [facility] Chloride [Moles/Vol] 100 mmol/L 98-107 [facility] Eosinophils/100 WBC (Bld) 2.4 % 0-5 [facility] Glucose [Mass/Vol] 190 mg/dL 74-106 [facility] Comment on above: Fasting Glucose resu lt greater than or equal to 126 mg/dL suggests DIABETES MELLITUS per A.D.A. criteria. Neutrophils (Bld) [#/Vol] 8.6 10*3/uL 2.0-7.7 [facility] Neutrophils/100 WBC (Bld) 69.9 % 47-70 [facility] Potassium [Moles/Vol] 3.4 mmol/L 3.5-5.1 [facility] Sodium [Moles/Vol] 133 mmol/L 136-145 [facility] WBC (Bld) [#/Vol] 12.3 10*3/uL 4.4-11.0 [facility] Bilirubin Test strip Ql (U)O rdered By: Dr. Cook on 08-25-2022 Bilirubin Ql (U) Negative Negative [facility] Blood erythrocytes count (nu mber/volume)Ordered By: Dr. Cook on 08-25-2022 RBC (Bld) [#/Vol] 4.41 10*6/uL 4.6-6.2 [facility] Blood hemoglobin measurement (mass/volume)Ordered By: Dr. Cook on 08-25-2022 Hemoglobin (Bld) [Mass/Vol] 12.5 g/dL 13.0-16.5 [facility] Blood lymphocytes/100 leukoc ytesOrdered By: Dr. Cook on 08-25-2022 Lymphocytes/100 WBC (Bld) 19.9 % 19-41 [facility] Blood monocytes/100 leukocyt esOrdered By: Dr. Cook on 08-25-2022 Monocytes/100 WBC (Bld) 6.3 % 0-10 [facility] Blood platelet mean volumeOr dered By: Dr. Cook on 08-25-2022 Platelet mean volume (Bld) [Entitic vol] 10.7 fL 6.2-12.0 [facility] Determination of erythrocyte mean corpuscular volume (MCV)Ordered By: Dr. Cook on 08-25-2022 MCV (RBC) [Entitic vol] 84.6 fL 80-94 [facility] Erythrocyte sedimentation ra teOrdered By: Dr. Cook on 08-25-2022 ESR (Bld) [Velocity] 108 mm/h 0-20 [facility] Hematocrit Auto (Bld) [Volum e fraction]Ordered By: Dr. Cook on 08-25-2022 Hematocrit (Bld) [Volume fraction] 37.3 % 40-54 [facility] Ketones Test strip Ql (U)Ord ered By: Dr. Cook on 08-25-2022 Ketones Ql (U) 5 mg/dl Negative [facility] Laboratory - Chemistry and C hemistry - challengeOrdered By: Dr. Cook on 08-25-2022 CK [Catalytic activity/Vol] 57 U/L 39-308 [facility] CO2 [Moles/Vol] 24.0 mmol/L 21.0-32.0 [facility] Urea nitrogen/Creatinine [Mass ratio] 13.7 mg/mg 10-20 [facility] Laboratory - Hematology and Cell countsOrdered By: Dr. Cook on 08-25-2022 Erythrocyte distribution width (RBC) [Entitic vol] 44.6 fL 35.1-43.9 [facility] Erythrocyte distribution width (RBC) [Ratio] 14.5 % 11.6-14.6 [facility] Immature granulocytes/100 WBC (Bld) 1.300 % 0.0-0.9 [facility] Comment on above: IG% - Immature Granu locytes (promyelocytes, myelocytes and metamyelocytes) > 1% indicates that a LEFT SHIFT is Present. MCH (RBC) [Entitic mass] 28.3 pg 27.0-32.0 [facility] Nucleated RBC/100 WBC (Bld) [Ratio] 0 % 0-5 [facility] MCHC Auto (RBC) [Mass/Vol]Or dered By: Dr. Cook on 08-25-2022 MCHC (RBC) [Mass/Vol] 33.5 g/dL 32-36 [facility] Mucus LM Ql (Urine sed)Order ed By: Dr. Cook on 08-25-2022 Mucus Ql (Urine sed) 0 SEEN /hpf [facility] Nitrite Test strip Ql (U)Ord ered By: Dr. Cook on 08-25-2022 Nitrite Ql (U) Negative Negative [facility] No Panel InformationOrdered By: Dr. Cook on 08-25-2022 Estimated Creatinine Clearance Calc 96.43 ml/min [facility] Estimated GFR (MDRD) Amer 106 mL/min >60 [facility] Comment on above: GFR Calc Estimated GFR (MDRD) Non-Af Amer 87 mL/min >60 [facility] Comment on above: Non- GFR Calc Platelets bldOrdered By: Dr. Cook on 08-25-2022 Platelets (Bld) [#/Vol] 277 10*3/uL 150-450 [facility] Protein Test strip Ql (U)Ord ered By: Dr. Cook on 08-25-2022 Protein Ql (U) 15 mg/dl Negative [facility] Serum or plasma C reactive p rotein measurement (mass/volume)Ordered By: Dr. Cook on 08-25-2022 CRP [Mass/Vol] 142.00 mg/L 0.0-3.0 [facility] Comment on above: C-Reactive Protein ( CRP) provides useful information for thediagnosis, therapy and monitoring of inflammatory processesand associated diseases. For the evaluation of Relative Riskfor Cardiovascular Disease, a High Sensitivity CRP (HSCRP)should be ordered. Serum or plasma calcium stacy urement (mass/volume)Ordered By: Dr. Cook on 08-25-2022 Calcium [Mass/Vol] 9.4 mg/dL 8.5-10.1 [facility] Serum or plasma creatinine m easurement (mass/volume)Ordered By: Dr. Cook on 08-25-2022 Creatinine [Mass/Vol] 0.95 mg/dL 0.70-1.30 [facility] Comment on above: The validity of the calculated GFR & GFRAA in patients over 70 years has not been determined. Clinical correlation is essential. Serum or plasma urea nitroge n measurement (mass/volume)Ordered By: Dr. Cook on 08-25-2022 Urea nitrogen [Mass/Vol] 13 mg/dL 7-18 [facility] Squamous epithelial cells de tection in urine sediment by light microscopyOrdered By: Dr. Cook on 08-25-2022 Epithelial cells.squamous LM Ql (Urine sed) 0 SEEN /hpf 0-5 [facility] Thin prep Papanicolaou smear with manual screeningOrdered By: Dr. Cook on 08-25-2022 Thin prep Papanicolaou smear with manual screening 9 5-15 [facility] Urine blood detectionOrdered By: Dr. Cook on 08-25-2022 RBC Ql (U) Negative Negative [facility] RBC Ql (U) 0 SEEN /hpf 0-5 [facility] Urine clarityOrdered By: Dr. Cook on 08-25-2022 Clarity (U) Clear Clear [facility] Urine color determinationOrd ered By: Dr. Cook on 08-25-2022 Color (U) Yellow Yellow [facility] Urine glucose detectionOrder ed By: Dr. Cook on 08-25-2022 Glucose Ql (U) Normal mg/dl Normal [facility] Urine leukocyte esterase det ection by dipstickOrdered By: Dr. Cook on 08-25-2022 Leukocyte esterase Test strip Ql (U) 25 /ul Negative [facility] Urine pHOrdered By: Dr. Manny iqbal on 08-25-2022 pH (U) 6.5 [pH] 5.0 - 8.0 [facility] Urine sediment bacteria coun t by microscopy (number/high power field)Ordered By: Dr. Cook on 08-25-2022 Bacteria LM.HPF (Urine sed) [#/Area] 0 /[HPF] None Seen [facility] Urine specific gravity measu rementOrdered By: Dr. Cook on 08-25-2022 Specific gravity (U) [Rel density] 1.015 1.002-1.030 [facility] Urobilinogen Auto test strip Ql (U)Ordered By: Dr. Cook on 08-25-2022 Urobilinogen Ql (U) Normal mg/dl Normal [facility] Laboratory - Hematology and Cell countson 07-26-2022 HbA1c (Bld) [Mass fraction] 7.9 % [facility] Work Phone: Laboratory - Hematology and Cell countson 04-26-2022 HbA1c (Bld) [Mass fraction] 7.9 % [facility] Work Phone: No Panel Informationon 01-28 Urine Microalbumin/Creatinine Ratio 23.8 mg/g CRE <30 [facility] Work Phone: Thin prep Papanicolaou smear with manual screeningon 01-28-2022 Thin prep Papanicolaou smear with manual screening 61.0 mg/L NO RANGE EST. [facility] Work Phone: Urine creatinine measurement (mass/volume)on 01-28-2022 Creatinine (U) [Mass/Vol] 256.00 mg/dL NO RANGE EST. [facility] Work Phone: [phone] Laboratory - Hematology and Cell countson 01-25-2022 HbA1c (Bld) [Mass fraction] 7.3 % [facility] Work Phone: [phone] Absolute lymphocyte counton 12-29-2021 Lymphocytes Auto (Unsp spec) [#/Vol] 3.09 10*3/uL 0.83-4.51 [facility] Work Phone: Basophil percentageon 2021 Basophils/100 WBC (Bld) 0.2 % 0-1 [facility] Work Phone: [phone] Chloride [Moles/Vol] 102 mmol/L 98-107 [facility] Work Phone: [phone] Eosinophils/100 WBC (Bld) 3.5 % 0-5 [facility] Work Phone: Glucose [Mass/Vol] 87 mg/dL 74-106 [facility] Work Phone: [phone] Neutrophils (Bld) [#/Vol] 5.0 10*3/uL 2.0-7.7 [facility] Work Phone: [phone] Neutrophils/100 WBC (Bld) 54.4 % 47-70 [facility] Work Phone: [phone] Potassium [Moles/Vol] 3.8 mmol/L 3.5-5.1 [facility] Work Phone: [phone] Sodium [Moles/Vol] 136 mmol/L 136-145 [facility] Work Phone: [phone] WBC (Bld) [#/Vol] 9.1 10*3/uL 4.4-11.0 [facility] Work Phone: [phone] Blood erythrocytes count (nu mber/volume)on 12-29-2021 RBC (Bld) [#/Vol] 4.67 10*6/uL 4.6-6.2 [facility] Work Phone: Blood hemoglobin measurement (mass/volume)on 12-29-2021 Hemoglobin (Bld) [Mass/Vol] 13.5 g/dL 13.0-16.5 [facility] Work Phone: Blood lymphocytes/100 leukoc yteson 12-29-2021 Lymphocytes/100 WBC (Bld) 33.9 % 19-41 [facility] Work Phone: Blood monocytes/100 leukocyt eson 12-29-2021 Monocytes/100 WBC (Bld) 7.7 % 0-10 [facility] Work Phone: Blood platelet mean volumeon 12-29-2021 Platelet mean volume (Bld) [Entitic vol] 11.3 fL 6.2-12.0 [facility] Work Phone: Determination of erythrocyte mean corpuscular volume (MCV)on 12-29-2021 MCV (RBC) [Entitic vol] 86.1 fL 80-94 [facility] Work Phone: Hematocrit Auto (Bld) [Volum e fraction]on 12-29-2021 Hematocrit (Bld) [Volume fraction] 40.2 % 40-54 [facility] Work Phone: Laboratory - Chemistry and C hemistry - challengeon 12-29-2021 CO2 [Moles/Vol] 29.0 mmol/L 21.0-32.0 [facility] Work Phone: Urea nitrogen/Creatinine [Mass ratio] 13.4 mg/mg 10-20 [facility] Work Phone: Laboratory - Hematology and Cell countson 12-29-2021 Erythrocyte distribution width (RBC) [Entitic vol] 43.9 fL 35.1-43.9 [facility] Work Phone: Erythrocyte distribution width (RBC) [Ratio] 14.1 % 11.6-14.6 [facility] Work Phone: Immature granulocytes/100 WBC (Bld) 0.300 % 0.0-0.9 [facility] Work Phone: Comment on above: IG% - Immature Granu locytes (promyelocytes, myelocytes and metamyelocytes) > 1% indicates that a LEFT SHIFT is Present. MCH (RBC) [Entitic mass] 28.9 pg 27.0-32.0 [facility] Work Phone: Nucleated RBC/100 WBC (Bld) [Ratio] 0 % 0-5 [facility] Work Phone: MCHC Auto (RBC) [Mass/Vol]on 12-29-2021 MCHC (RBC) [Mass/Vol] 33.6 g/dL 32-36 [facility] Work Phone: No Panel Informationon 12-29 Estimated GFR (MDRD) Amer 104 mL/min >60 [facility] Work Phone: Comment on above: GFR Calc Estimated GFR (MDRD) Non-Af Amer 86 mL/min >60 [facility] Work Phone: Comment on above: Non- GFR Calc Platelets bldon 12-29-2021 Platelets (Bld) [#/Vol] 268 10*3/uL 150-450 [facility] Work Phone: Serum or plasma calcium stacy urement (mass/volume)on 12-29-2021 Calcium [Mass/Vol] 9.7 mg/dL 8.5-10.1 [facility] Work Phone: Serum or plasma creatinine m easurement (mass/volume)on 12-29-2021 Creatinine [Mass/Vol] 0.97 mg/dL 0.70-1.30 [facility] Work Phone: Comment on above: The validity of the calculated GFR & GFRAA in patients over 70 years has not been determined. Clinical correlation is essential. Serum or plasma urea nitroge n measurement (mass/volume)on 12-29-2021 Urea nitrogen [Mass/Vol] 13 mg/dL 7-18 [facility] Work Phone: Thin prep Papanicolaou smear with manual screeningon 12-29-2021 Thin prep Papanicolaou smear with manual screening 5 5-15 [facility] Work Phone: Basophil percentageon 2020 Bilirubin [Mass/Vol] 0.30 mg/dL 0.20-1.00 [facility] Work Phone: Comment on above: For patients on eltr ombopag therapy, use of [employer] [place] TBIL is not recommended. Chloride [Moles/Vol] 103 mmol/L 98-107 [facility] Work Phone: Cholesterol [Mass/Vol] 189 mg/dL <200 [facility] Work Phone: Comment on above: <200 mg/dL Desirable 200-240 mg/dL Borderline >240 mg/dL High Risk Glucose [Mass/Vol] 131 mg/dL 74-106 [facility] Work Phone: Comment on above: Fasting Glucose resu lt greater than or equal to 126 mg/dL suggests DIABETES MELLITUS per A.D.A. criteria.Please note revised GLUCOSE reference range effective 2017. Potassium [Moles/Vol] 3.5 mmol/L 3.5-5.1 [facility] Work Phone: Protein [Mass/Vol] 8.3 g/dL 6.4-8.2 [facility] Work Phone: Sodium [Moles/Vol] 137 mmol/L 136-145 [facility] Work Phone: Triglyceride [Mass/Vol] 301 mg/dL [facility] Work Phone: Comment on above: The drugs N-Acetylcy steine and Metamizole may falsely depress this assay.Serum Triglycerides Reference Interval Normal <150 mg/dL Borderline high 150 - 199 mg/dL High 200 - 499 mg/dL Very High > or = 500 mg/dL Laboratory - Chemistry and C hemistry - challengeon 10-20-2021 ALP [Catalytic activity/Vol] 59 U/L 45-117 [facility] Work Phone: ALT [Catalytic activity/Vol] 58 U/L 16-61 [facility] Work Phone: CO2 [Moles/Vol] 25.0 mmol/L 21.0-32.0 [facility] Work Phone: Cobalamin (Vitamin B12) [Mass/Vol] 566 pg/mL 211-911 [facility] Work Phone: Free T4 [Mass/Vol] 1.10 ng/dL 0.76-1.46 [facility] Work Phone: Globulin (S) [Mass/Vol] 4.5 g/dL 2.2-4.2 [facility] Work Phone: Urea nitrogen/Creatinine [Mass ratio] 15.7 mg/mg 10-20 [facility] Work Phone: Laboratory - Hematology and Cell countson 10-20-2021 HbA1c (Bld) [Mass fraction] 7.5 % [facility] Work Phone: No Panel Informationon 10-20 Urine Microalbumin/Creatinine Ratio 35.2 mg/g CRE <30 [facility] Work Phone: Estimated GFR (MDRD) Amer 114 mL/min >60 [facility] Work Phone: Comment on above: GFR Calc Estimated GFR (MDRD) Non-Af Amer 94 mL/min >60 [facility] Work Phone: Comment on above: Non- GFR Calc Prostate Specific Antigen Screen 0.43 ng/mL 0.00-4.00 [facility] Work Phone: Comment on above: This test was perfor med using the TPSA assay method for the[employer] chemistry system. Values obtained with differentassay methods cannot be used interchangably.When changing PSA assays in the course of monitoring apatient, additional sequential testing should be carriedout to confirm baseline values. Thyroid Stimulating Hormone (TSH) 2.32 uIU/mL 0.358-3.74 [facility] Work Phone: Vitamin D 25-Hydroxy 26.3 ng/mL [facility] Work Phone: Comment on above: Vitamin D 25(OH) Sta tus Range Deficiency <20 ng/mL (50nmol/L) Insufficiency 20 - 30 ng/mL (50 - 75 nmol/L) Sufficiency 30 - 100 ng/mL (75 - 250 nmol/L) Toxicity >100 ng/mL (>250 nmol/L) Serum or plasma albumin stacy urement (mass/volume)on 10-20-2021 Albumin [Mass/Vol] 3.8 g/dL 3.2-5.0 [facility] Work Phone: Serum or plasma albumin/glob ulin mass ratioon 10-20-2021 Albumin/Globulin [Mass ratio] 0.8 {ratio} 0.9-2.4 [facility] Work Phone: Serum or plasma calcium stacy urement (mass/volume)on 10-20-2021 Calcium [Mass/Vol] 9.4 mg/dL 8.5-10.1 [facility] Work Phone: Serum or plasma cholesterol in HDL measurement (mass/volume)on 10-20-2021 Cholesterol in HDL [Mass/Vol] 39 mg/dL [facility] Work Phone: Comment on above: The drugs N-Acetylcy steine and Metamizole may falsely depress this assay. Reference Range HDL <40 mg/dL Low HDL Cholesterol HDL >or= 60 mg/dL High HDL Cholesterol Serum or plasma cholesterol in VLDL measurement (mass/volume)on 10-20-2021 Cholesterol in VLDL [Mass/Vol] 60 mg/dL 5-40 [facility] Work Phone: Serum or plasma creatinine m easurement (mass/volume)on 10-20-2021 Creatinine [Mass/Vol] 0.89 mg/dL 0.70-1.30 [facility] Work Phone: Comment on above: The validity of the calculated GFR & GFRAA in patients over 70 years has not been determined. Clinical correlation is essential. Serum or plasma low density lipoprotein (LDL) cholesterol measurement (mass/volume)on 10-20-2021 Cholesterol in LDL [Mass/Vol] 90 mg/dL 0-130 [facility] Work Phone: Serum or plasma urea nitroge n measurement (mass/volume)on 10-20-2021 Urea nitrogen [Mass/Vol] 14 mg/dL 7-18 [facility] Work Phone: Thin prep Papanicolaou smear with manual screeningon 10-20-2021 Thin prep Papanicolaou smear with manual screening 24.6 mg/L NO RANGE EST. [facility] Work Phone: Thin prep Papanicolaou smear with manual screening 25 U/L 15-37 [facility] Work Phone: Thin prep Papanicolaou smear with manual screening 9 5-15 [facility] Work Phone: Urine creatinine measurement (mass/volume)on 10-20-2021 Creatinine (U) [Mass/Vol] 69.90 mg/dL NO RANGE EST. [facility] Work Phone: Vital Signs Date Time Vital Sign Value Performing Clinician Faci lity 05-14-2025 15:50-0400 Body height 182.[address] Dylan Frazier MD Work Phone: [facility] 05-14-2025 15:50-0400 Body mass index (BMI) [Ratio] 50.8 kg/m2 Dr. Dylan Frazier MD Work Phone: [facility] 05-14-2025 15:50-0400 Body weight 169.[address] Dylan Frazier MD Work Phone: [facility] 05-14-2025 15:50-0400 Diastolic blood pressure 77 mm[Hg] Dr. Dylan Frazier MD Work Phone: [facility] 05-14-2025 15:50-0400 Heart rate 77 /min Dr. Dylan Frazier MD Work Phone: [facility] 05-14-2025 15:50-0400 SaO2% (BldA) [Mass fraction] 93 % Dr. Dylan Frazier MD Work Phone: [facility] 05-14-2025 15:50-0400 Systolic blood pressure 134 mm[Hg] Dr. Dylan Frazier MD Work Phone: [facility] 03-01-2024 15:44-0400 Body height 182.[address] Dylan Frazier Work Phone: [facility] 03-01-2024 15:44-0400 Body mass index (BMI) [Ratio] 49.1 kg/m2 Dr. Dylan Frazier Work Phone: [facility] 03-01-2024 15:44-0400 Body temperature 97.9 [degF] Dr. Dylan Frazier Work Phone: [facility] 03-01-2024 15:44-0400 Body weight 164.[address] Dylan Frazier Work Phone: [facility] 03-01-2024 15:44-0400 Diastolic blood pressure 86 mm[Hg] Dr. Dylan Frazier Work Phone: [facility] 03-01-2024 15:44-0400 Heart rate 90 /min Dr. Dylan Frazier Work Phone: [facility] 03-01-2024 15:44-0400 Respiratory rate 18 /min Dr. Dylan Frazier Work Phone: [facility] 03-01-2024 15:44-0400 SaO2% (BldA) [Mass fraction] 95 % Dr. Dylan Frazier Work Phone: [facility] 03-01-2024 15:44-0400 Systolic blood pressure 142 mm[Hg] Dr. Dylan Frazier Work Phone: [facility] 11-28-2023 15:14-0500 Body mass index (BMI) [Ratio] 49.2 kg/m2 Dr. Dylan Frazier Work Phone: [facility] 11-28-2023 15:14-0500 Body temperature 97.8 [degF] Dr. Dylan Frazier Work Phone: [facility] 11-28-2023 15:14-0500 Body weight 164.[address] Dylan Frazier Work Phone: [facility] 11-28-2023 15:14-0500 Diastolic blood pressure 80 mm[Hg] Dr. Dylan Frazier Work Phone: 9(246)704-630923 [place] [address] 11-28-2023 15:14-0500 Heart rate 81 /min Dr. Dylan Frazier Work Phone: 8(867)752-582422 [address] 11-28-2023 15:14-0500 SaO2% (BldA) [Mass fraction] 97 % Dr. Dylan Frazier Work Phone: 7(006)787-768323 [place] [address] 11-28-2023 15:14-0500 Systolic blood pressure 140 mm[Hg] Dr. Dylan Frazier Work Phone: [facility] 07-26-2023 15:25-0400 Body height 182.[address] Dylan Frazier Work Phone: 7(826)479-565022 [address] 07-26-2023 15:25-0400 Body mass index (BMI) [Ratio] 48.8 kg/m2 Dr. Dylan Frazier Work Phone: 3(446)525-569423 [place] [address] 07-26-2023 15:25-0400 Body temperature 98 [degF] Dr. Dylan Frazier Work Phone: [facility] 07-26-2023 15:25-0400 Body weight 163.[address] Dylan Frazier Work Phone: [facility] 07-26-2023 15:25-0400 Diastolic blood pressure 78 mm[Hg] Dr. Dylan Frazier Work Phone: [facility] 07-26-2023 15:25-0400 Heart rate 68 /min Dr. Dylan Frazier Work Phone: [facility] 07-26-2023 15:25-0400 Respiratory rate 18 /min Dr. Dylan Frazier Work Phone: [facility] 07-26-2023 15:25-0400 SaO2% (BldA) [Mass fraction] 97 % Dr. Dylan Frazier Work Phone: [facility] 07-26-2023 15:25-0400 Systolic blood pressure 126 mm[Hg] Dr. Dylan Frazier Work Phone: [facility] 04-12-2023 15:01-0400 Body height 182.[address] Dylan Frazier Work Phone: [facility] 04-12-2023 15:01-0400 Body mass index (BMI) [Ratio] 47.1 kg/m2 Dr. Dylan Frazier Work Phone: 6(273)052-383823 [place] [address] 04-12-2023 15:01-0400 Body temperature 98.4 [degF] Dr. Dylan Frazier Work Phone: [facility] 04-12-2023 15:01-0400 Body weight 157.[address] Dylan Frazier Work Phone: [facility] 04-12-2023 15:01-0400 Diastolic blood pressure 82 mm[Hg] Dr. Dylan Frazier Work Phone: [facility] 04-12-2023 15:01-0400 Heart rate 82 /min Dr. Dylan Frazier Work Phone: [facility] 04-12-2023 15:01-0400 Respiratory rate 18 /min Dr. Dylan Frazier Work Phone: [facility] 04-12-2023 15:01-0400 SaO2% (BldA) [Mass fraction] 97 % Dr. Dylan Frazier Work Phone: [facility] 04-12-2023 15:01-0400 Systolic blood pressure 158 mm[Hg] Dr. Dylan Frazier Work Phone: [facility] 02-13-2023 08:41-0400 Body temperature 97.7 [degF] Dr. Dylan Frazier Work Phone: [facility] 02-13-2023 08:41-0400 Diastolic blood pressure 92 mm[Hg] Dr. Dylan Frazier Work Phone: [facility] 02-13-2023 08:41-0400 Heart rate 92 /min Dr. Dylan Frazier Work Phone: [facility] 02-13-2023 08:41-0400 Respiratory rate 16 /min Dr. Dylan Frazier Work Phone: [facility] 02-13-2023 08:41-0400 SaO2% (BldA) [Mass fraction] 97 % Dr. Dylan Frazier Work Phone: [facility] 02-13-2023 08:41-0400 Systolic blood pressure 138 mm[Hg] Dr. Dylan Frazier Work Phone: [facility] 12-10-2022 15:12-0500 Body height 182.[address] Dylan Frazier Work Phone: [facility] 12-10-2022 15:12-0500 Body mass index (BMI) [Ratio] 45.6 kg/m2 Dr. Dylan Frazier Work Phone: [facility] 12-10-2022 15:12-0500 Body temperature 93.7 [degF] Dr. Dylan Frazier Work Phone: [facility] 12-10-2022 15:12-0500 Body weight 152.[address] Dylan Frazier Work Phone: [facility] 12-10-2022 15:12-0500 Diastolic blood pressure 73 mm[Hg] Dr. Dylan Frazier Work Phone: [facility] 12-10-2022 15:12-0500 Heart rate 92 /min Dr. Dylan Frazier Work Phone: [facility] 12-10-2022 15:12-0500 Respiratory rate 16 /min Dr. Dylan Frazier Work Phone: [facility] 12-10-2022 15:12-0500 SaO2% (BldA) [Mass fraction] 91 % Dr. Dylan Frazier Work Phone: [facility] 12-10-2022 15:12-0500 Systolic blood pressure 135 mm[Hg] Dr. Dylan Frazier Work Phone: [facility] 09-07-2022 16:31-0500 Body height 182.[address] Dylan Frazier Work Phone: [facility] 09-07-2022 16:31-0500 Body mass index (BMI) [Ratio] 45 kg/m2 Dr. Dylan Frazier Work Phone: 2(980)709-267623 [place] [address] 09-07-2022 16:31-0500 Body temperature 94.7 [degF] Dr. Dylan Frazier Work Phone: 3(157)091-638423 [place] [address] 09-07-2022 16:31-0500 Body weight 150.[address] Dylan Frazier Work Phone: [facility] 09-07-2022 16:31-0500 Diastolic blood pressure 84 mm[Hg] Dr. Dylan Frazier Work Phone: 7(421)150-217923 [place] [address] 09-07-2022 16:31-0500 Heart rate 89 /min Dr. Dylan Frazier Work Phone: [facility] 09-07-2022 16:31-0500 Respiratory rate 18 /min Dr. Dylan Frazier Work Phone: [facility] 09-07-2022 16:31-0500 SaO2% (BldA) [Mass fraction] 94 % Dr. Dylan Frazier Work Phone: [facility] 09-07-2022 16:31-0500 Systolic blood pressure 152 mm[Hg] Dr. Dylan Frazier Work Phone: [facility] 09-03-2022 09:04-0400 Body mass index (BMI) [Ratio] 45.6 kg/m2 Dr. Dylan Frazier Work Phone: 5(971)697-728323 [place] [address] 09-03-2022 09:04-0400 Body temperature 96.2 [degF] Dr. Dylan Frazier Work Phone: [facility] 09-03-2022 09:04-0400 Body weight 152.[address] Dylan Frazier Work Phone: [facility] 09-03-2022 09:04-0400 Diastolic blood pressure 70 mm[Hg] Dr. Dylan Frazier Work Phone: 7(438)540-097423 [place] [address] 09-03-2022 09:04-0400 Heart rate 103 /min Dr. Dylan Frazier Work Phone: 7(937)932-211122 [address] 09-03-2022 09:04-0400 Respiratory rate 16 /min Dr. Dylan Frazier Work Phone: 0(382)583-001322 [address] 09-03-2022 09:04-0400 SaO2% (BldA) [Mass fraction] 96 % Dr. Dylan Frazier Work Phone: 2(682)285-193223 [place] [address] 09-03-2022 09:04-0400 Systolic blood pressure 160 mm[Hg] Dr. Dylan Frazier Work Phone: 7(024)569-207422 [address] 08-26-2022 01:48-0400 Diastolic blood pressure 89 mm[Hg] Dr. Dylan Frazier Work Phone: 3(143)826-984322 [address] 08-26-2022 01:48-0400 Heart rate 89 /min Dr. Dylan Frazier Work Phone: [facility] 08-26-2022 01:48-0400 Respiratory rate 16 /min Dr. Dylan Frazier Work Phone: [facility] 08-26-2022 01:48-0400 SaO2% (BldA) [Mass fraction] 99 % Dr. Dylan Frazier Work Phone: [facility] 08-26-2022 01:48-0400 Systolic blood pressure 131 mm[Hg] Dr. Dylan Frazier Work Phone: 4(982)823-415623 [place] [address] 08-25-2022 18:57-0400 Body height 182.[address] Dylan Frazier Work Phone: [facility] Work Phone: 08-25-2022 18:57-0400 Body mass index (BMI) [Ratio] 46 kg/m2 Dr. Dylan Frazier Work Phone: [facility] 08-25-2022 18:57-0400 Body temperature 98.2 [degF] Dr. Dylan Frazier Work Phone: [facility] 08-25-2022 18:57-0400 Body weight 154.[address] Dylan Frazier Work Phone: [facility] 07-26-2022 16:23-0400 Body mass index (BMI) [Ratio] 48.8 kg/m2 Dr. Dylan Frazier Work Phone: [facility] Work Phone: 07-26-2022 16:23-0400 Body temperature 96.4 [degF] Dr. Dylan Frazier Work Phone: [facility] Work Phone: 07-26-2022 16:23-0400 Body weight 163.[address] Dylan Frazier Work Phone: [facility] Work Phone: 07-26-2022 16:23-0400 Diastolic blood pressure 84 mm[Hg] Dr. Dylan Frazier Work Phone: [facility] Work Phone: 07-26-2022 16:23-0400 Heart rate 87 /min Dr. Dylan Frazier Work Phone: [facility] Work Phone: 07-26-2022 16:23-0400 Respiratory rate 18 /min Dr. Dylan Frazier Work Phone: [facility] Work Phone: 07-26-2022 16:23-0400 SaO2% (BldA) [Mass fraction] 95 % Dr. Dylan Frazier Work Phone: [facility] Work Phone: 07-26-2022 16:23-0400 Systolic blood pressure 149 mm[Hg] Dr. Dylan Frazier Work Phone: [facility] Work Phone: 04-26-2022 15:27-0400 Body height 182.[address] Dylan Frazier Work Phone: [facility] Work Phone: 04-26-2022 15:27-0400 Body mass index (BMI) [Ratio] 49.1 kg/m2 Dr. Dylan Frazier Work Phone: [facility] Work Phone: 04-26-2022 15:27-0400 Body weight 164.[address] Dylan Frazier Work Phone: [facility] Work Phone: 04-26-2022 15:27-0400 Diastolic blood pressure 80 mm[Hg] Dr. Dylan Frazier Work Phone: [facility] Work Phone: 04-26-2022 15:27-0400 Heart rate 107 /min Dr. Dylan Frazier Work Phone: [facility] Work Phone: 04-26-2022 15:27-0400 Respiratory rate 20 /min Dr. Dylan Frazier Work Phone: [facility] Work Phone: 04-26-2022 15:27-0400 SaO2% (BldA) [Mass fraction] 95 % Dr. Dylan Frazier Work Phone: [facility] Work Phone: 04-26-2022 15:27-0400 Systolic blood pressure 170 mm[Hg] Dr. Dylan Frazier Work Phone: [facility] Work Phone: 01-25-2022 15:00-0400 Body height 182.[address] Dylan Frazier Work Phone: [facility] Work Phone: 01-25-2022 15:00-0400 Body mass index (BMI) [Ratio] 47.3 kg/m2 Dr. Dylan Frazier Work Phone: [facility] Work Phone: 01-25-2022 15:00-0400 Body weight 158.[address] Dylan Fraizer Work Phone: [facility] Work Phone: 01-25-2022 15:00-0400 Diastolic blood pressure 82 mm[Hg] Dr. Dylan Frazier Work Phone: [facility] Work Phone: 01-25-2022 15:00-0400 Heart rate 98 /min Dr. Dylan Frazier Work Phone: [facility] Work Phone: 01-25-2022 15:00-0400 Respiratory rate 20 /min Dr. Dylan Frazier Work Phone: [facility] Work Phone: 01-25-2022 15:00-0400 SaO2% (BldA) [Mass fraction] 96 % Dr. Dylan Frazier Work Phone: [facility] Work Phone: 01-25-2022 15:00-0400 Systolic blood pressure 160 mm[Hg] Dr. Dylan Frazier Work Phone: [facility] Work Phone: 10-20-2021 14:27-0500 Body mass index (BMI) [Ratio] 45.1 kg/m2 Dr. Dylan Frazier Work Phone: [facility] Work Phone: 10-20-2021 14:27-0500 Body temperature 97.3 [degF] Dr. Dylan Frazier Work Phone: [facility] Work Phone: 10-20-2021 14:27-0500 Body weight 151.[address] Dylan Frazier Work Phone: [facility] Work Phone: 10-20-2021 14:27-0500 Diastolic blood pressure 80 mm[Hg] Dr. Dylan Frazier Work Phone: [facility] Work Phone: 10-20-2021 14:27-0500 Heart rate 79 /min Dr. Dylan Frazier Work Phone: [facility] Work Phone: 10-20-2021 14:27-0500 Respiratory rate 16 /min Dr. Dylan Frazier Work Phone: [facility] Work Phone: 10-20-2021 14:27-0500 SaO2% (BldA) [Mass fraction] 96 % Dr. Dylan Frazier Work Phone: [facility] Work Phone: 10-20-2021 14:27-0500 Systolic blood pressure 130 mm[Hg] Dr. Dylan Frazier Work Phone: [facility] Work Phone: Encounters Encounter Date Encounter Type Care Provider Facility Start: 07-25-2025 ambulatory Dylan Frazier Facility:[facility] Start: 07-11-2025 End: 07-11-2025 ambulatory Dylan Frazier Facility:[facility] Start: 05-28-2025 End: 05-28-[address] Dylan Frazier MD Work Phone: -Laboratory Start: 05-28-2025 End: 05-28-[address] Levy Correa MD -Laboratory Work Phone: Start: 05-28-2025 End: 05-28-2025 ambulatory Levy Correa Facility:[facility] Start: 05-14-2025 End: 05-14-[address] Levy Correa MD -[facility] Work Phone: Start: 05-14-2025 End: 05-14-[address] Dylan Frazier MD Work Phone: [facility] Start: 11-19-2024 End: 11-19-2024 ambulatory Dylan Frazier Facility:[facility] Start: 10-25-2024 End: 10-25-2024 ambulatory Dylan Frazier Facility:[facility] Start: 08-29-2024 End: 08-29-2024 ambulatory Dylan Frazier Facility:[facility] Start: 03-07-[address] Dylan Frazier Work Phone: [facility] Work Phone: Start: 03-02-2024 Non-patient / Non-visit Dr. Dylan Frazier Work Phone: [facility] Start: 03-01-2024 End: 03-01-[address] Dylan Frazier Work Phone: [facility] Work Phone: Start: 03-01-2024 End: 03-01-[address] Dylan Frazier Work Phone: [facility] Work Phone: Start: 03-01-2024 End: 03-01-[address] Dylan Frazier Work Phone: [facility] Work Phone: Start: 11-28-2023 End: 11-28-[address] Dylan Frazier Work Phone: [facility] Work Phone: Start: 08-16-2023 End: 08-16-[address] Dylan Frazier Work Phone: [facility] Work Phone: Start: 08-16-2023 End: 08-16-[address] Dylan Frazier Work Phone: [facility] Work Phone: Start: 08-05-2023 End: 08-05-[address] Dylan Frazier Work Phone: [facility] Start: 07-27-2023 End: 07-27-[address] Dylan Frazier Work Phone: [facility] Work Phone: Start: 07-26-2023 End: 07-26-[address] Dylan Frazier Work Phone: [facility] Work Phone: Start: 07-22-2023 End: 07-22-[address] Dylan Frazier Work Phone: [facility] Work Phone: Start: 07-22-2023 End: 07-22-[address] Dylan Frazier Work Phone: [facility] Work Phone: Start: 07-15-2023 End: 07-15-[address] Dylan Frazier Work Phone: [facility] Work Phone: Start: 07-15-2023 End: 07-15-[address] Dylan Frazier Work Phone: [facility] Work Phone: Start: 06-08-2023 End: 06-08-[address] Dylan Frazier Work Phone: [facility] Work Phone: Start: 06-08-2023 End: 06-08-[address] [facility] Start: 05-17-2023 End: 05-17-[address] Dylan Frazier Work Phone: [facility] Work Phone: Start: 05-17-2023 End: 05-17-[address] Dylan Frazier Work Phone: [facility] Work Phone: Start: 04-27-2023 End: 04-27-[address] Dylan Frazier Work Phone: [facility] Work Phone: Start: 04-27-2023 End: 04-27-[address] Dylan Frazier Work Phone: [facility] Work Phone: Start: 04-12-2023 End: 04-12-[address] Dylan Frazier Work Phone: [facility] Start: 04-08-2023 End: 04-08-[address] Dylan Frazier Work Phone: [facility] Work Phone: Start: 04-08-2023 End: 04-08-[address] Dylan Frazier Work Phone: [facility] Start: 03-03-2023 End: 03-03-[address] Dylan Frazier Work Phone: [facility] Work Phone: Start: 03-03-2023 End: 03-03-[address] Dylan Frazier Work Phone: [facility] Start: 02-13-2023 End: 02-13-[address] Dylan Frazier Work Phone: [facility] Start: 12-10-2022 End: 12-10-[address] Dylan Frazier Work Phone: [facility] Start: 11-27-2022 End: 11-27-[address] Dylan Frazier Work Phone: [facility] Work Phone: Start: 11-27-2022 End: 11-27-[address] Dylan Frazier Work Phone: [facility] Start: 11-19-2022 End: 11-19-[address] Dylan Frazier Work Phone: [facility] Work Phone: Start: 11-19-2022 End: 11-19-[address] Dylan Frazier Work Phone: [facility] Start: 11-16-2022 End: 11-16-[address] Dylan Frazier Work Phone[facility] Start: 10-20-2022 End: 10-20-[address] Dylan Frazier Work Phone: [facility] Work Phone: Start: 10-20-2022 End: 10-20-[address] Dylan Frazier Work Phone[facility] Start: 09-17-2022 End: 09-17-[address] Dylan Frazier Work Phone: [facility] Work Phone: Start: 09-17-2022 End: 09-17-[address] Dylan Frazier Work Phone: [facility] Start: 09-13-2022 End: 09-13-[address] Dylan Frazier Work Phone: [facility] [place] Start: 09-07-2022 End: 09-07-[address] Dylan Frazier Work Phone: [facility] Endocrinology Start: 09-03-2022 End: 09-03-[address] Dylan Frazier Work Phone: [facility] Start: 08-25-2022 End: 08-26-2022 Emergency department patient visit Dr. Dylan Frazier Work Phone: [facility] Start: 07-26-2022 End: 07-26-[address] Dylan Frazier Work Phone: [facility] Start: 05-31-2022 End: 05-31-[address] Dylan Frazier Work Phone: [facility] [place] Start: 04-26-2022 End: 04-26-[address] Dylan Frazier Work Phone: [facility] Start: 01-28-2022 End: 01-28-[address] Dylan Frazier Work Phone: [facility] Start: 01-25-2022 End: 01-25-[address] Dylan Frazier Work Phone: [facility] Start: 12-29-2021 End: 12-29-[address] Dylan Frazier Work Phone: [facility] Start: 11-25-2021 End: 11-25-[address] Dylan Frazier Work Phone: [facility]/Neurology Start: 10-20-2021 End: 10-20-[address] Dylan Frazier Work Phone: [facility] Endocr[facility]ology Procedures Date Procedure Procedure Detail Performing Clinician Start: 05-28-2025 Urine microalbumin/creatinine ratio measurement Dr. Dylan Frazier MD Work Phone: Start: 03-07-2024 Diagnostic radiograp hy of finger [...] Date Care Activity Detail Author [facility] study results [facility] Work Phone: [facility] study results [facility] Lipid 1996 panel - Serum or Plasma [facility] Patient Education ED Arthralgia [facility] Work Phone: Patient referral [facility] Work Phone: T4 free measurement [facility] Thyroid stimulating hormone measurement [facility] Thyroperoxidase Ab [ Units/volume] in Serum or Plasma [facility] Payers Date Payer Category Payer Self-pay [id number] 2024 Unknown [id number] Self-pay [id number] Unknown [id number] Unknown [id number] [id number] [id number] Unknown [id number] [id number] [id number] Unknown [id number] [id number] [id number] Unknown [id number] [id number] [id number] Unknown [id number] [id number] [id number] Unknown [id number] Social History Date Type Detail Facility Start: 01-25-2022 End: 11-28-2023 Tobacco smoking status TXIS Unknown if ever smoked [facility] Start: 06-10-2021 None [facility] Start: 10-13-2018 Non-smoker [facility] Start: 1965 Sex Assigned At Male [facility] Start: 11-28-2023 [facility] Medical Equipment Procedure Code Equipment Code Equipment Origin al Text Equipment Identifier Dates Insulin Syringe-Needle U-100 (Bd Insulin Syringe Ultra-Fine) 1 mL 31 gauge x 5/16 syringe Start: 12-02-2023 Pen Needle, Diab etic (Bd Ultra-Fine Zhanna Pen Needle) 32 gauge x 5/32" needle Start: 03-06-2024 Pen Needle, Diab etic (Bd Ultra-Fine Zhanna Pen Needle) 32 gauge x 5/32" needle Start: 12-27-2023 End: 03-06-2024 Pen Needle, Diab etic (Bd Ultra-Fine Zhanna Pen Needle) 32 gauge x 5/32" needle Start: 07-09-2024 Insulin Syringe-Needle U-100 (Bd Insulin Syringe Ultra-Fine) 1 mL 31 gauge x 5/16 syringe Start: 12-02-2023 End: 07-09-2024 Pen Needle, Diab etic (Bd Ultra-Fine Zhanna Pen Needle) 32 gauge x 5/32" needle Start: 12-27-2023 End: 03-06-2024 Pen Needle, Diab etic (Bd Ultra-Fine Zhanna Pen Needle) 32 gauge x 5/32" needle Start: 03-06-2024 End: 04-16-2024 Pen Needle, Diab etic (Bd Ultra-Fine Zhanna Pen Needle) 32 gauge x 5/32" needle Start: 04-16-2024 End: 07-09-2024 Pen Needle, Diab etic (Bd Ultra-Fine Zhanna Pen Needle) 32 gauge x 5/32" needle Start: 07-09-2024 Insulin Syringe-Needle U-100 (Bd Insulin Syringe Ultra-Fine) 1 mL 31 gauge x 5/16 syringe Start: 12-02-2023 End: 07-09-2024 Pen Needle, Diab etic (Bd Ultra-Fine Zhanna Pen Needle) 32 gauge x 5/32" needle Start: 12-27-2023 End: 03-06-2024 Pen Needle, Diab etic (Bd Ultra-Fine Zhanna Pen Needle) 32 gauge x 5/32" needle Start: 03-06-2024 End: 04-16-2024 Pen Needle, Diab etic (Bd Ultra-Fine Zhanna Pen Needle) 32 gauge x 5/32" needle Start: 04-16-2024 End: 07-09-2024 Mental Status Date Assessment Result Facility 08-25-2022 Cognitive function Level Of Cons ciousness Awake;Alert;Appropriate;Follow s Commands [facility] Work Phone: Clinical Notes 05-14-2025 Note Date & Type Note Facility 05-14-2025 Evaluation note Diagnosis Onset Date Resolution Benign hypertension chronic May 14, 2025 3:48pm Diabetes chronic May 14 3:48pm Hyperlipidemia chronic May 14, 2025 3:48pm Hypothyroidism (acquired) chronic May 14, 2025 3:48pm Obesity chronic May 14 3:48pm [facility] Work Phone: Evaluation note* Diagnosis Onset Date Resolution Status Diabetes acute Numbness of left thumb acute Benign hypertension chronic Hyperlipidemia chronic Obesity [facility] Work Phone: Evaluation note* Diagnosis Onset Date Resolution Status Diabetes acute 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 Presence of insulin pump acu te Benign hypertension chronic Hyperlipidemia chronic Obesity [facility] Work Phone: Evaluation note* Diagnosis Onset Date Resolution Status Diabetes acute 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 Insulin pump titration acute Presence of insulin pump acu te Obesity chronic [facility] Work Phone: Evaluation note* Diagnosis Onset Date Resolution Status Diabetes acute 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 Insulin pump titration acute Presence of insulin pump acu te Obesity chronic Acute sinusitis acute Diabetes acute 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 Myalgia acute Presence of insulin pump acu te Benign hypertension chronic Hyperlipidemia chronic Obesity [facility] Work Phone: Evaluation note* Diagnosis Onset Date Resolution Status Acute sinusitis acute Diabetes acute 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 Myalgia acute Presence of insulin pump acu te Benign hypertension chronic Hyperlipidemia chronic Obesity [facility] Work Phone: Evaluation note* Diagnosis Onset Date Resolution Status Diabetes acute 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 Insulin pump titration acute Presence of insulin pump acu te Benign hypertension chronic Hyperlipidemia chronic Obesity chronic Acute bacterial sinusitis ac [facility] Work Phone: Evaluation note* Diagnosis Onset Date Resolution Status Acute bacterial sinusitis ac [facility] Work Phone: Evaluation note* Diagnosis Onset Date Resolution Status Acute bacterial sinusitis ac [place] Benign hypertension chronic Diabetes chronic Hyperlipidemia chronic 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 Obesity chronic Presence of insulin pump [facility] Work Phone: Evaluation note* Diagnosis Onset Date Resolution Status Benign hypertension chronic Diabetes chronic Hyperlipidemia chronic 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 Obesity chronic Presence of insulin pump [facility] Work Phone: Evaluation note* Diagnosis Onset Date Resolution Status Benign hypertension chronic Diabetes chronic Hyperlipidemia chronic 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 Obesity chronic Presence of insulin pump [facility] Diabetes chronic 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 [facility] Work Phone: Evaluation note* Diagnosis Onset Date Resolution Status Benign hypertension chronic Diabetes chronic Hyperlipidemia chronic 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 Insulin pump titration chron ic Obesity chronic Presence of insulin pump [facility] Work Phone: Evaluation note* Diagnosis Onset Date Resolution Status Benign hypertension chronic Diabetes chronic Hyperlipidemia chronic Obesity chronic Abnormal results of thyroid function studies acute Benign hypertension chronic Diabetes chronic Hyperlipidemia chronic Obesity chronic [facility] Work Phone: Evaluation noteNo assessment information available [facility] Work Phone: Hospital Discharge instructions Additional Instructions Please follow-up with orthopedics as scheduled tomorrow. Return if you develop fever or worsening symptoms. Discussed with your primary care doctor referral to rheumatology as I am concerned that you could have polymyalgia rheumatica given you multiple symptoms and elevated inflammatory markers.[facility] Work Phone: Reason for referral (narrative)No reason for referral information [facility] Work Phone: Chief Complaint and [...] FU, RS 04/02May 14, 2025 3:48 pm Chief Complaint Admit Date 5 M FU, RS 04/02May 14, 2025 3:48 pm E ORDERS May 28, 2025 5:59 am Reason for Visit Admit Date Benign hypertension May 14, 2025 3:48 pm Diabetes May 14, 2025 3:48 pm Hyperlipidemia May 14, 2025 3:48 pm Hypothyroidism (acquired) May 14 3:48pm Obesity May 14, 2025 3:48 pm Family History No Family History Records Found Relationship Condition Age at Onset Recorded Date/T patrick Not Specified Arthritis Unknown Hypertension Unknown mother Malignant neoplasm of breast Unknown father Cardiac disease Unknown Advance Directives No Advanced Directives Records Found Advance Directive Response Recorded Date/ Time Living Will No October 12, 018 10:42am Power of Receiver Setter No October 12, 2018 10:42am Advance Directive Response Recorded Date/ Time Living Will No August 25 10:31pm Power of Receiver Setter No August 25, 2022 10:31pm Advance Directive Response Recorded Date/ Time Living Will No August 25 9:31pm Power of Receiver Setter No August 25, 2022 9:31pm Summary Purpose [...] Provider Active Dr. Loren Cook DO Attending Provider, Geovani foy Active Team Status: Inactive Member Role Status [...] Primary Care Provider Active Linda Long , CRAPS DEALER-C Attending Provider, Referring Pro vider Active Team Status: Inactive Member Role Status Dates Dr. Neto Hall MD Attending Provider, Referring Provider Active Dr. Dylan Frazier MD Primary [...] May 14, 2025 End: May 14, 2025 Team Status: Inactive Member Role/Relationship Status Dates Dr. Dylan Frazier MD Primary Care Provider Active Start: May 28, 2025 End: May 28, 2025 Dr. Levy Correa MD Attending Provider Active Sta rt: May 28, 2025 End: May 28, 2025 Dr. Levy Correa MD Referring Provider Active Sta rt: May 28, 2025 End: May 28, 2025 (unrecognized sect ion and content) No Status Records Found INFORMATION SOURCE (unrecogn ized section and content) DATE CREATED AUTHOR 07/24/2025 [facility] FOR RECORDS PERTAINING TO PATIENTS WHO ARE [...] BE BASED ON THE PRIMARY CLINICAL RECORDS. [facility] provides no warranty or guarantee of the accuracy or completeness of information in this document.
== END | disposition home or self-care (01) ==
PROVIDERS: PCP Family Medicine; Referring Provider Family Medicine; Visit Provider Family Medicine
DX: M54.9 Dorsalgia, unspecified (principal)
CPT/HCPCS: 72141

== ENCOUNTER 2025-09-16 06:59 | Day surgery (SDC) | payer OTHER, SELFPAY ==
--- NOTE | 2025-09-11 10:35 | PAT.ANE_ITS ---
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 When Was Last Pacemaker Check QUESTION #4 FULL TEXT: You/Your Family Experience fever (hyperthermia) with Anesthesia Last Oral Intake Last Oral intake: Last Oral Intake NPO since Meds taken in AM with sips of water? 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 Has anyone observed you stop breathing during sleep? STOP Results Positive 09/11/25 10:06 QUESTION #5 FULL TEXT : Do you snore loudly (louder than talking or can be heard through closed doors)? 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 Specify any problems Hx of Preganancy in last 3 N/A 09/11/25 10:06 Months Nurse Filling Out Transfusion NBUCHER 09/11/25 10:06 & Questions: Date: 09/11/25 09/11/25 10:06 Time: 10:07 09/11/25 10:06 Patient unable to answer at this time (ie. 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: /Reproductive Hx- head kiln operator Hx Now No 09/11/25 10:06 Gestational Age (in weeks): EDC: Hx Hx Para Hx Section SAB No 09/11/25 10:06 Does the father of the baby or his family experience fever w Father of the baby Malignant Hypertension history comment [facility] Medical History (Updated 09/11/25 @ 10:13 by Deborah Cook) Wears glasses Hypothyroid Thyroid disease Shortness of breath on exertion BiPAP (biphasic positive airway pressure) dependence Sleep apnea Former smoker History of stress test History of echocardiogram Hypothyroidism (acquired) Abnormal results of thyroid function studies Myalgia Abnormal ECG Numbness and tingling in both hands Numbness of left thumb Diabetes Cholecystectomy planned High triglycerides High cholesterol Gallstones Diabetes HTN (hypertension) Home Medications Medication Instructions Recorded Last Taken Type rosuvastatin 20 mg tablet (Crestor) 20 mg PO QHS 10/12 Unknown History losartan 100 1 tab PO DAILY 11/28/23 Unkn own History mg-hydrochlorothiazide 25 mg tablet pen needle, diabetic 32 gauge x #300 ea 07/09/24 Unkno wn Rx " (BD Ultra-Fine Zhanna Pen Needle) metformin 1,000 mg tablet 1,000 mg PO BID #180 tabs Unknown Rx insulin regular hum U-500 conc 500 200 unit (0.4 mL) s ubcut QACBREAK 05/14/25 Unknown Rx unit/mL(3 mL) subcut pen (Humulin #36 mL R U-500 (Conc) Insulin Kwikpen) levothyroxine 125 mcg tablet 125 mcg PO DAILY #90 tabs 05/14/25 Unknown Rx insulin aspart U-100 100 unit/mL 90 unit subcut TID Unknown History (3 mL) subcutaneous pen (Novolog FlexPen U-100 Insulin aspart) Allergy/AdvReac Type Severity Reaction Status Date / Time Penicillins Allergy Tremor Verified 09/11/25 10:04 Family History Mother Breast cancer Father Heart disease Other Arthritis Hypertension Surgical History (Updated 09/11/25 @ 10:13 by Deborah Cook) History of repair of biceps tendon History of knee surgery History of carpal tunnel release of both wrists History of cholecystectomy History of cardiac catheterization History of appendectomy History of surgery on arm Social History Smoking Status: Former smoker alcohol intake: current alcohol intake frequency: 0-2 drinks per day substance use type: does not use what type of physical activity do you participate in: none Audit: Pertinent Findings Pertinent Findings EKG Perinent findings: EKG 07/2022: NSR Echo (EF%) pertinent findings: 09/2023: EF 65%, Moderate concentric LVH, mild global RV sys dysfxn, left atrium mod enlarged, mildly dilated aortic root Recommendation Anesthesia Recommendation Anesthesia recommendation: OPTIMIZED for anesthesia
[2025-09-16] VITALS (7 sets, daily range): BP systolic 132–166; BP diastolic 61–82; PULSE 71–81; RESP 16; TEMP 36.1–37.1; O2SAT 93–98; BMI 49.8
--- OUTSIDE RECORDS SUMMARY | 2025-09-16 07:02 | XMS RPT_ITS | CCD ---
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 Dylan Frazier Primary Care Provider Freddie, Dr. Richardson Referring Provider Dr. Levy Correa Attending Provider Dr. Dylan Frazier Primary Care Provider Dr. Dylan Frazier Referring Provider Dr. Levy Correa Attending Provider HARINDER Ng Attending Provider Dr. Dylan Frazier Primary Care Provider Freddie, Dr. Richardson Referring Provider Dr. Levy Correa Attending Provider Dr. Dylan Frazier Primary Care Provider Dr. Dylan Frazier Referring Provider Dr. Levy Correa Attending Provider HARINDER Vieira Attending Provider Dr. Dylan Frazier Primary Care Provider Dr. Dylan Frazier Referring Provider Dr. Levy Correa Attending Provider Dr. Dylan Frazier Primary Care Provider Dr. Dylan Frazier Referring Provider Dr. Dylan Frazier Primary Care Provider Dr. Dylan Frazier Referring Provider Dr. Levy Correa Attending Provider Dr. Dylan Frazier Primary Care Provider [phone] Dylan Frazier Referring Provider Dr. Levy Correa Attending Provider DINORA Sanchez Attending Provider Unavailable Freddie WHITING, Dr. Richardson Primary Care Provider [phone] Freddie WHITING, Dr. Richardson Referring Provider King HENOK, Dr. Lockett Attending Provider King HENOK, Dr. Lockett Referring Provider Freddie WHITING, Dr. Richardson Primary Care Physician [phone] King HENOK, Dr. Lockett Attending Physician [phone] Freddie WHITING, Dr. Richardson Attending Physician Diana Heck Attending Physician Dylan Frazier Attending Unavailable Frazier, Dylan Referring Unavailable Frazier, Dylan Primary Care Unavailable Frazier, Dylan Attending Unavailable Frazier, Dylan Referring Unavailable Frazier, Dylan Primary Care Unavailable Frazier, Dylan Primary Care Unavailable Frazier, Dylan Attending Unavailable Frazier, Dylan Referring Unavailable Levy Correa Attending Unavailable Frazier, Dylan Referring Unavailable Frazier, Dylan Primary Care Unavailable Frazier, Dylan Referring Unavailable Frazier, Dylan Primary Care Unavailable Diana Kinney Attending Unavailable Juan Miguel Strickland Attending Unavailable Frazier, Dylan Primary Care Unavailable Roberto Goss Attending Unavailable Frazier, Dylan Primary Care Unavailable Levy Correa Attending Unavailable Frazier, Dylan Referring Unavailable Frazier, Dylan Primary Care Unavailable Levy Correa Referring Unavailable Frazier, Dylan Primary Care Unavailable Levy Correa Attending Unavailable Allergies Allergy Classification Reported Allergen(s) Allergy Type Date of Onset Reaction(s) Facility (20 sources) Penicillins Allergy to substance 2 Unknown, Tremor [facility] (1 source) Penicillins Drug allergy (disorder) 5 [facility] Repository Medications Current Medications Medication Drug Class(es) Dates Sig (Normalized) Sig (Original) [id number] 200 actuat albuterol 0.09 mg/actuat metered dose inhaler (9 sources) beta2-Adrenergic Agonist Start: 07-26-2023 Albuterol Sulfate 90 mcg/actuation HFA aerosol inhaler Active 2 NMA INHALATION EVERY 6 HOURS as needed July 26, 2023 12:00am Complies with drug therapy Start: 07-26-2023 take 1 puff(s) by in halation every six hours Albuterol Sulfate Active 2 PUFF INHALATION EVERY 6 HOURS July 26, 2023 12:00am hydroCHLOROthiazide 25 mg / losartan potassium 100 mg oral tablet (7 sources) Thiazide Diuretic, Angiotensin 2 Receptor Beba Start: 11-28-2023 Losartan-Hydrochlorothiazide 100-25 mg tablet Active 1 {tbl} PO DAILY November 28, 2023 1:00am Complies with drug therapy Start: 11-28-2023 Losartan-[place] chlorothiazide 100-25 mg tablet Active 1 {tbl} PO DAILY November 28, 2023 1:00am Start: 11-28-2023 take 1 tablet by pinky th once daily Losartan-Hydrochlorothiazide Active 1 TA BLET PO DAILY November 28, 2023 1:00am Insulin Pump Cartridge (Omni pod Insulin Refill) cartridge (20 sources) Start: 10-01-2021 Insulin Pump C artridge [...] U SC once daily before breakfast 36 1 May 14, 2025 4:25pm Complies with drug therapy Start: 05-23-2024 End: 11-19-2024 Insulin Regular Hum [...] insulin pen Discontinued 0 SC ONCE 42 December 27, 2023 1:00am May 23, 2024 [...] solution Discontinued 250 U SC DAILY 45 3 March 29, 2022 4:35pm April 26, 2022 4:32pm Start: 09-28-2021 End: 03-26-2022 Insulin Regular Hum U-500 Co nc (Humulin R U-500 (Conc) Insulin) 500 unit/mL solution Discontinued 200 U SC DAILY 40 3 November 12, 2021 4:43pm March 26, 2022 10:23am Zpmwcyar-Kxx-Nd-Lycopen-Lute in (Centrum Silver Ultra Men's) 300-600-300 mcg tablet (6 sources) Start: 09-07-2022 take 300-600 tablets by mouth once daily Hxilhgri-Lzl-Tl-Lycopen-Lutein (Centrum Silver Ultra Men's) 300-600-300 mcg tablet Active 1 TABLET PO DAILY September 07, 2022 1:00am Start: 09-07-2022 take 300-600 tablets by mouth once daily Fciqmjhx-Ive-Lp-Lycopen-Lutein (Centrum Silver Ultra Men's) 300-600-300 mcg tablet Active 1 TABLET PO DAILY September 07, 2022 12:00am rosuvastatin calcium 20 mg oral tablet (20 sources) HMG-CoA Reductase Inhibitor Start: 10-12-2018 take 1 tablet by mouth at bedtime Rosuvastatin (Crestor) 20 MG tablet Active 20 mg PO AT BEDTIME October 12, 2018 1:00am Complies with drug therapy Testosterone (20 sources) Androgen Start: 10-12-2018 apply 75 g topically once daily Testosterone (Androgel) 75 GM Gel.Base Cloth Inspector Active 81 MG TOPICAL DAILY October 12, [...] DAILY as needed 0 April 12, 2023 12:00November 28, 2023 4:14pm Start: 04-12-2023 End: 11-28-2023 [...] 2-5) PO baclofen 10 mg oral tablet (7 sources) gamma-Aminobutyric Acid-ergic Agonist Start: 11-28-2023 End: 07-09-2024 take 1 tablet by mouth twice daily Baclofen 10 mg tablet Discontinued 10 mg PO TWICE A DAY November 28, 2023 1:00am July 09, 2024 3:51pm Back pain / Arthritis canagliflozin 300 mg oral tablet (20 sources) Sodium-Glucose Cotransporter 2 Inhibitor Start: 10-12-2018 [...] 3:35pm 0.5 ml dulaglutide 1.5 mg/ml auto-injector (20 sources) GLP-1 Receptor Agonist Start: 04-26-2022 End: 04-27-2022 Dulaglutide (Trulicity) 0.75 mg/0.5 mL pen injector Discontinued 0.75 mg SC EVERY WEEK 2 0 April 26, 2022 12:00am April 27, 2022 9:19am empagliflozin 10 mg oral tablet (20 sources) Sodium-Glucose Cotransporter 2 Inhibitor Start: 10-18-2017 End: 02-10-2018 take 1 tablet by mouth once daily Empagliflozin 10 MG tablet Discontinued 10 mg PO DAILY October 18, 2017 1:00am February 10, 2018 8:16am esomeprazole 20 mg delayed release oral capsule (19 sources) Proton Pump Inhibitor Start: 09-07-2022 End: 04-12-2023 take 1 capsule by mouth once daily Esomeprazole Magnesium (Nexium) 20 mg capsule,delayed release(DR/EC) Discontinued 20 mg PO DAILY September 07, 2022 1:00am April 12, 2023 3:11pm hydroCHLOROthiazide 25 mg / telmisartan 80 mg oral tablet (20 sources) Thiazide Diuretic, Angiotensin 2 Receptor Beba Start: 10-18-2017 End: 11-28-2023 Telmisartan-[place] chlorothiazid 80-25 mg tablet Discontinued 1 {tbl} PO DAILY February 10, 2018 8:17am November 28, 2023 4:14pm Start: 10-18-2017 End: 11-28-2023 take 1 tablet by mouth once daily Telmisartan-Hydrochlorothiazid Discontin ued 1 TABLET PO DAILY February 10, 2018 8:17am November 28, 2023 4:14pm icosapent ethyl 1000 mg oral capsule (20 sources) Start: 06-19-2021 End: 04-26-2022 Icosapent Ethyl [...] mellitus Type 2 diabetes mellitus with hyperglycemia tank terminal gauger (current) use of insulin Start: 03-14-2024 End: 11-19-2024 Insulin Aspart U-100 (Novolo g Flexpen U-100 Insulin) 100 unit/mL (3 mL) insulin pen Discontinued 80 U SC TWICE A DAY 144 March 15, 2024 4:29pm July 09, 2024 4:16pm Diabetes mellitus Type 2 diabetes mellitus with hyperglycemia tank terminal gauger (current) use of insulin Start: 03-02-2024 End: [...] ml insulin lispro 200 unt/ml pen injector (13 sources) Insulin Analog Start: 03-14-2024 End: 03-14-2024 Insulin Lispro (Humalog Kwikpen Insulin) 200 unit/mL (3 mL) insulin pen Discontinued 80 U SC .COMPLEX 72 1 March 14, 2024 3:56pm March 14, 2024 9:15pm Diabetes mellitus Type 2 diabetes mellitus with hyperglycemia longterm (current) use of insulin Frequency: bid lunch and supper Start: 03-01-2024 End: 03-14-2024 Insulin Lispro (Humalog Kwik pen Insulin) 200 unit/mL (3 mL) insulin pen Discontinued 40 U SC .COMPLEX 36 3 March 01, 2024 12:00am March 14, 2024 3:57pm Frequency: bid lunch and supper Insulin Pump Cart,Auto,Bt-Cn tr (Omnipod 5 G6 Intro Kit (Gen 5)) cartridge (16 sources) Start: 12-02-2022 End: 11-28-2023 Insulin Pump [...] Kit (Gen 5)) cartridge Active 0 .Route December 02, 2022 1:00am As directed Start: [...] pump Type 2 diabetes mellitus with hyperglycemia tank terminal gauger (current) use of insulin Presence of insulin [...] pump Type 2 diabetes mellitus with hyperglycemia longterm (current) use of insulin Presence of insulin [...] pump Type 2 diabetes mellitus with hyperglycemia longterm (current) use of insulin Presence of insulin [...] pump Type 2 diabetes mellitus with hyperglycemia tank terminal gauger (current) use of insulin Presence of insulin [...] 3 days levoFLOXacin 750 mg oral tablet (20 sources) Quinolone Antimicrobial Start: 02-10-2018 End: 02-15-2018 [...] 3:35pm magnesium oxide 400 mg oral capsule (14 sources) Start: 04-12-2023 End: 11-28-2023 take 1 capsule by mouth once daily Magnesium Oxide 400 mg magnesium capsule Discontinued 400 mg PO DAILY April 12, 2023 12:00am November 28, 2023 4:14pm meloxicam 15 mg oral tablet (19 sources) Nonsteroidal Anti-inflammatory Drug Start: 09-07-2022 End: [...] 18, 2017 1:00am June 19, 2021 6:36pm Sk-Ckq-Lytob-N0-Twdqknq-Doeq in (Centrum Silver Ultra Men's) 300-600-300 mcg tablet (13 sources) Start: 09-07-2022 End: 07-09-2024 Go-Lbj-Ahqxo-O7-Vpjehxx-Pudg in (Centrum Silver Ultra Men's) 300-600-300 mcg tablet Discontinued 1 {tbl} PO DAILY September 07, 2022 1:00am July 09, 2024 3:51pm Start: 09-07-2022 take 300-600 tablets by mouth once daily Bj-Nxl-Snjri-A4-Uqgouij-Ozerhl (Centrum Silver Ultra Men's) 300-600-300 mcg tablet [...] 2023 3:09pm sertraline 25 mg oral tablet (20 sources) Serotonin Reuptake Inhibitor Start: 06-19-2021 End: [...] M G SC EVERY WEEK 2 May 24, 2022 12:00am June 21, 2022 7:47am Start: 05-24-2022 Tirzepatide Ac tive 5 MG SC EVERY WEEK 2 May 24, 2022 12:00am Tirzepatide (12 sources) Start: 06-27-2025 End: 08-01-2025 Tirzepatide (Mounjaro) 5 mg/ 0.5 mL pen injector Discontinued 5 mg SC EVERY WEEK 6 0 June 27, 2025 12:00am August 01, 2025 11:00am Start: 06-27-2025 Tirzepatide (M ounjaro) 5 mg/0.5 mL pen injector Active 5 mg SC EVERY WEEK 6 0 June 27, 2025 12:00am Complies with drug therapy Start: 06-21-2022 End: 07-18-2022 Tirzepatide 5 mg/0.5 mL pen injector Discontinued 5 mg SC EVERY WEEK 2 1 June 21, 2022 7:47am July 18, 2022 4:20pm Start: 05-24-2022 End: 06-21-2022 Tirzepatide 5 mg/0.5 mL pen injector Discontinued 5 mg SC EVERY WEEK 2 1 May 24, 2022 12:00am June 21, 2022 7:47am Tirzepatide (8 sources) Start: 12-10-2022 End: 04-12-2023 Tirzepatide (Mounjaro) 12.5 mg/0.5 mL pen injector Discontinued 12.5 mg SC EVERY WEEK 2 6 December 10, 2022 1:00am April 12, 2023 3:12pm Start: 09-13-2022 End: 10-11-2022 Tirzepatide (Mounjaro) 12.5 mg/0.5 mL pen injector Discontinued 12.5 mg SC EVERY WEEK 2 4 September 13, 2022 1:00am October 11, 2022 8:48am Tirzepatide (12 sources) Start: 06-18-2025 End: 06-27-2025 Tirzepatide (Mounjaro) 2.5 m g/0.5 mL pen injector Discontinued 2.5 mg SC EVERY WEEK 2 1 June 18, 2025 6:35pm June 27, 2025 9:03am for 4 weeks Start: 05-28-2025 End: 06-18-2025 [...] 24, 2022 12:00am May 24, 2022 10:28am Tirzepatide (4 sources) Start: 07-18-2022 End: 08-13-2022 Tirzepatide 7.5 mg/0.5 mL pe n injector Discontinued 7.5 mg SC EVERY WEEK 2 2 July 18, 2022 12:00am August 13, 2022 8:01am Tirzepatide (4 sources) Start: 08-13-2022 End: 09-13-2022 Tirzepatide 10 mg/0.5 mL pen injector Discontinued 10 mg SC EVERY WEEK 2 4 August 13, 2022 12:00am September 13, 2022 11:47am Tirzepatide (4 sources) Start: 10-11-2022 End: 12-10-2022 Tirzepatide (Mounjaro) 15 mg /0.5 mL pen injector Discontinued 15 mg SC EVERY WEEK 2 October 11, 2022 1:00am December 10, 2022 4:38pm Tirzepatide (Mounjaro) 12.5 mg/0.5 mL pen injector [...] Problem Date Documented Date Episodic/Chronic Abdominal pain (20 sources) Bilateral pain of inguinal region; Translations: [...] [Essential (primary) hypertension] Onset: 11-19-2024 Chronic Other circulatory disease (20 sources) Pulmonary congestion ; Translations: [Other specified symptoms and signs involving the circulatory and respiratory systems] 10-13-2018 Episodic Other connective tissue disease (19 sources) Muscle pain; Translations: [Myalgia, unspecified site] 09-09-2022 Episodic Other connective tissue disease (4 sources) Myalgia, unspecified site; Translations: [Myalgia and myositis, unspecified] Episodic Other hematologic conditions (20 sources) ESR raised; Translations: [Elevated erythrocyte sedimentation rate] 09-03-2022 Episodic Other nervous system disorders (1 source) Nerve root disorder Chronic Other nervous system disorders (20 sources) Numbness of finger; Translations: [Anesthesia of skin] 10-20-2021 Episodic Other nervous system disorders (20 sources) Paresthesia of hand ; Translations: [Anesthesia of skin] 11-02-2021 Episodic Other nervous system disorders (1 source) Anesthesia of skin; Translations: [Disturbance of skin sensation] Episodic Other non-traumatic joint disorders (20 sources) Shoulder pain; Translations: [Pain in right shoulder] 09-03-2022 Episodic Other non-traumatic joint disorders (1 source) Pain in left shoulder; Translations: [Pain in left shoulder] Onset: 07-19-2025 Episodic Other nutritional; endocrine; and metabolic disorders (20 sources) Obesity; Translations: [Obesity, unspecified] 09-09-2022 Chronic Other nutritional; endocrine; and metabolic disorders (17 sources) Obesity, unspecified; Translations: [Obesity, unspecified] Chronic Other upper respiratory infections (20 sources) Acute sinusitis; Translations: [Acute sinusitis, unspecified] Episodic Pneumonia (except that caused by tuberculosis or sexually transmitted disease) (20 sources) Right middle zone pneumonia; Translations: [Pneumonia, unspecified organism] 10-13-2018 Episodic Spondylosis; intervertebral disc disorders; other back problems (8 sources) Degeneration of cervical intervertebral disc; Translations: [Other cervical disc degeneration, unspecified cervical region] 07-29-2025 Chronic Spondylosis; intervertebral disc disorders; other back problems (20 sources) Cervical radiculopathy; Translations: [Spinal stenosis in cervical region] Onset: 07-29-2025 Episodic Thyroid disorders (20 sources) 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; Translations: [Other specified hypothyroidism] Onset: 11-19-2024 Chronic Unclassified (4 sources) M54.12 - Radiculopathy, cervical region Past or Other Problems Problem Classification Problem Date Documented Da te Episodic/Chronic 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 source) tank terminal gauger (current) use of insulin; Translations: [longterm (current) use of insulin] Onset: 05-14-2025 Episodic Other screening for suspected conditions (not mental disorders or infectious disease) (20 sources) Patient encounter status; Translations: [Encounter for screening for malignant neoplasm of intestinal tract, unspecified] Onset: 11-22-2024 09-03-2022 Episodic Results Test Name Value Interpretation Reference Range Facility MR/PAT.Peg 09-11-2025 MR/PAT.ROVERTO [facility] Medical Records Department [address] [place] [address] PAT - Anesthesia 09/11/25 1035 MR#: [id number] Acct: [id number] Name: ZENKELVIN Jr. Rep #: [id number] : 1965 59 From: Jared Meyer MD PCP: Dr. Dylan Frazier MD Status:PRE MIC Y Race: C Location: [facility] Pre-Assessment Diagnosis/Proposed Procedure Planned Operative Procedure(s): (L) Block, Cervical Facet Anesthesia History Anesthesia History - prop making supervisor: Anesthesia History - prop making supervisor Hx Hospitalization No 09/11/25 10:06 Any Problems With Anesthesia No 09/11/25 10:06 Cholinesterase deficiency No 09/11/25 10:06 You/Your Family Experience No 09/11/25 10:06 fever (hyperthermia) with Relationship Recent Exposure to Contagious No 10/13/18 09:06 Disease Does patient have nerve No 09/11/25 10:06 stimulator Patient instructed to have device shut off --Does patient have Pacemaker or ICD? When Was Last Pacemaker Check QUESTION #4 FULL TEXT: You/Your Family Experience fever (hyperthermia) with Anesthesia Last Oral Intake Last Oral intake: Last Oral Intake NPO since Meds taken in AM with sips of water? 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 - prop making supervisor: PONV - prop making supervisor Female No 09/11/25 10:06 HX of Motion Sickness Yes 09/11/25 10:06 HX of N/V After Surgery No 09/11/25 10:06 Non-Smoker Yes 09/11/25 10:06 Duration of Surgery greater No 09/11/25 10:06 than 60 minutes Number of Risk Factors 2 09/11/25 10:06 PONV Score Moderate Risk 09/11/25 10:06 Height Weight Height Weight: Anesthesia: Height Weight Height 6 ft 07/29/25 08:00 Respiratory Assessment Respiratory Assessment - prop making supervisor: Respiratory Tract Infection Hx - prop making supervisor Hx Respiratory Tract Infection No 09/11/25 10:06 STOP Sleep Apnea STOP Sleep Apnea - prop making supervisor: STOP Sleep Apnea - prop making supervisor Hx Hypertension Yes 09/11/25 10:06 Hx Sleep Apnea Yes 09/11/25 10:06 CPAP No 09/11/25 10:06 BIPAP Yes 09/11/25 10:06 Do you snore loudly (louder than talking or can be heard Do you often feel tired/ fatigued/ sleepy during daytime? Has anyone observed you stop breathing during sleep? STOP Results Positive 09/11/25 10:06 QUESTION #5 FULL TEXT : Do you snore loudly (louder than talking or can be heard through closed doors)? Tobacco Use History Tobacco Use History - prop making supervisor: Tobacco Use History - prop making supervisor Tobacco Use Smoking Status Former smoker 09/11/25 10:06 Hx Tobacco Use No 09/11/25 10:06 Years Smoking Packs Smoked per Day Smoking Cessation Date was No - quit smoking greater 09/11/25 10:06 within the last 15 years than 15 years ago Hx Smoking Cessation Date 12/29/09 09/11/25 10:06 Hx Smoking Cessation Counseling Hematologic Medial History Hematologic Hx - prop making supervisor: Hematologic Medical Hx - piling cutter Hx of Blood Transfusion No 09/11/25 10:06 Hx of Transfusion in last 3 No 09/11/25 10:06 Months Date of Last Transfusion (if within last 3 months) Ever experience any problems No 09/11/25 10:06 with transfusion(s)? Specify any problems Hx of Preganancy in last 3 N/A 09/11/25 10:06 Months Nurse Filling Out Transfusion NBUCHER 09/11/25 10:06 Questions: Date: 09/11/25 09/11/25 10:06 Time: 10:07 09/11/25 10:06 Patient unable to answer at this time (ie. confused, unrespo /Reproducti on History /Reproducti ve History - prop making supervisor: /Reproducti ve Hx- prop making supervisor Hx Now No 09/11/25 10:06 Gestational Age (in weeks): EDC: Hx Hx Para Hx Section SAB No 09/11/25 10:06 Does the father of the baby or his family experience fever w Father of the baby Malignant Hypertension history comment [facility] Medical History (Updated 09/11/25 @ 10:13 by Deborah Cook) Wears glasses Hypothyroid Thyroid disease Shortness of breath on exertion BiPAP (biphasic positive airway pressure) dependence Sleep apnea Former smoker History of stress test History of echocardiogram Hypothyroidism (acquired) Abnormal results of thyroid function studies Myalgia Abnormal ECG Numbness and tingling in both hands Numbness of left thumb Diabetes Cholecystectomy planned High triglycerides High cholesterol Gallstones Diabetes HTN (hypertension) Home Medications ???Medication ???Instructions ???Recorded ???Last Taken ???Type rosuvastatin 20 mg tablet (Crestor) 20 mg PO QHS 10/12/18 Unknown H istory losartan 100 1 tab PO DAILY 11/28/23 Unknown Hi (more content not included)... Normal [facility] Orthopedic Visit Reporton Orthopedic Visit Report [facility] [address] [place] [address] OFFICE VISIT Date of Service: 07/29/25 MR#: [id number] Acct: [id number] Name: ZENKELVIN ELIZABETH Rep #: [id number] : 1965 Provider: HARINDER Sherwood Age/Sex: 59/M Location: [facility] [place].[facility] Status: Signed Intake Vital Signs 05/14/25 15:50 07/29/25 08:00 Height 6 ft 6 ft Weight: 374 lb 8 oz 375 lb BMI 50.8 50.8 BP 134/77 H Blood Pressure Location Rt brachial Position Sitting Pulse 77 Pulse Source Monitor Pulse Oximetry (%) 93 Oxygen Delivery Method room air Intake Visit Reasons: CERVCIAL SPINE Chief Complaint: cervical spine Accompanied by: Self Is patient in pain?: Yes (cervical spine) Pain scale (1-10): 6 Allergies Penicillins Allergy (Verified 07/29/25 08:02) Tremor Medications ???Medication ???Instructions ???Recorded ???Confirmed ???Type rosuvastatin 20 mg tablet (Crestor) 20 mg PO QHS 10/12/18 07/29/25 History albuterol sulfate 90 mcg/actuation 2 puff inhalation Q6H PRN 07/29/25 History aerosol inhaler losartan 100 1 tab PO DAILY 11/28/23 07/29/25 H istory mg-hydrochlorothiazi de 25 mg tablet pen needle, diabetic 32 gauge x #300 ea 07/09/24 05/14/25 Rx 32" (BD Ultra-Fine Zhanna Pen Needle) metformin 1,000 mg tablet 1,000 mg PO BID #180 tabs 11/19/24 07/29/25 Rx insulin aspart U-100 100 unit/mL 90 unit (0.9 mL) subcut BID #162 m L 05/14/25 07/29/25 Rx (3 mL) subcutaneous pen (Novolog FlexPen U-100 Insulin aspart) insulin regular hum U-500 conc 500 200 unit (0.4 mL) subcut QACBREA K 05/14/25 07/29/25 Rx unit/mL(3 mL) subcut pen (Humulin #36 mL R U-500 (Conc) Insulin Kwikpen) levothyroxine 125 mcg tablet 125 mcg PO DAILY #90 tabs 05/14/25 07/29/25 Rx tirzepatide 5 mg/0.5 mL 5 mg (0.5 mL) subcut QWEEK #6 mL 0 06/27/25 07/29/25 Rx subcutaneous pen injector (Mounjaro) [facility] Medical History Hypothyroidism (acquired) Abnormal results of [...] activity do you participate in: none HPI CERVCIAL SPINE Details: This documentation accurately reflects the service provided and the decisions made by me, HARINDER Sherwood 07/29/25 0756. Part of today???s visit was documented by Madelin Correa RN, acting as scribe. KELVIN ZALDIVAR is a 59 year old M here today for cervical spine pain. He states this has been going on for about 6 weeks. Feels like it has been worsening in that time. He complains of cervical spine pain that extends down into his left arm to the elbow. He also gets pain in both shoulders. The pain was positional at first but now it is constant. He does report numbness and tingling into the left arm and hand. He has a history of a bilateral carpal tunnel release. This was done by Dr. Aaron at [facility]. All left side no right side. It started out as positional now it's constant. He denies a change in balance. He denies dexterity issues. He denies previous surgery or injury to his neck. He had recent x-rays and MRI. He has not done PT and has not seen pain management. Type 2 diabetes, last a1c was 6.9. No blood thinners. No heart or lung issues. The patient is RHD. Ortho Exam General General: Yes no acute distress Neurologic: Yes alert and Yes oriented x3 Psychologic: Yes reasonable and appropriate Spine SPINE TESTING CERVICAL THORACIC LUMBAR Musculoskeletal Strength 0=absent - 5=normal Details: Neurological exam of the upper extremities shows 5X5 power. Normal sensation across all dermatomes. No hyperreflexia. No midline tenderness, mild left-sided paraspinal tenderness. Coding Level of Care Code Off vis,new,level 4 Diagnoses Cervical radiculopathy M54.12 Degenerative disc disease, cervical M50.30 Spinal stenosis, cervical region M48.02 Assessment and Plan Assessment and Plan (1) Cervical radiculopathy: Status: Acute (2) Degenerative disc disease, cervical: Status: Acute (3) Spinal stenosis, cervical region: Status: Acute Orders: Referrals Pain Mague (more content not included)... Normal [facility] Magnetic resonance imaging r eportOrdered By: Erin Faust on 07-28-2025 Study report [facility] Imaging Services [address] [place] [address] Spine Cervical (Routine) MR#: [id number] Acct: [id number] Name: KELVIN ZALDIVAR Jr. Rep #: [id number] : 1965 M 59 From: Gurpreet Faust MD PCP: Dr. Dylan Frazier MD Status: REG C LI Study:Spine Cervical (Routine) Date of Exam: 07/25/25 Exam# [id number] Ordering Dr: Dylan Frazier MD PROCEDURE: SPINE CERVICAL (ROUTINE) 07/25/2025 REASON FOR EXAM: BACK PAIN TECHNIQUE: Procedure Code: MRISPC Modality: MR Procedure: SPINE CERVICAL (ROUTINE) Multiplanar and multisequence images were obtained without IV contrast administration. COMPARISON: Cervical spine x-ray 07/11/2025. FINDINGS: Vertebrae: Cervical vertebral body heights are preserved. Bone marrow signal is unremarkable. Alignment: Normal. No spondylolisthesis. Spinal Cord: Cervical spinal cord is of normal size and signal intensities. Structures at the foramen magnum are unremarkable. C2-3: Facet joint arthropathy. Mild canal stenosis. Moderate right foramina stenosis. Mild left foramina stenosis. C3-4: Disc desiccation. Disc osteophyte complex. Uncovertebral hypertrophy. Facet joint arthropathy. Severe canal stenosis. Severe bilateral foramina stenosis. C4-5: Disc desiccation. Disc osteophyte complex. Uncovertebral hypertrophy. Facet joint arthropathy. Severe canal stenosis. Severe bilateral foramina stenosis. C5-6: Disc desiccation. Disc osteophyte complex. Uncovertebral hypertrophy. Facet joint arthropathy. Severe canal stenosis. Severe bilateral foramina stenosis. C6-7: Disc desiccation. Disc osteophyte complex. Left uncovertebral hypertrophy measures 5 mm. Severe left and moderate right foramina stenosis. Severe canal stenosis. C7-T1: Unremarkable MRI/Spine Cervical (Routine) IMPRESSION: Severe canal stenosis and severe bilateral foramina stenosis C3 through C7. Reading Location: [facility] CC: Dr. Dylan Frazier MD ~ [employer]amer [employer] Band: Signed [facility] Spine Cervical (Routine)on 0 07-25-2025 Spine Cervical (Routine) [facility] Imaging Services [address] [place] [address] Spine Cervical (Routine) MR#: [id number] Acct: [id number] Name: KELVIN ZALDIVAR Jr. Rep #: [id number] : 1965 M 59 From: Erin Faust MD PCP: Dr. Dylan Frazier MD Status: REG CLI Study: Spine Cervical (Routine) Date of Exam: Exam# [id number] Ordering Dr: Dylan Frazier MD PROCEDURE: SPINE CERVICAL (ROUTINE) 07/25/2025 REASON FOR EXAM: BACK PAIN TECHNIQUE: Procedure Code: MRISPC Modality: MR Procedure: SPINE CERVICAL (ROUTINE) Multiplanar and multisequence images were obtained without IV contrast administration. COMPARISON: Cervical spine x-ray 07/11/2025. FINDINGS: Vertebrae: Cervical vertebral body heights are preserved. Bone marrow signal is unremarkable. Alignment: Normal. No spondylolisthesis. Spinal Cord: Cervical spinal cord is of normal size and signal intensities. Structures at the foramen magnum are unremarkable. C2-3: Facet joint arthropathy. Mild canal stenosis. Moderate right foramina stenosis. Mild left foramina stenosis. C3-4: Disc desiccation. Disc osteophyte complex. Uncovertebral hypertrophy. Facet joint arthropathy. Severe canal stenosis. Severe bilateral foramina stenosis. C4-5: Disc desiccation. Disc osteophyte complex. Uncovertebral hypertrophy. Facet joint arthropathy. Severe canal stenosis. Severe bilateral foramina stenosis. C5-6: Disc desiccation. Disc osteophyte complex. Uncovertebral hypertrophy. Facet joint arthropathy. Severe canal stenosis. Severe bilateral foramina stenosis. C6-7: Disc desiccation. Disc osteophyte complex. Left uncovertebral hypertrophy measures 5 mm. Severe left and moderate right foramina stenosis. Severe canal stenosis. C7-T1: Unremarkable MRI/Spine Cervical (Routine) IMPRESSION: Severe canal stenosis and severe bilateral foramina stenosis C3 through C7. Reading Location: [facility] CC: Dr. Dylan Frazier MD [employer]: Signed Normal [facility] Absolute lymphocyte countOrd ered By: Dylan Frazier on 07-11-2025 Lymphocytes Auto (Unsp spec) [#/Vol] 3.07 10*3/uL 0.83-4.51 [facility] Absolute neutrophil countOrd ered By: Dylan Frazier on 07-11-2025 Neutrophils (Bld) [#/Vol] 6.6 10*3/uL 2.0-7.7 [facility] Anion gap in Serum or Plasma Ordered By: Dylan Frazier on 07-11-2025 Anion gap [Moles/Vol] 15 mmol/L 5-15 [facility] Automated lymphocyte count a s percentage of total leukocytesOrdered By: Dylan Frazier on 07-11-2025 Lymphocytes/100 WBC Auto (Unsp spec) 28.2 % 19-41 [facility] BUN/creatinine ratioOrdered By: Dylan Frazier on 07-11-2025 Urea nitrogen/Creatinine [Mass ratio] 13.8 mg/mg 10- [facility] Basic Metabolic Profile (BMP )on 07-11-2025 BUN/CRE 13.8 RATIO Normal - [facility] Comment on above: Performed By: #### L 100.0100, L500.2500 ####[facility] [address] [place], [address] Calcium [Mass/Vol] 9.5 mg/dL Normal 7.6-11.0 [facility] Comment on above: Performed By: #### L 100.0100, L500.2500 ####[facility] [address] [place], [address] Chloride [Moles/Vol] 99 mmol/L Normal 98-108 [facility] Comment on above: Performed By: #### L 100.0100, L500.2500 ####[facility] [address] [place], [address] CO2 [Moles/Vol] 24.4 mmol/L Normal 21.0-32.0 [facility] Comment on above: Performed By: #### L 100.0100, L500.2500 ####[facility] [address] [place], [address] Creatinine [Mass/Vol] 1.03 mg/dL Normal 0.70-1.20 [facility] Comment on above: Performed By: #### L 100.0100, L500.2500 ####[facility] [address] [place], [address] GAP 15 Normal 5-15 [facility] Comment on above: Performed By: #### L 100.0100, L500.2500 ####[facility] [address] [place], [address] GFR/1.73 sq M.predicted among non-blacks MDRD (S/P/Bld) [Vol rate/Area] 84 mL/min/{1.73_m2} Normal >60 [facility] Comment on above: Result Comment: mL/m in/1.73m2 CKD-EPI Creatinine Equation (2020) Performed By: #### L 100.0100, L500.2500 ####[facility] [address] [place], [address] Glucose [Mass/Vol] 130 mg/dL High 70-99 [facility] Comment on above: Performed By: #### L 100.0100, L500.2500 ####[facility] [address] [place], [address] Potassium [Moles/Vol] 3.6 mmol/L Normal 3.3-5.1 [facility] Comment on above: Performed By: #### L 100.0100, L500.2500 ####[facility] [address] [place], [address] Sodium [Moles/Vol] 138 mmol/L Normal 133-145 [facility] Comment on above: Performed By: #### L 100.0100, L500.2500 ####[facility] [address] [place], [address] Urea nitrogen [Mass/Vol] 14 mg/dL Normal 4-19 [facility] Comment on above: Performed By: #### L 100.0100, L500.2500 ####[facility] [address] [place], [address] Basophil percentageOrdered B y: Dylan Frazier on 07-11-2025 Basophils/100 WBC (Bld) 0.3 % 0-1 [facility] CBC W/Diff, Automatedon 07-01-2024 Absolute Lymph 3.07 X10 3/uL Normal 0.83-4.51 [facility] Comment on above: Performed By: #### L 100.0100, L500.2500 #### [facility] Laboratory [address] [place], [address] Absolute Neut 6.6 X10 3/uL Normal 2.0-7.7 [facility] Comment on above: Performed By: #### L 100.0100, L500.2500 #### [facility] Laboratory [address] [place], [address] Basophils/100 WBC (Bld) 0.3 % Normal 0-1 [facility] Comment on above: Performed By: #### L 100.0100, L500.2500 #### [facility] Laboratory [address] [place], [address] Eosinophils/100 WBC (Bld) 2.7 % Normal 0-5 [facility] Comment on above: Performed By: #### L 100.0100, L500.2500 #### [facility] Laboratory [address] [place], [address] Erythrocyte distribution width (RBC) [Ratio] 14.0 % Normal 11.6-14.6 [facility] Comment on above: Performed By: #### L 100.0100, L500.2500 #### [facility] Laboratory [address] [place], [address] Hematocrit (Bld) [Volume fraction] 41.3 % Normal 40-54 [facility] Comment on above: Performed By: #### L 100.0100, L500.2500 #### [facility] Laboratory [address] [place], [address] Hemoglobin (Bld) [Mass/Vol] 13.9 g/dL Normal 13.0-16.5 [facility] Comment on above: Performed By: #### L 100.0100, L500.2500 #### [facility] Laboratory [address] [place], [address] IG% 0.600 Normal 0.0-0.9 [facility] Comment on above: Result Comment: IG% - Immature Granulocytes (promyelocytes, myelocytes and metamyelocytes) > 1% indicates that a LEFT SHIFT is Present. Performed By: #### L 100.0100, L500.2500 #### [facility] Laboratory [address] [place], [address] Lymphocytes/100 WBC (Bld) 28.2 % Normal 19-41 [facility] Comment on above: Performed By: #### L 100.0100, L500.2500 #### [facility] Laboratory [address] [place], [address] MCH (RBC) [Entitic mass] 29.0 pg Normal 27.0-32.0 [facility] Comment on above: Performed By: #### L 100.0100, L500.2500 #### [facility] Laboratory [address] [place], [address] MCHC (RBC) [Mass/Vol] 33.7 g/dL Normal 32-36 [facility] Comment on above: Performed By: #### L 100.0100, L500.2500 #### [facility] Laboratory [address] [place], [address] MCV (RBC) [Entitic vol] 86.0 fL Normal 80-94 [facility] Comment on above: Performed By: #### L 100.0100, L500.2500 #### [facility] Laboratory [address] [place], [address] Monocytes/100 WBC (Bld) 7.4 % Normal 0-10 [facility] Comment on above: Performed By: #### L 100.0100, L500.2500 #### [facility] Laboratory [address] [place], [address] Neutrophils/100 WBC (Bld) 60.8 % Normal 47-70 [facility] Comment on above: Performed By: #### L 100.0100, L500.2500 #### [facility] Laboratory [address] [place], [address] Nucleated RBC (Bld) [#/Vol] 0 10*3/uL Normal 0-5 [facility] Comment on above: Performed By: #### L 100.0100, L500.2500 #### [facility] Laboratory [address] [place], [address] Platelet mean volume (Bld) [Entitic vol] 12.0 fL Normal 6.2-12.0 [facility] Comment on above: Performed By: #### L 100.0100, L500.2500 #### [facility] Laboratory [address] [place], [address] Platelets (Bld) [#/Vol] 272 10*3/uL Normal 150-450 [facility] Comment on above: Performed By: #### L 100.0100, L500.2500 #### [facility] Laboratory [address] [place], [address] RBC (Bld) [#/Vol] 4.80 10*6/uL Normal 4.6-6.2 [facility] Comment on above: Performed By: #### L 100.0100, L500.2500 #### [facility] Laboratory [address] [place], [address] RDW SD 44.1 fl High 35.1-43.9 [facility] Comment on above: Performed By: #### L 100.0100, L500.2500 #### [facility] Laboratory [address] [place], [address] WBC (Bld) [#/Vol] 10.9 10*3/uL Normal 4.4-11.0 [facility] Comment on above: Performed By: #### L 100.0100, L500.2500 #### [facility] Laboratory [address] [place], [address] Carbon dioxide, total [Moles /volume] in Central venous bloodOrdered By: Dylan Frazier on 07-11-2025 CO2 [Moles/Vol] 24.4 mmol/L 21.0-32.0 [facility] Cerv Spine Obl/Flex/Ext Comp on 07-11-2025 Cerv Spine Obl/Flex/Ext Comp [facility] Imaging Services [address] [place] [address] Cerv Spine Obl/Flex/Ext Comp MR#: [id number] Acct: [id number] Name: KELVIN ZALDIVAR JrLeandro Rep #: [id number] : 1965 M 59 From: Armando Gibbs MD PCP: Dr. Dylan Frazier MD Status: REG CLI Study: Cerv Spine Obl/Flex/Ext Comp Date of Exam: 09/24 Exam# [id number] Ordering Dr: Dylan Frazier MD PROCEDURE: CERV [...] in the midcervical spine. Scratch Reading Location: [id number] CC: Dr. Dylan Frazier MD [employer] Band: Signed Normal [facility] Chloride assayOrdered By: Harinder Frazier on 07-11-2025 Chloride [Moles/Vol] 99 mmol/L 98-108 [facility] Eosinophil percentageOrdered By: Dylan Frazier on 07-11-2025 Eosinophils/100 WBC (Bld) 2.7 % 0-5 [facility] Erythrocyte distribution wid th ratioOrdered By: Dylan Frazier on 07-11-2025 Erythrocyte distribution width (RBC) [Ratio] 14.0 % 11.6-14.6 [facility] Erythrocyte distribution wid th standard deviationOrdered By: Dylan Frazier on 07-11-2025 Erythrocyte distribution width (RBC) [Ratio] 44.1 fl High 35.1-43.9 [facility] Glomerular filtration rate ( GFR) estimation/1.73 sq m using serum, plasma, or whole bOrdered By: Dylan Frazier on 07-11-2025 GFR/1.73 sq M.predicted among non-blacks MDRD (S/P/Bld) [Vol rate/Area] 84 mL/min/{1.73_m2} >60 [facility] Comment on above: mL/min/1.73m2 CKD-EP I Creatinine Equation (2020) Hematocrit Auto (Bld) [Volum e fraction]Ordered By: Dylan Frazier on 07-11-2025 Hematocrit (Bld) [Volume fraction] 41.3 % 40-54 [facility] Hemoglobin measurementOrdere d By: Dylan Frazier on 07-11-2025 Hemoglobin (Bld) [Mass/Vol] 13.9 g/dL 13.0-16.5 [facility] Immature granulocytes/100 WB C Auto (Bld)Ordered By: Dylan Frazier on 07-11-2025 Immature granulocytes/100 WBC (Bld) 0.600 % 0.0-0.9 [facility] Comment on above: IG% - Immature Granu locytes (promyelocytes, myelocytes and metamyelocytes) > 1% indicates that a LEFT SHIFT is Present. MCV (mean corpuscular volume ) determinationOrdered By: Dylan Frazier on 07-11-2025 MCV (RBC) [Entitic vol] 86.0 fL 80-94 [facility] Mean corpuscular hemoglobin (MCH) determinationOrdered By: Dylan Frazier on 07-11-2025 MCH (RBC) [Entitic mass] 29.0 pg 27.0-32.0 [facility] Mean corpuscular hemoglobin concentration (MCHC) determinationOrdered By: Dylan Frazier on 07-11-2025 MCHC (RBC) [Mass/Vol] 33.7 g/dL 32-36 [facility] Mean platelet volume determi nationOrdered By: Dylan Frazier on 07-11-2025 Platelet mean volume (Bld) [Entitic vol] 12.0 fL 6.2-12.0 [facility] Monocyte percentageOrdered B y: Dylan Frazier on 07-11-2025 Monocytes/100 WBC (Bld) 7.4 % 0-10 [facility] Neutrophil percentageOrdered By: Dylan Frazier on 07-11-2025 Neutrophils/100 WBC (Bld) 60.8 % 47-70 [facility] Nucleated red blood cell per centageOrdered By: Dylan Frazier on 07-11-2025 Nucleated RBC/100 WBC (Bld) [Ratio] 0 % 0-5 [facility] Platelet countOrdered By: Harinder ul Freddie on 07-11-2025 Platelets (Bld) [#/Vol] 272 10*3/uL 150-450 [facility] Potassium measurement (mass/ volume)Ordered By: Dylan Frazier on 07-11-2025 Potassium (Unsp spec) [Mass/Vol] 3.6 mmol/L 3.3-5.1 [facility] RBC Auto (Bld) [#/Vol]Ordere d By: Dylan Frazier on 07-11-2025 RBC (Bld) [#/Vol] 4.80 10*6/uL 4.6-6.2 [facility] Serum creatinine measurement (mass/volume)Ordered By: Dylan Frazier on 07-11-2025 Creatinine [Mass/Vol] 1.03 mg/dL 0.70-1.20 [facility] Serum glucose measurement (m ass/volume)Ordered By: Dylan Frazier on 07-11-2025 Glucose [Mass/Vol] 130 mg/dL High 70-99 [facility] Serum or plasma calcium stacy urement (mass/volume)Ordered By: Dylan Frazier on 07-11-2025 Calcium [Mass/Vol] 9.5 mg/dL 7.6-11.0 [facility] Serum or plasma urea nitroge n measurement (mass/volume)Ordered By: Dylan Frazier on 07-11-2025 Urea nitrogen [Mass/Vol] 14 mg/dL 4-19 [facility] Sodium levelOrdered By: Dylan Frazier on 07-11-2025 Sodium [Moles/Vol] 138 mmol/L 133-145 [facility] White blood cell (WBC) count Ordered By: Dylan Frazier on 07-11-2025 WBC (Bld) [#/Vol] 10.9 10*3/uL 4.4-11.0 [facility] Anion gap in Serum or Plasma Ordered By: Levy Correa on 05-28-2025 Anion gap [Moles/Vol] 16 mmol/L High 5-15 [facility] BUN/creatinine ratioOrdered By: Levy Correa on 05-28-2025 Urea nitrogen/Creatinine [Mass ratio] 14.9 mg/mg 10-20 [facility] Bilirubin, totalOrdered By: Levy Correa on 05-28-2025 Bilirubin [Mass/Vol] 0.34 mg/dL 0.00-1.30 [facility] Calculated very low density lipoprotein (VLDL) cholesterol measurementOrdered By: Levy Correa on 05-28-2025 Calculated very low density lipoprotein (VLDL) cholesterol measurement 46 mg/dL High 5-40 [facility] Carbon dioxide, total [Moles /volume] in Central venous bloodOrdered By: Levy Correa on 05-28-2025 CO2 [Moles/Vol] 23.2 mmol/L 21.0-32.0 [facility] Chloride assayOrdered By: Robin Correa on 05-28-2025 Chloride [Moles/Vol] 99 mmol/L 98-108 [facility] Comprehensive Metabolic Prof ilon 05-28-2025 Albumin [Mass/Vol] 4.1 g/dL Normal 3.5-5.0 [facility] Comment on above: Performed By: #### L 500.4050, L502.0250, L501.9520, L500.4100 #### [facility] [address] [place], [address] Albumin/Globulin [Mass ratio] 1.3 {ratio} Normal 0.9-2.4 [facility] Comment on above: Performed By: #### L 500.4050, L502.0250, L501.9520, L500.4100 #### [facility] [address] [place], [address] ALK PHOS 56 U/L Normal 40-129 [facility] Comment on above: Performed By: #### L 500.4050, L502.0250, L501.9520, L500.4100 #### [facility] [address] [place], [address] ALT [Catalytic activity/Vol] 27 U/L Normal <=46 [facility] Comment on above: Performed By: #### L 500.4050, L502.0250, L501.9520, L500.4100 #### [facility] [address] [place], [address] AST [Catalytic activity/Vol] 26 U/L Normal <=37 [facility] Comment on above: Performed By: #### L 500.4050, L502.0250, L501.9520, L500.4100 #### [facility] [address] [place], [address] Bilirubin [Mass/Vol] 0.34 mg/dL Normal 0.00-1.30 [facility] Comment on above: Performed By: #### L 500.4050, L502.0250, L501.9520, L500.4100 #### [facility] [address] [place], [address] BUN/CRE 14.9 RATIO Normal 10-20 [facility] Comment on above: Performed By: #### L 500.4050, L502.0250, L501.9520, L500.4100 #### [facility] [address] [place], [address] Calcium [Mass/Vol] 9.1 mg/dL Normal 7.6-11.0 [facility] Comment on above: Performed By: #### L 500.4050, L502.0250, L501.9520, L500.4100 #### [facility] [address] [place], [address] Chloride [Moles/Vol] 99 mmol/L Normal 98-108 [facility] Comment on above: Performed By: #### L 500.4050, L502.0250, L501.9520, L500.4100 #### [facility] [address] [place], [address] CO2 [Moles/Vol] 23.2 mmol/L Normal 21.0-32.0 [facility] Comment on above: Performed By: #### L 500.4050, L502.0250, L501.9520, L500.4100 #### [facility] [address] [place], [address] Creatinine [Mass/Vol] 0.98 mg/dL Normal 0.70-1.20 [facility] Comment on above: Performed By: #### L 500.4050, L502.0250, L501.9520, L500.4100 #### [facility] [address] [place], [address] GAP 16 High 5-15 [facility] Comment on above: Performed By: #### L 500.4050, L502.0250, L501.9520, L500.4100 #### [facility] [address] [place], [address] GFR/1.73 sq M.predicted among non-blacks MDRD (S/P/Bld) [Vol rate/Area] 89 mL/min/{1.73_m2} Normal >60 [facility] Comment on above: Result Comment: mL/m in/1.73m2 CKD-EPI Creatinine Equation (2020) Performed By: #### L 500.4050, L502.0250, L501.9520, L500.4100 #### [facility] [address] [place], [address] Globulin (S) [Mass/Vol] 3.1 g/dL Normal 2.2-4.2 [facility] Comment on above: Performed By: #### L 500.4050, L502.0250, L501.9520, L500.4100 #### [facility] [address] [place], [address] Glucose [Mass/Vol] 160 mg/dL High 70-99 [facility] Comment on above: Performed By: #### L 500.4050, L502.0250, L501.9520, L500.4100 #### [facility] [address] [place], [address] Potassium [Moles/Vol] 3.7 mmol/L Normal 3.3-5.1 [facility] Comment on above: Performed By: #### L 500.4050, L502.0250, L501.9520, L500.4100 #### [facility] [address] [place], [address] Sodium [Moles/Vol] 138 mmol/L Normal 133-145 [facility] Comment on above: Performed By: #### L 500.4050, L502.0250, L501.9520, L500.4100 #### [facility] [address] [place], [address] T PROT 7.2 g/dL Normal 5.9-8.4 [facility] Comment on above: Performed By: #### L 500.4050, L502.0250, L501.9520, L500.4100 #### [facility] [address] [place], [address] Urea nitrogen [Mass/Vol] 15 mg/dL Normal 4-19 [facility] Comment on above: Performed By: #### L 500.4050, L502.0250, L501.9520, L500.4100 #### [facility] [address] [place], [address] Glomerular filtration rate ( GFR) estimation/1.73 sq m using serum, plasma, or whole bOrdered By: Levy Correa on 05-28-2025 GFR/1.73 sq M.predicted among non-blacks MDRD (S/P/Bld) [Vol rate/Area] 89 mL/min/{1.73_m2} >60 [facility] Comment on above: mL/min/1.73m2 CKD-EP I Creatinine Equation (2020) LDL calc ser/plasOrdered By: Levy Correa on 05-28-2025 Cholesterol in LDL [Mass/Vol] 33 mg/dL [facility] Comment on above: Gtdnnbvkwh=492-081 m g/dL & Higher Rrrx=122 mg/dL or greaterFriedwald Equation for LDL-C Laboratory - Chemistry and C hemistry - challengeOrdered By: Levy Correa on 05-28-2025 AST [Catalytic activity/Vol] 26 U/L <38 [facility] Lipid Profileon 05-28-2025 CHOL:HDL 3.23 Normal [facility] Comment on above: Performed By: #### L 500.4050, L502.0250, L501.9520, L500.4100 #### [facility] [address] [place], [address] Cholesterol [Mass/Vol] 114 mg/dL Normal <=200 [facility] Comment on above: Result Comment: Chol esterol level, Desirable <200 mg/dL Borderline high cholesterol 200-239 mg/dL High cholesterol >=240 mg/dL Recommendations of the NCEP Adult Treatment Panel for the following risk-cutoff thresholds for the [place] population. Performed By: #### L 500.4050, L502.0250, L501.9520, L500.4100 #### [facility] [address] [place], [address] Cholesterol in HDL [Mass/Vol] 35 mg/dL Low [facility] Comment on above: Result Comment: Maria Victoria onal Cholesterol Education Program (NCEP) guidelines: <40 mg/dL: Low HDL-cholesterol (major risk factor for CHD) >= 60 mg/dL: High HDL-cholesterol (negative risk factor for CHD) HDL-cholesterol is affected by a number of factors, e.g. smoking, exercise, hormones, sex and age. Performed By: #### L 500.4050, L502.0250, L501.9520, L500.4100 #### [facility] [address] [place], [address] Cholesterol in LDL [Mass/Vol] 33 mg/dL Normal [facility] Comment on above: Result Comment: Bord qddfvm=577-409 mg/dL Higher Gkdz=014 mg/dL or greater Friedwald Equation for LDL-C Performed By: #### L 500.4050, L502.0250, L501.9520, L500.4100 #### [facility] [address] [place], [address] Cholesterol in VLDL [Mass/Vol] 46 mg/dL High 5-40 [facility] Comment on above: Performed By: #### L 500.4050, L502.0250, L501.9520, L500.4100 #### [facility] [address] [place], [address] Triglyceride [Mass/Vol] 231 mg/dL High [facility] Comment on above: Result Comment: The drugs N-Acetylcysteine and Metamizole may falsely depress this assay. Normal range: <150 mg/dL Borderline High: 150-199 mg/dL High: 200-499 mg/dL Very High: >500 mg/dL Performed By: #### L 500.4050, L502.0250, L501.9520, L500.4100 #### [facility] [address] [place], [address] Microalb:Creat Ratio,Random URon 05-28-2025 Creatinine [Mass/Vol] 125.00 mg/dL Normal 39.00-259.00 [facility] Comment on above: Performed By: #### L 500.4050, L502.0250, L501.9520, L500.4100 #### [facility] [address] [place], [address] MALB:CREAT 14.6 mg/g CRE Normal <30 mg/g CRE [facility] Comment on above: Performed By: #### L 500.4050, L502.0250, L501.9520, L500.4100 #### [facility] [address] [place], [address] MICROALBUMIN,UR 18.2 mg/L Normal <20 mg/L [facility] Comment on above: Performed By: #### L 500.4050, L502.0250, L501.9520, L500.4100 #### [facility] [address] [place], [address] Potassium measurement (mass/ volume)Ordered By: Levy Correa on 05-28-2025 Potassium (Unsp spec) [Mass/Vol] 3.7 mmol/L 3.3-5.1 [facility] Random urine creatinine stacy urement (mass/volume)Ordered By: Levy Correa on 05-28-2025 Creatinine Unsp time (U) [Mass/Vol] 125.00 mg/dL 39.00-259.00 [facility] Screening total cholesterol/ high density lipoprotein (HDL) cholesterol ratioOrdered By: Levy Correa on 05-28-2025 Cholesterol.total/Choles terol in HDL [Mass ratio] 3.23 {ratio} [facility] Serum creatinine measurement (mass/volume)Ordered By: Levy Correa on 05-28-2025 Creatinine [Mass/Vol] 0.98 mg/dL 0.70-1.20 [facility] Serum globulin measurementOr dered By: Levy Correa on 05-28-2025 Globulin (S) [Mass/Vol] 3.1 g/dL 2.2-4.2 [facility] Serum glucose measurement (m ass/volume)Ordered By: Levy Correa on 05-28-2025 Glucose [Mass/Vol] 160 mg/dL High 70-99 [facility] Serum or plasma alanine calderon otransferase (ALT) measurementOrdered By: Levy Correa on 05-28-2025 ALT [Catalytic activity/Vol] 27 U/L <47 [facility] Serum or plasma albumin stacy urement (mass/volume)Ordered By: Levy Correa on 05-28-2025 Albumin [Mass/Vol] 4.1 g/dL 3.5-5.0 [facility] Serum or plasma albumin/glob ulin mass ratioOrdered By: Levy Correa on 05-28-2025 Albumin/Globulin [Mass ratio] 1.3 {ratio} 0.9-2.4 [facility] Serum or plasma alkaline deann sphatase measurementOrdered By: Levy Correa on 05-28-2025 ALP [Catalytic activity/Vol] 56 U/L 40-129 [facility] Serum or plasma calcium stacy urement (mass/volume)Ordered By: Levy Correa on 05-28-2025 Calcium [Mass/Vol] 9.1 mg/dL 7.6-11.0 [facility] Serum or plasma cholesterol in HDL measurement (mass/volume)Ordered By: Levy Correa on 05-28-2025 Cholesterol in HDL [Mass/Vol] 35 mg/dL Low >40 [facility] Comment on above: National Cholesterol Education Program (NCEP) guidelines:<40 mg/dL: Low HDL-cholesterol (major risk factor for CHD)>= 60 mg/dL: High HDL-cholesterol (negative risk factor for CHD)HDL-cholesterol is affected by a number of factors, e.g. smoking, exercise, hormones, sex and age. Serum or plasma cholesterol measurement (mass/volume)Ordered By: Levy Correa on 05-28-2025 Cholesterol [Mass/Vol] 114 mg/dL <201 [facility] Comment on above: Cholesterol level, D esirable <200 mg/dLBorderline high cholesterol 200-239 mg/dLHigh cholesterol >=240 mg/dLRecommendations of the NCEP Adult Treatment Panel for the following risk-cutoff thresholds for the [place] population. Serum or plasma urea nitroge n measurement (mass/volume)Ordered By: Levy Correa on 05-28-2025 Urea nitrogen [Mass/Vol] 15 mg/dL 4-19 [facility] Sodium levelOrdered By: Levy Correa on 05-28-2025 Sodium [Moles/Vol] 138 mmol/L 133-145 [facility] TSH DL <= 0.005 mIU/L QnOrde red By: Levy Correa on 05-28-2025 TSH Qn 3.170 uIU/mL 0.300-4.200 [facility] Thyroid Stim Hormone (TSH)on 05-28-2025 TSH 3.170 uIU/mL Normal 0.300-4.200 [facility] Comment on above: Performed By: #### L 500.4050, L502.0250, L501.9520, L500.4100 #### [facility] [place] [address], [address] Total proteinOrdered By: Morgan Correa on 05-28-2025 Protein [Mass/Vol] 7.2 g/dL 5.9-8.4 [facility] Triglycerides measurementOrd ered By: Levy Correa on 05-28-2025 Triglyceride [Mass/Vol] 231 mg/dL High <199 [facility] Comment on above: The drugs N-Acetylcy steine and Metamizole may falsely depress this assay. Normal range: <150 mg/dLBorderline High: 150-199 mg/dLHigh: 200-499 mg/dLVery High: >500 mg/dL Urine albumin measurement [facility] detection limit of 20 mg/L or less (mass/volume)Ordered By: Levy Correa on 05-28-2025 Albumin DL <= 20 mg/L (U) [Mass/Vol] 18.2 mg/L <20 mg/L [facility] Endocrinology Visit Reporton 05-14-2025 Endocrinology Visit Report [facility] [address] [place] [address] OFFICE VISIT Date of Service: 05/14/25 MR#: [id number] Acct: [id number] Name: ZENKELVIN VALDES Jr. Rep #: [id number] : 1965 Provider: Ari Martinez Age/Sex: 59/M Location: [facility] [place] Status: Signed Intake Vital Signs 11/19/24 15:40 [...] he got to big for his $[employer] [employer] Suit. He has hypothyroidism and is taking [...] the khalida (more content not included)... Normal [facility] - Hematology and Cell countsOrdered By: Levy Correa on 05-14-2025 HbA1c (Bld) [Mass fraction] 6.9 % High 4.2-6.3 [facility] Endocrinology Visit Reporton 11-19-2024 Endocrinology Visit Report [facility] [place] [address] OFFICE VISIT Date of Service: 11/19/24 MR#: [id number] Acct: [id number] Name: ZENKELVIN ELIZABETH Rep #: [id number] : 1965 Provider: Ari Martinez Age/Sex: 59/M Location: [facility] [place] Status: Signed Intake Vital Signs 07/09/24 15:46 [...] Edit by (more content not included)... Normal [facility] PSA,Total- Diagnosticon 12-2 PSA, DIAGNOSTIC 0.91 ng/mL Normal 0.0-4.0 [facility] Comment on above: Result Comment: This test was performed using the TPSA assay method for the Dimension chemistry system. Values obtained with different assay methods cannot be used interchangably. When changing PSA assays in the course of monitoring a patient, additional sequential testing should be carried out to confirm baseline values. Performed By: #### L 501.9940 ####[facility] [id number] [place], [address] Laboratory - Hematology and Cell countson 03-01-2024 HbA1c (Bld) [Mass fraction] 7.2 % 4.2-6.3 [facility] Serum or plasma thyroid stim ulating hormone (TSH) measurement (units/volume)Ordered By: Levy Correa on 03-01-2024 TSH Qn 5.85 uIU/mL 0.358-3.74 [facility] Thin prep Papanicolaou smear with manual screeningOrdered By: Levy Correa on 03-01-2024 Thin prep Papanicolaou smear with manual screening 1.11 ng/dL 0.76-1.46 [facility] - Hematology and Cell countson 11-28-2023 HbA1c (Bld) [Mass fraction] 7.6 % 4.2-6.3 [facility] Serum or plasma angiotensin converting enzyme measurement (enzymatic activity/volume)Ordered By: Koko Christian on 08-16-2023 Angiotensin converting enzyme [Catalytic activity/Vol] 26 U/L 14-82 [facility] Comment on above: Performed at: [address] [id number] Director: Calos Dozier PhD, Phone: [phone] Erythrocyte sedimentation ra teOrdered By: Dylan Frazier on 08-05-2023 ESR (Bld) [Velocity] 52 mm/h 0-20 [facility] Serum or plasma C reactive p rotein measurement (mass/volume)Ordered By: Dylan Frazier on 08-05-2023 CRP [Mass/Vol] 10.70 mg/L 0.0-3.0 [facility] Comment on above: C-Reactive Protein ( CRP) provides useful information for thediagnosis, therapy and monitoring of inflammatory processesand associated diseases. For the evaluation of Relative Riskfor Cardiovascular Disease, a High Sensitivity CRP (HSCRP)should be ordered. Basophil percentageOrdered B y: Levy Correa on 07-27-2023 Bilirubin [Mass/Vol] 0.40 mg/dL 0.20-1.00 [facility] Comment on above: For patients on eltr ombopag therapy, use of Dimension [place] TBIL is not recommended. Chloride [Moles/Vol] 101 mmol/L 98-107 [facility] Glucose [Mass/Vol] 152 mg/dL 74-106 [facility] Comment on above: Fasting Glucose resu lt greater than or equal to 126 mg/dL suggests DIABETES MELLITUS per A.D.A. criteria. Potassium [Moles/Vol] 4.0 mmol/L 3.5-5.1 [facility] Protein [Mass/Vol] 7.3 g/dL 6.4-8.2 [facility] Sodium [Moles/Vol] 135 mmol/L 136-145 [facility] Laboratory - Chemistry and C hemistry - challengeOrdered By: Levy Correa on 07-27-2023 ALP [Catalytic activity/Vol] 58 U/L 45-117 [facility] ALT [Catalytic activity/Vol] 44 U/L 16-61 [facility] CO2 [Moles/Vol] 27.0 mmol/L 21.0-32.0 [facility] Free T4 [Mass/Vol] 1.24 ng/dL 0.76-1.46 [facility] Globulin (S) [Mass/Vol] 4.0 g/dL 2.2-4.2 [facility] Urea nitrogen/Creatinine [Mass ratio] 11.2 mg/mg 10-20 [facility] No Panel InformationOrdered By: Levy Correa on 07-27-2023 Estimated GFR (MDRD) Amer 102 mL/min >60 [facility] Comment on above: GFR Calc Estimated GFR (MDRD) Non-Af Amer 84 mL/min >60 [facility] Comment on above: Non- GFR Calc Thyroid Stimulating Hormone (TSH) 3.16 uIU/mL 0.358-3.74 [facility] Serum or plasma albumin stacy urement (mass/volume)Ordered By: Levy Correa on 07-27-2023 Albumin [Mass/Vol] 3.3 g/dL 3.2-5.0 [facility] Serum or plasma albumin/glob ulin mass ratioOrdered By: Levy Correa on 07-27-2023 Albumin/Globulin [Mass ratio] 0.8 {ratio} 0.9-2.4 [facility] Serum or plasma calcium stacy urement (mass/volume)Ordered By: Levy Correa on 07-27-2023 Calcium [Mass/Vol] 8.7 mg/dL 8.5-10.1 [facility] Serum or plasma cortisol junior surement (mass/volume)Ordered By: Levy Correa on 07-27-2023 Cortisol [Mass/Vol] 15.00 ug/dL 3.44-22.45 [facility] Comment on above: Adult (AM) 5.27 - 22 .45 ug/dL Adult (PM) 3.44 - 16.76 ug/dLPlease note revised CORTISOL reference range effective 2019. Serum or plasma creatinine m easurement (mass/volume)Ordered By: Levy Correa on 07-27-2023 Creatinine [Mass/Vol] 0.98 mg/dL 0.70-1.30 [facility] Comment on above: The validity of the calculated GFR & GFRAA in patients over 70 years has not been determined. Clinical correlation is essential. Serum or plasma urea nitroge n measurement (mass/volume)Ordered By: Levy Correa on 07-27-2023 Urea nitrogen [Mass/Vol] 11 mg/dL 7-18 [facility] Thin prep Papanicolaou smear with manual screeningOrdered By: Levy Correa on 07-27-2023 Thin prep Papanicolaou smear with manual screening 24 U/L 15-37 [facility] Thin prep Papanicolaou smear with manual screening 7 5-15 [facility] - Hematology and Cell countson 07-26-2023 HbA1c (Bld) [Mass fraction] 7.5 % 4.2-6.3 [facility] Basophil percentageOrdered B y: Levy Correa on 07-22-2023 Cholesterol [Mass/Vol] 110 mg/dL <200 [facility] Comment on above: <200 mg/dL Desirable 200-240 mg/dL Borderline >240 mg/dL High Risk Triglyceride [Mass/Vol] 236 mg/dL <199 [facility] Comment on above: The drugs N-Acetylcy steine and Metamizole may falsely depress this assay.Serum Triglycerides Reference Interval Normal <150 mg/dL Borderline high 150 - 199 mg/dL High 200 - 499 mg/dL Very High > or = 500 mg/dL Serum or plasma cholesterol in HDL measurement (mass/volume)Ordered By: Levy Correa on 07-22-2023 Cholesterol in HDL [Mass/Vol] 35 mg/dL >40 [facility] Comment on above: The drugs N-Acetylcy steine and Metamizole may falsely depress this assay. Reference Range HDL <40 mg/dL Low HDL Cholesterol HDL >or= 60 mg/dL High HDL Cholesterol Serum or plasma cholesterol in VLDL measurement (mass/volume)Ordered By: Levy Correa on 07-22-2023 Cholesterol in VLDL [Mass/Vol] 47 mg/dL 5-40 [facility] Serum or plasma low density lipoprotein (LDL) cholesterol measurement (mass/volume)Ordered By: Levy Correa on 07-22-2023 Cholesterol in LDL [Mass/Vol] 28 mg/dL 0-130 [facility] Erythrocyte sedimentation ra teOrdered By: Gustavo Pittman on 06-08-2023 ESR (Bld) [Velocity] 42 mm/h 0-20 [facility] Serum or plasma C reactive p rotein measurement (mass/volume)Ordered By: Gustavo Pittman on 06-08-2023 CRP [Mass/Vol] 10.50 mg/L 0.0-3.0 [facility] Comment on above: C-Reactive Protein ( CRP) provides useful information for thediagnosis, therapy and monitoring of inflammatory processesand associated diseases. For the evaluation of Relative Riskfor Cardiovascular Disease, a High Sensitivity CRP (HSCRP)should be ordered. Erythrocyte sedimentation ra teOrdered By: Gustavo Pittman on 05-17-2023 ESR (Bld) [Velocity] 65 mm/h 0-20 [facility] Serum or plasma C reactive p rotein measurement (mass/volume)Ordered By: Gustavo Pittman on 05-17-2023 CRP [Mass/Vol] 50.80 mg/L 0.0-3.0 [facility] Comment on above: C-Reactive Protein ( CRP) provides useful information for thediagnosis, therapy and monitoring of inflammatory processesand associated diseases. For the evaluation of Relative Riskfor Cardiovascular Disease, a High Sensitivity CRP (HSCRP)should be ordered. Whole blood hemoglobin A1c/t otal hemoglobin ratio (mass fraction)Ordered By: Dr. Correa on 04-08-2023 HbA1c (Bld) [Mass fraction] 7.5 % 3.8-5.6 [facility] Comment on above: Normal < 5.7 % Predi abetic 5.7 - 6.4 % Diabetic >or= 6.5 % Please note range changes. Erythrocyte sedimentation ra teOrdered By: Dr. Pittman on 03-03-2023 ESR (Bld) [Velocity] 36 mm/h 0-20 [facility] Serum or plasma C reactive p rotein measurement (mass/volume)Ordered By: Dr. Pittman on 03-03-2023 CRP [Mass/Vol] 26.30 mg/L 0.0-3.0 [facility] Comment on above: C-Reactive Protein ( CRP) provides useful information for thediagnosis, therapy and monitoring of inflammatory processesand associated diseases. For the evaluation of Relative Riskfor Cardiovascular Disease, a High Sensitivity CRP (HSCRP)should be ordered. Laboratory - Hematology and Cell countson 12-10-2022 HbA1c (Bld) [Mass fraction] 7.7 % 4.2-6.3 [facility] Absolute lymphocyte countOrd ered By: Dr. Frazier on 11-19-2022 Lymphocytes Auto (Unsp spec) [#/Vol] 2.97 10*3/uL 0.83-4.51 [facility] Basophil percentageOrdered B y: Dr. Frazier on 11-19-2022 Basophils/100 WBC (Bld) 0.3 % 0-1 [facility] Chloride [Moles/Vol] 95 mmol/L 98-107 [facility] Eosinophils/100 WBC (Bld) 1.0 % 0-5 [facility] Glucose [Mass/Vol] 127 mg/dL 74-106 [facility] Comment on above: Fasting Glucose resu lt greater than or equal to 126 mg/dL suggests DIABETES MELLITUS per A.D.A. criteria. Neutrophils (Bld) [#/Vol] 14.7 10*3/uL 2.0-7.7 [facility] Neutrophils/100 WBC (Bld) 77.1 % 47-70 [facility] Potassium [Moles/Vol] 4.0 mmol/L 3.5-5.1 [facility] Sodium [Moles/Vol] 135 mmol/L 136-145 [facility] WBC (Bld) [#/Vol] 19.1 10*3/uL 4.4-11.0 [facility] Blood erythrocytes count (nu mber/volume)Ordered By: Dr. Frazier on 11-19-2022 RBC (Bld) [#/Vol] 4.60 10*6/uL 4.6-6.2 [facility] Blood hemoglobin measurement (mass/volume)Ordered By: Dr. Frazier on 11-19-2022 Hemoglobin (Bld) [Mass/Vol] 13.3 g/dL 13.0-16.5 [facility] Blood lymphocytes/100 leukoc ytesOrdered By: Dr. Frazier on 11-19-2022 Lymphocytes/100 WBC (Bld) 15.6 % 19-41 [facility] Blood monocytes/100 leukocyt esOrdered By: Dr. Frazier on 11-19-2022 Monocytes/100 WBC (Bld) 5.1 % 0-10 [facility] Blood platelet mean volumeOr dered By: Dr. Frazier on 11-19-2022 Platelet mean volume (Bld) [Entitic vol] 10.4 fL 6.2-12.0 [facility] Determination of erythrocyte mean corpuscular volume (MCV)Ordered By: Dr. Frazier on 11-19-2022 MCV (RBC) [Entitic vol] 87.8 fL 80-94 [facility] Hematocrit Auto (Bld) [Volum e fraction]Ordered By: Dr. Frazier on 11-19-2022 Hematocrit (Bld) [Volume fraction] 40.4 % 40-54 [facility] Laboratory - Chemistry and C hemistry - challengeOrdered By: Dr. Frazier on 11-19-2022 CO2 [Moles/Vol] 30.0 mmol/L 21.0-32.0 [facility] Magnesium [Mass/Vol] 1.5 mg/dL 1.6-2.6 [facility] Urea nitrogen/Creatinine [Mass ratio] 13.2 mg/mg 10-20 [facility] - Hematology and Cell countsOrdered By: Dr. Frazier on 11-19-2022 Erythrocyte distribution width (RBC) [Entitic vol] 54.9 fL 35.1-43.9 [facility] Erythrocyte distribution width (RBC) [Ratio] 17.2 % 11.6-14.6 [facility] Immature granulocytes/100 WBC (Bld) 0.900 % 0.0-0.9 [facility] Comment on above: IG% - Immature Granu locytes (promyelocytes, myelocytes and metamyelocytes) > 1% indicates that a LEFT SHIFT is Present. MCH (RBC) [Entitic mass] 28.9 pg 27.0-32.0 [facility] Nucleated RBC/100 WBC (Bld) [Ratio] 0 % 0-5 [facility] MCHC Auto (RBC) [Mass/Vol]Or dered By: Dr. Frazier on 11-19-2022 MCHC (RBC) [Mass/Vol] 32.9 g/dL 32-36 [facility] No Panel InformationOrdered By: Dr. Frazier on 11-19-2022 Estimated GFR (MDRD) Amer 101 mL/min >60 [facility] Comment on above: GFR Calc Estimated GFR (MDRD) Non-Af Amer 84 mL/min >60 [facility] Comment on above: Non- GFR Calc Platelets bldOrdered By: Dr. Frazier on 11-19-2022 Platelets (Bld) [#/Vol] 301 10*3/uL 150-450 [facility] Serum or plasma calcium stacy urement (mass/volume)Ordered By: Dr. Frazier on 11-19-2022 Calcium [Mass/Vol] 9.0 mg/dL 8.5-10.1 [facility] Serum or plasma creatinine m easurement (mass/volume)Ordered By: Dr. Frazier on 11-19-2022 Creatinine [Mass/Vol] 0.98 mg/dL 0.70-1.30 [facility] Comment on above: The validity of the calculated GFR & GFRAA in patients over 70 years has not been determined. Clinical correlation is essential. Serum or plasma urea nitroge n measurement (mass/volume)Ordered By: Dr. Frazier on 11-19-2022 Urea nitrogen [Mass/Vol] 13 mg/dL 05-17 [facility] Thin prep Papanicolaou smear with manual screeningOrdered By: Dr. Frazier on 11-19-2022 Thin prep Papanicolaou smear with manual screening 10 5-15 [facility] Basophil percentageOrdered B y: Dr. Frazier on 10-20-2022 Creatinine [Mass/Vol] 0.9 mg/dL 0.70-1.30 [facility] No Panel InformationOrdered By: Dr. Frazier on 10-20-2022 Bedside Estimated GFR (eGFR) > 60.0000 mL/min >60 [facility] Erythrocyte sedimentation ra teOrdered By: Dr. Correa on 09-17-2022 ESR (Bld) [Velocity] 64 mm/h [facility] Laboratory - Chemistry and C hemistry - challengeOrdered By: Dr. Correa on 09-17-2022 Free T4 [Mass/Vol] 1.34 ng/dL 0.76-1.46 [facility] No Panel InformationOrdered By: Dr. Correa on 09-17-2022 Anti-Nuclear Antibody Screen Negative Negative [facility] Comment on above: Performed at: [employer] [address] Director: Calos Dozier PhD, Phone: [phone] Thyroid Stimulating Hormone (TSH) 0.66 uIU/mL 0.358-3.74 [facility] Vitamin D 25-Hydroxy 37.8 ng/mL [facility] Comment on above: Vitamin D 25(OH) Sta tus Range Deficiency <20 ng/mL (50nmol/L) Insufficiency 20 - 30 ng/mL (50 - 75 nmol/L) Sufficiency 30 - 100 ng/mL (75 - 250 nmol/L) Toxicity >100 ng/mL (>250 nmol/L) Serum or plasma C reactive p rotein measurement (mass/volume)Ordered By: Dr. Correa on 09-17-2022 CRP [Mass/Vol] 3.95 mg/L 0.0-3.0 [facility] Comment on above: C-Reactive Protein ( CRP) provides useful information for thediagnosis, therapy and monitoring of inflammatory processesand associated diseases. For the evaluation of Relative Riskfor Cardiovascular Disease, a High Sensitivity CRP (HSCRP)should be ordered. Serum rheumatoid factor dete ctionOrdered By: Dr. Correa on 09-17-2022 Rheumatoid factor Ql (S) < 10.0 IU/mL <15 [facility] Laboratory - Hematology and Cell countson 09-07-2022 HbA1c (Bld) [Mass fraction] 7.6 % [facility] Absolute lymphocyte countOrd ered By: Dr. Cook on 08-25-2022 Lymphocytes Auto (Unsp spec) [#/Vol] 2.45 10*3/uL 0.83-4.51 [facility] Basophil percentageOrdered B y: Dr. Cook on 08-25-2022 Basophil percentage 0-5 SEEN /hpf 0-5 [facility] Basophils/100 WBC (Bld) 0.2 % 0-1 [facility] Chloride [Moles/Vol] 100 mmol/L 98-107 [facility] Eosinophils/100 WBC (Bld) 2.4 % 0-5 [facility] Glucose [Mass/Vol] 190 mg/dL 74-106 [facility] Comment on above: Fasting Glucose resu lt greater than or equal to 126 mg/dL suggests DIABETES MELLITUS per A.D.A. criteria. Neutrophils (Bld) [#/Vol] 8.6 10*3/uL 2.0-7.7 [facility] Neutrophils/100 WBC (Bld) 69.9 % 47-70 [facility] Potassium [Moles/Vol] 3.4 mmol/L 3.5-5.1 [facility] Sodium [Moles/Vol] 133 mmol/L 136-145 [facility] WBC (Bld) [#/Vol] 12.3 10*3/uL 4.4-11.0 [facility] Bilirubin Test strip Ql (U)O rdered By: Dr. Cook on 08-25-2022 Bilirubin Ql (U) Negative Negative [facility] Blood erythrocytes count (nu mber/volume)Ordered By: Dr. Cook on 08-25-2022 RBC (Bld) [#/Vol] 4.41 10*6/uL 4.6-6.2 [facility] Blood hemoglobin measurement (mass/volume)Ordered By: Dr. Cook on 08-25-2022 Hemoglobin (Bld) [Mass/Vol] 12.5 g/dL 13.0-16.5 [facility] Blood lymphocytes/100 leukoc ytesOrdered By: Dr. Cook on 08-25-2022 Lymphocytes/100 WBC (Bld) 19.9 % 19-41 [facility] Blood monocytes/100 leukocyt esOrdered By: Dr. Cook on 08-25-2022 Monocytes/100 WBC (Bld) 6.3 % 0-10 [facility] Blood platelet mean volumeOr dered By: Dr. Cook on 08-25-2022 Platelet mean volume (Bld) [Entitic vol] 10.7 fL 6.2-12.0 [facility] Determination of erythrocyte mean corpuscular volume (MCV)Ordered By: Dr. Cook on 08-25-2022 MCV (RBC) [Entitic vol] 84.6 fL 80-94 [facility] Erythrocyte sedimentation ra teOrdered By: Dr. Cook on 08-25-2022 ESR (Bld) [Velocity] 108 mm/h 0- [facility] Hematocrit Auto (Bld) [Volum e fraction]Ordered By: Dr. Cook on 08-25-2022 Hematocrit (Bld) [Volume fraction] 37.3 % 40-54 [facility] Ketones Test strip Ql (U)Ord ered By: Dr. Cook on 08-25-2022 Ketones Ql (U) 5 mg/dl Negative [facility] Laboratory - Chemistry and C hemistry - challengeOrdered By: Dr. Cook on 08-25-2022 CK [Catalytic activity/Vol] 57 U/L 39-308 [facility] CO2 [Moles/Vol] 24.0 mmol/L 21.0-32.0 [facility] Urea nitrogen/Creatinine [Mass ratio] 13.7 mg/mg 10- [facility] Laboratory - Hematology and Cell countsOrdered By: Dr. Cook on 08-25-2022 Erythrocyte distribution width (RBC) [Entitic vol] 44.6 fL 35.1-43.9 [facility] Erythrocyte distribution width (RBC) [Ratio] 14.5 % 11.6-14.6 [facility] Immature granulocytes/100 WBC (Bld) 1.300 % 0.0-0.9 [facility] Comment on above: IG% - Immature Granu locytes (promyelocytes, myelocytes and metamyelocytes) > 1% indicates that a LEFT SHIFT is Present. MCH (RBC) [Entitic mass] 28.3 pg 27.0-32.0 [facility] Nucleated RBC/100 WBC (Bld) [Ratio] 0 % 0-5 [facility] MCHC Auto (RBC) [Mass/Vol]Or dered By: Dr. Cook on 08-25-2022 MCHC (RBC) [Mass/Vol] 33.5 g/dL 32-36 [facility] Mucus LM Ql (Urine sed)Order ed By: Dr. Cook on 08-25-2022 Mucus Ql (Urine sed) 0 SEEN /hpf [facility] Nitrite Test strip Ql (U)Ord ered By: Dr. Cook on 08-25-2022 Nitrite Ql (U) Negative Negative [facility] No Panel InformationOrdered By: Dr. Cook on 08-25-2022 Estimated Creatinine Clearance Calc 96.43 ml/min [facility] Estimated GFR (MDRD) Amer 106 mL/min >60 [facility] Comment on above: GFR Calc Estimated GFR (MDRD) Non-Af Amer 87 mL/min >60 [facility] Comment on above: Non- GFR Calc Platelets bldOrdered By: Dr. Cook on 08-25-2022 Platelets (Bld) [#/Vol] 277 10*3/uL 150-450 [facility] Protein Test strip Ql (U)Ord ered By: Dr. Cook on 08-25-2022 Protein Ql (U) 15 mg/dl Negative [facility] Serum or plasma C reactive p rotein measurement (mass/volume)Ordered By: Dr. Cook on 08-25-2022 CRP [Mass/Vol] 142.00 mg/L 0.0-3.0 [facility] Comment on above: C-Reactive Protein ( CRP) provides useful information for thediagnosis, therapy and monitoring of inflammatory processesand associated diseases. For the evaluation of Relative Riskfor Cardiovascular Disease, a High Sensitivity CRP (HSCRP)should be ordered. Serum or plasma calcium stacy urement (mass/volume)Ordered By: Dr. Cook on 08-25-2022 Calcium [Mass/Vol] 9.4 mg/dL 8.5-10.1 [facility] Serum or plasma creatinine m easurement (mass/volume)Ordered By: Dr. Cook on 08-25-2022 Creatinine [Mass/Vol] 0.95 mg/dL 0.70-1.30 [facility] Comment on above: The validity of the calculated GFR & GFRAA in patients over 70 years has not been determined. Clinical correlation is essential. Serum or plasma urea nitroge n measurement (mass/volume)Ordered By: Dr. Cook on 08-25-2022 Urea nitrogen [Mass/Vol] 13 mg/dL 7-18 [facility] Squamous epithelial cells de tection in urine sediment by light microscopyOrdered By: Dr. Cook on 08-25-2022 Epithelial cells.squamous LM Ql (Urine sed) 0 SEEN /hpf 0-5 [facility] Thin prep Papanicolaou smear with manual screeningOrdered By: Dr. Cook on 08-25-2022 Thin prep Papanicolaou smear with manual screening 9 5-15 [facility] Urine blood detectionOrdered By: Dr. Cook on 08-25-2022 RBC Ql (U) Negative Negative [facility] RBC Ql (U) 0 SEEN /hpf 0-5 [facility] Urine clarityOrdered By: Dr. Cook on 08-25-2022 Clarity (U) Clear Clear [facility] Urine color determinationOrd ered By: Dr. Cook on 08-25-2022 Color (U) Yellow Yellow [facility] Urine glucose detectionOrder ed By: Dr. Cook on 08-25-2022 Glucose Ql (U) Normal mg/dl Normal [facility] Urine leukocyte esterase det ection by dipstickOrdered By: Dr. Cook on 08-25-2022 Leukocyte esterase Test strip Ql (U) 25 /ul Negative [facility] Urine pHOrdered By: Dr. Manny iqbal on 08-25-2022 pH (U) 6.5 [pH] 5.0 - 8.0 [facility] Urine sediment bacteria coun t by microscopy (number/high power field)Ordered By: Dr. Cook on 08-25-2022 Bacteria LM.HPF (Urine sed) [#/Area] 0 /[HPF] None Seen [facility] Urine specific gravity measu rementOrdered By: Dr. Cook on 08-25-2022 Specific gravity (U) [Rel density] 1.015 1.002-1.030 [facility] Urobilinogen Auto test strip Ql (U)Ordered By: Dr. Cook on 08-25-2022 Urobilinogen Ql (U) Normal mg/dl Normal [facility] Laboratory - Hematology and Cell countson 07-26-2022 HbA1c (Bld) [Mass fraction] 7.9 % [facility] Work Phone: Laboratory - Hematology and Cell countson 04-26-2022 HbA1c (Bld) [Mass fraction] 7.9 % [facility] Work Phone: No Panel Informationon 01-28 Urine Microalbumin/Creatinine Ratio 23.8 mg/g CRE <30 [facility] Work Phone: Thin prep Papanicolaou smear with manual screeningon 01-28-2022 Thin prep Papanicolaou smear with manual screening 61.0 mg/L NO RANGE EST. [facility] Work Phone: Urine creatinine measurement (mass/volume)on 01-28-2022 Creatinine (U) [Mass/Vol] 256.00 mg/dL NO RANGE EST. [facility] Work Phone: Laboratory - Hematology and Cell countson 01-25-2022 HbA1c (Bld) [Mass fraction] 7.3 % [facility] Work Phone: Absolute lymphocyte counton 12-29-2021 Lymphocytes Auto (Unsp spec) [#/Vol] 3.09 10*3/uL 0.83-4.51 [facility] Work Phone: Basophil percentageon 2021 Basophils/100 WBC (Bld) 0.2 % 0-1 [facility] Work Phone: Chloride [Moles/Vol] 102 mmol/L 98-107 [facility] Work Phone: Eosinophils/100 WBC (Bld) 3.5 % 0-5 [facility] Work Phone: Glucose [Mass/Vol] 87 mg/dL 74-106 [facility] Work Phone: Neutrophils (Bld) [#/Vol] 5.0 10*3/uL 2.0-7.7 [facility] Work Phone: Neutrophils/100 WBC (Bld) 54.4 % 47-70 [facility] Work Phone: Potassium [Moles/Vol] 3.8 mmol/L 3.5-5.1 [facility] Work Phone: [phone] Sodium [Moles/Vol] 136 mmol/L 136-145 [facility] Work Phone: WBC (Bld) [#/Vol] 9.1 10*3/uL 4.4-11.0 [facility] Work Phone: Blood erythrocytes count (nu mber/volume)on 12-29-2021 RBC (Bld) [#/Vol] 4.67 10*6/uL 4.6-6.2 [facility] Work Phone: Blood hemoglobin measurement (mass/volume)on 12-29-2021 Hemoglobin (Bld) [Mass/Vol] 13.5 g/dL 13.0-16.5 [facility] Work Phone: Blood lymphocytes/100 leukoc yteson 12-29-2021 Lymphocytes/100 WBC (Bld) 33.9 % 19-41 [facility] Work Phone: Blood monocytes/100 leukocyt eson 12-29-2021 Monocytes/100 WBC (Bld) 7.7 % 0-10 [facility] Work Phone: Blood platelet mean volumeon 12-29-2021 Platelet mean volume (Bld) [Entitic vol] 11.3 fL 6.2-12.0 [facility] Work Phone: Determination of erythrocyte mean corpuscular volume (MCV)on 12-29-2021 MCV (RBC) [Entitic vol] 86.1 fL 80-94 [facility] Work Phone: Hematocrit Auto (Bld) [Volum e fraction]on 12-29-2021 Hematocrit (Bld) [Volume fraction] 40.2 % 40-54 [facility] Work Phone: Laboratory - Chemistry and C hemistry - challengeon 12-29-2021 CO2 [Moles/Vol] 29.0 mmol/L 21.0-32.0 [facility] Work Phone: Urea nitrogen/Creatinine [Mass ratio] 13.4 mg/mg 10-20 [facility] Work Phone: Laboratory - Hematology and Cell countson 12-29-2021 Erythrocyte distribution width (RBC) [Entitic vol] 43.9 fL 35.1-43.9 [facility] Work Phone: Erythrocyte distribution width (RBC) [Ratio] 14.1 % 11.6-14.6 [facility] Work Phone: Immature granulocytes/100 WBC (Bld) 0.300 % 0.0-0.9 [facility] Work Phone: Comment on above: IG% - Immature Granu locytes (promyelocytes, myelocytes and metamyelocytes) > 1% indicates that a LEFT SHIFT is Present. MCH (RBC) [Entitic mass] 28.9 pg 27.0-32.0 [facility] Work Phone: Nucleated RBC/100 WBC (Bld) [Ratio] 0 % 0-5 [facility] Work Phone: MCHC Auto (RBC) [Mass/Vol]on 12-29-2021 MCHC (RBC) [Mass/Vol] 33.6 g/dL 32-36 [facility] Work Phone: No Panel Informationon 12-29 Estimated GFR (MDRD) Amer 104 mL/min >60 [facility] Work Phone: Comment on above: GFR Calc Estimated GFR (MDRD) Non-Af Amer 86 mL/min >60 [facility] Work Phone: Comment on above: Non- GFR Calc Platelets bldon 12-29-2021 Platelets (Bld) [#/Vol] 268 10*3/uL 150-450 [facility] Work Phone: Serum or plasma calcium stacy urement (mass/volume)on 12-29-2021 Calcium [Mass/Vol] 9.7 mg/dL 8.5-10.1 [facility] Work Phone: Serum or plasma creatinine m easurement (mass/volume)on 12-29-2021 Creatinine [Mass/Vol] 0.97 mg/dL 0.70-1.30 [facility] Work Phone: Comment on above: The validity of the calculated GFR & GFRAA in patients over 70 years has not been determined. Clinical correlation is essential. Serum or plasma urea nitroge n measurement (mass/volume)on 12-29-2021 Urea nitrogen [Mass/Vol] 13 mg/dL 7-18 [facility] Work Phone: Thin prep Papanicolaou smear with manual screeningon 12-29-2021 Thin prep Papanicolaou smear with manual screening 5 5-15 [facility] Work Phone: Basophil percentageon 2020 Bilirubin [Mass/Vol] 0.30 mg/dL 0.20-1.00 [facility] Work Phone: Comment on above: For patients on eltr ombopag therapy, use of Dimension [place] TBIL is not recommended. Chloride [Moles/Vol] 103 mmol/L 98-107 [facility] Work Phone: Cholesterol [Mass/Vol] 189 mg/dL <200 [facility] Work Phone: Comment on above: <200 mg/dL Desirable 200-240 mg/dL Borderline >240 mg/dL High Risk Glucose [Mass/Vol] 131 mg/dL 74-106 [facility] Work Phone: Comment on above: Fasting Glucose resu lt greater than or equal to 126 mg/dL suggests DIABETES MELLITUS per A.D.A. criteria.Please note revised GLUCOSE reference range effective 2017. Potassium [Moles/Vol] 3.5 mmol/L 3.5-5.1 [facility] Work Phone: [phone] Protein [Mass/Vol] 8.3 g/dL 6.4-8.2 [facility] Work Phone: [phone] Sodium [Moles/Vol] 137 mmol/L 136-145 [facility] Work Phone: [phone] Triglyceride [Mass/Vol] 301 mg/dL [facility] Work Phone: Comment on above: The drugs N-Acetylcy steine and Metamizole may falsely depress this assay.Serum Triglycerides Reference Interval Normal <150 mg/dL Borderline high 150 - 199 mg/dL High 200 - 499 mg/dL Very High > or = 500 mg/dL Laboratory - Chemistry and C hemistry - challengeon 10-20-2021 ALP [Catalytic activity/Vol] 59 U/L 45-117 [facility] Work Phone: ALT [Catalytic activity/Vol] 58 U/L 16-61 [facility] Work Phone: CO2 [Moles/Vol] 25.0 mmol/L 21.0-32.0 [facility] Work Phone: Cobalamin (Vitamin B12) [Mass/Vol] 566 pg/mL 211-911 [facility] Work Phone: [phone] Free T4 [Mass/Vol] 1.10 ng/dL 0.76-1.46 [facility] Work Phone: Globulin (S) [Mass/Vol] 4.5 g/dL 2.2-4.2 [facility] Work Phone: Urea nitrogen/Creatinine [Mass ratio] 15.7 mg/mg 10-20 [facility] Work Phone: Laboratory - Hematology and Cell countson 10-20-2021 HbA1c (Bld) [Mass fraction] 7.5 % [facility] Work Phone: No Panel Informationon 10-20 Urine Microalbumin/Creatinine Ratio 35.2 mg/g CRE <30 [facility] Work Phone: Estimated GFR (MDRD) Amer 114 mL/min >60 [facility] Work Phone: Comment on above: GFR Calc Estimated GFR (MDRD) Non-Af Amer 94 mL/min >60 [facility] Work Phone: Comment on above: Non- GFR Calc Prostate Specific Antigen Screen 0.43 ng/mL 0.00-4.00 [facility] Work Phone: Comment on above: This test was perfor med using the TPSA assay method for [employer] chemistry system. Values obtained with differentassay methods cannot be used interchangably.When changing PSA assays in the course of monitoring apatient, additional sequential testing should be carriedout to confirm baseline values. Thyroid Stimulating Hormone (TSH) 2.32 uIU/mL 0.358-3.74 [facility] Work Phone: Vitamin D 25-Hydroxy 26.3 ng/mL [facility] Work Phone: Comment on above: Vitamin D 25(OH) Sta tus Range Deficiency <20 ng/mL (50nmol/L) Insufficiency 20 - 30 ng/mL (50 - 75 nmol/L) Sufficiency 30 - 100 ng/mL (75 - 250 nmol/L) Toxicity >100 ng/mL (>250 nmol/L) Serum or plasma albumin stacy urement (mass/volume)on 10-20-2021 Albumin [Mass/Vol] 3.8 g/dL 3.2-5.0 [facility] Work Phone: Serum or plasma albumin/glob ulin mass ratioon 10-20-2021 Albumin/Globulin [Mass ratio] 0.8 {ratio} 0.9-2.4 [facility] Work Phone: Serum or plasma calcium stacy urement (mass/volume)on 10-20-2021 Calcium [Mass/Vol] 9.4 mg/dL 8.5-10.1 [facility] Work Phone: Serum or plasma cholesterol in HDL measurement (mass/volume)on 10-20-2021 Cholesterol in HDL [Mass/Vol] 39 mg/dL [facility] Work Phone: Comment on above: The drugs N-Acetylcy steine and Metamizole may falsely depress this assay. Reference Range HDL <40 mg/dL Low HDL Cholesterol HDL >or= 60 mg/dL High HDL Cholesterol Serum or plasma cholesterol in VLDL measurement (mass/volume)on 10-20-2021 Cholesterol in VLDL [Mass/Vol] 60 mg/dL 5-40 [facility] Work Phone: Serum or plasma creatinine m easurement (mass/volume)on 10-20-2021 Creatinine [Mass/Vol] 0.89 mg/dL 0.70-1.30 [facility] Work Phone: Comment on above: The validity of the calculated GFR & GFRAA in patients over 70 years has not been determined. Clinical correlation is essential. Serum or plasma low density lipoprotein (LDL) cholesterol measurement (mass/volume)on 10-20-2021 Cholesterol in LDL [Mass/Vol] 90 mg/dL 0-130 [facility] Work Phone: Serum or plasma urea nitroge n measurement (mass/volume)on 10-20-2021 Urea nitrogen [Mass/Vol] 14 mg/dL 7-18 [facility] Work Phone: Thin prep Papanicolaou smear with manual screeningon 10-20-2021 Thin prep Papanicolaou smear with manual screening 24.6 mg/L NO RANGE EST. [facility] Work Phone: Thin prep Papanicolaou smear with manual screening 25 U/L 15-37 [facility] Work Phone: Thin prep Papanicolaou smear with manual screening 9 5-15 [facility] Work Phone: Urine creatinine measurement (mass/volume)on 10-20-2021 Creatinine (U) [Mass/Vol] 69.90 mg/dL NO RANGE EST. [facility] Work Phone: Vital Signs Date Time Vital Sign Value Performing Clinician Faci lity 07-29-2025 08:00-0400 Body height 182.[address] Dylan Frazier MD Work Phone: [facility] 07-29-2025 08:00-0400 Body mass index (BMI) [Ratio] 50.8 kg/m2 Dr. Dylan Frazier MD Work Phone: [facility] 07-29-2025 08:00-0400 Body weight 170.[address] Dylan Frazier MD Work Phone: [facility] 05-14-2025 15:50-0400 Body height 182.[address] Dylan Frazier MD Work Phone: [facility] 05-14-2025 15:50-0400 Body mass index (BMI) [Ratio] 50.8 kg/m2 Dr. Dylan Frazier MD Work Phone: [facility] 05-14-2025 15:50-0400 Body weight 169.[address] Dylan Frazier MD Work Phone: [facility] 05-14-2025 15:50-0400 Diastolic blood pressure 77 mm[Hg] Dr. Dylan Frazier MD Work Phone: [facility] 05-14-2025 15:50-0400 Heart rate 77 /min Dr. Dylan Frazier MD Work Phone: [facility] 05-14-2025 15:50-0400 SaO2% (BldA) [Mass fraction] 93 % Dr. Dylan Frazier MD Work Phone: [facility] 05-14-2025 15:50-0400 Systolic blood pressure 134 mm[Hg] Dr. Dylan Frazier MD Work Phone: [facility] 03-01-2024 15:44-0400 Body height 182.[address] Dylan Frazier Work Phone: [facility] 03-01-2024 15:44-0400 Body mass index (BMI) [Ratio] 49.1 kg/m2 Dr. Dylan Frazier Work Phone: [facility] 03-01-2024 15:44-0400 Body temperature 97.9 [degF] Dr. Dylan Frazier Work Phone: [facility] 03-01-2024 15:44-0400 Body weight 164.[address] Dylan Frazier Work Phone: [facility] 03-01-2024 15:44-0400 Diastolic blood pressure 86 mm[Hg] Dr. Dylan Frazier Work Phone: [facility] 03-01-2024 15:44-0400 Heart rate 90 /min Dr. Dylan Frazier Work Phone: [facility] 03-01-2024 15:44-0400 Respiratory rate 18 /min Dr. Dylan Frazier Work Phone: [facility] 03-01-2024 15:44-0400 SaO2% (BldA) [Mass fraction] 95 % Dr. Dylan Frazier Work Phone: [facility] 03-01-2024 15:44-0400 Systolic blood pressure 142 mm[Hg] Dr. Dylan Frazier Work Phone: [facility] 11-28-2023 15:14-0500 Body mass index (BMI) [Ratio] 49.2 kg/m2 Dr. Dylan Frazier Work Phone: [facility] 11-28-2023 15:14-0500 Body temperature 97.8 [degF] Dr. Dylan Frazier Work Phone: [facility] 11-28-2023 15:14-0500 Body weight 164.[address] Dylan Frazier Work Phone: [facility] 11-28-2023 15:14-0500 Diastolic blood pressure 80 mm[Hg] Dr. Dylan Frazier Work Phone: [facility] 11-28-2023 15:14-0500 Heart rate 81 /min Dr. Dylan Frazier Work Phone: [facility] 11-28-2023 15:14-0500 SaO2% (BldA) [Mass fraction] 97 % Dr. Dylan Frazier Work Phone: [facility] 11-28-2023 15:14-0500 Systolic blood pressure 140 mm[Hg] Dr. Dylan Frazier Work Phone: [facility] 07-26-2023 15:25-0400 Body height 182.[address] Dylan Frazier Work Phone: [facility] 07-26-2023 15:25-0400 Body mass index (BMI) [Ratio] 48.8 kg/m2 Dr. Dylan Frazier Work Phone: [facility] 07-26-2023 15:25-0400 Body temperature 98 [degF] Dr. Dylan Frazier Work Phone: [facility] 07-26-2023 15:25-0400 Body weight 163.[address] Dylan Frazier Work Phone: [facility] 07-26-2023 15:25-0400 Diastolic blood pressure 78 mm[Hg] Dr. Dylan Frazier Work Phone: [facility] 07-26-2023 15:25-0400 Heart rate 68 /min Dr. Dylan Frazier Work Phone: [facility] 07-26-2023 15:25-0400 Respiratory rate 18 /min Dr. Dylan Frazier Work Phone: [facility] 07-26-2023 15:25-0400 SaO2% (BldA) [Mass fraction] 97 % Dr. Dylan Frazier Work Phone: [facility] 07-26-2023 15:25-0400 Systolic blood pressure 126 mm[Hg] Dr. Dylan Frazier Work Phone: [facility] 04-12-2023 15:01-0400 Body height 182.[address] Dylan Frazier Work Phone: [facility] 04-12-2023 15:01-0400 Body mass index (BMI) [Ratio] 47.1 kg/m2 Dr. Dylan Frazier Work Phone: [facility] 04-12-2023 15:01-0400 Body temperature 98.4 [degF] Dr. Dylan Frazier Work Phone: [facility] 04-12-2023 15:01-0400 Body weight 157.[address] Dylan Frazier Work Phone: [facility] 04-12-2023 15:01-0400 Diastolic blood pressure 82 mm[Hg] Dr. Dylan Frazier Work Phone: [facility] 04-12-2023 15:01-0400 Heart rate 82 /min Dr. Dylan Frazier Work Phone: [facility] 04-12-2023 15:01-0400 Respiratory rate 18 /min Dr. Dylan Frazier Work Phone: [facility] 04-12-2023 15:01-0400 SaO2% (BldA) [Mass fraction] 97 % Dr. Dylan Frazier Work Phone: [facility] 04-12-2023 15:01-0400 Systolic blood pressure 158 mm[Hg] Dr. Dylan Frazier Work Phone: [facility] 02-13-2023 08:41-0400 Body temperature 97.7 [degF] Dr. Dylan Frazier Work Phone: [facility] 02-13-2023 08:41-0400 Diastolic blood pressure 92 mm[Hg] Dr. Dylan Frazier Work Phone: [facility] 02-13-2023 08:41-0400 Heart rate 92 /min Dr. Dylan Frazier Work Phone: [facility] 02-13-2023 08:41-0400 Respiratory rate 16 /min Dr. Dylan Frazier Work Phone: [facility] 02-13-2023 08:41-0400 SaO2% (BldA) [Mass fraction] 97 % Dr. Dylan Frazier Work Phone: [facility] 02-13-2023 08:41-0400 Systolic blood pressure 138 mm[Hg] Dr. Dylan Frazier Work Phone: 8(493)026-283322 [address] 12-10-2022 15:12-0500 Body height 182.[address] Dylan Frazier Work Phone: 2(592)209-614122 [address] 12-10-2022 15:12-0500 Body mass index (BMI) [Ratio] 45.6 kg/m2 Dr. Dylan Frazier Work Phone: 1(361)789-246460 [place] [address] 12-10-2022 15:12-0500 Body temperature 93.7 [degF] Dr. Dylan Frazier Work Phone: 6(147)[phone] [address] 12-10-2022 15:12-0500 Body weight 152.[address] Dylan Frazier Work Phone: 3(056)591-412860 [place] [address] 12-10-2022 15:12-0500 Diastolic blood pressure 73 mm[Hg] Dr. Dylan Frazier Work Phone: 8(810)357-585960 [place] [address] 12-10-2022 15:12-0500 Heart rate 92 /min Dr. Dylan Frazier Work Phone: 1(327)[phone] [address] 12-10-2022 15:12-0500 Respiratory rate 16 /min Dr. Dylan Frazier Work Phone: 6(528)[phone] [place] [address] 12-10-2022 15:12-0500 SaO2% (BldA) [Mass fraction] 91 % Dr. Dylan Frazier Work Phone: 6(565)[phone] [address] 12-10-2022 15:12-0500 Systolic blood pressure 135 mm[Hg] Dr. Dylan Frazier Work Phone: 6(800)711-447360 [place] [address] 09-07-2022 16:31-0500 Body height 182.[address] Dylan Frazier Work Phone: 7(308)320-534622 [address] 09-07-2022 16:31-0500 Body mass index (BMI) [Ratio] 45 kg/m2 Dr. Dylan Frazier Work Phone: 3(617)113-616322 [place] [address] 09-07-2022 16:31-0500 Body temperature 94.7 [degF] Dr. Dylan Frazier Work Phone: 5(015)718-662722 [place] [address] 09-07-2022 16:31-0500 Body weight 150.[address] Dylan Frazier Work Phone: 6(997)846-939560 [place] [address] 09-07-2022 16:31-0500 Diastolic blood pressure 84 mm[Hg] Dr. Dylan Frazier Work Phone: 2(318)911-425660 [place] [address] 09-07-2022 16:31-0500 Heart rate 89 /min Dr. Dylan Frazier Work Phone: 1(742)850-092060 [place] [address] 09-07-2022 16:31-0500 Respiratory rate 18 /min Dr. Dylan Frazier Work Phone: 8(831)[phone] [address] 09-07-2022 16:31-0500 SaO2% (BldA) [Mass fraction] 94 % Dr. Dylan Frazier Work Phone: 1(870)656-370822 [address] 09-07-2022 16:31-0500 Systolic blood pressure 152 mm[Hg] Dr. Dylan Frazier Work Phone: 3(150)684-785522 [address] 09-03-2022 09:04-0400 Body mass index (BMI) [Ratio] 45.6 kg/m2 Dr. Dylan Frazier Work Phone: [facility] 09-03-2022 09:04-0400 Body temperature 96.2 [degF] Dr. Dylan Frazier Work Phone: 1(411)104-989122 [place] [address] 09-03-2022 09:04-0400 Body weight 152.[address] Dylan Frazier Work Phone: [phone] [place] [address] 09-03-2022 09:04-0400 Diastolic blood pressure 70 mm[Hg] Dr. Dylan Frazier Work Phone: [phone] [place] [address] 09-03-2022 09:04-0400 Heart rate 103 /min Dr. Dylan Frazier Work Phone: [facility] 09-03-2022 09:04-0400 Respiratory rate 16 /min Dr. Dylan Frazier Work Phone: [facility] 09-03-2022 09:04-0400 SaO2% (BldA) [Mass fraction] 96 % Dr. Dylan Frazier Work Phone: [facility] 09-03-2022 09:04-0400 Systolic blood pressure 160 mm[Hg] Dr. Dylan Frazier Work Phone: [phone] [place] [address] 08-26-2022 01:48-0400 Diastolic blood pressure 89 mm[Hg] Dr. Dylan Frazier Work Phone: [phone] [place] [address] 08-26-2022 01:48-0400 Heart rate 89 /min Dr. Dylan Frazier Work Phone: [phone] [place] [address] 08-26-2022 01:48-0400 Respiratory rate 16 /min Dr. Dylan Frazier Work Phone: [facility] 08-26-2022 01:48-0400 SaO2% (BldA) [Mass fraction] 99 % Dr. Dylan Frazier Work Phone: [facility] 08-26-2022 01:48-0400 Systolic blood pressure 131 mm[Hg] Dr. Dylan Frazier Work Phone: [facility] 08-25-2022 18:57-0400 Body height 182.[address] Dylan Frazier Work Phone: [facility] Work Phone: 08-25-2022 18:57-0400 Body mass index (BMI) [Ratio] 46 kg/m2 Dr. Dylan Frazier Work Phone: [facility] 08-25-2022 18:57-0400 Body temperature 98.2 [degF] Dr. Dylan Frazier Work Phone: [phone] [place] [address] 08-25-2022 18:57-0400 Body weight 154.[address] Dylan Frazier Work Phone: [facility] 07-26-2022 16:23-0400 Body mass index (BMI) [Ratio] 48.8 kg/m2 Dr. Dylan Frazier Work Phone: [facility] Work Phone: 07-26-2022 16:23-0400 Body temperature 96.4 [degF] Dr. Dylan Frazier Work Phone: [facility] Work Phone: 07-26-2022 16:23-0400 Body weight 163.[address] Dylan Frazier Work Phone: [facility] Work Phone: 07-26-2022 16:23-0400 Diastolic blood pressure 84 mm[Hg] Dr. Dylan Frazier Work Phone: [facility] Work Phone: 07-26-2022 16:23-0400 Heart rate 87 /min Dr. Dylan Frazier Work Phone: [facility] Work Phone: 07-26-2022 16:23-0400 Respiratory rate 18 /min Dr. Dylan Frazier Work Phone: [facility] Work Phone: 07-26-2022 16:23-0400 SaO2% (BldA) [Mass fraction] 95 % Dr. Dylan Frazier Work Phone: [facility] Work Phone: 07-26-2022 16:23-0400 Systolic blood pressure 149 mm[Hg] Dr. Dylan Frazier Work Phone: [facility] Work Phone: 04-26-2022 15:27-0400 Body height 182.[address] Dylan Frazier Work Phone: [facility] Work Phone: 04-26-2022 15:27-0400 Body mass index (BMI) [Ratio] 49.1 kg/m2 Dr. Dylan Frazier Work Phone: [facility] Work Phone: 04-26-2022 15:27-0400 Body weight 164.[address] Dylan Frazier Work Phone: [facility] Work Phone: 04-26-2022 15:27-0400 Diastolic blood pressure 80 mm[Hg] Dr. Dylan Frazier Work Phone: [facility] Work Phone: 04-26-2022 15:27-0400 Heart rate 107 /min Dr. Dylan Frazier Work Phone: [facility] Work Phone: 04-26-2022 15:27-0400 Respiratory rate 20 /min Dr. Dylan Frazier Work Phone: [facility] Work Phone: 04-26-2022 15:27-0400 SaO2% (BldA) [Mass fraction] 95 % Dr. Dylan Frazier Work Phone: [facility] Work Phone: 04-26-2022 15:27-0400 Systolic blood pressure 170 mm[Hg] Dr. Dylan Frazier Work Phone: [facility] Work Phone: 01-25-2022 15:00-0400 Body height 182.[address] Dylan Frazier Work Phone: [facility] Work Phone: 01-25-2022 15:00-0400 Body mass index (BMI) [Ratio] 47.3 kg/m2 Dr. Dylan Frazier Work Phone: [facility] Work Phone: 01-25-2022 15:00-0400 Body weight 158.[address] Dylan Frazier Work Phone: [facility] Work Phone: 01-25-2022 15:00-0400 Diastolic blood pressure 82 mm[Hg] Dr. Dylan Frazier Work Phone: [facility] Work Phone: 01-25-2022 15:00-0400 Heart rate 98 /min Dr. Dylan Frazier Work Phone: [facility] Work Phone: 01-25-2022 15:00-0400 Respiratory rate 20 /min Dr. Dylan Frazier Work Phone: [facility] Work Phone: 01-25-2022 15:00-0400 SaO2% (BldA) [Mass fraction] 96 % Dr. Dylan Frazier Work Phone: [facility] Work Phone: 01-25-2022 15:00-0400 Systolic blood pressure 160 mm[Hg] Dr. Dylan Frazier Work Phone: [facility] Work Phone: 10-20-2021 14:27-0500 Body mass index (BMI) [Ratio] 45.1 kg/m2 Dr. Dylan Frazier Work Phone: [facility] Work Phone: 10-20-2021 14:27-0500 Body temperature 97.3 [degF] Dr. Dylan Frazier Work Phone: [facility] Work Phone: 10-20-2021 14:27-0500 Body weight 151.[address] Dylan Frazier Work Phone: [facility] Work Phone: 10-20-2021 14:27-0500 Diastolic blood pressure 80 mm[Hg] Dr. Dylan Frazier Work Phone: [facility] Work Phone: 10-20-2021 14:27-0500 Heart rate 79 /min Dr. Dylan Frazier Work Phone: [facility] Work Phone: 10-20-2021 14:27-0500 Respiratory rate 16 /min Dr. Dylan Frazier Work Phone: [facility] Work Phone: 10-20-2021 14:27-0500 SaO2% (BldA) [Mass fraction] 96 % Dr. Dylan Frazier Work Phone: [facility] Work Phone: 10-20-2021 14:27-0500 Systolic blood pressure 130 mm[Hg] Dr. Dylan Frazier Work Phone: [facility] Work Phone: Encounters Encounter Date Encounter Type Care Provider Facility Start: 09-16-2025 ambulatory Roberto Goss Esther y:[facility] Start: 07-29-2025 End: 07-29-2025 ambulatory Juan Miguel Strickland Facility:[facility] Start: 07-29-2025 End: 07-29-2025 Patient encounter procedure Diana WALLACE -[facility] Work Phone: Start: 07-29-2025 End: 07-29-[address] Dylan Frazier MD Work Phone: -[facility] Start: 07-25-2025 End: 07-25-[address] Dylan Frazier MD Work Phone: [facility] Start: 07-25-2025 End: 07-25-[address] Dylan Frazier MD [facility] Work Phone: Start: 07-25-2025 End: 07-25-2025 ambulatory Dylan Frazier Facility:[facility] Start: 07-11-2025 End: 07-11-[address] Dylan Frazier MD Work Phone: -[facility] [place] Start: 07-11-2025 End: 07-11-[address] Dylan Frazier MD -[facility] [place] Work Phone: Start: 07-11-2025 End: 07-11-2025 ambulatory Dylan Frazier Facility:[facility] Start: 05-28-2025 End: 05-28-[address] Dylan Frazier MD Work Phone: -Laboratory Start: 05-28-2025 End: 05-28-[address] Levy Correa MD -Laboratory Work Phone: Start: 05-28-2025 End: 05-28-2025 [facility] Start: 05-14-2025 End: 05-14-[address] Levy Correa MD -[facility] Work Phone: Start: 05-14-2025 End: 05-14-[address] Dylan Frazier MD Work Phone: -[facility] Start: 11-19-2024 End: 11-19-2024 ambulatory [facility] Facility:[facility] Start: 10-25-2024 End: 10-25-2024 ambulatory Dylan Frazier Facility:[facility] Start: 03-07-[address] Dylan Frazier Work Phone: [facility] Work Phone: Start: 03-02-2024 Non-patient / Non-visit Dr. Dylan Frazier Work Phone: [facility] Start: 03-01-2024 End: 03-01-[address] Dylan Frazier Work Phone: [facility] Work Phone: Start: 03-01-2024 End: 03-01-[address] Dylan Frazier Work Phone: [facility] Work Phone: Start: 03-01-2024 End: 03-01-[address] Dylan Frazier Work Phone: [facility]atory Work Phone: Start: 11-28-2023 End: 11-28-[address] Dylan Frazier Work Phone: [facility] Work Phone: Start: 08-16-2023 End: 08-16-[address] Dylan Frazier Work Phone: [facility] Work Phone: Start: 08-16-2023 End: 08-16-[address] Dylan Frazier Work Phone: [facility] Work Phone: Start: 08-05-2023 End: 08-05-[address] Dylan Frazier Work Phone: [facility] Start: 07-27-2023 End: 07-27-[address] Dylan Frazier Work Phone: [facility] Work Phone: Start: 07-26-2023 End: 07-26-[address] Dylan Frazier Work Phone: [facility] Work Phone: Start: 07-22-2023 End: 07-22-[address] Dylan Frazier Work Phone: [facility] Work Phone: Start: 07-22-2023 End: 07-22-[address] Dylan Frazier Work Phone: [facility] Work Phone: Start: 07-15-2023 End: 07-15-[address] Dylan Frazier Work Phone: [facility] Work Phone: Start: 07-15-2023 End: 07-15-[address] Dylan Frazier Work Phone: [facility] Work Phone: Start: 06-08-2023 End: 06-08-[address] Dylan Frazier Work Phone: [facility] Work Phone: Start: 06-08-2023 End: 06-08-[address] Dylan Frazier Work Phone: [facility]atory Work Phone: Start: 05-17-2023 End: 05-17-[address] Dylan Frazier Work Phone: [facility] Work Phone: Start: 05-17-2023 End: 05-17-[address] Dylan Frazier Work Phone: [facility]atory Work Phone: Start: 04-27-2023 End: 04-27-[address] Dylan Frazier Work Phone: [facility] Work Phone: Start: 04-27-2023 End: 04-27-[address] Dylan Frazier Work Phone: [facility] Work Phone: Start: 04-12-2023 End: 04-12-[address] Dylan Frazier Work Phone: [facility] Start: 04-08-2023 End: 04-08-[address] Dylan Frazier Work Phone: [facility] Work Phone: Start: 04-08-2023 End: 04-08-[address] Dylan Frazier Work Phone: [facility]-Laboratory Start: 03-03-2023 End: 03-03-[address] Dylan Frazier Work Phone: [facility] Work Phone: Start: 03-03-2023 End: 03-03-[address] Dylan Frazier Work Phone: [facility]-Laboratory Start: 02-13-2023 End: 02-13-[address] Dylan Frazier Work Phone: [facility] Start: 12-10-2022 End: 12-10-[address] Dylan Frazier Work Phone: [facility] Endocr[facility]ology Start: 11-27-2022 End: 11-27-[address] Dylan Frazier Work Phone: [facility] Work Phone: Start: 11-27-2022 End: 11-27-[address] Dlyan Frazier Work Phone: [facility] Start: 11-19-2022 End: 11-19-[address] Dylan Frazier Work Phone: [facility] Work Phone: Start: 11-19-2022 End: 11-19-[address] Dylan Frazier [facility] Phone[facility] Start: 11-16-2022 End: 11-16-[address] Dylan Frazier Work Phone: [facility]-Nuclear Medicine, [facility] Start: 10-20-2022 End: 10-20-[address] Dylan Frazier Work Phone: [facility] Work Phone: Start: 10-20-2022 End: 10-20-[address] Dylan Frazier Work Phone: [facility]-Cat Scan, [facility] Start: 09-17-2022 End: 09-17-[address] Dylan Frazier Work Phone: [facility] Work Phone: Start: 09-17-2022 End: 09-17-[address] [facility] [place] Start: 09-13-2022 End: 09-13-[address] Dylan Frazier Work Phone: [facility] Int Med [facility] [place] Start: 09-07-2022 End: 09-07-[address] Dylan Frazier Work Phone: [facility] Endocrinology Start: 09-03-2022 End: 09-03-[address] Dylan Frazier Work Phone: [facility] Start: 08-25-2022 End: 08-26-2022 Emergency department patient visit Dr. Dylan Frazier Work Phone: [facility]-Emergency Department Start: 07-26-2022 End: 07-26-[address] Dylan Frazier Work Phone: [facility] Endocrinology Start: 05-31-2022 End: 05-31-[address] Dylan [facility] Start: 04-26-2022 End: 04-26-[address] Dylan Frazier Work Phone: [facility] Endocrinology Start: 01-28-2022 End: 01-28-[address] Dylan Frazier Work Phone: [facility]-Laboratory Start: 01-25-2022 End: 01-25-[address] Dylan Frazier Work Phone: [facility] Endocrinology Start: 12-29-2021 End: 12-29-[address] [facility] Start: 11-25-2021 End: 11-25-[address] Dylan Frazier Work Phone: [facility]-Pulmonary Services/Neurology Start: 10-20-2021 End: 10-20-[address] Dylan Frazier Work Phone: [facility] Endocrinology Procedures Date Procedure Procedure Detail Performing Clinician Start: 07-25-2025 MRI of cervical spine Daisha Frazier MD Work Phone: Start: 07-11-2025 X-ray of cervical spine Dr. Dylan Frazier MD Work Phone: Start: 05-28-2025 Urine microalbumin/creatinine ratio measurement Dr. [...] of Treatment Date Care Activity Detail Author Start: 07-29-2025 End: 07-29-2025 Patient encounter procedure Cervical radiculopathy -[facility] Work Phone: Start: 07-25-2025 Patient encounter procedure Registered Clinical [facility] Work Phone: Start: 07-25-2025 MRI of cervical spine Spine Cervical (Routine) [facility] study results [facility] Work Phone: Evaluation of [facility] study results [facility] Lipid 1996 panel - S mónica or Plasma [facility] Patient Education ED Arthralgia [facility] Work Phone: Patient referral [facility] Work Phone: T4 free measurement [facility] Thyroid stimulating hormone measurement [facility] Thyroperoxidase Ab [Units/volume] in Serum or Plasma [facility] Payers Date Payer Category Payer Self-pay [id number] 2024 Self-pay [id number] 2024 Unknown [id number] Unknown [id number] 2.16.8 [id number] Unknown [id number] 2.16.8 [id number] Unknown [id number] 2.16.8 [id number] Unknown [id number] 2.16.8 [id number] Unknown [id number] 2.16.8 [id number] Unknown [id number] 2.16.8 [id number] Unknown [id number] 2.16.8 [id number] Unknown [id number] 2.16.8 [id number] Unknown [id number] 2.16.8 [id number] Social History Date Type Detail Facility Start: 01-25-2022 End: 11-28-2023 Tobacco smoking status NHIS Unknown if ever smoked [facility] Start: 06-10-2021 None [facility] Start: 10-13-2018 Non-smoker [facility] Start: 1965 Sex Assigned At Male [facility] Start: 11-28-2023 Tobacco smoking stat us NHIS Ex-smoker (finding) [facility] Sex Male [facility] Medical Equipment Procedure Code Equipment Code Equipment [...] Level Of Cons ciousness Awake;Alert;Appropriate;Follow s Commands [facility] Work Phone: Clinical Notes 05-14-2025 to 07-29-2025 Note Date & Type Note Facility 07-29-[address] [facility] Services 07-14-2025 Radiology Diagnostic study note [facility] Imaging Services [address] [place], [place] [address] Cerv Spine Obl/Flex/Ext Comp MR#: [id number] Acct: [id number] Name: KELVIN ZALDIVAR Jr. Rep #: [id number] : 1965 M 59 From: Chidi Gibbs MD PCP: Dr. Dylan Frazier MD Status: REG C LI Study:Cerv Spine Obl/Flex/Ext Comp Date of Ex am: 07/11/25 Exam# [id number] Ordering Dr: Dylan Frazier MD PROCEDURE: CERV [...] in the midcervical spine. Scratch Reading Location: [id number] CC: Dr. Dylan Frazier MD ~ [employer]: Signed [facility] 05-14-2025 Evaluation note Diagnosis Onset Date Resolution Benign hypertension chronic May 14, 2025 3:48pm Diabetes chronic May 14 3:48pm Hyperlipidemia chronic May 14, 2025 3:48pm Hypothyroidism (acquired) chronic May 14, 2025 3:48pm Obesity chronic May 14 3:48pm [facility] Work Phone: [phone]) 401-702307-15-2025 Evaluation note* Diagnosis Onset Date Resolution Status Admit Date Benign hypertension chronic May 14, 2025 3:48pm Diabetes chronic May 14 3:48pm Hyperlipidemia chronic May 14, 2025 3:48pm Hypothyroidism (acquired) chronic May 14, 2025 3:48pm Obesity chronic May 14 3:48pm Cervical radiculopathy acute Se ptember 2024 7:48am Degenerative disc disease, cervical acute July 29, 2025 7:48am Spinal stenosis, cervical region acute July 29, 2025 7:48am [facility] Work Phone: Evaluation note* Diagnosis Onset Date Resolution Status Diabetes acute Numbness of left thumb acute Benign hypertension chronic Hyperlipidemia chronic Obesity [facility] Work Phone: Evaluation note* Diagnosis Onset Date Resolution Status Diabetes acute 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 Presence of insulin pump acu te Benign hypertension chronic Hyperlipidemia chronic Obesity [facility] Work Phone: Evaluation note* Diagnosis Onset Date Resolution Status Diabetes acute 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 Insulin pump titration acute Presence of insulin pump acu te Obesity [facility] Work Phone: Evaluation note* Diagnosis Onset Date Resolution Status Diabetes acute 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 Insulin pump titration acute Presence of insulin pump acu te Obesity chronic Acute sinusitis acute Diabetes acute 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 Myalgia acute Presence of insulin pump acu te Benign hypertension chronic Hyperlipidemia chronic Obesity [facility] Work Phone: Evaluation note* Diagnosis Onset Date Resolution Status Acute sinusitis acute Diabetes acute 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 Myalgia acute Presence of insulin pump acu te Benign hypertension chronic Hyperlipidemia chronic Obesity [facility] Work Phone: Evaluation note* Diagnosis Onset Date Resolution Status Diabetes acute 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 Insulin pump titration acute Presence of insulin pump acu te Benign hypertension chronic Hyperlipidemia chronic Obesity chronic Acute bacterial sinusitis ac [facility] Work Phone: Evaluation note* Diagnosis Onset Date Resolution Status Acute bacterial sinusitis ac [facility] Work Phone: Evaluation note* Diagnosis Onset Date Resolution Status Acute bacterial sinusitis ac [place] Benign hypertension chronic Diabetes chronic Hyperlipidemia chronic 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 Obesity [facility]: [facility]* Diagnosis Onset Date Resolution Status Benign hypertension chronic Diabetes chronic Hyperlipidemia chronic 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 Obesity chronic Presence of insulin pump [facility] Work Phone: Evaluation note* Diagnosis Onset Date Resolution Status Benign hypertension chronic Diabetes chronic Hyperlipidemia chronic 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 Obesity chronic Presence of insulin pump chr on Diabetes chronic 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 [facility] Work Phone: Evaluation note* Diagnosis Onset Date Resolution Status Benign hypertension chronic Diabetes chronic Hyperlipidemia chronic 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 Insulin pump titration chron ic Obesity chronic Presence of insulin pump chr [facility] Work Phone: Evaluation note* Diagnosis Onset Date Resolution Status Benign hypertension chronic Diabetes chronic Hyperlipidemia chronic Obesity chronic Abnormal results of thyroid function studies acute Benign hypertension chronic Diabetes chronic Hyperlipidemia chronic Obesity chronic [facility] Work Phone: Evaluation noteNo assessment information available [facility] Work Phone: Hospital Discharge instructions Additional Instructions Please follow-up with orthopedics as scheduled tomorrow. Return if you develop fever or worsening symptoms. Discussed with your primary care doctor referral to rheumatology as I am concerned that you could have polymyalgia rheumatica given you multiple symptoms and elevated inflammatory markers.[facility] Work Phone: Hospital Discharge instructionsAmbulatory Orders* Pain Management Location: None [facility] Work Phone: Progress note Author Diana Kinney [facility] Note Date/Time July 29, 2025 8:43am [facility] [address] [place] [address] OFFICE VISIT Date of Service: 07/29/25 MR#: [id number] Acct: [id number] Name: KELVIN ZALDIVAR Jr. Rep #: [id number] : 1965 Provider: HARINDER Sherwood Age/Sex: 59/M Location: [facility].ADONIS Status: Signed Intake Vital Signs 05/14/25 15:50 07/29/25 08:00 Height 6 ft 6 ft Weight: 374 lb 8 oz 375 lb BMI 50.8 50.8 BP 134/77 H Blood Pressure Location Rt brachial Position Sitting Pulse 77 Pulse Source Monitor Pulse Oximetry (%) 93 Oxygen Delivery Method room air Intake Visit Reasons: CERVCIAL SPINE Chief Complaint: cervical spine Accompanied by: Self Is patient in pain?: Yes (cervical spine) Pain scale (1-10): 6 Allergies Penicillins Allergy (Verified 07/29/25 08:02) Tremor Medications ?Medication ?Instructions ?Recorded ?Confirmed ?Type rosuvastatin 20 mg tablet (Crestor) 20 mg PO QHS 10/1207/29/25 History albuterol sulfate 90 mcg/actuation 2 puff inhalation Q 6H PRN 07/26/23 07/29/25 History aerosol inhaler losartan 100 1 tab PO DAILY 11/28/2307/02 History mg-hydrochlorothiazide 25 mg tablet pen needle, diabetic 32 gauge x #300 ea 07/09/2405/14 Rx 5/32" (BD Ultra-Fine Zhanna Pen Needle) metformin 1,000 mg tablet 1,000 mg PO BID #180 tabs 07/29/25 Rx insulin aspart U-100 100 unit/mL 90 unit (0.9 mL) subc ut BID #162 mL 05/14/25 07/29/25 Rx (3 mL) subcutaneous pen (Novolog FlexPen U-100 Insulin aspart) insulin regular hum U-500 conc 500 200 unit (0.4 mL) s ubcut QACBREAK 05/14/25 07/29/25 Rx unit/mL(3 mL) subcut pen (Humulin #36 mL R U-500 (Conc) Insulin Kwikpen) levothyroxine 125 mcg tablet 125 mcg PO DAILY #90 tabs 05/14/25 07/29/25 Rx tirzepatide 5 mg/0.5 mL 5 mg (0.5 mL) subcut QWEEK # 6 mL 06/27/25 07/29/25 Rx subcutaneous pen injector (Jovannyunjaro) [facility] Medical History Hypothyroidism (acquired) Abnormal results of [...] activity do you participate in: none HPI CERVCIAL SPINE Details: This documentation accurately reflects the service provided and the decisions made by me, HARINDER Sherwood 07/29/25 0756. Part of today?s visit was documentedby Madelin Correa RN, acting as scribe. KELVIN ZALDIVAR is a 59 year old M here today for cervical spine pain. He states this has been going on for about 6 weeks. Feels like it has been worsening in that time. He complains of cervical spine pain that extends down into his left arm to the elbow. He also gets pain in both shoulders. The pain was positional at first but now it is constant. He does report numbness and tingling into the left arm and hand. He has a history of a bilateral carpal tunnel release. Thiswas done by Dr. Aaron at [facility]. All left side no right side. It started out as positional now it's constant. He denies a change in balance. He denies dexterity issues. He denies previous surgery or injury to his neck. He had recent x-rays and MRI. He has not done PT and has not seen pain management. Type 2 diabetes, last a1c was 6.9. No blood thinners. No heart or lung issues. The patient is RHD. Ortho Exam General General: Yes no acute distress Neurologic: Yes alert and Yes oriented x3 Psychologic: Yes reasonable and appropriate Spine SPINE TESTING CERVICAL THORACIC LUMBAR Musculoskeletal Strength 0=absent - 5=normal Details: Neurological exam of the upper extremities shows 5X5 power. Normal sensation across all dermatomes. No hyperreflexia. No midline tenderness, mild left-sided paraspinal tenderness. Coding Level of Care Code Off vis,new,level 4 Diagnoses Cervical radiculopathy M54.12 Degenerative disc disease, cervical M50.30 Spinal stenosis, cervical region M48.02 Assessment and Plan Assessment and Plan (1) Cervical radiculopathy: Status: Acute (2) Degenerative disc disease, cervical: Status: Acute (3) Spinal stenosis, cervical region: Status: Acute Orders: Referrals Pain Management M54.12 - Radiculopathy, cervical region Plan Reviewed prior cervical x-rays today in the clinic. Cervical x-rays show a multilevel disc height loss throughout the cervical spine with osteophyte formation seen from C3-7. No significant instability seen on dynamic views. Noacute fractures. Reviewed cervical MRI from July 25, 2025 which showed C3-4 disc height loss with facet joint arthropathy resulting in severe stenosis andsevere bilateral foraminal stenosis, C4-5 severe stenosis and severe bilateral foraminal stenosis, C5-6 severe stenosis and severe bilateral foraminal stenosis. C6-7 severe stenosis and severe left and moderate right foraminal stenosis. The patient also has a congenital narrowing of the canal. Explained the imaging findings in detail. Discussed options at this time which includes continued conservative measures versus surgery. Nonsurgical options include physical therapy and injections with pain management. The patient does wish to attempt epidural steroid injections, he has done injections in the past in his lower back with Dr. Goss which was not all too beneficial however he has never had any injections in his cervical spine. The referral will be sent. Discussed that surgery would include a multiple level ACDF. Most notably at C4-6 however this could include several other levels due to the narrowing of the canal that he has. At this time the patient does not have any myelopathic symptoms and just has radiculopathy, in the absence of myelopathy he can attemptinjections. Discussed that if he starts to notice any myelopathic symptoms suchas dexterity issues or loss of balance that would be a reason to follow back up with us to further discuss surgery. Patient understands. The patient works as a [employer], and the winter months and holidays are a busy time of year for him, he does not wish for any surgical intervention until after the holiday season is over. He will follow-up on an as-needed basis after the injections if he continues to have symptoms to then discuss surgical options. He can follow-up either with myself or with Dr. Kirkland. Patient is in agreement. 07/29/25 0914 <Electronically signed by Diana WALLACE> Date _ Diana WALLACE Cosigner Signature: Date (if applicable) CC: Dr. Dylan Frazier MD ~ [facility] Work Phone: Reason for referral (narrative)No reason for referral information availableK[facility] Hospital Work Phone: Chief Complaint and Reason for [...] 3:48pm Obesity May 14, 2025 3:48 pm Chief Complaint Admit Date 5 M FU, RS 04/02May 14, 2025 3:48 pm E ORDERS May 28, 2025 5:59 am SEVERE CHANGES IN XRAY July 25, 2 025 6:58am CERVCIAL SPINE July 29, 2025 7:48am Reason for Visit Admit Date Benign hypertension May 14, 2025 3:48 pm Diabetes May 14, 2025 3:48 pm Hyperlipidemia May 14, 2025 3:48 pm Hypothyroidism (acquired) May 14 3:48pm Obesity May 14, 2025 3:48 pm Cervical radiculopathy July 29, 2 025 7:48am Degenerative disc disease, cervical Sept ember 2024 7:48am Spinal stenosis, cervical region Septemb er 2024 7:48am Family History No Family History Records Found Relationship Condition Age at Onset Recorded Date/T patrick Not Specified Arthritis Unknown Hypertension Unknown mother Malignant neoplasm of breast Unknown father Cardiac disease Unknown Advance Directives No Advanced Directives Records Found Advance Directive Response Recorded Date/ Time Living Will No October 12, 018 10:42am Power of Digital Forensic Analyst No October 12, 2018 10:42am Advance Directive Response Recorded Date/ Time Living Will No August 25 10:31pm Power of Digital Forensic Analyst No August 25, 2022 10:31pm Advance Directive Response Recorded Date/ Time Living Will No August 25 9:31pm Power of Digital Forensic Analyst No August 25, 2022 9:31pm Summary Purpose [...] Primary Care Provider, Referring Provider Active Pavel Del Cid PA, PA Attending Provider Active Team Status: [...] Active Member Role Status Dates Dr. Dylan Fraizer MD Primary Care Provider Active Dr. Gustvao Pittman DO Attending Provider Active Team Status: [...] Frazier MD Primary Care Provider Active Linda oLng , WARE TESTER-C Attending Provider, Referring Pro vider Active Team [...] May 28, 2025 End: May 28, 2025 Team Status: Active Member Role/Relationship Status Dates Dr. Dylan Frazier MD Primary care physician Active Team Status: Inactive Member Role/Relationship Status Dates Dr. Dylan Frazier MD Primary care physician Active Start: May 14, 2025 End: May 14, 2025 Dr. Dylan Frazier MD Referring Provider Active Start: May 14, 2025 End: May 14, 2025 Dr. Levy Correa MD Attending physician Active St art: May 14, 2025 End: May 14, 2025 Team Status: Inactive Member Role/Relationship Status Dates Dr. Dylan Frazier MD Primary care physician Active Start: May 28, 2025 End: May 28, 2025 Dr. Levy Correa MD Attending physician Active St art: May 28, 2025 End: May 28, 2025 Dr. Levy Correa MD Referring Provider Active Sta rt: May 28, 2025 End: May 28, 2025 Team Status: Inactive Member Role/Relationship Status Dates Dr. Dylan Frazier MD Primary care physician Active Start: July 11, 2025 End: July 11, 2025 Dr. Dylan Frazier MD Attending physician Active Start: July 11, 2025 End: July 11, 2025 Dr. Dylan Frazier MD Referring Provider Active Start: July 11, 2025 End: July 11, 2025 Team Status: Active Member Role/Relationship Status Dates Dr. Dylan Frazier MD Primary care physician Active Start: July 25, 2025 Dr. Dylan Frazier MD Attending physician Active Start: July 25, 2025 Dr. Dylan Frazier MD Referring Provider Active Start: July 25, 2025 Team Status: Inactive Member Role/Relationship Status Dates Dr. Dylan Frazier MD Primary care physician Active Start: July 29, 2025 End: July 29, 2025 Dr. Dylan Frazier MD Referring Provider Active Start: July 29, 2025 End: July 29, 2025 HARINDER Sherwood Attending physician Active Sta rt: July 29, 2025 End: July 29, 2025 Team Status: Inactive Member Role/Relationship Status Dates Dr. Dylan Frazier MD Primary care physician Active Start: July 25, 2025 End: July 25, 2025 Dr. Dylan Frazier MD Attending physician Active Start: July 25, 2025 End: July 25, 2025 Dr. Dylan Frazier MD Referring Provider Active Start: July 25, 2025 End: July 25, 2025 (unrecognized sect ion and content) No Status Records Found INFORMATION SOURCE (unrecogn ized section and content) DATE CREATED AUTHOR 09/12/2025 [facility] FOR RECORDS PERTAINING TO PATIENTS WHO ARE [...] BE BASED ON THE PRIMARY CLINICAL RECORDS. [employer] provides no warranty or guarantee of the accuracy or completeness of information in this document.
[2025-09-16] MEDS: Lactated Ringers 1,000 ML 15 ML IV (07:45)
--- NOTE | 2025-09-16 08:00 | RAD_ITS ---
PROCEDURE: SPINE 1 VIEW ANY LEVEL 09/16/2025 REASON FOR EXAM: CERVICAL FACET BLOCK LEFT TECHNIQUE: Procedure Code: RADSPCV Modality: DX Procedure: SPINE 1 VIEW ANY LEVEL COMPARISON: Cervical spine images dated 07/25/2025 and 07/11/2025 FINDINGS: 4 images were obtained. Fluoroscopy time is 10.2 seconds. Cumulative dose is 4.44 mGy. RAD/Spine 1 View Any Level IMPRESSION: 4 images were obtained. Fluoroscopy time is 10.2 seconds. Cumulative dose is 4 .44 mGy. Reading Location: [id number]
--- NOTE | 2025-09-16 08:31 | PCM.PRE.AN2 ---
ASA Classification* ASA Classification ASA Classification: 2 Assessment & Plan Anesthesia* Anesthesia Assessment Anesthesia Assessment: Discussed sedation and/or anesthesia options, risks, benefits, and alternatives with patient/parents/legal guardian/POA. Questions invited. The patient/parents/legal guardian/POA seems to understand and agrees to proceed with anesthesia plan. Reviewed the physical assessment, medical history, allergy history and patient home medications list prior to surgery/procedure/anesthetic and documented any changes. Performed airway and anesthesia risk assessments. Anesthesia Type Anesthesia Type: MAC History Source History Obtained from:: Patient and Chart Anesthesia Focused Assessment* Temperature: 97 F Pulse Rate: 81 Blood Pressure: 166/61 Respiratory Rate: 16 Pulse Ox: 95 Oxygen Delivery Method: Room Air Airway Assessment Mouth opens: >3 cm Mallampati Score: IV Teeth Condition: Missing (Patient is missing several teeth. All else is tight.) Neck Range of motion (ROM): Limited ROM (Severe Restriction) Labs Anesthesia Preop lab: CBC WBC, (4.4-11.0) 10.9 K/mm3 07/11/25, 16:33 RBC, (4.6-6.2) 4.80 M/mm3 07/11/25, 16:33 Hgb, (13.0-16.5) 13.9 g/dL 07/11/25, 16:33 Hct, (40-54) 41.3 % 07/11/25, 16:33 Plt Count, (150-450) 272 K/mm3 07/11/25, 16:33 CHEMISTRY Potassium, (3.3-5.1) 3.6 mmol/L 07/11/25, 16:33 Sodium, (133-145) 138 mmol/L 07/11/25, 16:33 Magnesium, (1.6-2.6) 1.5 mg/dL L 11/19/22, 08:37 BUN, (4-19) 14 mg/dL 07/11/25, 16:33 Creatinine, (0.70-1.20) 1.03 mg/dL 07/11/25, 16:33 Glucose, (70-99) 130 mg/dL H 07/11/25, 16:33 POC Glucose, (70-110) 145 mg/dL H 10/13/18, 09:04 TSH, (0.300-4.200) 3.170 uIU/mL 05/28/25, 06:04 COAG PT, (11.9-14.4) 12.6 SECONDS 09/08/12, 14:44 Pre-Assessment Diagnosis/Proposed Procedure Planned Operative Procedure(s): (L) Block, Cervical Facet Anesthesia History Anesthesia History - director financial systems: Anesthesia History - director financial systems Hx Hospitalization No 09/11/25 10:06 Any Problems With Anesthesia No 09/11/25 10:06 Cholinesterase deficiency No 09/11/25 10:06 You/Your Family Experience No 09/11/25 10:06 fever (hyperthermia) with Relationship Recent Exposure to Contagious No 09/16/25 07:31 Disease Does patient have nerve No 09/11/25 10:06 stimulator Patient instructed to have device shut off --Does patient have Pacemaker No 09/16/25 07:31 or ICD? When Was Last Pacemaker Check QUESTION #4 FULL TEXT: You/Your Family Experience fever (hyperthermia) with Anesthesia Last Oral Intake Last Oral intake: Last Oral Intake NPO since 20:00 09/16/25 07:31 Meds taken in AM with sips of No 09/16/25 07:31 water? 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 - director financial systems: PONV - director financial systems Female No 09/11/25 10:06 HX of Motion Sickness Yes 09/11/25 10:06 HX of N/V After Surgery No 09/11/25 10:06 Non-Smoker Yes 09/11/25 10:06 Duration of Surgery greater No 09/11/25 10:06 than 60 minutes Number of Risk Factors 2 09/11/25 10:06 PONV Score Moderate Risk 09/11/25 10:06 Height & Weight Height & Weight: Anesthesia: Height & Weight Height 6 ft 0.05 in 09/16/25 07:31 Weight: 167 kg 09/16/25 07:31 Body Mass Index (BMI) 49.8 09/16/25 07:31 Respiratory Assessment Respiratory Assessment - director financial systems: Respiratory Tract Infection Hx - director financial systems Hx Respiratory Tract Infection No 09/11/25 10:06 STOP Sleep Apnea STOP Sleep Apnea - director financial systems: STOP Sleep Apnea - director financial systems Hx Hypertension Yes 09/11/25 10:06 Hx Sleep Apnea Yes 09/11/25 10:06 CPAP No 09/11/25 10:06 BIPAP Yes 09/11/25 10:06 Do you snore loudly (louder than talking or can be heard Do you often feel tired/ fatigued/ sleepy during daytime? Has anyone observed you stop breathing during sleep? STOP Results Positive 09/11/25 10:06 QUESTION #5 FULL TEXT : Do you snore loudly (louder than talking or can be heard through closed doors)? 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 Specify any problems Hx of Preganancy in last 3 N/A 09/11/25 10:06 Months Nurse Filling Out Transfusion NBUCHER 09/11/25 10:06 & Questions: Date: 09/11/25 09/11/25 10:06 Time: 10:07 09/11/25 10:06 Patient unable to answer at this time (ie. confused, unrespo /Reproduction History /Reproductive History - director financial systems: /Reproductive Hx- director financial systems Hx Now No 09/11/25 10:06 Gestational Age (in weeks): EDC: Hx Hx Para Hx Section SAB No 09/11/25 10:06 Does the father of the baby or his family experience fever w Father of the baby Malignant Hypertension history comment Active Medications Active Medications: Current Medications Generic Name Dose Route Start Last Admin Trade Name Freq PRN Reason Stop Dose Admin Lactated Ringer's 1,000 mls @ 15 mls/hr 09/16/25 07:30 09/16/25 07:45 IV 15 mls/hr .Q48H GLENIS Administration PFSH Medical History Wears glasses Hypothyroid Thyroid disease Shortness of breath on exertion BiPAP (biphasic positive airway pressure) dependence Sleep apnea Former smoker History of stress test History of echocardiogram Hypothyroidism (acquired) Abnormal results of thyroid function studies Myalgia Abnormal ECG Numbness and tingling in both hands Numbness of left thumb Diabetes Cholecystectomy planned High triglycerides High cholesterol Gallstones Diabetes HTN (hypertension) Home Medications Medication Instructions Recorded Last Taken Type rosuvastatin 20 mg tablet (Crestor) 20 mg PO QHS 10/12/18 09/15/25 History losartan 100 1 tab PO DAILY 11/28/23 09/15/25 History mg-hydrochlorothiazide 25 mg tablet pen needle, diabetic 32 gauge x #300 ea 07/09/24 Unknown Rx 32" (BD Ultra-Fine Zhanna Pen Needle) metformin 1,000 mg tablet 1,000 mg PO BID #180 tabs 11/19/24 09/15/25 Rx insulin regular hum U-500 conc 500 200 unit (0.4 mL) subcut QACBREAK 05/14/25 09/15/25 Rx unit/mL(3 mL) subcut pen (Humulin #36 mL R U-500 (Conc) Insulin Kwikpen) levothyroxine 125 mcg tablet 125 mcg PO DAILY #90 tabs 05/14/25 09/15/25 Rx insulin aspart U-100 100 unit/mL 90 unit subcut TID 09/11/25 09/15/25 History (3 mL) subcutaneous pen (Novolog FlexPen U-100 Insulin aspart) Allergy/AdvReac Type Severity Reaction Status Date / Time Penicillins Allergy Tremor Verified 09/11/25 10:04 Family History Mother Breast cancer Father Heart disease Other Arthritis Hypertension Surgical History History of repair of biceps tendon History of knee surgery History of carpal tunnel release of both wrists History of cholecystectomy History of cardiac catheterization History of appendectomy History of surgery on arm Social History Smoking Status: Former smoker alcohol intake: current alcohol intake frequency: 0-2 drinks per day substance use type: does not use what type of physical activity do you participate in: none Review of Systems (Anesthesia) ROS Narrative System reviewed and no additional complaints, except as documented.
--- NOTE | 2025-09-16 09:01 | OP.PCM_ITS ---
Operative Report (Standard) Operative Information Date of Procedure: 09/16/25 Pre-Operative Diagnosis: Cervical spondylosis, cervical degenerative disc disease, cervical facet arthropathy Post-Operative Diagnosis: Cervical spondylosis, cervical degenerative disc disease, cervical facet arthropathy Surgery/Procedure Performed: Left-sided cervical facet steroid injection C3-4, C4-5, C5-6 under fluoroscopic guidance cost recovery technician: No Type of Anesthesia: Local MAC RN Documented Start/Stop Times: Operation Date: 09/16/25 09:00 Case Time Into Pre-Op 09/16/25 07:16 Anesthesia Start 09/16/25 08:51 Into Room 09/16/25 08:51 Procedure Start 09/16/25 08:55 Procedure End 09/16/25 09:00 Procedure Start Time: 09:02 Procedure Stop Time: 09:02 Select all DRAINS/GRAFTS/IMPLANTS that apply: None Estimated Blood Loss: 0 Specimen collected: No Description of surgery: ANESTHESIA: MAC. BLOOD LOSS: Minimal. COMPLICATIONS: None. DESCRIPTION OF PROCEDURE: History and physical of today was reviewed. Risks and benefits of the procedure were explained. The patient understood and agreed to proceed. Informed consent was obtained. IV inserted per routine protocol. The patient was taken to the operating room and placed in the prone position with a pillow positioned underneath the chest. The neck area was prepped and draped in a sterile fashion using iodine x3. Under fluoroscopy guidance on an AP view, the C3 through C6 vertebral bodies were visualized at approximately 10- degree angle, starting on the left C3, ending on the left C6, passing through the C4 and C5. Using a 25-gauge 3-1/2-inch spinal needle, the needle was advanced via the skin. The tip of the needle was maneuvered and directed towards the epiphyseal junction of each corresponding vertebra. Once the tip of the needle was at the vicinity of the medial branch, the needle was pulled approximately 2 mm off the bone. After negative aspiration of blood or CSF and confirmation on AP, oblique as well as lateral view, a total of 4 mL of preservative-free 0.25% Marcaine with 80 mg of Depo-Medrol was injected in divided doses between those four levels. The needles were then removed intact. The patient experienced no sign or symptoms of intrathecal or intravascular injection. The patient experienced no paresthesia. The procedure was completed without any apparent difficulty or any complications. The patient appeared to tolerate it well. ASSESSMENT AND PLAN: This is a 59-year-old male with cervical spondylosis, cervical facet arthropathy, cervical degenerative disc disease, status post left-sided cervical facet steroid injection C3-C6, patient will continue his current medications, patient will follow-up in approximately 1 to 2 weeks for reevaluation. Surgical Findings: 0 Complications Complications: No Admit VTE Documentation VTE Present on Admission: No VTE Mechan Device Prophylaxis: None VTE Pharm Prophylaxis ordered?: No
--- NOTE | 2025-09-16 09:08 | PCM.POST.ANE ---
Anesthesia: Postop Eval I Current Vital Signs Temperature: 98.7 F Pulse Rate: 74 Blood Pressure: 132/82 Respiratory Rate: 16 Pulse Ox: 98 Assessment Airway patent: Yes Spontaneous unlabored respirations: Yes nausea: No Vomiting: No Anesthesia Complication: No Fluid Hydration Crystalloid volume administer (ml): 300 Total IV fluid infused: 300 Progress Note Anesthesia document: Postop Eval 1 completed: Yes
--- NOTE | 2025-09-16 10:19 | POSTOPAN2_ITS ---
Anesthesia Postop Eval I Sum Postop Eval Completion status Anesthesia document: Postop Eval 1 completed: Yes Anesthesia Postop Eval I Summary Anesthesia Postop Eval I Summary: Anesthesia Postop Eval I: Assessment Summary Airway patent Yes 09/16/25 09:08 [email or web address] Spontaneous unlabored Yes 09/16/25 09:08 [email or web address] respirations Mental status nausea No 09/16/25 09:08 [email or web address] Vomiting No 09/16/25 09:08 [email or web address] Anesthesia Postop Eval I: Fluid Summary Crystalloid volume administer 300 09/16/25 09:08 [email or web address] (ml) Colloids volume administered ( ml) Blood Product volume administered (ml) Total IV fluid infused 300 09/16/25 09:08 [email or web address] Anesthesia Postop Eval I: Summary Notes Anesthesia Complication No 09/16/25 09:08 [email or web address] Anesthesia Complication Comment: Post-operative progress note Anesthesia: Postop Eval II Evaluation Mental status: Awake and Calm Pain Level: 0 nausea: No Vomiting: No
--- NOTE | 2025-09-16 10:19 | PCM.POSTANE2 ---
Anesthesia Postop Eval I Sum Postop Eval Completion status Anesthesia document: Postop Eval 1 completed: Yes Anesthesia Postop Eval I Summary Anesthesia Postop Eval I Summary: Anesthesia Postop Eval I: Assessment Summary Airway patent Yes 09/16/25 09:08 [email or web address] Spontaneous unlabored Yes 09/16/25 09:08 [email or web address] respirations Mental status nausea No 09/16/25 09:08 [email or web address] Vomiting No 09/16/25 09:08 [email or web address] Anesthesia Postop Eval I: Fluid Summary Crystalloid volume administer 300 09/16/25 09:08 [email or web address] (ml) Colloids volume administered ( ml) Blood Product volume administered (ml) Total IV fluid infused 300 09/16/25 09:08 [email or web address] Anesthesia Postop Eval I: Summary Notes Anesthesia Complication No 09/16/25 09:08 [email or web address] Anesthesia Complication Comment: Post-operative progress note Anesthesia: Postop Eval II Evaluation Mental status: Awake and Calm Pain Level: 0 nausea: No Vomiting: No
== END 2025-09-16 09:40 | disposition home or self-care (01) ==
LOC: SDC 06:59 → AC 07:00
PROVIDERS: PCP Family Medicine; Referring Provider Anesthesiology Pain Medicine; Visit Provider Anesthesiology Pain Medicine
DX: M47.812 Spondylosis without myelopathy or radiculopathy, cervical region (principal); M50.30 Other cervical disc degeneration, unspecified cervical region
CPT/HCPCS: 64491; 64490; 72020